=== PATIENT | female | born 1960 | race Caucasian/White ===

== ENCOUNTER 2022-05-23 16:55 | Outpatient (CLI) | payer BC, SELFPAY ==
--- NOTE | ~2022-05-23 | MM_ITS ---
EXAMINATION: MM screening [facility] BI w kamari HISTORY: Screening mammogram TECHNIQUE: Craniocaudal and mediolateral oblique 3-D tomosynthesis images were obtained and synthetic 2-D images were generated. CAD analysis was submitted and interpreted. COMPARISON: 02/09/2021, 02/09/2020, 01/21/2019 BREAST PARENCHYMAL COMPOSITION: The breasts are heterogeneously dense, which may obscure small masses . FINDINGS: There is stable architectural distortion in the upper outer quadrant of the left breast at the site of prior excisional biopsy. No suspicious mass, calcification, or architectural distortion a re identified in either breast to suggest malignancy. There has been no suspicious interval change. IMPRESSION: 1. No mammographic evidence of malignancy. 2. Recommend routine screening mammography in one year. BI-RADS Category 2: Benign finding(s). Reviewed, dictated and finalized at location A.
--- NOTE | ~2022-05-23 | DEXA_ITS ---
Bone Density Report Name: EMILY ABARCA Age: 61 Sex: Female Ethnicity: White Date of : 1960 Indication: postmenopausal; screening for osteoporosis; height loss; Referring Provider: SHIMA MAURO Study: Bone densitometry was performed. Exam Date: May 23, 2022 Accession number: [id number] Bone Density: Region BMD T-score Z-score Classification AP Spine(L1-L4) 0.845 -1.8 -0.3 Osteopenia Femoral Neck (Left) 0.607 -2.2 -0.8 Osteopenia Total Hip (Left) 0.746 -1.6 -0.6 Osteopenia Femoral Neck (Right) 0.641 -1.9 -0.5 Osteopenia Total Hip (Right) 0.775 -1.4 -0.3 Osteopenia Total Hip Mean 0.761 -1.5 -0.5 Osteopenia World Health Organization criteria for BMD impression classify patients as: Normal (T-score at or above -1.0), Osteopenia (T-score between -1.0 and -2.5), or Osteoporosis (T-score at or below -2.5). 10-year Fracture Risk(1): Major Osteoporotic Fracture 9.7% Hip Fracture 1.5% Reported Risk Factors: [place] (), Neck BMD=0.607, BMI=21.5 (1) FRAX(R) Version 3.08. Fracture probability calculated for an untreated patient. Fracture probability may be lower if the patient has received treatment. Clinical Information Provided by Patient: Has used the following medications: Vitamin D, Calcium Patient maximum height was 66 Menopause Age: 51 Drinks caffeinated beverages Onset of menses at age 13 Number of children 1 Impression: The patient has low bone mass, based on the Left Femoral Neck T-score. The patient has an estimated ten-year risk of hip fracture of 1.5% and an estimated ten-year risk of major fracture of 9.7%, based on the WHO FRAX algorithm. Discussion: BONE DENSITY IS LOW AT ONE OR MORE SKELETAL SITES. This patient's lowest T-score is low at one or more skeletal sites. It meets the World Health Organization's (WHO) criteria for ?low bone mass? (T-score between -1.0 and -2.5). The patient's 10-year risk of fracture as calculated by FRAX is less than the threshold where pharmacological therapy is recommended by the National Osteoporosis Foundation (NOF). However, all treatment decisions require clinical judgment and consideration of individual patient factors, including patient preferences, comorbidities, previous drug use, risk factors not captured in the FRAX model (e.g., frailty, falls, vitamin D deficiency, increased bone turnover, interval significant decline in bone density) and possible under or overestimation of fracture risk by FRAX. The patient should follow a healthful lifestyle (good nutrition with adequate calcium and vitamin D, and appropriate weight-bearing exercise). Follow-Up: Consider repeating this study in 2 to 3 years to reassess this patient's status, or sooner if there is some new clinical indication. Reported by: [facility] on
== END 2022-05-23 16:56 | disposition home or self-care (01) ==
PROVIDERS: PCP Family Medicine; Visit Provider Family Medicine
DX: Z12.31 Encounter for screening mammogram for malignant neoplasm of breast (principal); Z78.0 Asymptomatic menopausal state; M85.89 Other specified disorders of bone density and structure, multiple sites
CPT/HCPCS: 77063; 77067; 77080

== ENCOUNTER → 2022-10-04 14:07 | Outpatient (CLI) | payer BC, SELFPAY ==
--- NOTE | ~2022-10-04 | XR_ITS ---
XR shoulder RT min 2V 10/04/2022 14:18 Indication: Right shoulder pain Procedure: 4 views right shoulder Comparison: No prior studies for comparison. Findings: No fracture, subluxation or dislocation. There is anatomic alignment. No significant soft t issue abnormality. No foreign body. Impression: 1: No acute bone or joint abnormality. Reviewed, dictated and finalized at location A. ING TABLE OPERATOR FIRST Impression: 1: No acute bone or joint abnormality.
== END ==
PROVIDERS: PCP Family Medicine; Visit Provider Family Medicine
DX: M25.511 Pain in right shoulder (principal)
CPT/HCPCS: 73030

== ENCOUNTER 2022-12-11 08:28 | Outpatient (CLI) | payer BC, SELFPAY ==
[2022-12-11 18:45] LABS: Alanine Aminotransferase 20 U/L (6-35); Albumin Level 4.3 g/dL (3.5-5.1); Alkaline Phosphatase 70 U/L (38-126); Anion Gap 5 mmol/L (8-16); Aspartate Amino Transferase 71 U/L (14-36); Bilirubin,Total 0.8 mg/dL (0.2-1.3); Blood Urea Nitrogen 21 mg/dL (7-17); Calcium 8.8 mg/dL (8.4-10.2); Carbon Dioxide 31 mmol/L (22-30); Chloride 102 mmol/L (98-107); Cholesterol 187 mg/dL (0-200); Estimated Glomerular Filt Rate > 60; Glucose 74 mg/dL (65-110); HDL Direct 92 mg/dL; Potassium 3.9 mmol/L (3.4-5.0); Sodium 138 mmol/L (137-145); Triglycerides 47 mg/dL (<150)
[2022-12-11 18:56] LABS: LDL Cholesterol Direct 64 mg/dL
[2022-12-11 19:02] LABS: Basophils Absolute Auto 0.1 K/mm3 (0.0-0.1); Eosinophils Absolute Auto 0.1 K/mm3 (0-0.3); Eosinophils Percent Auto 1.9 % (0-4.4); Hematocrit 39.2 % (37.0-47.0); Hemoglobin 12.6 g/dL (12.0-15.0); Immature Granulocyte Absolute 0.01 K/mm3 (0.00-0.031); Immature Granulocyte Percent A 0.2 % (0-0.5); Lymphocytes Absolute Auto 1.41 K/mm3 (0.9-3.2); Mean Corpuscular HGB Conc 32.1 g/dl (32-36); Mean Corpuscular Hemoglobin 31.5 pg (26-34); Mean Platelet Volume 10.5 fl (7.4-10.4); Monocytes Absolute Auto 0.4 K/mm3 (0.1-0.6); Monocytes Percent Auto 7.8 % (2.6-8.5); Neutrophils Absolute Auto 2.9 K/mm3 (1.3-6.7); Neutrophils Percent Auto 60.1 % (45.5-73.1); Platelet Count Result 234 k/mm3 (150-375); Red Cell Distribution Width 13.3 % (11.5-14.5); White Blood Count 4.9 K/mm3 (4.5-10.0)
[2022-12-11 19:08] LABS: Free T4 Free Thyroxine 0.95 ng/mL (0.78-2.19); Vitamin D 25 Hydroxy 84.7 ng/mL
[2022-12-11 19:36] LABS: Hemoglobin A1C 5.2 % (<5.7)
== END 2022-12-11 08:29 | disposition home or self-care (01) ==
LOC: ANHGOSHLAB 08:28
PROVIDERS: PCP Family Medicine; Visit Provider Family Medicine
DX: Z13.220 Encounter for screening for lipoid disorders (principal); R73.9 Hyperglycemia, unspecified; M85.80 Other specified disorders of bone density and structure, unspecified site; R53.83 Other fatigue
CPT/HCPCS: 36415; 80053; 80061; 82306; 83036; 84439; 84443; 85025

== ENCOUNTER 2023-02-23 14:25 | Outpatient (CLI) | payer BC, SELFPAY ==
[2023-02-23 18:43] LABS: Alanine Aminotransferase 18 U/L (6-35); Albumin Level 3.9 g/dL (3.5-5.1); Alkaline Phosphatase 68 U/L (38-126); Anion Gap 2 mmol/L (8-16); Aspartate Amino Transferase 31 U/L (14-36); Bilirubin,Total 0.4 mg/dL (0.2-1.3); Blood Urea Nitrogen 22 mg/dL (7-17); Calcium 9.3 mg/dL (8.4-10.2); Carbon Dioxide 34 mmol/L (22-30); Chloride 102 mmol/L (98-107); Estimated Glomerular Filt Rate > 60; Glucose 91 mg/dL (65-110); Potassium 3.9 mmol/L (3.4-5.0); Sodium 138 mmol/L (137-145)
== END 2023-02-23 14:26 | disposition home or self-care (01) ==
LOC: ANHGOSHLAB 14:26
PROVIDERS: PCP Family Medicine; Visit Provider Family Medicine
DX: R74.8 Abnormal levels of other serum enzymes (principal)
CPT/HCPCS: 36415; 80053

== ENCOUNTER 2023-06-13 15:25 | Outpatient (CLI) | payer BC, SELFPAY ==
--- NOTE | ~2023-06-13 | MM_ITS ---
EXAMINATION: MM screening [facility] BI w kamari HISTORY: Screening mammogram TECHNIQUE: Craniocaudal and mediolateral oblique 3-D tomosynthesis images were obtained and synthetic 2-D images were generated. Bilateral rotated lateral CC views. CAD analysis was submitted and interp reted. COMPARISON: 05/23/2022, 02/09/2021 bilateral screening mammogram examinations BREAST PARENCHYMAL COMPOSITION: The breasts are heterogeneously dense, which may obscure small masses . FINDINGS: Stable postoperative change on the left from reportedly benign prior open biopsy in 2013. T here is no evidence of suspicious mass, calcification, or architectural distortion to suggest maligna ncy in either breast. There has been no suspicious interval change. IMPRESSION: 1. No mammographic evidence of malignancy. 2. Recommend routine screening mammography in one year. BI-RADS Category 2: Benign finding(s). Reviewed, dictated and finalized at location A.
== END 2023-06-13 15:26 | disposition home or self-care (01) ==
LOC: ANHIMG 15:26
PROVIDERS: PCP Family Medicine; Visit Provider Family Medicine
DX: Z12.31 Encounter for screening mammogram for malignant neoplasm of breast (principal)
CPT/HCPCS: 77063; 77067

== ENCOUNTER 2023-12-20 08:24 | Outpatient (CLI) | payer BC, SELFPAY ==
[2023-12-20 19:09] LABS: Basophils Percent Auto 0.9 % (0.2-1.2); Eosinophils Absolute Auto 0.1 K/mm3 (0-0.3); Eosinophils Percent Auto 1.4 % (0-4.4); Hematocrit 40.9 % (37.0-47.0); Hemoglobin 13.4 g/dL (12.0-15.0); Immature Granulocyte Absolute 0.01 K/mm3 (0.00-0.031); Immature Granulocyte Percent A 0.2 % (0-0.5); Lymphocytes Percent Auto 29.5 % (18.3-44.2); Mean Corpuscular HGB Conc 32.8 g/dl (32-36); Mean Corpuscular Hemoglobin 31.8 pg (26-34); Mean Corpuscular Volume 96.9 fl (80-100); Mean Platelet Volume 10.6 fl (7.4-10.4); Monocytes Absolute Auto 0.4 K/mm3 (0.1-0.6); Monocytes Percent Auto 9.1 % (2.6-8.5); Neutrophils Absolute Auto 2.6 K/mm3 (1.3-6.7); Neutrophils Percent Auto 58.9 % (45.5-73.1); Platelet Count Result 251 k/mm3 (150-375); Red Blood Count 4.22 M/mm3 (4.2-5.4); Red Cell Distribution Width 12.2 % (11.5-14.5); White Blood Count 4.4 K/mm3 (4.5-10.0)
[2023-12-20 19:16] LABS: Alanine Aminotransferase 22 U/L (6-35); Albumin Level 4.3 g/dL (3.5-5.1); Alkaline Phosphatase 85 U/L (38-126); Anion Gap 5 mmol/L (4-12); Aspartate Amino Transferase 44 U/L (14-36); Bilirubin,Total 0.7 mg/dL (0.2-1.3); Blood Urea Nitrogen 23 mg/dL (7-17); Calcium 9.2 mg/dL (8.4-10.2); Carbon Dioxide 30 mmol/L (22-30); Chloride 103 mmol/L (98-107); Cholesterol 155 mg/dL (0-200); Estimated Glomerular Filt Rate > 60; Glucose 83 mg/dL (65-110); HDL Direct 80 mg/dL; Potassium 4.2 mmol/L (3.4-5.0); Sodium 138 mmol/L (137-145); Triglycerides 60 mg/dL (<150)
[2023-12-20 19:26] LABS: LDL Cholesterol Direct 70 mg/dL
[2023-12-20 20:17] LABS: Hemoglobin A1C 5.3 % (<5.7)
[2023-12-20 20:30] LABS: Free T4 Free Thyroxine 1.04 ng/mL (0.78-2.19)
[2023-12-20 20:57] LABS: Hepatitis C Virus Antibody Negative (Negative)
== END 2023-12-20 08:25 | disposition home or self-care (01) ==
LOC: ANHGOSHLAB 08:26
PROVIDERS: PCP Internal Medicine; Visit Provider Family Medicine
DX: R73.9 Hyperglycemia, unspecified (principal); R53.83 Other fatigue; M85.80 Other specified disorders of bone density and structure, unspecified site; Z11.59 Encounter for screening for other viral diseases; Z13.220 Encounter for screening for lipoid disorders
CPT/HCPCS: 36415; 80053; 80061; 82306; 83036; 84439; 84443; 85025; 86803

== ENCOUNTER 2024-03-27 01:13 | Day surgery (SDC) | payer BC, SELFPAY ==
[2024-03-07 10:06] VITALS: BMI 20.8
[2024-03-27 07:44] VITALS: BP 110/75; PULSE 86; RESP 16; TEMP 36; O2SAT 100; BMI 20.4
[2024-03-27] MEDS: LACTATED RINGERS 1,000 ML 150 ML IV CONT (07:53)
--- NOTE | 2024-03-27 08:28 | WPDANESEPPF ---
Anes - Initial Pre Proc Eval Procedure: Operation Date: 03/27/24 09:00 Proposed Procedures p Screening Colonoscopy - Mario Merritt MD Date/Time: 03/27/24 08:28 Surgeon: Mario Merritt MD Pre Op Diagnosis: neoplasm screening Patient Data Age: 63 Gender: F Height: 1.65 m Weight: 55.7 kg Last Vital Signs Temp 96.8 F L 03/27/24 07:44 Pulse 86 03/27/24 07:44 Resp 16 03/27/24 07:44 BP 110/75 03/27/24 07:44 Pulse Ox 100 03/27/24 07:44 O2 Del Method Room Air 03/27/24 07:44 Allergies Allergy/AdvReac Type Severity Reaction Status Date / Time No Known Drug Allergies Allergy Unknown Unknown Verified 03/27/24 07:42 Home Medications Medication Instructions Recorded Confirmed Type cholecalciferol (vitamin D3) 25 25 mcg PO DAILY 09/28/21 03/27/24 History mcg (1,000 unit) tablet bbrjqbbracyg-btvfajrk-mscktb tablet 1 tablet PO DAILY 09/28/21 03/27/24 History raloxifene 60 mg tablet 60 mg PO DAILY #90 tabs 09/13/23 03/27/24 Rx calcium citrate 250 mg 2 tablet PO DAILY 03/07/24 03/27/24 History calcium-vitamin D3 5 mcg (200 unit) tablet estradiol 0.01% (0.1 mg/gram) 1 appful vaginal 2XW 03/07/24 03/27/24 History vaginal cream (Estrace) Patient hx anesthesia problems: none Family hx anesthesia problems: none Results Review: All pre-operative results and documents have been reviewed as part of the pre-operative evaluation. [facility] Past Medical History Medical History Flat epithelial atypia (FEA) of breast Osteopenia Surgical History Surgical History History of breast lump/mass excision History of breast surgery (~01/16/14) Excisional Biopsy - Left Family History Family History Mother Depression Hypertension Family history of Alzheimer's disease Osteoporosis Father Hypertension Cerebrovascular accident Other Family history of cardiovascular disease Family history of malignant neoplasm Social History Social History Smoking status: Never smoker Alcohol intake: current Drinks per week: 4 Alcohol use details: GLASSES WINE Substance use: never Substance use type: does not use Do You Feel Safe in your Home?: Yes Lack of Transportation: No Lack of Food: Never True Current Housing: I Have Housing Concerned About Future Housing: No Difficulty Paying Gas/Electric Bills: No Difficulty Paying for Meds: No Currently Unemployed: No Education: Bachelor's Degree Difficulty w/ Childcare or Family Care: No Living arrangements: with family Spiritual care concerns: No Anes - Eval Final PreProcedure Day of Procedure 03/27/24 08:28 Patient weight: normal Heart: regular rate and rhythm Lungs: clear to auscultation Airway: Mallampati scale class II Neurological: alert and oriented Last oral intake: >/= 8 hours ASA classification: II Emergent: no Anesthetic plan: proceed Anesthesia type and monitoring: general GIVS and standard monitoring Results Review: All pre-operative results and documents have been reviewed as part of the pre-operative evaluation. Informed Consent: The patient's anesthetic plan and its attendant risks and benefits were discussed with the patient/family/POA. Questions were solicited and answers provided to the satisfaction of the patient/family/POA.
--- NOTE | 2024-03-27 08:32 | PM.HPGS ---
History of Present Illness History of Present Illness Consent: Risks, benefits, and alternatives have been discussed and questions answered. Patient agrees to proceed with procedure. Chief complaint: neoplasm screening Narrative: Claribel Ortiz is a 63 year old female here for screening colonoscopy, last one 2010 Review of Systems Review of Systems: All systems reviewed & are unremarkable except as noted in HPI and below PMFSH Past Medical History Medical History Flat epithelial atypia (FEA) of breast Osteopenia Surgical History Surgical History History of breast lump/mass excision History of breast surgery (~01/16/14) Excisional Biopsy - Left Family History Family History Mother Depression Hypertension Family history of Alzheimer's disease Osteoporosis Father Hypertension Cerebrovascular accident Other Family history of cardiovascular disease Family history of malignant neoplasm Social History Social History Smoking status: Never smoker Alcohol intake: current Drinks per week: 4 Alcohol use details: GLASSES WINE Substance use: never Substance use type: does not use Do You Feel Safe in your Home?: Yes Lack of Transportation: No Lack of Food: Never True Current Housing: I Have Housing Concerned About Future Housing: No Difficulty Paying Gas/Electric Bills: No Difficulty Paying for Meds: No Currently Unemployed: No Education: Bachelor's Degree Difficulty w/ Childcare or Family Care: No Living arrangements: with family Spiritual care concerns: No Meds Home Medications and Allergies Home Medications Medication Instructions Recorded Confirmed Type cholecalciferol (vitamin D3) 25 25 mcg PO DAILY 09/28/21 03/27/24 History mcg (1,000 unit) tablet fjmzzibsyekj-ymqpuinp-hhtdyr tablet 1 tablet PO DAILY 09/28/21 03/27/24 History raloxifene 60 mg tablet 60 mg PO DAILY #90 tabs 09/13/23 03/27/24 Rx calcium citrate 250 mg 2 tablet PO DAILY 03/07/24 03/27/24 History calcium-vitamin D3 5 mcg (200 unit) tablet estradiol 0.01% (0.1 mg/gram) 1 appful vaginal 2XW 03/07/24 03/27/24 History vaginal cream (Estrace) Allergies Allergy/AdvReac Type Severity Reaction Status Date / Time No Known Drug Allergies Allergy Unknown Unknown Verified 03/27/24 07:42 Vital Signs Vital Signs - 24 hr 03/27/24 07:44 Temperature 96.8 F L Pulse Rate 86 Respiratory Rate 16 Blood Pressure 110/75 Pulse Oximetry 100 Oxygen Delivery Room Air Exam Const: General: comfortable and no acute distress HENMT: Face/Nose/Sinus: Normal nares present Eyes: General: appearance normal, both eyes and all related structures Neck: Neck: no JVD Resp: Auscultation: clear to auscultation bilaterally Cardio: Rate: regular rate Rhythm: regular rhythm GI: Inspection: non-distended GI Palp: Yes Soft to palpation Skin: General skin exam: normal color Neuro: General: gait normal Speech: normal speech Extrem: General: normal to inspection Psych: Mental Status: mental status grossly normal Assessment and Plan Assessment and plan (1) Colon cancer screening: Code(s): Z12.11 - Encounter for screening for malignant neoplasm of colon Status: Acute Assessment and Plan: colonoscopy
[2024-03-27 08:56] VITALS: BP 96/60; PULSE 74; RESP 18; O2SAT 100
[2024-03-27 09:06] VITALS: BP 116/75; PULSE 73; RESP 16; O2SAT 100
[2024-03-27 09:16] VITALS: BP 127/83; PULSE 74; RESP 17; O2SAT 100
== END 2024-03-27 09:20 | disposition home or self-care (01) ==
PROVIDERS: PCP Family Medicine; Visit Provider Internal Medicine Gastroenterology
PROC: 0DJD8ZZ Inspection of Lower Intestinal Tract, Via Natural or Artificial Opening Endoscopic (ICD-10-PCS; CPT 45378; principal; 2024-03-27 09:00)
DX: Z12.11 Encounter for screening for malignant neoplasm of colon (principal); M85.89 Other specified disorders of bone density and structure, multiple sites; Z79.810 Long term (current) use of selective estrogen receptor modulators (SERMs); Z98.890 Other specified postprocedural states; Z80.9 Family history of malignant neoplasm, unspecified; Z82.49 Family history of ischemic heart disease and other diseases of the circulatory system
CPT/HCPCS: 45378; J2704; J7120

== ENCOUNTER 2024-06-26 08:32 | Outpatient (CLI) | payer BC, SELFPAY ==
--- NOTE | ~2024-06-26 | MM_ITS ---
EXAMINATION: MM screening [facility] BI w kamari HISTORY: Screening TECHNIQUE: Craniocaudal and mediolateral oblique 3-D tomosynthesis images were obtained and synthetic 2-D images were generated. CAD analysis was submitted and interpreted. COMPARISON: Comparison to multiple prior studies sequentially, with oldest reviewed study dated 11/2018. BREAST PARENCHYMAL COMPOSITION: Dense: The breasts are extremely dense, which lowers the sensitivity of mammography. FINDINGS: There is no evidence of suspicious mass, calcification, or architectural distortion to sugg est malignancy in either breast. There has been no suspicious interval change. IMPRESSION: 1. No mammographic evidence of malignancy. 2. Recommend routine screening mammography in one year. BI-RADS Category 1: Negative Reviewed, dictated and finalized at location B. MANAGER
== END 2024-06-26 08:33 | disposition home or self-care (01) ==
LOC: ANHIMG 08:36
PROVIDERS: PCP Family Medicine; Visit Provider Family Medicine
DX: Z12.31 Encounter for screening mammogram for malignant neoplasm of breast (principal)
CPT/HCPCS: 77063; 77067

== ENCOUNTER 2024-07-10 15:42 | Outpatient (CLI) | payer BC, SELFPAY ==
--- NOTE | ~2024-07-10 | XR_ITS ---
EXAMINATION: XR hip BI 2V w AP pelvis DATE: 07/10/2024 15:56 INDICATION: Bilateral hip pain. TECHNIQUE: An anteroposterior view of the pelvis and 2 views of each hip were obtained. COMPARISON: Right hip radiographs 09/19/2021 FINDINGS: Alignment is normal. No fracture. There is mild lumbar spondylosis. There is mild right hip osteoarthritis characterized by a tiny osteophyte. Left hip joint space is normal. IMPRESSION: 1. Mild right hip osteoarthritis. Reviewed, dictated and finalized at location A. ORATION SECRETARY
--- NOTE | ~2024-07-10 | XR_ITS ---
EXAMINATION: XR lumbar spine min 4V DATE: 07/10/2024 15:56 INDICATION: Low back pain. Bilateral hip pain. TECHNIQUE: 5 views of lumbar spine were obtained. COMPARISON: None. FINDINGS: There is 10 degrees scoliosis of lumbar spine. S1 is a transitional segment. There is 3 mm anterolisthesis of L4 on L5 and 5 mm anterolisthesis of L5 on S1. Vertebral body heights are normal. There is mildly decreased disc height at L3-L4, L4-L5, and L5-S1. There is multilevel facet joint ost eoarthritis, severe in lower lumbar spine. IMPRESSION: 1. Mild lumbar spondylosis. 2. Lumbar levoscoliosis. Reviewed, dictated and finalized at location A. STACKER
== END 2024-07-10 15:43 | disposition home or self-care (01) ==
LOC: GOSHIMG 15:43
PROVIDERS: PCP Family Medicine; Visit Provider Family Medicine
DX: M16.11 Unilateral primary osteoarthritis, right hip (principal); M43.06 Spondylolysis, lumbar region; M41.86 Other forms of scoliosis, lumbar region
CPT/HCPCS: 72110; 73521

== ENCOUNTER 2024-07-25 12:40 | Outpatient (CLI) | payer BC, SELFPAY ==
--- NOTE | ~2024-07-25 | DEXA_ITS ---
Bone Density Report Name: EMILY ABARCA Age: 64 Sex: Female Ethnicity: White Date of : 1960 Indication: osteopenia; parental hip fracture; Referring Provider: SHIMA MAURO Study: Bone densitometry was performed. Exam Date: July 25, 2024 Accession number: [id number] Bone Density: Region BMD T-score Z-score Classification AP Spine(L1-L4) 0.826 -2.0 -0.3 Osteopenia Femoral Neck (Left) 0.614 -2.1 -0.6 Osteopenia Total Hip (Left) 0.849 -0.8 0.4 Normal Femoral Neck (Right) 0.655 -1.7 -0.3 Osteopenia Total Hip (Right) 0.882 -0.5 0.7 Normal Total Hip Mean 0.865 -0.7 0.6 Normal World Health Organization criteria for BMD impression classify patients as: Normal (T-score at or above -1.0), Osteopenia (T-score between -1.0 and -2.5), or Osteoporosis (T-score at or below -2.5). 10-year Fracture Risk(1): Major Osteoporotic Fracture 18% Hip Fracture 1.6% Reported Risk Factors: [place] (), Neck BMD=0.614, BMI=20.9, parental fracture (1) FRAX(R) Version 3.08. Fracture probability calculated for an untreated patient. Fracture probability may be lower if the patient has received treatment. Previous Exams: Region Exam Age BMD T-score BMD Change BMD Change Date g/cm2 vs Baseline vs Previous AP Spine (L1-L4) 07/25/2024 64 0.826 -2.0 -0.018 (-2.2%) -0.018 (-2.2%) 05/23/2022 61 0.845 -1.8 Total Hip(Left) 07/25/2024 64 0.849 -0.8 0.103 (13.8%)* 0.103 (13.8%)* 05/23/2022 61 0.746 -1.6 Total Hip(Right) 07/25/2024 64 0.882 -0.5 0.107 (13.8%)* 0.107 (13.8%)* 05/23/2022 61 0.775 -1.4 *Denotes significance at 95% confidence level, LSC for AP Spine = 0.022 g/cm2, LSC for Total Hip = 0.027 g/cm2 Clinical Information Provided by Patient: Parent has had a hip fracture Has used the following medications: Vitamin D, Calcium Patient maximum height was 66 Menopause Age: 51 Drinks caffeinated beverages Onset of menses at age 13 Number of children 1 Impression: The patient has low bone mass, based on the Left Femoral Neck T-score. The patient has an estimated ten-year risk of hip fracture of 1.6% and an estimated ten-year risk of major fracture of 18%, based on the WHO FRAX algorithm. The patient has risk factors, including: parental hip fracture. No significant bone loss was observed. Discussion: BONE DENSITY IS LOW AT ONE OR MORE SKELETAL SITES. This patient's lowest T-score is low at one or more skeletal sites. It meets the World Health Organization's (WHO) criteria for ?low bone mass? (T-score between -1.0 and -2.5). The patient's 10-year risk of fracture as calculated by FRAX is less than the threshold where pharmacological therapy is recommended by the National Osteoporosis Foundation (NOF). However, all treatment decisions require clinical judgment and consideration of individual patient factors, including patient preferences, comorbidities, previous drug use, risk factors not captured in the FRAX model (e.g., frailty, falls, vitamin D deficiency, increased bone turnover, interval significant decline in bone density) and possible under or overestimation of fracture risk by FRAX. The patient should follow a healthful lifestyle (good nutrition with adequate calcium and vitamin D, and appropriate weight-bearing exercise). Follow-Up: Consider repeating this study in 2 to 3 years to reassess this patient's status, or sooner if there is some new clinical indication. Reported by: LEO on 07/25/2024 1:22:00 PM. Reviewed, dictated and finalized at location AMaged ASHTON
== END 2024-07-25 12:41 | disposition home or self-care (01) ==
PROVIDERS: PCP Family Medicine; Visit Provider Family Medicine
DX: M85.89 Other specified disorders of bone density and structure, multiple sites (principal)
CPT/HCPCS: 77080

== ENCOUNTER 2024-08-03 10:39 | Emergency (ER) | payer BC, SELFPAY ==
--- NOTE | ~2024-08-03 | XR_ITS ---
AP view of the pelvis and AP and lateral views of the left hip Clinical history: Pain COMPARISON: 07/10/2024 Findings: There is suspected subtle cortical step-off at the subcapital region of the left femoral ne ck, and a nondisplaced fracture is suspected. Proximal right femur intact. Remaining pelvic bones are intact.. Bilateral hip and SI joint spaces are preserved. Soft tissues are unremarkable. Impression: Suspected nondisplaced subcapital fracture of the proximal left femoral neck. Consider CT or MR to co nfirm/further evaluate. Reviewed, dictated and finalized at location . OPERATOR Impression: Suspected nondisplaced subcapital fracture of the proximal left femoral neck. C onsider CT or MR to confirm/further evaluate.
[2024-08-03 10:51] VITALS: BP 119/77; PULSE 89; RESP 16; TEMP 37.4; O2SAT 98
--- NOTE | 2024-08-03 11:15 | ED_ITS ---
HPI - Extremity Injury (Lower) General Chief Complaint: Extremity Injury, Lower Stated Complaint: L HIP INJURY Time Seen by Provider: 08/03/24 10:58 Source: patient, family () and RN notes reviewed Mode of arrival: wheelchair Limitations: no limitations History of Present Illness HPI Narrative: Patient presents today complaining of left lateral hip pain. She tripped on a stick while taking a walk and fell onto her left hip approximately 1 hour prior to arrival. She does report some tingling to the area. She was ambulatory after the fall, but after sitting in her car for the ride here, she was having more pain and needed a wheelchair to ambulate inside the building. Currently rates her pain 5/10. She had taken an Aleve prior to her walk. History of osteopenia Related Data Home Medications ?Medication ?Instructions ?Recorded ?Confirmed ?Last Taken ?Type cholecalciferol (vitamin D3) 25 25 mcg PO DAILY 09/28/21 07/10/24 Unknown History mcg (1,000 unit) tablet bgzcrbxjvgdu-wtdhnvnl-vdgrgj tablet 1 tablet PO DAILY 09/28/21 07/10/24 Unknown History calcium 250 mg (as 2 tablet PO DAILY 03/07/24 07/10/24 Unknown History citrate)-vitamin D3 5 mcg (200 unit) tablet Allergies Allergy/AdvReac Type Severity Reaction Status Date / Time No Known Drug Allergies Allergy Unknown Unknown Verified 08/03/24 10:50 Review of Systems Review of Systems: CONSTITUTIONAL: Denies body aches, fever, chills, or sweats. EYES: Denies visual changes, redness, or discharge. ENT: Denies rhinorrhea, congestion, sore throat, or otalgia. CARDIOVASCULAR: Denies chest pain, palpitations, or edema. RESPIRATORY: Denies cough or dyspnea. GASTROINTESTINAL: Denies abdominal pain, nausea, vomiting, or diarrhea. GENITOURINARY: Denies dysuria or hematuria. SKIN: Denies rash, itching, or wounds. MUSCULOSKELETAL: Denies back pain, or myalgia.+ left hip pain NEUROLOGIC: Denies headache, numbness, tingling, or weakness. PSYCH: Denies depression or anxiety. [facility] Past Medical History Medical History Flat epithelial atypia (FEA) of breast Osteopenia Surgical History Surgical History History of breast lump/mass excision History of breast surgery (~01/16/14) Excisional Biopsy - Left Family History Family History Mother Depression Hypertension Family history of Alzheimer's disease Osteoporosis Father Hypertension Cerebrovascular accident Other Family history of cardiovascular disease Family history of malignant neoplasm Social History Social History Smoking status: Never smoker Alcohol intake: current Drinks per week: 4 Alcohol use details: GLASSES WINE Substance use: never Substance use type: does not use Do You Feel Safe in your Home?: Yes Lack of Transportation: No Lack of Food: Never True Current Housing: I Have Housing Concerned About Future Housing: No Difficulty Paying Gas/Electric Bills: No Difficulty Paying for Meds: No Currently Unemployed: No Education: Bachelor's Degree Difficulty w/ Childcare or Family Care: No Living arrangements: with family Spiritual care concerns: No Comments At time of signature, I have reviewed and agree with nursing past medical, surgical, social and family history unless otherwise noted. Please see nursing chart for further information. There is no relevant family history pertinent to the presenting complaint Exam Narrative: GENERAL: Well-appearing, well-nourished, and in no acute distress. HEAD: Normocephalic, atraumatic. EYES: EOMI. No redness or drainage. Conjunctivae normal. ENT: Mucous membranes pink and moist. NECK: Normal AROM. CHEST: No respiratory distress. EXTREMITIES: Left hip: Mild tenderness about the lateral hip. No tenderness posteriorly or to the low back. No tenderness to the knee. No edema noted. Distal sensation intact. Capillary refill normal. Posterior tibial pulse normal. Pain in the groin area with flexion of the hip. SKIN: Warm, dry, no rash. Capillary refill normal. Normal skin turgor. NEURO: No focal deficits. Alert and oriented x3. PSYCH: Normal affect. No signs of depression or anxiety. Course Course Level of Care: Express Care Visit Vital Signs Vital signs: Vital Signs Temperature 99.3 F 08/03/24 10:51 Pulse Rate 89 08/03/24 10:51 Respiratory Rate 16 08/03/24 10:51 Blood Pressure 119/77 08/03/24 10:51 Pulse Oximetry 98 08/03/24 10:51 Temperature 99.3 F 08/03/24 10:51 Pulse Rate 89 08/03/24 10:51 Respiratory Rate 16 08/03/24 10:51 Blood Pressure 119/77 08/03/24 10:51 Pulse Oximetry 98 08/03/24 10:51 Reviewed MDM - Extremity Injury (Lower) MDM Narrative Medical decision making narrative: Patient's x-ray shows suspected nondisplaced fracture of the femoral neck and recommends additional imaging to evaluate. Patient given option to go to the ER for further evaluation or follow-up outpatient for additional imaging. Patient has declined ER transfer. Will order some crutches for nonweightbearing. She would like to follow-up with her orthopedist for further evaluation. She has seen Dr. Weathers in the past and would like to return to him. Differential Diagnosis Differential diagnosis: Likely fracture of hip and other (Hip contusion) Imaging Data Radiologist's impression: ITS Impressions Hip/Pelvis X-Ray 08/03/24 11:37 Impression: Suspected nondisplaced subcapital fracture of the proximal left femoral neck. Consider CT or MR to confirm/further evaluate. Critical Care Time Critical Care Time Critical Care Time: No Discharge Plan Discharge Clinical Impression: Injury of hip, left Qualifiers: Encounter type: initial encounter Qualified Code(s): S79.912A - Unspecified injury of left hip, initial encounter Patient Disposition: Home, Self-Care Condition: Stable Additional Instructions: Your xray shows a suspected fracture of your hip. You have declined ER transfer today for further evaluation. Please call your PCP or orthopedist tomorrow in hopes of scheduling an outpatient a CT scan. Use the crutches do not put any weight on your leg. Rest. Take pain medication as needed. Patient Language: Paraguayan Prescriptions: New hydrocodone-acetaminophen 5-325 mg tablet 1 tablet PO Q8H PRN (Reason: pain) Qty: 10 0RF No Action jvicbzwpegps-vlgrsqnp-yukftv Tablet 1 tablet PO DAILY cholecalciferol (vitamin D3) 25 mcg (1,000 unit) tablet 25 mcg PO DAILY calcium citrate-vitamin D3 [Citracal plus D] 250 mg-5 mcg (200 unit) Tablet 2 tablet PO DAILY estradiol [Estrace] 0.01 % (0.1 mg/gram) cream 1 appful vaginal 2XW Qty: 42.5 1RF raloxifene 60 mg tablet 60 mg PO DAILY Qty: 90 1RF Follow-up/Referrals: Puja Amaro DO [Primary Care Provider] - Roger Weathers MD [Physician] - Time of Disposition: 11:59
== END 2024-08-03 12:07 | disposition home or self-care (01) ==
PROVIDERS: Emergency Provider Nurse Practitioner; PCP Family Medicine
DX: S79.912A Unspecified injury of left hip, initial encounter (principal); W18.09XA Striking against other object with subsequent fall, initial encounter; M85.80 Other specified disorders of bone density and structure, unspecified site
CPT/HCPCS: 73502; 99213; G0463

== ENCOUNTER 2024-08-04 12:17 | Inpatient (IN) | payer BC, SELFPAY ==
[2024-08-04] VITALS (19 sets, daily range): BP systolic 103–124; BP diastolic 63–80; PULSE 88–105; RESP 16–18; TEMP 36.8–37.5; O2SAT 94–99; BMI 20.8
--- NOTE | ~2024-08-04 | XR_ITS ---
EXAMINATION: XR surgery orthopedic DATE: 08/05/2024 11:06 INDICATION: Right hip pinning TECHNIQUE: 3 fluoroscopic images of the left hip were obtained during procedure performed by Dr. Flaco guzman. Radiologist was not present for the imaging or procedure. The amount of fluoroscopy time used du ring this procedure was 0.7 minutes. COMPARISON: None. FINDINGS: Again seen is a minimally displaced subcapital fracture of the proximal left femur with mild superola teral impaction which is now fixed with a pair of cannulated lag screws. No new fractures identified. Left hip joint space is normal. IMPRESSION: 1. Lag screw fixation of a recently noted subcapital fracture of the proximal left femur which remain s in near-anatomic alignment. Reviewed, dictated and finalized at location A. TH ADMINISTRATION TEACHER IMPRESSION: 1. Lag screw fixation of a recently noted subcapital fracture of the proximal l eft femur which remains in near-anatomic alignment.
--- NOTE | ~2024-08-04 | XR_ITS ---
EXAMINATION: XR chest 1V portable DATE: 08/04/2024 15:02 INDICATION: Preoperative evaluation. Hip fracture. TECHNIQUE: frontal view of the chest was obtained. COMPARISON: None FINDINGS: Biapical pleural-parenchymal scarring. Additional mild streaky atelectasis at the right costophrenic angle. No other airspace opacities, pulmonary edema, pleural effusion or pneumothorax. The cardiomedi astinal silhouette is normal. IMPRESSION: 1. Mild biapical pleural-parenchymal scarring and mild atelectasis at the right costophrenic angle. Reviewed, dictated and finalized at location A. TIME
--- NOTE | ~2024-08-04 | CT_ITS ---
CT pelvis wo con Ordering provider: Papito Wynn APRN History: . pelvic pain . Comparison: August 03, 2024 Technique: CT pelvis without oral and IV contrast. . Automated exposure control and iterative recons truction technique were employed. The dose-length product was 152.76 mGy-cm. Findings: BONES: Undisplaced fracture is seen in the left femoral neck in the subcapital area. No other fractur es seen. Age appropriate degenerative changes of the visualized lower lumbar spine. The hip joint spa jr are well maintained. Cystic area seen in the right acetabulum suggestive of osteoarthritic change s. Mild bilateral sacroiliacs. SUPERFICIAL SOFT TISSUES: Normal. PELVIC ORGANS: The bladder is normal. VISUALIZED BOWEL AND MESENTERY: Normal. No free air or free fluid. No lymphadenopathy. RETROPERITONEUM: Normal. IMPRESSION: Fracture left femoral neck. No other definite significant abnormality seen Reviewed, dictated and finalized at location A. [employer] BANKING MANAGER
--- NOTE | 2024-08-04 13:06 | ED_ITS ---
HPI - Extremity Injury (Lower) General Chief Complaint: Extremity Injury, Lower Stated Complaint: Sent by for hip fracture Time Seen by Provider: 08/04/24 12:34 History of Present Illness HPI Narrative: 64 y/o female presents with left hip pain since yesterday. patient states she was going for a walk and slipped and fell on the trail. patient denies hitting head or LOC. patient went to express care and had an x-ray done. x-ray was concerned for a fracture and patient saw Dr. Escalante today. patient was sent to the ED for CT scan and ortho evaluation. patient denies any other symptoms. Onset (ago): day(s) (1) Injury: Left: hip Type of Injury: blunt Place: street/outdoors Related Data Home Medications ?Medication ?Instructions ?Recorded ?Confirmed ?Last Taken ?Type cholecalciferol (vitamin D3) 25 25 mcg PO DAILY 09/28/21 07/10/24 Unknown History mcg (1,000 unit) tablet gyszfkzbxtcs-nxpuopzq-othxma tablet 1 tablet PO DAILY 09/28/21 07/10/24 Unknown History calcium 250 mg (as 2 tablet PO DAILY 03/07/24 07/10/24 Unknown History citrate)-vitamin D3 5 mcg (200 unit) tablet Allergies Allergy/AdvReac Type Severity Reaction Status Date / Time No Known Drug Allergies Allergy Unknown Unknown Verified 08/04/24 12:18 Review of Systems 2 Review of Systems: All systems reviewed & are unremarkable except as noted in HPI and below Musculoskeletal: Musculoskeletal: Reports abnormal gait and Reports arthralgias (left hip) Integumentary/Breasts: Skin/Breast: Reports system reviewed and no additional complaints, except as docu Neurologic: Reports system reviewed and no additional complaints, except as documented [facility] Past Medical History Medical History Osteopenia Surgical History Surgical History History of benign breast biopsy Family History Family History Mother Depression Hypertension Family history of Alzheimer's disease Osteoporosis Father Hypertension Cerebrovascular accident Other Family history of cardiovascular disease Family history of malignant neoplasm Social History Social History Social History: Surrogate medical decision maker: Hany Ortiz, spouse. Code status: Full code. Smoking status: Never smoker Alcohol intake: current Drinks per week: 4 Alcohol use details: estimated 4 glasses of wine a week Substance use: never Substance use type: does not use Do You Feel Safe in your Home?: Yes Lack of Transportation: No Lack of Food: Never True Current Housing: I Have Housing Concerned About Future Housing: No Difficulty Paying Gas/Electric Bills: No Difficulty Paying for Meds: No Currently Unemployed: No Education: Bachelor's Degree Difficulty w/ Childcare or Family Care: No Additional living arrangements comments: Lives with spouse in [place]. Additional occupation/education comments: Retired. Spiritual care concerns: No Exam 2 Const: General: cooperative HENMT: Head: normal to inspection Eyes: General: appearance normal, both eyes and all related structures Neck: Neck: normal visual inspection Chest: Chest palpation & inspection: normal inspection of the chest Resp: Effort & Inspection: normal respiratory effort GI: GI Palp: No abdominal tenderness Back/Spine/Pelvis: Back: no CVA tenderness Pelvis: Other pelvic findings (tenderness to left lateral pelvic area) Skin: General skin exam: normal color Neuro: General: oriented to person, oriented to place and oriented to time Extrem: Left lower extremity: lower leg (decreased rom to left leg, increased pain with rom) Psych: Appearance: grossly normal Course Course Emergency Course: Spoke with with orthopedics who accepted the patient. patient accepted to the hospitalist by Alexus MCGEE. patient will be admitted to med/surg Consultations Consultation #1: Dr. Mcfarland Date: 08/04/24 Time: 14:13 Vital Signs Vital signs: Vital Signs Temperature 36.8 C 08/04/24 12:25 Pulse Rate 105 H 08/04/24 12:25 Respiratory Rate 16 08/04/24 12:25 Blood Pressure 116/74 08/04/24 12:25 Pulse Oximetry 98 08/04/24 12:25 Oxygen Delivery Room Air 08/04/24 12:25 Temperature 37.5 C 08/04/24 18:05 Pulse Rate 88 08/04/24 18:05 Respiratory Rate 18 08/04/24 18:05 Blood Pressure 109/69 08/04/24 18:05 Pulse Oximetry 97 08/04/24 18:05 Oxygen Delivery Room Air 08/04/24 12:25 MDM - Extremity Injury (Lower) MDM Narrative Medical decision making narrative: patient has femoral neck fracture. will admit the patient to hospital with ortho consult under hospitalist care Lab Data 08/04/24 13:01 08/04/24 13:01 Labs: Lab Results 08/04/24 Range/Units 13:01 WBC 9.3 (4.5-10.0) K/mm3 RBC 4.05 L (4.2-5.4) M/mm3 Hgb 12.3 (12.0-15.0) g/dL Hct 38.2 (37.0-47.0) % MCV 94.3 (80-100) fl MCH 30.4 (26-34) pg MCHC 32.2 (32-36) g/dl RDW 12.7 (11.5-14.5) % Plt Count 253 (150-375) k/mm3 MPV 9.7 (7.4-10.4) fl Immature Gran % (Auto) 0.4 (0-0.5) % Neut % (Auto) 80.0 H (45.5-73.1) % Lymph % (Auto) 11.8 L (18.3-44.2) % Johnston % (Auto) 6.2 (2.6-8.5) % Eos % (Auto) 1.2 (0-4.4) % Baso % (Auto) 0.4 (0.2-1.2) % Lymph # (Auto) 1.10 (0.9-3.2) K/mm3 Johnston # (Auto) 0.6 (0.1-0.6) K/mm3 Eos # (Auto) 0.1 (0-0.3) K/mm3 Baso # (Auto) 0.0 (0.0-0.1) K/mm3 Abs Immat Gran (auto) 0.04 H (0.00-0.031) K/mm3 Absolute Neuts (auto) 7.5 H (1.3-6.7) K/mm3 Absolute Nucleated RBC 0.000 (0.0-0.012) K/mm3 Nucleated RBC % 0.0 (0.0-0.2) % Sodium 137 (137-145) mmol/L Potassium 3.9 (3.4-5.0) mmol/L Chloride 103 (98-107) mmol/L Carbon Dioxide 28 (22-30) mmol/L Anion Gap 6 (4-12) mmol/L BUN 21 H (7-17) mg/dL Creatinine 0.60 L (0.7-1.0) mg/dL Estim Creat Clear Calc 72 ml/min Estimated GFR > 60 (59 - ) Glucose 103 (65-110) mg/dL Calcium 9.6 (8.4-10.2) mg/dL Magnesium 1.9 (1.6-2.3) mg/dL Total Bilirubin 0.7 (0.2-1.3) mg/dL AST 29 (14-36) U/L ALT 20 (6-35) U/L Alkaline Phosphatase 106 (38-126) U/L Total Protein 8.0 (6.3-8.2) g/dL Albumin 4.2 (3.5-5.1) g/dL Discharge Plan Discharge Clinical Impression: Fracture of femoral neck, left, closed, Fall on same level Patient Disposition: Acute Care Hospital Condition: Stable Time of Disposition: 14:14
[2024-08-04 13:11] LABS: Basophils Percent Auto 0.4 % (0.2-1.2); Eosinophils Absolute Auto 0.1 K/mm3 (0-0.3); Eosinophils Percent Auto 1.2 % (0-4.4); Hematocrit 38.2 % (37.0-47.0); Hemoglobin 12.3 g/dL (12.0-15.0); Immature Granulocyte Absolute 0.04 K/mm3 (0.00-0.031); Immature Granulocyte Percent A 0.4 % (0-0.5); Lymphocytes Percent Auto 11.8 % (18.3-44.2); Mean Corpuscular HGB Conc 32.2 g/dl (32-36); Mean Corpuscular Hemoglobin 30.4 pg (26-34); Mean Corpuscular Volume 94.3 fl (80-100); Mean Platelet Volume 9.7 fl (7.4-10.4); Monocytes Absolute Auto 0.6 K/mm3 (0.1-0.6); Monocytes Percent Auto 6.2 % (2.6-8.5); Neutrophils Absolute Auto 7.5 K/mm3 (1.3-6.7); Platelet Count Result 253 k/mm3 (150-375); Red Blood Count 4.05 M/mm3 (4.2-5.4); Red Cell Distribution Width 12.7 % (11.5-14.5); White Blood Count 9.3 K/mm3 (4.5-10.0)
--- NOTE | 2024-08-04 13:11 | PC.NURSE ---
Discussed pain medication with patient, patient requests to not get the medication yet and will let me know if the pain increases and she feels as though she needs pain medication
[2024-08-04 13:24] LABS: Alanine Aminotransferase 20 U/L (6-35); Albumin Level 4.2 g/dL (3.5-5.1); Alkaline Phosphatase 106 U/L (38-126); Anion Gap 6 mmol/L (4-12); Aspartate Amino Transferase 29 U/L (14-36); Bilirubin,Total 0.7 mg/dL (0.2-1.3); Blood Urea Nitrogen 21 mg/dL (7-17); Calcium 9.6 mg/dL (8.4-10.2); Carbon Dioxide 28 mmol/L (22-30); Chloride 103 mmol/L (98-107); Estimated CRCL calculation 72 ml/min; Estimated Glomerular Filt Rate > 60; Glucose 103 mg/dL (65-110); Magnesium 1.9 mg/dL (1.6-2.3); Potassium 3.9 mmol/L (3.4-5.0); Sodium 137 mmol/L (137-145)
--- NOTE | 2024-08-04 14:25 | P.HP_ITS ---
H&P: HPI History of Present Illness Date/Time: 08/04/24 15:00 Chief Complaint: Left hip fracture. Narrative: This is a very pleasant 64-year-old female with osteopenia who presented to the emergency department after she was found to have a left hip fracture. The patient provides the following history. She was seen at urgent care yesterday for evaluation of left hip pain after she accidentally tripped over a stick while going out for a walk. Radiographs at that time showed a suspected left hip fracture and she was referred to the ED today as her preferred orthopedic surgeon could not get her in to manage the fracture. Vital signs were stable on arrival to the emergency department and her lab were pretty unremarkable. Pelvic CT confirmed a subcapital left femoral neck fracture and she is being admitted in this setting for pain control and consultation with Dr. Mcfarland for repair. At the time my evaluation she is resting comfortably and the pain is manageable. She denies syncope, near syncope, exertional chest pain, pleuritic pain, shortness of breath, nausea, vomiting, diarrhea, and dysuria. No history of venous thromboembolism or cardiac disease. Review of Systems Review of Systems: 12 systems were reviewed and are negativ e except for as per HPI. [facility] Past Medical History Medical History (Updated 08/04/24 @ 20:41 by Lo Garcia PA-C) Flat epithelial atypia (FEA) of breast Osteopenia Surgical History Surgical History History of benign breast biopsy Family History Family History Mother Depression Hypertension Family history of Alzheimer's disease Osteoporosis Father Hypertension Cerebrovascular accident Other Family history of cardiovascular disease Family history of malignant neoplasm Social History Social History Social History: Surrogate medical decision maker: Hany Ortiz, spouse. Code status: Full code. Smoking status: Never smoker Alcohol intake: current Drinks per week: 4 Alcohol use details: estimated 4 glasses of wine a week Substance use: never Substance use type: does not use Do You Feel Safe in your Home?: Yes Lack of Transportation: No Lack of Food: Never True Current Housing: I Have Housing Concerned About Future Housing: No Difficulty Paying Gas/Electric Bills: No Difficulty Paying for Meds: No Currently Unemployed: No Education: Bachelor's Degree Difficulty w/ Childcare or Family Care: No Additional living arrangements comments: Lives with spouse in [place]. Additional occupation/education comments: Retired. Spiritual care concerns: No Meds Home Medications and Allergies Home Medications ?Medication ?Instructions ?Recorded ?Confirmed ?Type cholecalciferol (vitamin D3) 25 25 mcg PO DAILY 09/28/21 08/04/24 History mcg (1,000 unit) tablet ixwpghuvanrx-untmnctj-caklnv tablet 1 tablet PO DAILY 09/28/21 08/04/24 History calcium 250 mg (as 2 tablet PO DAILY 03/07/24 08/04/24 History citrate)-vitamin D3 5 mcg (200 unit) tablet estradiol 0.01% (0.1 mg/gram) 1 appful vaginal 2XW #42.5 grams 05/22/24 08/04/24 Rx vaginal cream (Estrace) raloxifene 60 mg tablet 60 mg PO DAILY #90 tabs 06/16/24 08/04/24 Rx hydrocodone 5 mg-acetaminophen 325 1 tablet PO Q8H PRN pain #10 tabs 08/03/24 08/04/24 Rx mg tablet Allergies Allergy/AdvReac Type Severity Reaction Status Date / Time No Known Drug Allergies Allergy Unknown Unknown Verified 08/04/24 12:18 Vital Signs Vital Signs - 24 hr 08/04/24 12:25 08/04/24 13:01 08/04/24 13:02 Temperature 98.2 F Pulse Rate 105 H 99 Respiratory Rate 16 Blood Pressure 116/74 112/80 Pulse Oximetry 98 94 99 Oxygen Delivery Room Air Exam Narrative: General: Well-developed, nontoxic-appearing female sitting up in bed in no acute distress. Weight: 56.8 kg. BMI: 20.8. HEENT: PERRL, EOMI. Sclera anicteric. Oral mucosa moist. Neck: Supple. Respiratory: Lungs are clear to auscultation bilaterally. Cardiovascular: Regular rate and rhythm with S1-S2. Gastrointestinal: Abdomen is soft, nontender, and nondistended with positive bowel sounds. Skin: Warm and dry. No rash or lesions on limited exam. Extremities: No cyanosis, clubbing, or edema. Radial and pedal pulses intact. Musculoskeletal: Left leg is slightly shortened and externally rotated. Mild swelling over the left hip. Neurological: Alert. Cranial nerves 2-12 are grossly intact. No gross focal deficits to casual conversation. Psychiatric: Pleasant and cooperative with normal mood and affect. Judgment and insight intact. H&P: Results Labs Labs: Short CBC 08/04/24 Range/Units 13:01 WBC 9.3 (4.5-10.0) K/mm3 Hgb 12.3 (12.0-15.0) g/dL Hct 38.2 (37.0-47.0) % Plt Count 253 (150-375) k/mm3 BMP 08/04/24 13:01 Sodium 137 Potassium 3.9 Chloride 103 Carbon Dioxide 28 BUN 21 H Creatinine 0.60 L Glucose 103 Calcium 9.6 Liver Function 08/04/24 Range/Units 13:01 Total Bilirubin 0.7 (0.2-1.3) mg/dL AST 29 (14-36) U/L ALT 20 (6-35) U/L Alkaline Phosphatase 106 (38-126) U/L Albumin 4.2 (3.5-5.1) g/dL Imaging Pelvis CT 08/04/24 13:01 IMPRESSION: Fracture left femoral neck. Assessment and Plan Assessment and plan (1) Fracture of neck of left femur: Code(s): S72.002A - Fracture of unspecified part of neck of left femur, initial encounter for closed fracture Status: Acute (2) Osteopenia: Qualifiers: Osteopenia location: multiple sites Qualified Code(s): M85.89 - Other specified disorders of bone density and structure, multiple sites Code(s): M85.80 - Other specified disorders of bone density and structure, unspecified site Status: Acute Plan The patient presented to the emergency department for evaluation after she was found to have evidence of a left hip fracture as detailed in HPI. CT scan shows a nondisplaced left subcapital fracture. Dr. Mcfarland was consulted and the patient will be NPO after midnight for probable surgical repair tomorrow. Analgesics are available as needed. Vital signs were reviewed and they are stable. Preoperative EKG and chest x-ray are pending. Her home medications will be reviewed and resumed as appropriate. Findings and treatment plan were discu ssed with the patient and her . Questions were solicited and answered to satisfaction. The patient's medical management will be taken over by the hospitalist team in a.m. Quality VTE Prophylaxis VTE prophylaxis: mechanical ordered If No VTE Prophylaxis Answer both mechanical and pharmacologic: Reason no pharmacologic proph: medical contraindication (anticipate surgery tomorrow) Hospitalist MIPS Advance Care Plan I have confirmed that the patient's Advanced Care Plan is present, code status is documented, or surrogate decision maker is listed in patient medical record.: Yes Medication Reconciliation I have utilized all available resources to obtain, update and review the patients current medications (includes all prescriptions, OTC, herbals, cannabis, and nutritional supplements).: Yes
--- NOTE | 2024-08-04 14:35 | ECG_ITS ---
Test Date: 2024-08-04 14:59:53 Measurements Intervals Disney Rate: 89 P: 56 UT: 150 QRS: 53 QRSD: 73 T: 49 QT: 330 QTc: 404 Interpretive Statements SINUS RHYTHM POSSIBLE LEFT ATRIAL ENLARGEMENT [-0.1mV P WAVE IN V1/V2] No previous ECG available for comparison Electronically Signed On 08-04-2024 21:21:49 FACILITY WORKER by Lalo Vaughan M.D.
--- NOTE | 2024-08-04 15:24 | P.CONOP_ITS ---
Assessment and Plan Assessment and plan (1) Fracture of neck of left femur: Qualifiers: Encounter type: initial encounter Fracture type: closed Q ualified Code(s): S72.002A - Fracture of unspecified part of neck of left femur, initial encounter for closed fracture <REBEKAH Sosa - Last Filed: 08/04/24 15:57> Code(s): S72.002A - Fracture of unspecified part of neck of left femur, initial encounter for closed fracture <REBEKAH Sosa - Last Filed: 08/04/24 15:57> Status: Acute <REBEKAH Sosa - Last Filed: 08/04/24 15:57> Assessment and Plan: 64 year old female presented to the ED 1 day s/p fall onto the left hip while picking up a stick. She originally presented to the ED and underwent radiographs which revealed a possible left hip fracture. She was instructed to present to the ED but did not do so until today. She endorses having been NWB with a walker since evaluation in urgent care. CT scan today reveals a fracture left femoral neck. The fracture type and injury as well as radiographs discussed with the patient. Operative and nonoperative treatment options reviewed. The patient elects for operative treatment. Risk of nonunion, malunion or late displacement discussed. Stiffness, pain and possible dysfunction of the joint discussed. Fracture precautions and activity restrictions reviewed. Discussed CRPP Left Hip. Risks of surgery including but not limited to neurovascular damage, wound complications, blood clot, pulmonary embolus, stroke, myocardial infarction, anesthetic risks up to and including were reviewed. Continued pain and possible dysfunction were explained. No guarantees were offered. The patient understands and wishes to proceed. Plan: CRPP Left Hip by Dr. Bartolo TESFAYE at midnight. Diet in the interim per medicine. Pain control. Bedrest. SCDs. Incentive spirometry. Ice. <REBEKAH Sosa - Last Filed: 08/04/24 15:57> 64 year old female presented to the ED 1 day s/p fall onto the left hip when stepping on stick. She originally presented to the urgent care and underwent radiographs which revealed a possible left hip fracture. She was instructed to present to the ED but did not do so until today. She endorses having been NWB with a walker since evaluation in urgent care. CT scan today reveals a fracture left femoral neck. The fracture type and injury as well as radiographs discussed with the patient. Operative and nonoperative treatment options reviewed. The patient elects for operative treatment. Risk of nonunion, malunion or late displacement discussed. Stiffness, pain and possible dysfunction of the joint discussed. Fracture precautions and activity restrictions reviewed. Discussed CRPP Left Hip. Risks of surgery including but not limited to neurovascular damage, wound complications, blood clot, pulmonary embolus, stroke, myocardial infarction, anesthetic risks up to and including were reviewed. Continued pain and possible dysfunction were explained. No guarantees were offered. The patient understands and wishes to proceed. Plan: CRPP Left Hip by Dr. Mcfarland NPO at midnight. Diet in the interim per medicine. Pain control. Bedrest. SCDs. Incentive spirometry. Ice. <Johnnie Mcfarland MD - Last Filed: 08/04/24 16:07> (2) Osteopenia: Qualifiers: Osteopenia location: multiple sites Qualified Code(s): M 85.89 - Other specified disorders of bone density and structure, multiple sites <REBEKAH Sosa - Last Filed: 08/04/24 15:57> Code(s): M85.80 - Other specified disorders of bone density and structure, unspecified site <REBEKAH Sosa - Last Filed: 08/04/24 15:57> Status: Acute <REBEKAH Sosa - Last Filed: 08/04/24 15:57> Assessment and Plan: Reviewed history, exam, radiographs and current labs with attending MD and covering surgeon, Dr. Mcfarland, who agrees with current plan as indicated above. No further recommendations from Dr. Mcfarland at this time. <REBEKAH Sosa - Last Filed: 08/04/24 15:57> patient seen and examined in the emergency room. Left hip femoral neck fracture. Operative and non operative treatment options reviewed in detail. Questions answered. Plan to proceed with left hip pinning when operating room time available. Risks, benefits and alternatives of surgery discussed with the patient, questions answered. she would like to proceed. <Johnnie Mcfarland MD - Last Filed: 08/04/24 16:07> History of Present Illness HPI Consult date: 08/04/24 <REBEKAH Sosa - Last Filed: 08/04/24 15:57> 08/04/24 <Johnnie Mcfarland MD - Last Filed: 08/04/24 16:07> Requesting physician: Papito Wynn APRN <Johnnie Mcfarland MD - Last Filed: 08/04/24 16:07> Consult reason: fracture <REBEKAH Sosa - Last Filed: 08/04/24 15:57> Chief complaint: Left Hip Fracture <REBEKAH Sosa - Last Filed: 08/04/24 15:57> Narrative: 64 year old female presents today with complaints of left hip pain s/p fall yesterday morning while hiking. She initially was seen in the urgent care and radiographs at that time revealed a possible hip fracture. She contacted her orthopedist, Dr. Weathers, to be seen. He recommended patient report to the ED for further evaluation. CT scan in the ER reveals fracture left femoral neck. Orthopedic consult requested to Dr. Mcfarland by the ED. <REBEKAH Sosa - Last Filed: 08/04/24 15:57> 64 year old female presents today with complaints of left hip pain s/p fall yesterday morning while hiking. She initially was seen in the urgent care and radiographs at that time revealed a possible hip fracture. She contacted her orthopedist, Dr. Weathers, to be seen. He recommended patient report to the ED for further evaluation. CT scan in the ER reveals fracture left femoral neck. Orthopedic consult requested to Dr. Mcfarland by the ED. Complains of pain in the left groin and left hip. Denies loss of consciousness. Denies numbness or tingling. She did have some hip pain 6 weeks ago which was evaluated by radiographs at that time which showed mild right hip arthritis and lumbar spondylosis. No other prior complaints with the left hip. <Johnnie Mcfarland MD - Last Filed: 08/04/24 16:07> Review of Systems 2 Constitutional: Constitutional: Reports no additional constitutional complaints, Denies chills, Denies fatigue, Denies fever(s), Denies headache(s) and Denies weakness <ISRAEL SosaP - Last Filed: 08/04/24 15:57> Eyes: Eyes: Denies change in vision <ISRAEL SosaP - Last Filed: 08/04/24 15:57> ENT: Reports Normal hearing present and Denies headache(s) <Mary Ann Clay [facility] - Last Filed: 08/04/24 15:57> Cardiovascular: Cardiovascular: Denies chest pain and Denies dyspnea < Mary Ann Clay [facility] - Last Filed: 08/04/24 15:57> Respiratory: Respiratory: Denies cough, Denies dyspnea and Denies wheezing <Mary Ann Clay [facility] - Last Filed: 08/04/24 15:57> Gastrointestinal: Gastrointestinal: Denies constipation, Denies diarrhea, Denies nausea and Denies vomiting <Mary Ann Clay [facility] - Last Filed: 08/04/24 15:57> Genitourinary: Genitourinary: Denies hematuria and Denies dysuria <Mary Ann Clay [facility] - Last Filed: 08/04/24 15:57> Musculoskeletal: Musculoskeletal: Reports as per HPI, Denies numbness and Denies tingling <Mary Ann Clay [facility] - Last Filed: 08/04/24 15:57> Integumentary/Breasts: Skin/Breast: Reports as per HPI <Mary Ann Clay [facility] - Last Filed: 08/04/24 15:57> Neurologic: Reports as per HPI, Reports Normal hearing present, Denies headache(s), Denies numbness, Denies tingling and Denies weakness <Mary Ann Clay [facility] - Last Filed: 08/04/24 15:57> Psychiatric: Psychiatric: Reports no additional psychiatric complaints < Mary Ann Clay [facility] - Last Filed: 08/04/24 15:57> Endocrine: Endocrine: Reports no additional endocrine complaints and Denies fatigue <ISRAEL SosaP - Last Filed: 08/04/24 15:57> Hematologic/Lymphatic: Hematologic/Lymphatic: Reports no additional hematologic/lymphatic complaints <REBEKAH Sosa - Last Filed: 08/04/24 15:57> Allergic/Immunologic: Allergic/Immunologic: Reports no additional allergic/immunologic complaints and Denies wheezing <REBEKAH Sosa - Last Filed: 08/04/24 15:57> [facility] Past Medical History Medical History: Medical History Osteopenia <REBEKAH Sosa - Last Filed: 08/04/24 15:57> Surgical History Surgical History: Surgical History History of benign breast biopsy <REBEKAH Sosa - Last Filed: 08/04/24 15:57> Family History Family History: Family History Mother Depression Hypertension Family history of Alzheimer's disease Osteoporosis Father Hypertension Cerebrovascular accident Other Family history of cardiovascular disease Family history of malignant neoplasm <REBEKAH Sosa - Last Filed: 08/04/24 15:57> Social History Social History: Social History Social History: Surrogate medical decision maker: Hany Ortiz, spouse. Code status: Full code. Smoking status: Never smoker Alcohol intake: current Drinks per week: 4 Alcohol use details: estimated 4 glasses of wine a week Substance use: never Substance use type: does not use Do You Feel Safe in your Home?: Yes Lack of Transportation: No Lack of Food: Never True Current Housing: I Have Housing Concerned About Future Housing: No Difficulty Paying Gas/Electric Bills: No Difficulty Paying for Meds: No Currently Unemployed: No Education: Bachelor's Degree Difficulty w/ Childcare or Family Care: No Additional living arrangements comments: Lives with spouse in [place]. Additional occupation/education comments: Retired. Spiritual care concerns: No <REBEKAH Sosa - Last Filed: 08/04/24 15:57> Meds Home Medications and Allergies Home medications: Home Medications ?Medication ?Instructions ?Recorded ?Confirmed ?Type cholecalciferol (vitamin D3) 25 25 mcg PO DAILY 09/28/21 07/10/24 History mcg (1,000 unit) tablet amusbyjhafgm-xcvgegii-tqfbfm tablet 1 tablet PO DAILY 09/28/21 07/10/24 History calcium 250 mg (as 2 tablet PO DAILY 03/07/24 07/10/24 History citrate)-vitamin D3 5 mcg (200 unit) tablet estradiol 0.01% (0.1 mg/gram) 1 appful vaginal 2XW #42.5 grams 05/22/24 07/10/24 Rx vaginal cream (Estrace) raloxifene 60 mg tablet 60 mg PO DAILY #90 tabs 06/16/24 07/10/24 Rx hydrocodone 5 mg-acetaminophen 325 1 tablet PO Q8H PRN pain #10 tabs 08/03/24 Rx mg tablet <REBEKAH Sosa - Last Filed: 08/04/24 15:57> Allergies/Adverse reactions: Allergies Allergy/AdvReac Type Severity Reaction Status Date / Time No Known Drug Allergies Allergy Unknown Unknown Verified 08/04/24 12:18 <REBEKAH Sosa - Last Filed: 08/04/24 15:57> Vital Signs Vital Signs - 24 hr 08/04/24 12:25 08/04/24 13:01 08/04/24 13:02 Temperature 36.8 C Pulse Rate 105 H 99 Respiratory Rate 16 Blood Pressure 116/74 112/80 Pulse Oximetry 98 94 99 Oxygen Delivery Room Air 08/04/24 13:03 08/04/24 13:15 08/04/24 13:30 Temperature Pulse Rate Respiratory Rate Blood Pressure Pulse Oximetry 97 97 96 Oxygen Delivery 08/04/24 13:52 08/04/24 14:00 08/04/24 14:01 Temperature Pulse Rate Respiratory Rate Blood Pressure 120/64 Pulse Oximetry 98 98 98 Oxygen Delivery 08/04/24 14:15 08/04/24 14:30 08/04/24 14:45 Temperature Pulse Rate Respiratory Rate Blood Pressure Pulse Oximetry 96 98 98 Oxygen Delivery <REBEKAH Sosa - Last Filed: 08/04/24 15:57> Exam 2 Const: General: cooperative, comfortable and average body habitus <REBEKAH Sosa - Last Filed: 08/04/24 15:57> Nutritional Appearance: average body habitus <ISRAEL SosaP - Last Filed: 08/04/24 15:57> Orientation/consciousness: patient oriented x3 <Mary Ann Clay [facility] - Last Filed: 08/04/24 15:57> Limitations: no limitations <Mary Ann Clay [facility] - Last Filed: 08/04/24 15:57> HENMT: Head: normal to inspection and No palpable skull fracture present < Mary Ann Clay [facility] - Last Filed: 08/04/24 15:57> Ears: hearing grossly normal bilaterally and external ears normal <Mary Ann Clay [facility] - Last Filed: 08/04/24 15:57> Face/Nose/Sinus: Normal external nose present, Normal nares present, Normal nasal mucous membranes and turbinates present and normal facial exam <Mary Ann Clay [facility] - Last Filed: 08/04/24 15:57> Face and sinus: normal facial exam <Mary Ann Clay [facility] - Last Filed: 08/04/24 15:57> Mouth: Yes Normal oral and palatal mucosa present <Mary Ann Clay [facility] - Last Filed: 08/04/24 15:57> Teeth and gingiva: dentition normal <Mary Ann Clay [facility] - Last Filed: 08/04/24 15:57> Eyes: General: appearance normal, both eyes and all related structures < Mary Ann Clay [facility] - Last Filed: 08/04/24 15:57> Sclera: sclerae normal <Mary Ann Clay [facility] - Last Filed: 08/04/24 15:57> Pupils: Equal, round and reactive pupils present <Mary Ann Clay [facility] - Last Filed: 08/04/24 15:57> Neck: Neck: normal visual inspection and full ROM <ISRAEL SosaP - Last Filed: 08/04/24 15:57> Resp: Effort & Inspection: normal respiratory effort and able to speak in complete sentences <ISRAEL SosaP - Last Filed: 08/04/24 15:57> Cardio: Jugular venous distension: no JVD <ISRAEL SosaP - Last Filed: 08/04/24 15:57> Rate: regular rate <ISRAEL SosaP - Last Filed: 08/04/24 15:57> Rhythm: regular rhythm <ISRAEL SosaP - Last Filed: 08/04/24 15:57> GI: Inspection: normal to inspection <ISRAEL SosaP - Last Filed: 08/04/24 15:57> GI Palp: No abdominal tenderness <Mary Ann Clay [facility] - Last Filed: 08/04/24 15:57> Urinary Catheter: Urinary Catheter: patent and draining and urine clear < ISRAEL SosaP - Last Filed: 08/04/24 15:57> Back/Spine/Pelvis: Back: no CVA tenderness <ISRAEL SosaP - Last Filed: 08/04/24 15:57> Skin: General skin exam: normal color and no rashes or lesions noted < Mary Ann Clay [facility] - Last Filed: 08/04/24 15:57> Wounds: no wounds <ISRAEL SosaP - Last Filed: 08/04/24 15:57> Neuro: General: patient oriented x3, No gait normal (NWB ), No moves all extremities and Unable to assess gait (bedrest ) <ISRAEL SosaP - Last Filed: 08/04/24 15:57> Cranial nerves: Yes Equal, round and reactive pupils present <ISRAEL SosaP - Last Filed: 08/04/24 15:57> Cognition (Neuro): normal cognition <ISRAEL SosaP - Last Filed: 08/04/24 15:57> Speech: normal speech <ISRAEL SosaP - Last Filed: 08/04/24 15:57> Gait exam (Neuro): Unable to assess gait (bedrest ) <ISRAEL SosaP - Last Filed: 08/04/24 15:57> Sensory Exam: normal sensation <ISRAEL SosaP - Last Filed: 08/04/24 15:57> Extrem: Right upper extremity: normal to inspection, full ROM and normal capillary refill <ISRAEL SosaP - Last Filed: 08/04/24 15:57> Left upper extremity: normal to inspection, full ROM and normal capillary refill <Mary Ann Clay [facility] - Last Filed: 08/04/24 15:57> Right lower extremity: normal to inspection, full ROM, normal capillary refill, hip/thigh Details: normal to inspection and normal ROM; no tenderness and no swelling and knee Details: normal to inspection and normal ROM; no tenderness and no swelling <Mary Ann Clay [facility] - Last Filed: 08/04/24 15:57> Left lower extremity: hip/thigh Details: abnormal to inspection Details: foreshortened and externally rotated, tenderness Location: of the hip Location: laterally, anteromedially and over the great trochanter, swelling Location: of the hip and of the proximal upper leg and abnormal ROM ( Limited due to fracture); ROM abnormal ( Range of motion strength testing deferred due to fracture.), ankle ( positive ankle dorsiflexion /plantar flexion) Details: normal to inspection and no edema; no tenderness and no swelling and foot Details: normal capillary refill, vascular exam Details: dorsalis pedis pulse present and motor-sensory exam light-touch normal <Mary Ann Clay [facility] - Last Filed: 08/04/24 15:57> Results Labs Result Diagrams: 08/04/24 13:01 08/04/24 13:01 <Mary Ann Clay [facility] - Last Filed: 08/04/24 15:57> Labs: Abnormal lab results 08/04/24 Range/Units 13:01 RBC 4.05 L (4.2-5.4) M/mm3 Neut % (Auto) 80.0 H (45.5-73.1) % Lymph % (Auto) 11.8 L (18.3-44.2) % Abs Immat Gran (auto) 0.04 H (0.00-0.031) K/mm3 Absolute Neuts (auto) 7.5 H (1.3-6.7) K/mm3 BUN 21 H (7-17) mg/dL Creatinine 0.60 L (0.7-1.0) mg/dL H & H 08/04/24 Range/Units 13:01 Hgb 12.3 (12.0-15.0) g/dL Hct 38.2 (37.0-47.0) % All other labs normal. <REBEKAH Sosa - Last Filed: 08/04/24 15:57> Diagnostic results Hip x-ray: image reviewed ( Left femoral neck fracture) <Johnnie Mcfarland MD - Last Filed: 08/04/24 16:07> Hip CT: image reviewed ( fracture of the left femoral neck) <Johnnie Mcfarland MD - Last Filed: 08/04/24 16:07>
[2024-08-04] MEDS: HYDROcodone/acetaminophen (*CRX) 5-325 MG TABLET 1 TAB PO (23:35)
[2024-08-05] VITALS (15 sets, daily range): BP systolic 98–133; BP diastolic 65–82; PULSE 74–100; RESP 12–20; TEMP 35.9–37.5; O2SAT 94–100
[2024-08-05 06:02] LABS: Basophils Percent Auto 0.6 % (0.2-1.2); Eosinophils Absolute Auto 0.3 K/mm3 (0-0.3); Eosinophils Percent Auto 4.1 % (0-4.4); Hematocrit 37.1 % (37.0-47.0); Hemoglobin 11.9 g/dL (12.0-15.0); Immature Granulocyte Absolute 0.02 K/mm3 (0.00-0.031); Immature Granulocyte Percent A 0.3 % (0-0.5); Lymphocytes Absolute Auto 1.22 K/mm3 (0.9-3.2); Lymphocytes Percent Auto 18.6 % (18.3-44.2); Mean Corpuscular HGB Conc 32.1 g/dl (32-36); Mean Corpuscular Hemoglobin 30.4 pg (26-34); Mean Corpuscular Volume 94.9 fl (80-100); Mean Platelet Volume 9.7 fl (7.4-10.4); Monocytes Absolute Auto 0.5 K/mm3 (0.1-0.6); Monocytes Percent Auto 8.2 % (2.6-8.5); Neutrophils Absolute Auto 4.5 K/mm3 (1.3-6.7); Neutrophils Percent Auto 68.2 % (45.5-73.1); Platelet Count Result 241 k/mm3 (150-375); Red Blood Count 3.91 M/mm3 (4.2-5.4); Red Cell Distribution Width 13.1 % (11.5-14.5); White Blood Count 6.6 K/mm3 (4.5-10.0)
[2024-08-05 06:21] LABS: Anion Gap 4 mmol/L (4-12); Blood Urea Nitrogen 22 mg/dL (7-17); Calcium 8.9 mg/dL (8.4-10.2); Carbon Dioxide 29 mmol/L (22-30); Chloride 105 mmol/L (98-107); Estimated CRCL calculation 72 ml/min; Estimated Glomerular Filt Rate > 60; Glucose 87 mg/dL (65-110); Magnesium 1.9 mg/dL (1.6-2.3); Sodium 138 mmol/L (137-145)
--- NOTE | 2024-08-05 08:59 | WPDHPUPDATE1 ---
History and Physical Update Update Date/Time: 08/05/24 08:59 History and Physical has been reviewed, including an updated exam of the patient. There are NO changes in the patient's condition. Risks, benefits, and alternatives have been discussed and questions answered. Patient agrees to proceed with procedure.
[2024-08-05] MEDS: LACTATED RINGERS 1,000 ML 30 ML IV CONT ×2 (09:25→11:09)
--- NOTE | 2024-08-05 09:28 | P.PNAN_ITS ---
Anes - Initial Pre Proc Eval Procedure: Operation Date: 08/05/24 10:30 Proposed Procedures p Left Hip Pinning - Johnnie Mcfarland MD Date/Time: 08/05/24 09:28 Surgeon: Moreno Cisneros MD Pre Op Diagnosis: LEFT FEMORAL HIP FRACTURE Patient Data Age: 64 Gender: F Height: 1.65 m Weight: 59.6 kg Last Vital Signs Temp 36.4 C 08/05/24 06:02 Pulse 88 08/05/24 06:02 Resp 18 08/05/24 06:02 BP 116/74 08/05/24 06:02 Pulse Ox 96 08/05/24 08:00 O2 Del Method Room Air 08/05/24 08:00 Allergies Allergy/AdvReac Type Severity Reaction Status Date / Time No Known Drug Allergies Allergy Unknown Unknown Verified 08/04/24 12:18 Home Medications ?Medication ?Instructions ?Recorded ?Confirmed ?Type cholecalciferol (vitamin D3) 25 25 mcg PO DAILY 09/28/21 08/04/24 History mcg (1,000 unit) tablet vvnqhoaycpqh-xlnarmeg-gghraq tablet 1 tablet PO DAILY 09/28/21 08/04/24 History calcium 250 mg (as 2 tablet PO DAILY 03/07/24 08/04/24 History citrate)-vitamin D3 5 mcg (200 unit) tablet estradiol 0.01% (0.1 mg/gram) 1 appful vaginal 2XW #42.5 grams 05/22/24 08/04/24 Rx vaginal cream (Estrace) raloxifene 60 mg tablet 60 mg PO DAILY #90 tabs 06/16/24 08/04/24 Rx hydrocodone 5 mg-acetaminophen 325 1 tablet PO Q8H PRN pain #10 tabs 08/03/24 08/04/24 Rx mg tablet Laboratory Tests 08/04/24 08/05/24 13:01 05:33 WBC 9.3 K/mm3 6.6 K/mm3 (4.5-10.0) (4.5-10.0) RBC 4.05 L M/mm3 3.91 L M/mm3 (4.2-5.4) (4.2-5.4) Hgb 12.3 g/dL 11.9 L g/dL (12.0-15.0) (12.0-15.0) Hct 38.2 % 37.1 % (37.0-47.0) (37.0-47.0) MCV 94.3 fl 94.9 fl (80-100) (80-100) MCH 30.4 pg 30.4 pg (26-34) (26-34) MCHC 32.2 g/dl 32.1 g/dl (32-36) (32-36) RDW 12.7 % 13.1 % (11.5-14.5) (11.5-14.5) Plt Count 253 k/mm3 241 k/mm3 (150-375) (150-375) MPV 9.7 fl 9.7 fl (7.4-10.4) (7.4-10.4) Immature Gran % (Auto) 0.4 % 0.3 % (0-0.5) (0-0.5) Neut % (Auto) 80.0 H % 68.2 % (45.5-73.1) (45.5-73.1) Lymph % (Auto) 11.8 L % 18.6 % (18.3-44.2) (18.3-44.2) Door % (Auto) 6.2 % 8.2 % (2.6-8.5) (2.6-8.5) Eos % (Auto) 1.2 % 4.1 % (0-4.4) (0-4.4) Baso % (Auto) 0.4 % 0.6 % (0.2-1.2) (0.2-1.2) Lymph # (Auto) 1.10 K/mm3 1.22 K/mm3 (0.9-3.2) (0.9-3.2) Door # (Auto) 0.6 K/mm3 0.5 K/mm3 (0.1-0.6) (0.1-0.6) Eos # (Auto) 0.1 K/mm3 0.3 K/mm3 (0-0.3) (0-0.3) Baso # (Auto) 0.0 K/mm3 0.0 K/mm3 (0.0-0.1) (0.0-0.1) Abs Immat Gran (auto) 0.04 H K/mm3 0.02 K/mm3 (0.00-0.031) (0.00-0.031) Absolute Neuts (auto) 7.5 H K/mm3 4.5 K/mm3 (1.3-6.7) (1.3-6.7) Absolute Nucleated RBC 0.000 K/mm3 0.000 K/mm3 (0.0-0.012) (0.0-0.012) Nucleated RBC % 0.0 % 0.0 % (0.0-0.2) (0.0-0.2) Sodium 137 mmol/L 138 mmol/L (137-145) (137-145) Potassium 3.9 mmol/L 4.0 mmol/L (3.4-5.0) (3.4-5.0) Chloride 103 mmol/L 105 mmol/L (98-107) (98-107) Carbon Dioxide 28 mmol/L 29 mmol/L (22-30) (22-30) Anion Gap 6 mmol/L 4 mmol/L (4-12) (4-12) BUN 21 H mg/dL 22 H mg/dL (7-17) (7-17) Creatinine 0.60 L mg/dL 0.60 L mg/dL (0.7-1.0) (0.7-1.0) Estim Creat Clear Calc 72 ml/min 72 ml/min Estimated GFR > 60 > 60 (59 - ) (59 - ) Glucose 103 mg/dL 87 mg/dL (65-110) (65-110) Calcium 9.6 mg/dL 8.9 mg/dL (8.4-10.2) (8.4-10.2) Magnesium 1.9 mg/dL 1.9 mg/dL (1.6-2.3) (1.6-2.3) Total Bilirubin 0.7 mg/dL (0.2-1.3) AST 29 U/L (14-36) ALT 20 U/L (6-35) Alkaline Phosphatase 106 U/L (38-126) Total Protein 8.0 g/dL (6.3-8.2) Albumin 4.2 g/dL (3.5-5.1) Patient hx anesthesia problems: none Family hx anesthesia problems: none Results Review: All pre-operative results and documents have been reviewed as part of the pre- operative evaluation. [facility] Past Medical History Medical History Flat epithelial atypia (FEA) of breast Osteopenia Surgical History Surgical History History of benign breast biopsy Family History Family History Mother Depression Hypertension Family history of Alzheimer's disease Osteoporosis Father Hypertension Cerebrovascular accident Other Family history of cardiovascular disease Family history of malignant neoplasm Social History Social History Social History: Surrogate medical decision maker: Hany Ortiz, spouse. Code status: Full code. Smoking status: Never smoker Alcohol intake: current Drinks per week: 4 Alcohol use details: estimated 4 glasses of wine a week Substance use: never Substance use type: does not use Do You Feel Safe in your Home?: Yes Lack of Transportation: No Lack of Food: Never True Current Housing: I Have Housing Concerned About Future Housing: No Difficulty Paying Gas/Electric Bills: No Difficulty Paying for Meds: No Currently Unemployed: No Education: Bachelor's Degree Difficulty w/ Childcare or Family Care: No Additional living arrangements comments: Lives with spouse in [place]. Additional occupation/education comments: Retired. Spiritual care concerns: No Anes - Eval Final PreProcedure Day of Procedure 08/05/24 09:28 Patient weight: normal Heart: regular rate and rhythm Lungs: clear to auscultation Airway: Mallampati scale class II Neurological: alert and oriented Last oral intake: >/= 8 hours ASA classification: III Emergent: no Anesthetic plan: proceed Anesthesia type and monitoring: general LMA and standard monitoring Results Review: All pre-operative results and documents have been reviewed as part of the pre- operative evaluation. Informed Consent: The patient's anesthetic plan and its attendant risks and benefits were discussed with the patient/family/POA. Questions were solicited and answers provided to the satisfaction of the patient/family/POA.
[2024-08-05] MEDS: ACETAMINOPHEN 500 MG TABLET 1000 MG PO (09:40)
[2024-08-05] MEDS: KETOROLAC 15 MG/ML VIAL (*BKC) IV PUSH (09:41)
[2024-08-05] MEDS: TRANEXAMIC ACID 1,000MG/ISO100 1,000 MG/100 ML BAG 200 MG IVPB (09:54)
[2024-08-05] MEDS: BUPIVACAINE/EPINEPHRINE 0.5% 50 ML VIAL 10 ML INFILTRATE (10:00)
[2024-08-05] MEDS: ceFAZolin 2 GM/D5W 50 ML 2 GM/50 ML BAG IVPB ×2 (10:10→17:00)
--- NOTE | 2024-08-05 11:18 | P.OP_ITS ---
Procedure Note - Detailed Date of Procedure 08/05/24 Pre-op Diagnosis LEFT FEMORAL HIP FRACTURE Post-op Diagnosis Same Procedure Performed Left hip pinning Surgeon Johnnie Mcfarland MD Operational Risk Consultant 1st assisted living assistant Anesthesia General Indications 64-year-old with osteopenia who fell sustained left hip femoral neck fracture. She desires operative treatment. Description of Procedure Informed consent signed. Extremity marked in preoperative holding area. Patient received intravenous antibiotics. Brought to operating room and underwent general anesthetic by the Anesthesia Team. Positioned supine on the fracture table. Left leg placed into longitudinal traction. Right leg extended out of field. Image intensification brought in and confirmed reduction of fracture. Left hip prepped and draped in usual sterile surgical fashion using C hloraPrep skin solution. Image intensification used to guide the starting position and a longitudinal incision made with 10 blade knife over the lateral proximal femur. Blunt dissection carried down to the lateral femur. Bleeding controlled with electrocautery. First guide pin placed in the inferior center position of the femoral neck and head. Confirmed with image intensification. One subsequent pin placed superior and anterior to the 1st pin to spread the fixation. Pins confirmed with image intensification. Length of screw measured, reaming performed. Appropriate size screw placed with good compression and fixation noted for both pins. Guide pins removed. Final image intensification confirmed reduction of fracture and placement of hardware with threads past the fracture line and no protrusion of the hip joint. Wound thoroughly irrigated with saline. Fascia repaired with 2 0 Vicryl interrupted sutures. Subcutaneous tissue repaired with 3 0 Monocryl interrupted suture. Skin approximated with 3 0 Monocryl running suture. Sterile dressing applied. Patient awoken from anesthesia, extubated and returned to recovery room in stable condition. All sponge needle and instrument counts correct at the end of the case. Implants Arthrex 6.7 mm screw x2 Estimated Blood Loss 5 Drains No Packing No Pathology None sent Complications None Condition Stable Disposition PACU [facility] Billing Surgery - Charge Forward: Surgery Billing ([id number])
--- NOTE | 2024-08-05 11:23 | P.PNIM_ITS ---
Progress Note: A&P Assessment and Plan (1) Fracture of neck of left femur: Qualifiers: Encounter type: initial encounter Fracture type: closed Qualified Code(s): S72.002A - Fracture of unspecified part of neck of left femur, initial encounter for closed fracture Code(s): S72.002A - Fracture of unspecified part of neck of left femur, initial encounter for closed fracture Status: Acute Assessment and Plan: * S/P IM nailing today * Continue pain control * Advance diet as tolerated * PT and OT ordered * Ortho following * Plan for discharge tomorrow (2) Osteopenia: Qualifiers: Osteopenia location: multiple sites Qualified Code(s): M85.89 - Other specified disorders of bone density and structure, multiple sites Code(s): M85.80 - Other specified disorders of bone density and structure, unspecified site Status: Acute Assessment and Plan: * continue calcium/vitamin D and ocuvite Time Spent With Patient Time with patient: 25 - 35 minutes Subjective Date/time seen: 08/05/24 11:23 Interval history: Interval history: This is a 64-year-old female with osteopenia who presented to the hospital on 08/04/2024 status post fall for evaluation of left hip pain. She was originally seen in the urgent care who did and x-ray which shown the left hip fracture and she was referred to the ED. Workup in the hospital included a hip and pelvis x- ray showed nondisplaced subcapital fracture of the proximal left femoral neck. Pelvis CT done yesterday showed a fracture of the left femoral neck no other abnormality seen. Chest x-ray showed mild atelectasis versus scarring. Initial labs showed a normal white blood cell count of 9.3, creatinine 0.60. Orthopedic surgery was consulted and took patient today for left hip pinning. Subjective: Patient denies any fever, chills, nausea, vomiting, diarrhea, abdominal pain, chest pain, or shortness of breath. Patient endorses mild hip discomfort after surgery however no other complaints. Labs and imaging reviewed. Review of Systems Review of Systems: All systems reviewed & are unremarkable except as noted in HPI and below Constitutional: Constitutional: Reports as per HPI and Reports no additional constitutional complaints Eyes: Eyes: Reports as per HPI and Reports no additional eye complaints ENT: Reports system reviewed and no additional complaints, except as documented and Reports as per HPI Cardiovascular: Cardiovascular: Reports as per HPI and Reports no additional cardiovascular complaints Respiratory: Respiratory: Reports as per HPI and Reports no additional respiratory complaints Gastrointestinal: Gastrointestinal: Reports as per HPI and Reports no additional gastrointestinal complaints Genitourinary: Genitourinary: Reports no additional female genitourinary complaints and Reports as per HPI Musculoskeletal: Musculoskeletal: Reports no additional musculoskeletal complaints and Reports as per HPI Integumentary/Breasts: Skin/Breast: Reports system reviewed and no additional complaints, except as docu and Reports as per HPI Neurologic: Reports system reviewed and no additional complaints, except as documented and Reports as per HPI Psychiatric: Psychiatric: Reports no additional psychiatric complaints and Reports as per HPI Exam Narrative: General: In no acute distress, well nourished Head: atraumatic, no encephalopathy Eyes: PERRLA, sclera clear ENT: moist mucous membranes, nasal passages clear Neck: supple, no JVD, no adenopathy, trachea midline Cardiac: Normal S1 and S2. RRR, No murmur, gallops or friction rubs, peripheral pulses intact. Respiratory: Lungs clear to auscultation, no adventitious lung sounds, currently on room air Gastrointestinal: soft, non-distended, non-tender, normoactive bowel sounds. : voiding without difficulty. Extremities: moves all extremities well, no edema, good ROM, strength 5/5 Skin: incision to left hip Neuro: Alert and oriented x4, cranial nerves intact, no neuro deficits. Psych: normal mood, normal affect, interactive Objective Data Vital Signs Vital Signs: Vital Signs - 24 hr 08/04/24 12:25 08/04/24 13:01 08/04/24 13:02 Temperature 98.2 F Pulse Rate 105 H 99 Respiratory Rate 16 Blood Pressure 116/74 112/80 Pulse Oximetry 98 94 99 Oxygen Delivery Room Air Oxygen Flow Rate 08/04/24 13:03 08/04/24 13:15 08/04/24 13:30 Temperature Pulse Rate Respiratory Rate Blood Pressure Pulse Oximetry 97 97 96 Oxygen Delivery Oxygen Flow Rate 08/04/24 13:52 08/04/24 14:00 08/04/24 14:01 Temperature Pulse Rate Respiratory Rate Blood Pressure 120/64 Pulse Oximetry 98 98 98 Oxygen Delivery Oxygen Flow Rate 08/04/24 14:15 08/04/24 14:30 08/04/24 14:45 Temperature Pulse Rate Respiratory Rate Blood Pressure Pulse Oximetry 96 98 98 Oxygen Delivery Oxygen Flow Rate 08/04/24 15:02 08/04/24 15:15 08/04/24 15:30 Temperature Pulse Rate Respiratory Rate Blood Pressure 124/71 Pulse Oximetry 97 97 96 Oxygen Delivery Oxygen Flow Rate 08/04/24 15:45 08/04/24 16:06 08/04/24 18:05 Temperature 99.5 F Pulse Rate 88 Respiratory Rate 18 Blood Pressure 107/77 109/69 Pulse Oximetry 94 97 97 Oxygen Delivery Oxygen Flow Rate 08/04/24 19:37 08/04/24 22:02 08/05/24 06:02 Temperature 98.4 F 97.6 F Pulse Rate 94 88 Respiratory Rate 18 18 Blood Pressure 103/63 116/74 Pulse Oximetry 96 96 Oxygen Delivery Room Air Oxygen Flow Rate 08/05/24 08:00 08/05/24 09:25 08/05/24 11:09 Temperature 99.5 F 97.3 F L Pulse Rate 100 89 Respiratory Rate 18 18 Blood Pressure 111/66 116/68 Pulse Oximetry 96 100 100 Oxygen Delivery Room Air Room Air Simple Face Mask Oxygen Flow Rate 8 Intake/Output Intake/Output: Intake & Output 08/02/24 08/03/24 08/04/24 08/05/24 23:59 23:59 23:59 23:59 Intake Total 150 Balance 150 Meds/Results Medications: Active Medications Generic Name Dose Route Start Last Admin Trade Name Freq PRN Reason Stop Dose Admin Acetaminophen 650 mg 08/04/24 14:35 Acetaminophen 325 Mg Tablet PO Q6H PRN Mild Pain (1-3) or Fever Hydrocodone Bitart/Acetaminophen 1 tab 08/04/24 14:35 08/04/24 23:35 Hydrocodone/Acetaminophen (*Crx) 5-325 Mg Tablet PO 1 tab Q6H PRN Administration Pain Rated 4-6 Fentanyl Citrate 25 mcg 08/05/24 09:27 Fentanyl Citrate Inj (*Crx) 100 Mcg/2 Ml Vial IV PUSH Q2M PRN Pain Lactated Ringer's 1,000 mls @ 30 mls/hr 08/05/24 09:30 08/05/24 11:09 Lr - Lactated Ringers Iv IV CONT Infused .Q24H ISMAEL Infusion Lactated Ringer's 1,000 mls @ 30 mls/hr 08/05/24 09:30 Lr - Lactated Ringers Iv IV CONT .Q24H ISMAEL Morphine Sulfate 2 mg 08/04/24 14:08 Morphine Sulfate (*Crx) 2 Mg/Ml Inj IV PUSH Q4H PRN Pain Rated 7-10 Ondansetron HCl 4 mg 08/05/24 09:27 Ondansetron Inj 4 Mg/2 Ml Vial IV PUSH ONCE PRN Nausea Radiology Results: ITS Impressions Pelvis CT 08/04/24 13:01 IMPRESSION: Fracture left femoral neck. No other definite significant abnormality seen Chest X-Ray 08/04/24 15:43 IMPRESSION: 1. Mild biapical pleural-parenchymal scarring and mild atelectasis at the right costophrenic angle. Intraoperative X-Ray 08/05/24 11:16 IMPRESSION: 1. Lag screw fixation of a recently noted subcapital fracture of the proximal left femur which remains in near-anatomic alignment. Labs Labs: Laboratory Results - last 24 hr 08/04/24 08/05/24 13:01 05:33 WBC 9.3 6.6 RBC 4.05 L 3.91 L Hgb 12.3 11.9 L Hct 38.2 37.1 MCV 94.3 94.9 MCH 30.4 30.4 MCHC 32.2 32.1 RDW 12.7 13.1 Plt Count 253 241 MPV 9.7 9.7 Immature Gran % (Auto) 0.4 0.3 Neut % (Auto) 80.0 H 68.2 Lymph % (Auto) 11.8 L 18.6 [place] % (Auto) 6.2 8.2 Eos % (Auto) 1.2 4.1 Baso % (Auto) 0.4 0.6 Lymph # (Auto) 1.10 1.22 [place] # (Auto) 0.6 0.5 Eos # (Auto) 0.1 0.3 Baso # (Auto) 0.0 0.0 Abs Immat Gran (auto) 0.04 H 0.02 Absolute Neuts (auto) 7.5 H 4.5 Absolute Nucleated RBC 0.000 0.000 Nucleated RBC % 0.0 0.0 Sodium 137 138 Potassium 3.9 4.0 Chloride 103 105 Carbon Dioxide 28 29 Anion Gap 6 4 BUN 21 H 22 H Creatinine 0.60 L 0.60 L Estim Creat Clear Calc 72 72 Estimated GFR > 60 > 60 Glucose 103 87 Calcium 9.6 8.9 Magnesium 1.9 1.9 Total Bilirubin 0.7 AST 29 ALT 20 Alkaline Phosphatase 106 Total Protein 8.0 Albumin 4.2
[2024-08-05] MEDS: fentaNYL CITRATE INJ (*CRX) 100 MCG/2 ML VIAL 25 MCG IV PUSH ×3 (11:35→12:30)
[2024-08-05] MEDS: IBUPROFEN IV 800 MG/200 ML 800 MG/200 ML BAG 400 MG IVPB (12:53)
[2024-08-05] MEDS: HYDROcodone/acetaminophen (*CRX) 5-325 MG TABLET 1 TAB PO (20:45)
[2024-08-05] MEDS: SENNA/DOCUSATE SODIUM TABLET 2 TAB PO (20:54)
[2024-08-06] MEDS: ceFAZolin 2 GM/D5W 50 ML 2 GM/50 ML BAG IVPB ×2 (02:05→09:28)
[2024-08-06 06:00] VITALS: BP 109/67; PULSE 84; RESP 20; TEMP 36.2; O2SAT 99
[2024-08-06] MEDS: ACETAMINOPHEN 325 MG TABLET 650 MG PO (06:19)
[2024-08-06 07:06] LABS: Basophils Percent Auto 0.3 % (0.2-1.2); Eosinophils Absolute Auto 0.1 K/mm3 (0-0.3); Eosinophils Percent Auto 1.3 % (0-4.4); Hematocrit 34.8 % (37.0-47.0); Hemoglobin 11.2 g/dL (12.0-15.0); Immature Granulocyte Absolute 0.04 K/mm3 (0.00-0.031); Immature Granulocyte Percent A 0.4 % (0-0.5); Lymphocytes Absolute Auto 1.55 K/mm3 (0.9-3.2); Lymphocytes Percent Auto 15.9 % (18.3-44.2); Mean Corpuscular HGB Conc 32.2 g/dl (32-36); Mean Corpuscular Hemoglobin 30.7 pg (26-34); Mean Corpuscular Volume 95.3 fl (80-100); Mean Platelet Volume 9.8 fl (7.4-10.4); Monocytes Absolute Auto 0.7 K/mm3 (0.1-0.6); Monocytes Percent Auto 6.7 % (2.6-8.5); Neutrophils Absolute Auto 7.4 K/mm3 (1.3-6.7); Neutrophils Percent Auto 75.4 % (45.5-73.1); Platelet Count Result 231 k/mm3 (150-375); Red Blood Count 3.65 M/mm3 (4.2-5.4); Red Cell Distribution Width 12.8 % (11.5-14.5); White Blood Count 9.8 K/mm3 (4.5-10.0)
[2024-08-06 07:14] LABS: Anion Gap 0 mmol/L (4-12); Blood Urea Nitrogen 15 mg/dL (7-17); Calcium 8.6 mg/dL (8.4-10.2); Carbon Dioxide 31 mmol/L (22-30); Chloride 104 mmol/L (98-107); Estimated CRCL calculation 72 ml/min; Estimated Glomerular Filt Rate > 60; Glucose 78 mg/dL (65-110); Potassium 3.5 mmol/L (3.4-5.0); Sodium 135 mmol/L (137-145)
[2024-08-06 08:00] VITALS: O2SAT 99
[2024-08-06] MEDS: CHOLECALCIFEROL 1,000 UNITS TABLET 1000 UNITS PO (08:39)
[2024-08-06] MEDS: CALCIUM/VITAMIN D 250 MG/3.125 MCG (125 I.U.) TABLET 2 TABLET PO (08:39)
[2024-08-06] MEDS: RALOXIFENE HCL (*CHEMO) 60 MG TABLET PO (08:39)
[2024-08-06] MEDS: OPTI-GEN TAB 1 TABLET PO (08:39)
[2024-08-06] MEDS: CELECOXIB 200 MG CAPSULE PO (08:39)
[2024-08-06] MEDS: SENNA/DOCUSATE SODIUM TABLET 2 TAB PO (08:40)
[2024-08-06] MEDS: FONDAPARINUX SODIUM 2.5 MG/0.5 ML SYRINGE SUB-Q (08:41)
[2024-08-06] MEDS: polyethylene glycoL 3350 17 GM POWD.PACK PO (08:41)
--- NOTE | 2024-08-06 09:14 | P.PNOP_ITS ---
Progress Note: A&P Assessment and Plan (1) Fracture of neck of left femur: Qualifiers: Encounter type: subsequent encounter Fracture type: closed Fracture healing: with routine healing Qualified Code(s): S72.002D - Fracture of unspecified part of neck of left femur, subsequent encounter for closed fracture with routine healing Code(s): S72.002A - Fracture of unspecified part of neck of left femur, initial encounter for closed fracture Status: Acute Assessment and Plan: Postop day 1 left hip pinning. Operative treatment reviewed with the patient. She has started PT and OT. Pain is controlled. Reviewed activity with weight-bearing as tolerated with assistive device with walker. Reviewed activity limitations and fracture precautions. Therapy today. If she is cleared by therapy and pain controlled plan for discharge home today with home health. Follow up in orthopedic office in 3-4 weeks. Arixtra for DVT prophylaxis Times 14 days. Subjective Subjective Date/Time Seen: 08/06/24 09:14 Post Op day: 1 Principal diagnosis: left hip fracture Interval history: patient awake, up in chair. Complains of some pain left hip. Denies numbness or tingling. Exam Const: General: healthy appearing; No in distress or confusion Orientation/consciousness: patient oriented x3 and No confusion HENMT: Head: normal to inspection, normocephalic and atraumatic Eyes: Conjunctivae: conjunctivae normal Sclera: sclerae normal Resp: Effort & Inspection: normal respiratory effort and no audible wheezes Neuro: General: patient oriented x3 and No confusion Extrem: Right upper extremity: normal to inspection Left upper extremity: normal to inspection Right lower extremity: normal to inspection Left lower extremity: normal capillary refill, hip/thigh Details: tenderness Location: of the hip Location: laterally, swelling Location: of the hip and other ( left hip incision clean dry and intact.) and foot Details: vascular exam Details: dorsalis pedis pulse present, posterior tibial pulse present and normal capillary refill, tendon exam active flexion normal and active extension normal and motor-sensory exam light-touch normal in all toes Psych: Affect: normal affect Objective Data Vital Signs Vital Signs: Vital Signs - 24 hr 08/05/24 09:25 08/05/24 11:09 08/05/24 11:25 Temperature 99.5 F 97.3 F L Pulse Rate 100 89 87 Respiratory Rate 18 18 14 Blood Pressure 111/66 116/68 113/69 Pulse Oximetry 100 100 100 Oxygen Delivery Room Air Simple Face Mask Simple Face Mask Oxygen Flow Rate 8 8 08/05/24 11:40 08/05/24 11:55 08/05/24 12:10 Temperature Pulse Rate 85 85 84 Respiratory Rate 14 12 12 Blood Pressure 108/74 104/70 110/72 Pulse Oximetry 95 98 94 Oxygen Delivery Room Air Room Air Room Air Oxygen Flow Rate 08/05/24 12:25 08/05/24 12:36 08/05/24 12:51 Temperature 96.6 F L 97.4 F L Pulse Rate 83 90 84 Respiratory Rate 15 20 20 Blood Pressure 100/65 103/68 101/73 Pulse Oximetry 94 99 95 Oxygen Delivery Room Air Oxygen Flow Rate 08/05/24 13:21 08/05/24 14:21 08/05/24 15:23 Temperature 97.5 F L 98.3 F Pulse Rate 90 100 Respiratory Rate 20 20 Blood Pressure 133/82 125/79 Pulse Oximetry 97 97 Oxygen Delivery Room Air Oxygen Flow Rate 08/05/24 18:21 08/05/24 22:19 08/06/24 06:00 Temperature 97.9 F 97.0 F L 97.2 F L Pulse Rate 84 74 84 Respiratory Rate 20 20 20 Blood Pressure 122/68 98/65 L 109/67 Pulse Oximetry 96 98 99 Oxygen Delivery Oxygen Flow Rate 08/06/24 08:00 Temperature Pulse Rate Respiratory Rate Blood Pressure Pulse Oximetry 99 Oxygen Delivery Room Air Oxygen Flow Rate Intake/Output Intake/Output: Intake & Output 08/03/24 08/04/24 08/05/24 08/06/24 23:59 23:59 23:59 23:59 Intake Total 2080 500 Balance 2080 500 Meds/Results Medications: Active Medications Generic Name Dose Route Start Last Admin Trade Name Freq PRN Reason Stop Dose Admin Acetaminophen 650 mg 08/04/24 14:35 08/06/24 06:19 Acetaminophen 325 Mg Tablet PO 650 mg Q6H PRN Administration Mild Pain (1-3) or Fever Hydrocodone Bitart/Acetaminophen 1 tab 08/04/24 14:35 08/05/24 20:45 Hydrocodone/Acetaminophen (*Crx) 5-325 Mg Tablet PO 1 tab Q6H PRN Administration Pain Rated 4-6 Calcium Carbonate 2 tablet 08/06/24 09:00 08/06/24 08:39 Calcium/Vitamin D 250 Mg/3.125 Mcg (125 I.U.) Tablet PO 2 tablet QAM ISMAEL Administration Celecoxib 200 mg 08/06/24 08:00 08/06/24 08:39 Celecoxib 200 Mg Capsule PO 200 mg DAILY@0800 ISMAEL Administration Estradiol applic 08/05/24 12:36 Estradiol Vaginal Cream 42.5 Gm VAGINAL 2XW ISMAEL Fondaparinux 2.5 mg 08/06/24 09:00 08/06/24 08:41 Fondaparinux Sodium 2.5 Mg/0.5 Ml Syringe SUB-Q 2.5 mg DAILY ISMAEL Administration Cefazolin Sodium 2 gm in 50 mls @ 100 mls/hr 08/05/24 18:00 08/06/24 02:05 Ancef 2 Gm/D5w 50 Ml IVPB 08/06/24 10:29 100 mls/hr Q8H ISMAEL Administration Ibuprofen 800 mg in 200 mls @ 400 mls/hr 08/05/24 12:36 08/05/24 12:53 Caldolor 800 Mg/200 Ml IVPB 400 mls/hr Q6H PRN Administration Breakthrough Pain Rated 1-3 or NPO Miscellaneous Information 0 each 08/05/24 00:01 Which 2 Days Of The Week Is Estradiol Cream Used XX 09/04/24 00:00 CLARIFY ISMAEL Morphine Sulfate 2 mg 08/04/24 14:08 Morphine Sulfate (*Crx) 2 Mg/Ml Inj IV PUSH Q4H PRN Pain Rated 7-10 Multivitamins/Minerals 1 tablet 08/06/24 09:00 08/06/24 08:39 Opti-Gen Tab PO 1 tablet DAILY ISMAEL Administration Naloxone HCl 0.1 mg 08/05/24 12:36 Naloxone Hcl 0.4 Mg/Ml Vial IV PUSH Q2M PRN Opiate Reversal Polyethylene Glycol 17 gm 08/06/24 09:00 08/06/24 08:41 Polyethylene Glycol 3350 17 Gm Powd.Pack PO 17 gm QAM ISMAEL Administration Raloxifene HCl 60 mg 08/06/24 09:00 08/06/24 08:39 Raloxifene Hcl (*Chemo) 60 Mg Tablet PO 60 mg DAILY ISMAEL Administration Senna/Docusate Sodium 2 tab 08/05/24 17:00 08/06/24 08:40 Senna/Docusate Sodium Tablet PO 2 tab BID ISMAEL Administration Vitamin D 1,000 units 08/06/24 09:00 08/06/24 08:39 Cholecalciferol 1,000 Units Tablet PO 1,000 units DAILY ISMAEL Administration Radiology Results: ITS Impressions Pelvis CT 08/04/24 13:01 IMPRESSION: Fracture left femoral neck. No other definite significant abnormality seen Chest X-Ray 08/04/24 15:43 IMPRESSION: 1. Mild biapical pleural-parenchymal scarring and mild atelectasis at the right costophrenic angle. Intraoperative X-Ray 08/05/24 11:16 IMPRESSION: 1. Lag screw fixation of a recently noted subcapital fracture of the proximal left femur which remains in near-anatomic alignment. Labs Labs: Laboratory Results - last 24 hr 08/06/24 05:57 WBC 9.8 RBC 3.65 L Hgb 11.2 L Hct 34.8 L MCV 95.3 MCH 30.7 MCHC 32.2 RDW 12.8 Plt Count 231 MPV 9.8 Immature Gran % (Auto) 0.4 Neut % (Auto) 75.4 H Lymph % (Auto) 15.9 L [place]eller % (Auto) 6.7 Eos % (Auto) 1.3 Baso % (Auto) 0.3 Lymph # (Auto) 1.55 Teller # (Auto) 0.7 H Eos # (Auto) 0.1 Baso # (Auto) 0.0 Abs Immat Gran (auto) 0.04 H Absolute Neuts (auto) 7.4 H Absolute Nucleated RBC 0.000 Nucleated RBC % 0.0 Sodium 135 L Potassium 3.5 Chloride 104 Carbon Dioxide 31 H Anion Gap 0 L BUN 15 D Creatinine 0.60 L Estim Creat Clear Calc 72 Estimated GFR > 60 Glucose 78 Calcium 8.6
--- NOTE | 2024-08-06 12:59 | P.DS_ITS ---
DS: Admitting Diagnosis Discharge Date 08/06/24 Admitting Diagnosis Fracture of neck of left femur Osteopenia DS: Discharge Diagnosis Discharge Diagnosis (1) Fracture of neck of left femur: Qualifiers: Encounter type: subsequent encounter Fracture healing: with routine healing Fracture type: closed Qualified Code(s): S72.002D - Fracture of unspecified part of neck of left femur, subsequent encounter for closed fracture with routine healing Code(s): S72.002A - Fracture of unspecified part of neck of left femur, initial encounter for closed fracture Status: Acute (2) Osteopenia: Qualifiers: Osteopenia location: multiple sites Qualified Code(s): M85.89 - Other specified disorders of bone density and structure, multiple sites Code(s): M85.80 - Other specified disorders of bone density and structure, unspecified s ite Status: Acute DS: Summary Hospital Course Reason for hospitalization: Fracture of neck of left femur Osteopenia Hospital Course: This is a 64-year-old female with osteopenia who presented to the hospital on 08/04/2024 status post fall for evaluation of left hip pain. She was originally seen in the urgent care who did and x-ray which shown the left hip fracture and she was referred to the ED. Workup in the hospital included a hip and pelvis x- ray showed nondisplaced subcapital fracture of the proximal left femoral neck. Pelvis CT done yesterday showed a fracture of the left femoral neck no other abnormality seen. Chest x-ray showed mild atelectasis versus scarring. Initial labs showed a normal white blood cell count of 9.3, creatinine 0.60. Orthopedic surgery was consulted and took patient today for left hip pinning. Patient states that her pain is well controlled today. Her vital signs are stable, she is afebrile, she is currently on room air. She has worked with therapy and has been released. Ortho seen her and agrees to discharge today. She will need to follow up with Ortho in 3-4 weeks. She will be given outpatient occupational therapy and physical therapy requisite this. Final diagnosis: Fracture of neck of left femur s/p IM nailing, Osteopenia Status at Discharge Cognitive/behavioral status at discharge: Alert and oriented x3 Functional status at discharge: independent ambulation Overall status at discharge: patient is progressing back to baseline Time Spent with Patient Time attestation: Total time spent providing and/or coordinating discharge services: Time spent: Greater than 30 minutes Exam Narrative: General: In no acute distress, well nourished Cardiac: Normal S1 and S2. RRR, No murmur, gallops or friction rubs, peripheral pulses intact. Respiratory: Lungs clear to auscultation, no adventitious lung sounds, currently on room air Gastrointestinal: soft, non-distended, non-tender, normoactive bowel sounds. : voiding without difficulty. Extremities: moves all extremities well, no edema Skin: incision to left hip Neuro: Alert and oriented x4 DS: Data Data Completed and Pending Completed studies during hospitalization: Hip and pelvis x-ray Pelvis CT Chest X-ray Intraoperative x-ray Pending studies at discharge: None Labs on day of discharge: Labs from last 24 hours 08/06/24 05:57 WBC 9.8 RBC 3.65 L Hgb 11.2 L Hct 34.8 L MCV 95.3 MCH 30.7 MCHC 32.2 RDW 12.8 Plt Count 231 MPV 9.8 Immature Gran % (Auto) 0.4 Neut % (Auto) 75.4 H Lymph % (Auto) 15.9 L Mcmullen % (Auto) 6.7 Eos % (Auto) 1.3 Baso % (Auto) 0.3 Lymph # (Auto) 1.55 Mcmullen # (Auto) 0.7 H Eos # (Auto) 0.1 Baso # (Auto) 0.0 Abs Immat Gran (auto) 0.04 H Absolute Neuts (auto) 7.4 H Absolute Nucleated RBC 0.000 Nucleated RBC % 0.0 Sodium 135 L Potassium 3.5 Chloride 104 Carbon Dioxide 31 H Anion Gap 0 L BUN 15 D Creatinine 0.60 L Estim Creat Clear Calc 72 Estimated GFR > 60 Glucose 78 Calcium 8.6 Procedures/Treatments: None Discharge Plan Discharge Attending physician on discharge: Del Sutton Consulting providers: Johnnie Mcfarland Discharging Clinician: Susie Gomez Anticipated Discharge Date/Time: 08/06/24 14:00 Patient Disposition: Home, Self-Care Activity: may shower, as tolerated, follow weight bearing status and other - see discharge instructions Diet: as tolerated Wound Care Instructions: follow printed instructions, remove dressing to shower and incision open to air Discharge Instructions: * weight bearing as tolerated * Follow up with Dr. Mcfarland in 3-4 weeks Patient Instructions: Antibiotic Form, Pain Management (GEN) Patient Language: Danish Stand Alone Forms: General Discharge Information Follow-up/Referrals: Johnnie Mcfarland MD [Physician] - (3-4weeks) Discharge Medications: New aspirin,buffd-calcium carb-mag 325 mg tablet 1 tablet PO DAILY Qty: 30 0RF celecoxib [Celebrex] 200 mg Capsule 200 mg PO DAILY@0800 Qty: 30 0RF sennosides-docusate sodium [Senokot-S] 8.6-50 mg Tablet 2 tab PO BID Qty: 30 0RF cholecalciferol (vitamin D3) [Vitamin D3] 25 mcg (1,000 unit) Tablet 1,000 unit PO DAILY Qty: 30 0RF Continued hydrocodone-acetaminophen 5-325 mg tablet 1 tablet PO Q8H PRN (Reason: pain) Qty: 10 0RF aiyoofhhkqsh-htpsrzkl-lbnbsz Tablet 1 tablet PO DAILY calcium citrate-vitamin D3 250 mg-5 mcg (200 unit) Tablet 2 tablet PO DAILY estradiol [Estrace] 0.01 % (0.1 mg/gram) cream 1 appful vaginal 2XW Qty: 42.5 1RF raloxifene 60 mg tablet 60 mg PO DAILY Qty: 90 1RF Discontinued cholecalciferol (vitamin D3) 25 mcg (1,000 unit) tablet 25 mcg PO DAILY aspirin,buffd-calcium carb-mag 325 mg tablet 1 tablet PO DAILY Qty: 30 0RF Other Ambulatory Orders: OT Outpatient Eval and Treat (ONCE) Timeframe: 20240813 Location: Determined by Patient Ordered By: Johnnie Mcfarland PT Outpatient Eval and Treat (ONCE) Timeframe: 20240813 Location: Determined by Patient Ordered By: Johnnie Mcfarland Date of admission: 08/04/24 14:08 Primary Care Provider: Puja Amaro Admitting Provider: Moreno Cisneros Attending physician on admission: Susie Gomez Condition: Improved Quality VTE Prophylaxis VTE prophylaxis: mechanical ordered
--- OUTSIDE RECORDS SUMMARY | 2024-08-12 21:39 | XMS_ITS | Clinical Summary ---
Author Organization [facility] triptap Address [address] [place] [address] Care Team Providers Care Cardiology Consultants Name Role Phone Unavailable Primary Care Provider Unavailabl e Source Comments [facility],non-owned Affiliates and Associated Physician Practices is amultiple site organization consisting of ambulatory clinics and hospital sitesin [place], [place], [place] and [place]. This disclosure is being madepursuant to the Care Everywhere program and may not contain all information available regarding this patient. Last updated 18.[facility] [employer] Social History Tobacco Use Types Packs/Day Years Used Date Smoking Tobacco: Never Assessed Sex and Gender Information Value Date Recorded Sex Assigned at Not on file Gender Identity Not on file Sexual Orientation Not on file Plan of Treatment Upcoming Encounters Date Type Department Care Team (Late st Contact Info) Description 12/29/2024 9:00 AM CDT Office Visit [facility] - Rheumatology [address] [place] [id number] Ayanna Laboy MD [address] [place] [address] Health Maintenance Due Date Last Done Comments COLOGUARD (AGES 45-75) - COL ON CA SCREENING 1960 COLON MONITORING 1960 COLONOSCOPY - COLON CA SCREENING 1960 CT COLONOGRAPHY - COLON CA SCREENING 1960 Colorectal Cancer Screening 1960 FIT - COLON CA SCREENING 1960 FLEX SIG - COLON CA SCREENING 1960 LIPID TESTING 1960 MAMMOGRAM 1960 PAP SMEAR 1960 HIV SCREENING 1975 HEPATITIS C SCREENING 06/03/1978 DTAP/TDAP/TD VACCINES (1 - Tdap) 1979 ZOSTER VACCINE (1 of 2) 2010 DEPRESSION SCREENING 08/20/2023 COVID-19 VACCINE (1 - 2023-2 5 season) 2024 INFLUENZA VACCINE (#1) 2024 Respiratory Syncytial Virus (RSV) Vaccine Pt: or over 60 yrs (1 - 1-dose 75+ series) 2035 HEPATITIS B VACCINE Aged Out No longe r eligible based on patient's age to complete this topic HIB VACCINE Aged Out No longer eligi ble based on patient's age to complete this topic HPV VACCINE Aged Out No longer eligi ble based on patient's age to complete this topic MENINGOCOCCAL VACCINE Aged Out No amarilys asim eligible based on patient's age to complete this topic PNEUMOCOCCAL VACCINE Aged Out No long er eligible based on patient's age to complete this topic Claribel Ortiz Personal/Family Self 1960
--- OUTSIDE RECORDS SUMMARY | 2024-08-12 21:39 | XMS_ITS | Referral Summary ---
Author Organization [facility] Address [address] [place] [address] Care Team Providers Care Cupola Operator Name Role Phone Unavailable Primary Care Provider Unavailabl e Source Comments [facility],non-owned Affiliates and Associated Physician Practices is amultiple site organization consisting of ambulatory clinics and hospital sitesin [place], [place], [place] and [place]. This disclosure is being madepursuant to the Care Everywhere program and may not contain all information available regarding this patient. Last updated 18.[facility] [employer] Social History Tobacco Use Types Packs/Day Years [...] Physician Group - Rheumatology [address] [place] [id number] Ayanna Laboy MD [address] [place] [address] Claribel Ortiz Personal/Family Self 1960
--- OUTSIDE RECORDS SUMMARY | 2024-08-12 21:39 | XMS_ITS | Patient Health Summary ---
Author Organization [facility] Address [address] [place] [address] Care Team Providers Care Wood Tank Builder Name Role Phone Unavailable Primary Care Provider Unavailabl e Note from [facility],non-owned Affiliates and Associated Physician Practices is amultiple site organization consisting of ambulatory clinics and hospital sitesin [place], [place], [place] and [place]. This disclosure is being madepursuant to the Care Everywhere program and may not contain all information available regarding this patient. Last updated 18.[facility] Social History Tobacco Use Types Packs/Day Years Used Date Smoking Tobacco: Never Assessed Sex and Gender Information Value Date Recorded Sex Assigned at Not on file Gender Identity Not on file Sexual Orientation Not on file
--- OUTSIDE RECORDS SUMMARY | 2024-08-12 21:39 | XMS_ITS | Encounter Summary ---
Author Organization [facility] Address [address] [place] [address]. [place], [place] [id number] [place] [address] Care Team Providers Care News Wire Photo Operator Name Role Phone Puja Amaro DO Primary Care Provider [phone]- [phone] Reason for Visit * Imaging (Routine) - Closed Specialty Diagnoses / Procedures Referred By Contac t Referred To Contact RADIOLOGY Diagnoses Screening for ischemic heart disease Procedures CT HEART DIAG CALCIUM SCORE CT HEART DIAG CALCIUM SCORE Colton Zelaya MD [address] [place] [address] Phone: tel: fax: Referral ID Status Reason Start Date Expiration Date Visits Re quested Visits Authorized [id number] Closed 01/04/2024 01/04/2025 1 1 Encounter Details Date Type Department Care Team (Late st Contact Info) Description 03/03/2024 10:18 AM CDT - 03/03/2024 11:59 PM CDT Hospital Encounter [place] [facility] [place] [address] Colton Zelaya MD [address] [place], [place] [id number] Discharge Disposition: Home or Self Care (Routine Discharge) Social History Tobacco Use Types Packs/Day Years Used Date Smoking Tobacco: Never Assessed Comments Unknown Sex and Gender Information Value Date Recorded Sex Assigned at Not on file Legal Sex Female 10:51 AM CDT Gender Identity Not on file Sexual Orientation Not on file documented as of this encounter Plan of Treatment Not on file documented as of this encounter Procedures Procedure Name Priority Date/Time Associated Diagnosis Comments CT HEART DIAG CALCIUM SCORE Routine 03/03/2024 10:36 AM CDT Screening for ischemic heart disease documented in this encounter Results * CT HEART DIAG CALCIUM SCORE (03/03/2024 10:36 AM CDT) Anatomical Region Laterality Modality Computed Tomogra phy Impressions 03/03/2024 10:55 AM CDT =====IMPRESSION:===== Total Score: 0 No plaque, very low risk, very unlikely for probability of significant CAD Ordered By: COLTON ZELAYA Interpreted By: Dimitris Salazar MD, 03/03/2024 10:55 AM Narrative 03/03/2024 10:55 AM CDT EXAMINATION: Multislice Helical CT Coronary Calcium Scoring REASON FOR EXAM: Screening for heart disease COMPARISON: None TECHNIQUE: ??Multislice helical CT images of the proximal coronary arteries with a computer generated calcification score. A dose lowering technique was used for this procedure, which may include, but is not limited to, dose reduction technique, automated exposure control, iterative reconstruction, ALARA (As Low As Reasonably Achievable), or Image Gently techniques. Results: Left main: 0 ?LAD: 0 Circumflex: 0 ? Right coronary: 0 ?? Total Score: 0 ? Comments: There is no mediastinal adenopathy, and there are no pulmonary nodules in the visualized portions of the chest. Calcium score guidelines: Total Score* Calcium Plaque Leighton ??*Risk ?*Probability of significant CAD 0 ?No Plaque ?Very Low ? Very unlikely 1-10 ?Minimal Plaque ? Low ?Unlikely 11-100 ?Mild Plaque ?Moderate ? Low likelihood of significant ? stenosis <50% ? 101-400 ? Moderate Plaque ?Moderately High ?Moderate likelihood of ? significant stenosis (>50%) Over 400 ?Extensive Plaque ? High ?High likelihood of ?significant stenosis (>50%) The amount of coronary artery calcification correlates with the severity of coronary atherosclerosis and the probability of future significant event. Calcification is not site specific for stenosis and does not identify non-calcified atherosclerotic plaque, but rather indicates the extent of atherosclerosis in the coronary arteries overall. The score may be used as an indicator for risk factor modification or additional cardiac testing. Significant change in calcium score over time may be indicative of subsequent disease development or useful as a benchmark to assess preventative programs. us Colton Zelaya MD CT Edited Re sult - Final documented in this encounter Visit Diagnoses Diagnosis Screening for ischemic heart disease documented in this encounter Care Teams News Wire Photo Operator Relationship Specialty Start Date End Date Puja Amaro DO [address] [place] [address] PCP - General FAMILY PRACTICE 01/04/24 documented as of this encounter
--- OUTSIDE RECORDS SUMMARY | 2024-08-12 21:39 | XMS_ITS | Clinical Summary ---
Author Organization [facility] Address [address] [place] [address]. [place], [place] [address] [place] [address] Care Team Providers Care Coin Machine Collector Name Role Phone Puja Amaro DO Primary Care Provider [phone]- [phone] Social History Tobacco Use Types Packs/Day Years Used Date Smoking Tobacco: Never Assessed Comments Unknown Sex and Gender Information Value Date Recorded Sex Assigned at Not on file Legal Sex Female 10:51 AM CDT Gender Identity Not on file Sexual Orientation Not on file Plan of Treatment Health Maintenance Due Date Last Done Comments Cervical Cancer Screening Pap Smear (Age 30 to 64) Every 3 Years 1960 Colorectal Cancer Screening Colonoscopy (10 Years) 1960 Annual Physical 1963 Hepatitis C 1978 Cervical Cancer Screening Pap with HPV Testing (Age 30 to 64) Every 5 Years 1990 Cervical Cancer Screening with HPV 1990 RSV Immunization or 60+ Years (1 - 1-dose 60+ series) 2020 Mammogram Screening 02/09/2023 02/09/2021, 02/09/2020, 01/21/2019, Additional history exists COVID-19 Vaccine ( season) 2024 06/13/2022, 06/21/2021, 10/25/2020 Influenza Adult (#1) 2024 06/11/2023, 05/24/2022, 04/27/2020, Additional history exists DTaP, Tdap and Td Vaccines (2 - Td or Tdap) 12/19/2032 12/19/2022 Zoster Vaccines Completed 09/12/2022, 07/03/2022 Meningococcal Vaccine Aged Out No amarilys asim eligible based on patient's age to complete this topic Pneumococcal Vaccine: Pediatrics (0 to 5 Years) and At-Risk Patients (6 to 64 Years) Aged Out No longer eligible based on patient's age to complete this topic RSV Immunizations Under 20 Months Aged Out No longer eligible based on patient's age to complete this topic Insurance [employer] Care Teams Coin Machine Collector Relationship Specialty Start Date End Date Puja Amaro DO [address] [place], [place] [id number] PCP - General FAMILY PRACTICE 01/04/24
--- OUTSIDE RECORDS SUMMARY | 2024-08-12 21:39 | XMS_ITS | Encounter Summary ---
Author Organization [facility] Address [address] [place] [address]. [place], [place] [address] [place] [address] Care Team Providers Care Lot Technician Name Role Phone Puja Amaro DO Primary Care Provider +1- [phone] Encounter Details Date Type Department Care Team (Latest Contact Info) Description 03/03/2024 Travel Social History Tobacco Use Types Packs/Day Years Used Date Smoking Tobacco: Never Assessed Comments Unknown Sex and Gender Information Value Date Recorded Sex Assigned at Not on file Legal Sex Female 10:51 AM CDT Gender Identity Not on file Sexual Orientation Not on file documented as of this encounter Plan of Treatment Not on file documented as of this encounter Visit Diagnoses Not on filedocumented in this encounter Care Teams Lot Technician Relationship Specialty Start Date End Date Puja Amaro DO [address] [place] [address] PCP - General FAMILY PRACTICE 01/04/24 documented as of this encounter
--- OUTSIDE RECORDS SUMMARY | 2024-08-12 21:40 | XMS_ITS | Encounter Summary ---
Author Organization [facility] Address [address] [place] [address] Care Team Providers Care Nodulizer Name Role Phone Diana Braun MD Primary Care Provider [phone] Reason for Visit * Reason Comments High Risk new patient consult for Atypia Encounter Details Date Type Department Care Team (Late st Contact Info) Description 01/28/2014 1:00 PM CDT Office Visit [facility] Cancer and Breast Med Onc [place] [address] [place] [id number] Baldev Castillo MD [address] [place] [address] Flat epithelial atypia of breast, unspecified laterality (Primary Dx) Social History Tobacco Use Types Packs/Day Years Used Date Smoking Tobacco: Never Smokeless Tobacco: Never Alcohol Use Standard Drinks/Week Comments Yes 0 (1 standard drink = 0.6 oz pur e alcohol) moderate Sex and Gender Information Value Date Recorded Sex Assigned at Not on file Gender Identity Not on file Sexual Orientation Not on file documented as of this encounter Last Filed Vital Signs Vital Sign Reading Time Taken Comments Blood Pressure 101/57 01/28/2014 12:49 PM CDT Pulse 75 01/28/2014 12:49 PM CDT Temperature 36.7 ??C (98.1 ??F) 01/28/2014 12:49 PM C DT Respiratory Rate 16 01/28/2014 12:49 PM CDT Oxygen Saturation - - Inhaled Oxygen Concentration - - Weight 55.3 kg (122 lb) 01/28/2014 12:49 PM CDT Height 165.1 cm (5' 5 ) 01/28/2014 12:49 PM CDT Body Mass Index 20.3 01/28/2014 12:49 PM CDT documented in this encounter Progress Notes * Baldev Castillo MD - 01/28/2014 1:29 PM CDT DIAGNOSIS ICD-9-CM ICD-10-CM 1. Flat epithelial atypia of breast, unspecified laterality 610.8 N60.89 CURRENT THERAPY S/p excisional biopsy HISTORY OF PRESENT ILLNESS Claribel Ortiz is a 53 y.o. female is seen in the medical oncology clinic for recently diagnosed flat epithelial atypia to discuss chemo-prophylaxis. She was referred from Dr. Cohen 's office. Her oncologic history is detailed below 12/07/13 Mammogram revealed cluster of microcalcifications in left outer breast. 12/22/13 A percutaneous needle biopsy was performed under stereotactic guidance which showed focal FLAT EPITHELIAL ATYPIA, and fibrocystic changes and microcalcifications. 01/16/14 She underwent a LEFT, NEEDLE LOCALIZED EXCISION that showed fcc and post-biopsy changes. Noresidual atypia was reported. She has no family history of breast cancer and She has had no previous breast biopsies. MENSTRUAL HISTORY Menarche at 13 First live at 16 Menopause at 51 She has had no prior uterine problems and has not undergone a hysterectomy. She has been using vaginal estrogen with oral progestin for vaginal dryness over the last 2 years. She has since stopped using them Past Medical History Diagnosis Date ??? Fibrocystic disease of breast Past Surgical History Procedure Laterality Date ??? Hx wisdom teeth extraction ??? Pr excise breast cyst 01/16/2014 BREAST BIOPSY performed by Marina Cohen MD at [facility] OR Current outpatient prescriptions:dxwgkbgynchqz-buvamdgc-wohosd (CENTRUM SILVER) Tablet, Take 1 Tab by mouth daily., Disp: , Rfl: ; Tretinoin (ATRALIN) 0.05 % Gel, Apply to affected area., Disp: , Rfl: ; CALCIUM PHOSPHATE TRIB/VIT D3 (CITRACAL + D ORAL), Take by mouth., Disp: , Rfl: ; OMEGA-3 FATTY ACIDS/FISH OIL (OMEGA 3 FISH OIL ORAL), Take by mouth., Disp: , Rfl: No Known Allergies No family history on file. History Social History ??? Marital Status: Spouse Name: N/A Number of Children: 1 ??? Years of Education: N/A Occupational History ??? [employer] Social History Main Topics ??? Smoking status: Never Smoker ??? Smokeless tobacco: Never Used ??? Alcohol Use: Yes Comment: moderate ??? Drug Use: No ??? Sexually Active: Not on file Other Topics Concern ??? Not on file Social History Narrative ??? No narrative on file Review of Systems:?? During the review of systems, the following significant history is obtained from the patient: Constitutional: Denies any fatigue, uinntentional weight loss, or anorexia Eye: denies visual disturbance, discharge, pain Ear, Nose, Mouth, Throat:?? denies hearing loss, ear issues, nasal congestion, neck mass Respiratory:?? Denies any cough, hemoptysis, or shortness of breath. Cardiovascular:?Denies any chest pain, palpitations, irregular heart beat Gastrointestinal:?? denies abdominal pain, change in bowel habits, constipation, diarrhea or dysphagia Integementary, Breast: s/p recent left breast biopsy, no other problems Hematologic, Oncologic, Lymphatic: Denies any palpable lumps or any easy bruising Musculoskeletal: Denies any joint pains or muscle pains. PHYSICAL EXAMINATION Blood pressure 101/57, pulse 75, temperature 98.1 ??F (36.7 ??C), resp. rate 16, height 5' 5 (1.651 m), weight 122 lb (55.339 kg), not currently . General appearance: healthy appearing, active, alert, cooperative, no distress Head: Normocephalic, without obvious abnormality, atraumatic Eyes: conjunctivae/corneas clear. EOM's intact. Lids appear normal. Limited exam since this was primarily a counseling visit LABS ASSESSMENT I have discussed with the patient at length about pathophysiology, natural history, prognosis and various treatment options for her atypia. I've explained to her that flat epithelial atypia is not cancer but represents a marker of higher risk of development of both ipsilateral and contralateral invasive breast cancer, however the risk is not as high as with atypical hyperplasia, hence there is noclear role for chemo-prophylaxis Based on the NCI BCRAT (utilizing the Keena model) her 5 yr risk of developing breast cancer is 0.9 %, while her lifetime risk (upto age 90) is 7.3 %. I've explained to her that strategies for risk reduction include endocrine therapy, which in clinical studies has been utilized in patients with 5 yrrisk exceeding 1.6%, with expected risk reduction of around 50% PLAN 1. Since her risk of recurrence is <1.6%, she'd not be considered high-risk, hence chemo-prophylaxis not routinely recommended 2. Recommended age-appropriate screening, including yearly mammogram and continue breast surgery follow-up 3. Recommended she avoid HRT, can use vaginal lubricants as needed No further medical oncology follow-up indicated. A total of 30minutes was spent on this consult, and greater than 70% the time was spent addressing the treatment plan, anticipated side effects, and future options. documented in this encounter Plan of Treatment Not on file documented as of this encounter Visit Diagnoses Diagnosis Flat epithelial atypia of breast, unspecified laterality- Primary documented in this encounter Care Teams Nodulizer Relationship Specialty Start Date End Date Diana Braun MD PCP - General Family Practice 12/22/13 documented as of this encounter
--- OUTSIDE RECORDS SUMMARY | 2024-08-12 21:40 | XMS_ITS | Encounter Summary ---
Author Organization [facility] Address [address] [place] [address] Care Team Providers Care Drug Safety Scientist Name Role Phone Diana Braun MD Primary Care Provider [phone] Reason for Visit * Reason Comments Follow Up 6 months with mammo Encounter Details Date Type Department Care Team (Late st Contact Info) Description 02/09/2021 11:15 AM CDT Office Visit 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 No / Unsure 02/09/2021 8:56 AM CDT documented as of this encounter Last Filed Vital Signs Vital Sign Reading Time Taken Comments Blood Pressure 115/69 02/09/2021 11:15 AM CDT Pulse 68 02/09/2021 11:15 AM CDT Temperature 36.5 ??C (97.7 ??F) 02/09/2021 11:15 AM C DT Respiratory Rate - - Oxygen Saturation 98% 02/09/2021 11:15 AM CDT Inhaled Oxygen Concentration - - Weight 59 kg (130 lb) 02/09/2021 11:15 AM CDT Height 165.1 cm (5' 5 ) 02/09/2021 11:15 AM CDT Body Mass Index 21.63 02/09/2021 11:15 AM CDT documented in this encounter Progress Notes * Vilma Jim, POST ACUTE CARE NURSE - 02/09/2021 11:21 AM CDT DIAGNOSIS ICD-10-CM ICD-9-CM 1. 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 Diffuse cystic mastopathy, unspecified laterality N60.19 610.1 3. Screening for osteoporosis Z13.820 V82.81 Claribel Ortiz 1960 CURRENT THERAPY Evista- started December 2015 HISTORY OF PRESENT ILLNESS Claribel comes in today for annual followup with annual mammogram. To review, and 2013 she underwent a wide excisional left breast biopsy which revealed flat epithelial hyperplasia. She continues with surveillance through mammography and clinical breast exams every 6 months. She does not have a family history of breast or ovarian cancer. She started on Evista as medical risk reduction in December 2015. She denies any hot flashes, night sweats, mood changes, but does report vaginal dryness. She is using Replens and has noted improvement insymptoms. She denies SOB or leg pain or cramps. Bone density done fall 2017- stable osteopenia- improvement in L spine and stable in Left and right hips. Had repeat today and here to discuss those results as well. Today on exam she denies any breast related complaints or concerns. Dry skin to chestwall resolved. She is postmenopausal, has not had a period in over 8 years. She continues to see a tank farm operator on an annual basis. Switching insurance next year and can only see an [place] provider Past Medical History: Diagnosis Date ??? Fibrocystic disease of breast Past Surgical History: Procedure Laterality Date ??? HX EXCISIONAL BIOPSY Left 01/16/2014 flat epithelial atypia ??? HX WISDOM TEETH EXTRACTION ??? AR EXCISE BREAST CYST 01/16/2014 BREAST BIOPSY performed by Marina Cohen MD at [facility] OR Current Outpatient Medications: ??? raloxifene (EVISTA) 60 mg tablet, TAKE 1 TABLET DAILY, Disp: 90 Tablet, Rfl: 3 ??? MULTIVITAMIN ORAL, Take by mouth., Disp: , Rfl: ??? cholecalciferol, Vitamin D3, (VITAMIN D3) 1,000 unit Capsule, Take by mouth daily., Disp: , Rfl: No Known Allergies Family History Problem Relation Name Age of Onset ??? Hypertension Father ??? Stroke Father ??? Osteoporosis Mother ??? Alzheimer's Disease Mother ??? Lung Cancer Maternal Aunt ??? Breast Cancer Neg Hx ??? Ovarian Cancer Neg Hx ??? Uterine Cancer Neg Hx ??? Cancer Neg Hx Social History Socioeconomic History ??? Marital status: Spouse name: Not on file ??? Number of children: 1 ??? Years of education: Not on file ??? Highest education level: Not on file Occupational History Employer: [employer] Tobacco Use ??? Smoking status: Never Smoker ??? Smokeless tobacco: Never Used Vaping Use ??? Vaping Use: Never used Substance and Sexual Activity ??? Alcohol use: Yes Comment: moderate ??? Drug use: No ??? Sexual activity: Yes Partners: Male control/protection: None Other Topics Concern ??? Service Not Asked ??? Blood Transfusions Not Asked ??? Caffeine Concern Not Asked ??? Occupational Exposure Not Asked ??? Hobby Hazards Not Asked ??? Sleep Concern Not Asked ??? Stress Concern Not Asked ??? Weight Concern Not Asked ??? Special Diet Not Asked ??? Back Care Not Asked ??? Exercise Yes ??? Bike Helmet Not Asked ??? Seat Belt Yes ??? Self-Exams No Social History Narrative ??? Not on file Social Determinants of Health Financial Resource Strain: ??? Difficulty of Paying Living Expenses: Food Insecurity: ??? Worried About Running Out of Food in the Last Year: ??? Ran Out of Food in the Last Year: Transportation Needs: ??? Lack of Transportation (Medical): ??? Lack of Transportation (Non-Medical): Physical Activity: ??? Days of Exercise per Week: ??? Minutes of Exercise per Session: Stress: ??? Feeling of Stress : Social Connections: ??? Frequency of Communication with Friends and Family: ??? Frequency of Social Gatherings with Friends and Family: ??? Attends Congregational Services: ??? Active Member of Clubs or Organizations: ??? Attends Club or Organization Meetings: ??? Marital Status: Intimate Partner Violence: ??? Fear of Current or Ex-Partner: ??? Emotionally Abused: ??? Physically Abused: ??? Sexually Abused: REVIEW OF SYSTEMS Constitutional: denies fever, chills, fatigue, or weakness. Continues Evista, tolerating well, no hot flashes/night sweats. + vaginal dryness but better with Replens Cardiovascular: denies chest pain or pressure, FERREIRA, palpitations, or edema. Pulmonary: denies SOB, cough, or wheezing. GI/Abdomen: denies nausea, vomiting, abdominal pain, constipation, diarrhea. : denies dysuria, frequency, urgency, or hematuria. JIG FITTER: denies any abnormal vaginal bleeding or unusual spotting, No pelvic pain. Postmenopausal. Musculoskeletal: denies joint pain or stiffness, gait disturbances, or weakness. Breast/Axilla/Chest: denies nipple changes, skin changes, or any other breast changes, denies palpable masses or abnormalities. Lymph: Denies any palpable abnormalities to LN. Skin: no rashes, new skin lesions/eruptions, no bruising. Dry/itchy skin lesion resolved Psych: no changes in mood, depression, or anxiety. PHYSICAL EXAM Constitutional: well-developed, well- nourished female in no acute distress Cardiovascular: RRR, no edema Pulmonary: normal respiratory effort, no cough Musculoskeletal: no focal joint pain or stiffness, ROM normal limits, gait steady. Breast/Axilla/Chest: left breast- scar tissue noted upper outer aspect left breast from prior biopsy, stable, no changes, incision healed, no palpable masses or areas of concern, nipple everted, no discharge, no skin changes; right breast- there is a ridge of normal bresat tissue at 4:00 right breast less prominent on exam, no dominant masses, no skin changes, nipples everted, no discharge, no dimpling Lymph: no palpable lymphadenopathy in the cervical, axillary, supraclavicular or infraclavicular areas Skin: no rashes, skin eruptions, lesions, or bruising. Psych: mood and affect appropriate. Laboratory Findings No results found for: WBC, MANUALWBC, HGB, HGBPOC, HCT, HCTPOC, PLT, MCV Lab Results Component Value Date/Time SODIUM 141 07/18/2016 10:47 AM POTASSIUM 4.1 07/18/2016 10:47 AM CHLORIDE 101 07/18/2016 10:47 AM CO2 27 07/18/2016 10:47 AM CALCIUM 9.3 07/18/2016 10:47 AM BUN 18 07/18/2016 10:47 AM CREATININE 0.59 07/18/2016 10:47 AM GLUCOSE 85 07/18/2016 10:47 AM TOTAL PROTEIN 7.2 07/18/2016 10:47 AM ALBUMIN 4.5 07/18/2016 10:47 AM BILIRUBIN TOTAL 0.4 07/18/2016 10:47 AM ALKALINE PHOSPHATASE 74 07/18/2016 10:47 AM AST 21 07/18/2016 10:47 AM ALT 10 07/18/2016 10:47 AM ANION GAP 13 07/18/2016 10:47 AM RADIOLOGY 02/09/2021: MAMMOGRAM at [facility] 08/03/2020: BILATERAL BREAST ULTRASOUND at [facility] 02/09/2020: MAMMOGRAM at [facility] 08/15/2019: BILATERAL BREAST ULTRASOUND at [facility] 01/21/2019: MAMMOGRAM at [facility] 07/18/2018: 3D AUTOMATED ULTRASOUND at [facility] 01/15/2018: MAMMOGRAM at [facility] 07/31/2017: 3D AUTOMATED ULTRASOUND at [facility] 01/16/2017: MAMMOGRAM at [facility] Assessment/Plan #1 Bilateral 3D mammogram- NEM #2 Tolerating Evista well. No hot flashes, leg cramps, or mood changes. Continue on therapy. Does report some vaginal dryness- carbide powder processor managing. Replens helpful. Call if this becomes worse - DEXA shows improvement in hip but worsening L-spine - discussed pros and cons of continuing Evista. She is tolerating well. She is aware that it can potentially help her bone health, but unclear the benefit she would derive from a breast cancer risk reduction standpoint - she is having to switch to [place] provider due to insurance so she will speak with her PCP about continuing #3 Clinical breast exam demonstrates benign findings. No new skin lesions #4 I further explained that lifestyle modifications could have a significant impact on risk as well. We discussed in detail healthy diet including low fat, high fiber foods, low sodium and low cholesterol foods. We also discussed the importance of an exercise regimen of approximately 5-6 days a week and maintaining healthy weight. We spent time discussing that those changes could result in weightloss which is preventive. #4 We then discussed surveillance strategies. I have recalculated both her five- year risk and lifetime risk of developing breast cancer per Keena model. Her 5 year risk is approximately 2% , while herlifetime risk is approximately 13.2%. Per TC her lifetime risk is about 12%. Therefore her risk does not warrant MRI screening. #5 She wishes to continue 3D US and stagger with MMG every 6 months but will f/u with PCP back home. I can see her as needed #6 Bone health- Vitamin D 1000 units a day, calcium rich diet (milk, cheese, yogurt, leafy greens),if lactose intolerant, recommend Calcium 600mg daily, weight bearing exercises such as walking or aerobics encouraged. Bone density exams every two years. #7 Due for well woman exam with carbide powder processor #8 TOBACCO COUNSELING She is not a tobacco user. All questions encouraged and answered Thank you for the opportunity to participate in the care of this patient. Please let me know if I may be of any further assistance. 15 minutes were spent face-face with patient and over 50% of time was spent in counseling/discussing patient's issues, chief complaints, diet, symptom management, and in the coordination of care. Vilma Jim, MSN, AGNP-C, AOCNP [facility] Breast Surgery Independently examined patient. Dr. 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
--- OUTSIDE RECORDS SUMMARY | 2024-08-12 21:40 | XMS_ITS | Encounter Summary ---
Author Organization [facility] Address [address] [place] [address] Care Team Providers Care Certified Master Safecracker Name Role Phone Daina Braun MD Primary Care Provider [phone] Encounter Details Date Type Department Care Team (Late st Contact Info) Description 12/26/2013 Orders Only [facility] [address] [address] [place] [address] Marina Cohen MD NO ADDRESS ON FILE Abnormal mammogram (Primary Dx) Social History Tobacco Use Types [...] Procedure Name Priority Date/Time Associated Diagnosis Comments EKG 12-LEAD Routine 01/09/2014 Abnormal mammogram documented in this encounter Results * EKG 12-LEAD (01/09/2014) Marina Cohen MD ECG [facility] documented in this encounter Visit Diagnoses Diagnosis Abnormal mammogram- Primary Abnormal mammogram, unspecified documented in this encounter Care Teams Certified Master Safecracker Relationship Specialty Start Date End Date Diana Braun MD PCP - General Family Practice 12/22/13 documented as of this encounter
--- OUTSIDE RECORDS SUMMARY | 2024-08-12 21:40 | XMS_ITS | Encounter Summary ---
Author Organization [facility] Address [address] [place] [address] Care Team Providers Care Cardiology Fellow Name Role Phone Diana Braun MD Primary Care Provider [phone] Reason for Referral * Eval and Treat (Routine) - Closed Specialty Diagnoses / Procedures Referred By Paige avalos Referred To Contact Perioperative Diagnoses Screening for colon cancer Procedures COLON Annemarie Meza MD [address] [place] [address] [facility] [address] [place] [address] Referral ID Status Reason Start Date Expiration Date Visits Requested Visits Authorized [id number] Closed Performing Department to Schedule 02/08/2021 02/08/2022 1 1 Reason for Visit * Reason Comments Well Woman Exam Encounter Details Date Type Department Care Team (Late st Contact Info) Description 02/08/2021 2:00 PM CDT Office Visit [facility] - [place] [phone] [address] Annemarie Meza MD [address] [place] [address] Encounter for gynecological examination without abnormal finding (Primary Dx); Screening for cervical cancer; Breast cancer screening by mammogram; Screening for colon cancer Social History Tobacco Use Types Packs/Day Years [...] have Coronavirus / COVID-19? No / Unsure 02/08/2021 1:51 PM CDT documented as of this encounter Last Filed Vital Signs Vital Sign Reading Time Taken Comments Blood Pressure 110/68 02/08/2021 1:58 PM CDT Pulse 87 02/08/2021 1:58 PM CDT Temperature 37.3 ??C (99.2 ??F) 02/08/2021 1:58 PM CD T Respiratory Rate 18 02/08/2021 1:58 PM CDT Oxygen Saturation 97% 02/08/2021 1:58 PM CDT Inhaled Oxygen Concentration - - Weight 59 kg (130 lb) 02/08/2021 1:58 PM CDT Height 165.1 cm (5' 5 ) 02/08/2021 1:58 PM CDT Body Mass Index 21.63 02/08/2021 1:58 PM CDT documented in this encounter Progress Notes * Annemarie Meza MD - 02/08/2021 2:34 PM CDT CC: Well-Woman Exam HPI: Claribel Ortiz is a 60 y.o. female who presents today for her annual well- woman exam. She denies new back maker related issues today. denies abnormal vaginal discharge. She is not currently sexually active and denies dyspareunia. She does perform monthly self breast exams and has not noticed any changesor masses. Denies postmenopausal bleeding. Review of Systems Constitutional: Negative for chills, fever, malaise/fatigue and weight loss. Cardiovascular: Negative for chest pain and palpitations. Gastrointestinal: Negative for abdominal pain, blood in stool, constipation, diarrhea, nausea and vomiting. Genitourinary: Negative for dysuria, flank pain, frequency, hematuria and urgency. Skin: Negative for rash. Neurological: Negative for seizures and headaches. Psychiatric/Behavioral: Negative for depression. All other systems reviewed and are negative. OB History Para Term AB Living 1 1 SAB TAB Ectopic Multiple Live Births # Outcome Date GA Lbr Miko/2nd Weight Sex Delivery Anes PTL Lv 1 Para Obstetric Comments Age @ onset of menses: unsure Age @ first live : 16 Menopause: 51 Past Medical History: Diagnosis Date ??? Fibrocystic disease of breast Past Surgical History: Procedure Laterality Date ??? HX EXCISIONAL BIOPSY Left 01/16/2014 flat epithelial atypia ??? HX WISDOM TEETH EXTRACTION ??? DC EXCISE BREAST CYST 01/16/2014 BREAST BIOPSY performed by Marina Cohen MD at [facility] CC OR Family History Problem Relation Name Age of [...] level: Not on file Occupational History Employer: [employer] Tobacco Use ??? Smoking status: Never Smoker [...] Gatherings with Friends and Family: ??? Attends [employer] Services: ??? Active Member of Clubs or Organizations: ??? Attends Club or Organization Meetings: ??? Marital Status: Intimate Partner Violence: ??? Fear of Current or Ex-Partner: ??? Emotionally Abused: ??? Physically Abused: ??? Sexually Abused: Current Outpatient Medications Medication Sig Dispense Refill ??? raloxifene (EVISTA) 60 mg tablet TAKE 1 TABLET DAILY 90 Tablet 3 ??? MULTIVITAMIN ORAL Take by mouth. ??? cholecalciferol, Vitamin D3, (VITAMIN D3) 1,000 unit Capsule Take by mouth daily. No current facility-administered medications for this visit. No Known Allergies Screening: Results for orders placed or performed during the hospital encounter of 02/09/20 MAMMO DIAG BILAT 3D LUIS W OR WO CAD Narrative EXAM: BILATERAL DIAGNOSTIC FULL-FIELD DIGITAL MAMMOGRAPHY WITH CAD WITH 3D TOMOSYNTHESIS DATE: 02/09/2020 9:50 AM HISTORY: Benign left breast excisional biopsy. DICTATION LOCATION: [facility] COMPARISON: 01/21/2019 and older. TECHNIQUE: Diagnostic views of both breasts were performed using full field digital mammography. Low-dose digital breast tomosynthesis examination was performed with 2D and 3D acquisitions. Examination is read in conjunction with computer aided detection. BREAST COMPOSITION: Heterogeneously dense, which limits the sensitivity of mammography. FINDINGS: Postsurgical changes are redemonstrated in the posterior upper left breast. There is no concerning mass, suspicious calcifications or concerning areas of architectural distortion identified in either breast. Since the prior mammograms, there has been no significant interval change. Impression IMPRESSION: There are no suspicious findings to suggest malignancy in either breast. Annual mammography is recommended. OVERALL FINAL ASSESSMENT: BI-RADS CATEGORY 2: Benign findings Results for orders placed or performed during the hospital encounter of 12/17/14 MAMMO DIGITAL DIAG BILAT Narrative BILATERAL DIAGNOSTIC MAMMOGRAM WITH CAD. Dec 17, 2014 09:28:06 AM INDICATION: Atypia, yearly exam TECHNIQUE: Diagnostic mammograms of both breasts were performed on a digital system. CAD was utilized. COMPARISON: Comparison made to multiple prior studies dating back to 10/06/2008 BREAST COMPOSITION: Heterogeneously dense, which lowers the sensitivity of mammography. FINDINGS: No concerning dominant masses or microcalcifications identified in either breast. Postoperative changes of an excisional biopsy within the left breast. OVERALL ASSESSMENT: BI-RADS category 2 - Benign findings RECOMMENDATION: Recommend continued annual mammography Dictated from [facility] Results for orders placed or performed during the hospital encounter of 01/16/14 MAMMO DIGITAL DIAG UNI LEFT Narrative LEFT BREAST WIRE LOCALIZATION USING DIGITAL MAMMOGRAPHIC GUIDANCE AND SURGICAL SPECIMEN RADIOGRAPH DATE: 01/16/14 HISTORY: Flat epithelial atypia identified on a recent biopsy PROCEDURE AND FINDINGS: The procedure was discussed with the patient. Written consent was obtained. After sterile preparation of the skin, the breast was placed in a compression grid, and 1% lidocaine was utilized for local anesthesia. A hook-wire system was advanced to the area of interest in the breast from a lateral medial approach utilizing digital mammographic guidance. Orthogonal views were obtained to confirm appropriate needle/wire position. 0.2 cc of methylene blue dye was injected into the needle hub prior to the insertion of the wire. The patient tolerated the procedure well and there was no evidence of immediate complication. Images were marked for the surgeon, and the patient was transferred to the operating suite for surgical excision. The surgical specimen was subsequently received from the operating room and digital radiography was performed. Specimen radiograph demonstrates calcifications, the hookwire system and the tissue marker clip. The findings are communicated to the surgeon. Impression IMPRESSION: Technically successful needle localization. Dictated from [facility] Physical Exam: Vitals: 02/08/21 1358 BP: 110/68 Pulse: 87 Resp: 18 Temp: 99.2 ??F (37.3 ??C) SpO2: 97% Weight: 59 kg (130 lb) Height: 5' 5 (1.651 m) General: Well-developed, well-nourished female in NAD Neuro/Psych: Normal mood and affect HEENT: Normocephalic, atraumatic; oral mucosa moist without lesions Neck: supple, no lymphadenopathy, no thyromegaly Heart: RRR, no murmurs/rubs/gallops Lungs: CTAB Breast: No erythema, lesions, palpable masses, or abnormal discharge. No dimpling or retractions noted. Abdomen: Soft, nontender, nondistended, no masses or hepatosplenomegaly appreciated, no hernia appreciated Extremities: No clubbing, cyanosis, or edema. No calf tenderness. Skin: Warm and dry without rash or lesions Pelvic: deferred Assessment/Plan: 60 y.o. female here today for a well-woman exam Claribel was seen today for well woman exam. Diagnoses and all orders for this visit: Encounter for gynecological examination without abnormal finding Screening for cervical cancer Comments: Due 2022 Breast cancer screening by mammogram Comments: scheduled for tomorrow Screening for colon cancer - AMB REFERRAL TO GASTROENTEROLOGY Annemarie Meza MD documented in this encounter Plan of Treatment Scheduled Referrals Name Type Priority Associated Diagnoses Order Schedule AMB REFERRAL TO GASTROENTEROLOGY Outpatient Referral Routine Screening for colon cancer Ordered: 02/08/2021 documented as of this encounter Visit Diagnoses Diagnosis Encounter for gynecological examination without abnormal finding- Primary Routine gynecological examination Screening for cervical cancer Screening for malignant neoplasm of the cervix Breast cancer screening by mammogram Screening for colon cancer Special screening for malignant neoplasms, colon documented in this encounter Care Teams Cardiology Fellow Relationship Specialty Start Date End Date Diana Braun MD PCP - General Family Practice 12/22/13 documented as of this encounter
--- OUTSIDE RECORDS SUMMARY | 2024-08-12 21:40 | XMS_ITS | Encounter Summary ---
Author Organization [facility] Address [address] [place] [address] Care Team Providers Care City Carrier Name Role Phone Diana Braun MD Primary Care Provider [phone] Reason for Visit * Reason Comments Follow Up Flat epithelial atyp ia of breast, left - 4 mo f/u * Auth/Cert Specialty Diagnoses / Procedures [facility] To Contact Surgical On[facility] [address] [place] [address] Referral ID Status Reason Start Date Expiration Date Visits Re quested Visits Authorized [id number] 1 1 Encounter Details Date Type Department Care Team (Late st Contact Info) Description 12/17/2014 10:15 AM CDT Office Visit [facility] BRE[facility] [place] [address] [place] [address] Marina Cohen MD NO ADDRESS ON FILE Flat epithelial atypia of breast, left (Primary Dx); Diffuse cystic mastopathy, unspecified laterality Social History Tobacco Use Types Packs/Day Years Used Date Smoking Tobacco: Never Smokeless Tobacco: Never Tobacco Cessation:Counseling Given: No Alcohol Use Standard Drinks/Week Comments Yes 0 (1 standard drink = 0.6 oz pur e alcohol) moderate Sex and Gender Information Value Date Recorded Sex Assigned at Not on file Gender Identity Not on file Sexual Orientation Not on file documented as of this encounter Last Filed Vital Signs Vital Sign Reading Time Taken Comments Blood Pressure 95/62 12/17/2014 9:53 AM CDT Pulse 74 12/17/2014 9:53 AM CDT Temperature - - Respiratory Rate - - Oxygen Saturation - - Inhaled Oxygen Concentration - - Weight 58.1 kg (128 lb) 12/17/2014 9:53 AM CDT Height 165.1 cm (5' 5 ) 12/17/2014 9:53 AM CDT Body Mass Index 21.3 12/17/2014 9:53 AM CDT documented in this encounter Progress Notes * aMrina Cohen MD - 12/17/2014 10:11 AM CDT Subjective: Claribel Ortiz is a 54 y.o. female who presents today for regular scheduled checkup. She has no new problems to report. ROS: Blood pressure 95/62, pulse 74, height 5' 5 (1.651 m), weight 128 lb (58.06 kg), not currently . Patient Active Problem List Diagnosis Code ??? Flat epithelial atypia of breast 610.8 ??? Diffuse cystic mastopathy 610.1 No Known Allergies Current Outpatient Prescriptions Medication Sig Dispense Refill ??? bhfnpogvypnje-nupooctj-suyudf (CENTRUM SILVER) Tablet Take 1 Tab by mouth daily. ??? Tretinoin (ATRALIN) 0.05 % Gel Apply to affected area. ??? CALCIUM PHOSPHATE TRIB/VIT D3 (CITRACAL + D ORAL) Take by mouth. ??? OMEGA-3 FATTY ACIDS/FISH OIL (OMEGA 3 FISH OIL ORAL) Take by mouth. No current facility-administered medications for this visit. Current medications being taking for problem(s) listed above 10 systems reviewed and negative Objective: Well-developed, well-nourished, pleasant woman. Neck - no thyromegaly no cervical adenopathy SCF- no adenopathy Axilla -no adenopathy Breasts - normal in appearance, no masses, skin changes or nipple discharge; well healed incision upper outer left breast Abdomen - liver and spleen not palpably enlarged Extremities - Good range of motion of shoulders, no lymphedema present Review of bilateral mammogram from today is benign. We discussed followup. She is wondering if she needs to be seen here. As we left it we plan to see her back yearly with her mammogram and follow with her other physicians in the interim. documented in this encounter Plan of Treatment Not on file documented as of this encounter Visit Diagnoses Diagnosis Flat epithelial atypia of breast, left- Primary Diffuse cystic mastopathy, unspecified laterality documented in this encounter Care Teams City Carrier Relationship Specialty Start Date End Date Diana Braun MD PCP - General Family Practice 12/22/13 documented as of this encounter
--- OUTSIDE RECORDS SUMMARY | 2024-08-12 21:40 | XMS_ITS | Encounter Summary ---
Author Organization [facility] Address [address] [place]: Epic Prelude ADT [place] [address] Care Team Providers Care Damper Worker Name Role Phone Diana Braun MD Primary Care Provider [phone] Encounter Details Date Type Department Care Team (Latest Contact Info) Description 08/03/2020 Travel Social History Tobacco Use Types Packs/Day [...] have Coronavirus / COVID-19? No / Unsure 08/03/2020 8:51 AM ENGINE INSPECTOR documented as of this encounter Plan of Treatment Not on file documented as of this encounter Visit Diagnoses Not on filedocumented in this encounter Care Teams Damper Worker Relationship Specialty Start Date End Date Diana Braun MD PCP - General Family Practice 12/22/13 documented as of this encounter
--- OUTSIDE RECORDS SUMMARY | 2024-08-12 21:40 | XMS_ITS | Encounter Summary ---
Author Organization [facility] Address [address] [place] [address] Care Team Providers Care Technical Support Agent Name Role Phone Diana Braun MD Primary Care Provider [phone] Reason for Referral * Radiology Services (Routine) - Closed Specialty Diagnoses / Procedures Referred By Paige avalos Referred To Contact Diagnoses 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 Dense breast Diffuse cystic mastopathy, unspecified laterality Procedures MAMMO BREAST US BILAT COMPLETE Vilma Jim NP NO ADDRESS ON FILE Referral ID Status Reason Start Date Expiration Date Visits Re quested Visits Authorized [id number] Closed 02/09/2020 03/11/2021 1 1 Reason for Visit * Reason Comments Follow Up 6 months w/mmg prior Encounter Details Date Type Department Care Team (Late st Contact Info) Description 02/09/2020 10:30 AM CDT Office Visit [facility] BREAST SURGERY - [place] [facility] [address] [facility] [address] [place] [id number] Vilma Jim NP NO ADDRESS ON FILE Diffuse cystic mastopathy, unspecified laterality (Primary Dx); 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 No / Unsure 02/09/2020 9:26 AM CDT documented as of this encounter Last Filed Vital Signs Vital Sign Reading Time Taken Comments Blood Pressure 100/80 02/09/2020 9:59 AM CDT Pulse 61 02/09/2020 9:59 AM CDT Temperature 36.6 ??C (97.9 ??F) 02/09/2020 9:59 AM CD T Respiratory Rate - - Oxygen Saturation 99% 02/09/2020 9:59 AM CDT Inhaled Oxygen Concentration - - Weight 59.4 kg (131 lb) 02/09/2020 9:59 AM CDT Height 165.1 cm (5' 5 ) 02/09/2020 9:59 AM CDT Body Mass Index 21.8 02/09/2020 9:59 AM CDT documented in this encounter Progress Notes * Vilma Jim, IRRIGATION FOREMAN - 02/09/2020 10:22 AM CDT DIAGNOSIS ICD-10-CM ICD-9-CM 1. Diffuse cystic mastopathy, unspecified laterality N60.19 610.1 2. 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 Dense breast R92.2 793.82 Claribel Ortiz 1960 HISTORY OF PRESENT ILLNESS Claribel comes in today for annual followup with mammogram. To review, and 2013 she underwent a wide excisional left breast biopsy which revealed flat epithelial hyperplasia. She continues with surveillance through mammography and clinical breast exams every 6 months. She does not have a family historyof breast or ovarian cancer. She started on Evista as medical risk reduction in December 2015. She denies any hot flashes, night sweats, mood changes, but does report vaginal dryness. She was prescribed vaginal suppository by her gyncontaining Vit E and Vit A- no hormones. This was not helpful so now she is using Replens and has noted improvement in symptoms. She denies SOB or leg pain or cramps. No calf swelling or signs of VTE. Bone density done fall 2017- stable osteopenia- improvement in L spine and stable in Left and right hips. Wants to wait till fall 2020 to repeat due to insurance. Today on exam she denies any breastrelated complaints or concerns. Does report some dry skin to lateral aspect left breast with itching for past month. Applying hydrocortisone with relief. She is postmenopausal, has not had a period in over 8 years. She continues to see a supervisor keymodule assembly on an annual basis Past Medical History: Diagnosis Date ??? Fibrocystic disease of breast Past Surgical History: Procedure Laterality Date ??? HX EXCISIONAL BIOPSY Left 01/16/2014 flat epithelial atypia ??? HX WISDOM TEETH EXTRACTION ??? MA EXCISE BREAST CYST 01/16/2014 BREAST BIOPSY performed by Marina Cohen MD at [facility] Current Outpatient Medications: ??? raloxifene (EVISTA) [...] Not on file Occupational History Employer: [employer] Social Needs ??? Financial resource strain: Not on file ??? Food insecurity Worry: Not on file Inability: Not on file ??? Transportation needs Medical: Not on file Non-medical: Not on file Tobacco Use ??? Smoking status: Never Smoker ??? Smokeless tobacco: Never Used Substance and Sexual Activity ??? Alcohol use: Yes Comment: moderate ??? Drug use: No ??? Sexual activity: Yes Partners: Male control/protection: None Lifestyle ??? Physical activity Days per week: Not on file Minutes per session: Not on file ??? Stress: Not on file Relationships ??? Social connections Talks on phone: Not on file Gets together: Not on file Attends church service: Not on file Active member of club or organization: Not on file Attends meetings of clubs or organizations: Not on file Relationship status: Not on file ??? Intimate partner violence Fear of current or ex partner: Not on file Emotionally abused: Not on file Physically abused: Not on file Forced sexual activity: Not on file Other Topics Concern ??? Service Not Asked [...] Social History Narrative ??? Not on file REVIEW OF SYSTEMS Constitutional: denies fever, chills, fatigue, or weakness. Started Evista, tolerating well, no hotflashes/night sweats. + vaginal dryness but better with Replens Cardiovascular: denies chest pain or pressure, FERREIRA, palpitations, or edema. Pulmonary: denies SOB, cough, or wheezing. GI/Abdomen: denies nausea, vomiting, abdominal pain, constipation, diarrhea. : denies dysuria, frequency, urgency, or hematuria. PERSONNEL PSYCHOLOGIST: denies any abnormal vaginal bleeding or unusual spotting, No pelvic pain. Postmenopausal. Musculoskeletal: denies joint pain or stiffness, gait disturbances, or weakness. Breast/Axilla/Chest: denies nipple changes, skin changes, or any other breast changes, denies palpable masses or abnormalities. Lymph: Denies any palpable abnormalities to LN. Skin: no rashes, new skin lesions/eruptions, no bruising. + itching- see HPI Psych: no changes in mood, depression, or anxiety. PHYSICAL EXAM Constitutional: well-developed, well- nourished female in no acute distress Cardiovascular: RRR, no abnormality heard S1 and S2, no murmur, no gallops or rubs Pulmonary: LCTA, no wheezing, no rhonchi, no cough on exam GI: BS present X4, no abd tenderness or distention, no hepatomegaly, no splenomegaly Musculoskeletal: no focal joint pain or stiffness, ROM normal limits, gait steady. Breast/Axilla/Chest: left breast- scar tissue noted upper outer aspect left breast from prior biopsy, stable, no changes, incision healed, no palpable masses or areas of concern, nipple everted, no discharge, no skin changes except for dry patch of skin far left anterior chest wall, not involving breast; right breast- there is a ridge of normal bresat tissue at 4:00 right breast unchanged, no dominant masses, no skin changes, nipples [...] ANION GAP 13 07/18/2016 10:47 AM RADIOLOGY 02/09/2020: MAMMOGRAM at [facility] 08/15/2019: BILATERAL BREAST ULTRASOUND at [facility] 01/21/2019: MAMMOGRAM at [facility] 07/18/2018: 3D AUTOMATED ULTRASOUND at [facility] 01/15/2018: MAMMOGRAM at [facility] 07/31/2017: 3D AUTOMATED ULTRASOUND at [facility] 01/16/2017: MAMMOGRAM at [facility] Assessment/Plan #1 mammogram today- negative #2 Tolerating Evista well. No hot flashes, leg cramps, or mood changes. Continue on therapy. Does report some vaginal dryness- drophammer operator managing. Replens helpful. Call if this becomes worse #3 Clinical breast exam demonstrates benign findings. Dry skin far lateral aspect left chest wall, not involving breast. Recommend apply topical hydrocortisone and Aquaphor and see a visual c developer. She agrees with this plan #4 I further explained that lifestyle modifications [...] and stagger with MMG every 6 months #6 I also explained that having biannual breast exam by a healthcare professional is warranted as well as annual mammography. Vigilant surveillence was also underscored. #5 DEXA done June 2018- mild osteopenia but improvement in L spine. Continue Evista and VitaminD supplements. Encouraged weight bearing exercise as well. Repeat DEXA in the fall of 2020. Pt wants to wait 3 years due to insurance #6 Follow up in 6 months at time of whole breast US. Encouraged to call office for any breast changes or areas of concern #7 Due for well woman exam with drophammer operator #8 TOBACCO COUNSELING She is not a [...] of care. Vilma Jim, MSN, AGNP-C, AOCNP [facility] Breast Surgery In collaboration with: Dr. Prescott documented in this encounter Plan of Treatment Not on file documented as of this encounter Results * MAMMO BREAST US BILAT COMPLETE (08/03/2020 9:32 AM BENCH LOOM WEAVER) Anatomical Region Laterality Modality Breast Bilateral Ultrasound 08/03/2020 9:32 AM BENCH LOOM WEAVER Impressions 08/03/2020 10:45 AM BENCH LOOM WEAVER IMPRESSION: 1. No concerning abnormalities in either breast. OVERALL FINAL ASSESSMENT: ??BI-RADS CATEGORY 1 : Negative RECOMMENDATIONS: 1. Recommend annual mammography with tomosynthesis and screening breast ultrasound. Narrative 08/03/2020 10:45 AM BENCH LOOM WEAVER COMPLETE ULTRASOUND OF BILATERAL BREASTS ?? DATE: 08/03/2020 9:32 AM DICTATION LOCATION: [facility] INDICATION: Screening study. TECHNIQUE: Complete real-time beavers-scale ultrasound imaging of both the right and left breasts was performed and supplemented with color Doppler imaging as needed. Ultrasound imaging was performed of all 4 quadrants and retroareolar regions of both breasts. Axillary ultrasound was also performed. COMPARISON: July 2019 and June 2018. FINDINGS: Complete bilateral breast ultrasound was performed including all four quadrants and the retroareolar regions. Axillary ultrasound was also performed. No concerning sonographic abnormalities are identified in either breast. No pathologically enlarged lymph nodes identified. Procedure Note Mane Watson MD - 08/03/2020 COMPLETE ULTRASOUND OF BILATERAL BREASTS DATE: 08/03/2020 9:32 AM [facility] INDICATION: Screening study. TECHNIQUE: Complete real-time beavers-scale ultrasound imaging of both the right and left breasts was performed and supplemented with color Doppler imaging as needed. Ultrasound imaging was performed of all 4 quadrants and retroareolar regions of both breasts. Axillary ultrasound was also performed. COMPARISON: July 2019 and June 2018. FINDINGS: Complete bilateral breast ultrasound was performed including all four quadrants and the retroareolar regions. Axillary ultrasound was also performed. No concerning sonographic abnormalities are identified in either breast. No pathologically enlarged lymph nodes identified. IMPRESSION: 1. No concerning abnormalities in either breast. OVERALL FINAL ASSESSMENT: BI-RADS CATEGORY 1 : Negative RECOMMENDATIONS: 1. Recommend annual mammography with tomosynthesis and screening breast ultrasound. Vilma Jim NP MAMMO ORDERABLES documented in this encounter Visit Diagnoses Diagnosis Diffuse cystic mastopathy, unspecified laterality- Primary 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 Dense breast Inconclusive mammogram 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 Dense breast Inconclusive mammogram Diffuse cystic mastopathy, unspecified laterality documented in this encounter Care Teams Technical Support Agent Relationship Specialty Start Date End Date Diana Branu MD PCP - General Family Practice 12/22/13 documented as of this encounter
--- OUTSIDE RECORDS SUMMARY | 2024-08-12 21:40 | XMS_ITS | Encounter Summary ---
Author Organization [facility] Address [address] [place] [address] Care Team Providers Care Aircraft Structural Repairer Name Role Phone Diana Braun MD Primary Care Provider [phone] Reason for Visit * Reason Comments Medication Refill Encounter Details Date Type Department Care Team (Late st Contact Info) Description 08/07/2018 Refill [facility] [address] [facility] [address] [place] [id number] Vilma Jim, SULFURIC ACID PLANT OPERATOR NO ADDRESS ON FILE Social History Tobacco Use Types Packs/Day Years [...] on filedocumented in this encounter Care Teams Aircraft Structural Repairer Relationship Specialty Start Date End Date Diana Braun MD PCP - General Family Practice 12/22/13 documented as of this encounter
--- OUTSIDE RECORDS SUMMARY | 2024-08-12 21:40 | XMS_ITS | Encounter Summary ---
Author Organization [facility] Address [address] [place] [address] Care Team Providers Care Manual Writer Name Role Phone Diana Braun MD Primary Care Provider Reason for Referral * Outpatient Services (Routine) - Closed Specialty Diagnoses / Procedures Referred By Paige avalos Referred To Contact Diagnoses Abnormal mammogram Procedures MAMMO DIGITAL DIAG UNI LEFT Marina An MD NO ADDRESS ON FILE Referral ID Status Reason Start Date Expiration Date Visits Re quested Visits Authorized [id number] Closed 01/09/2014 02/09/2015 1 1 * Outpatient Services (Routine) - Closed Specialty Diagnoses / Procedures Referred By Paige avalos Referred To Contact Diagnoses Abnormal mammogram Procedures MAMMO NEEDLE LOC EA LESION LT Marina An MD NO ADDRESS ON FILE Referral ID Status Reason Start Date Expiration Date Visits Re quested Visits Authorized [id number] Closed 01/09/2014 02/09/2015 1 1 Reason for Visit * Auth/Cert - Closed Specialty Diagnoses / Procedures Referred By Paige avalos Referred To Contact General Surgery Diagnoses ABNORMAL MAMMOGRAM Procedures BREAST BIOPSY [facility] [address] [facility] [address] [place] [address] Referral ID Status Reason Start Date Expiration Date Visits Re quested Visits Authorized [id number] Closed 1 1 Encounter Details Date Type Department Care Team (Latest Contact Info) Description 01/16/2014 6:36 AM CDT - 01/16/2014 10:32 AM CDT Hospital Encounter [facility] [place] [address] [place] [address] Marina An MD NO ADDRESS ON FILE Discharge Disposition: Home or Self Care Social History Tobacco Use Types Packs/Day Years [...] Sign Reading Time Taken Comments Blood Pressure 106/66 01/16/2014 10:07 AM CDT Pulse 79 01/16/2014 7:06 AM CDT Temperature 37 ??C (98.6 ??F) 01/16/2014 9:32 AM CDT Respiratory Rate 16 01/16/2014 10:07 AM CDT Oxygen Saturation 99% 01/16/2014 10:07 AM CDT Inhaled Oxygen Concentration - - Weight 54.9 kg (121 lb) 01/16/2014 7:06 AM CDT Height 167.6 cm (5' 6 ) 01/16/2014 7:06 AM CDT Body Mass Index 19.53 01/16/2014 7:06 AM CDT documented in this encounter Discharge Instructions * Discharge Instructions* Marina An MD - 01/16/2014 9:28 AM CDT POSTOPERATIVE INSTRUCTIONS AFTER BREAST BIOPSY 1. It is helpful to use an ice bag intermittently on the area of the biopsy on the day of the surgery. 2. You may be more comfortable wearing a bra. 3. No strenuous activity for 4-5 days. 4. You may remove the dressing after 24 hours. . 5. You may shower after 24 hours. 6. It takes 3-5 days to get the pathology report. We will call you with the result and schedule a follow-up appointment. 7. If you have any questions or problems call the office at [phone] documented in this encounter Medications at Time of Discharge Medication Sig Dispensed Refills Start Date End Date HYDROcodone-acetaminophen (NORCO) 5-325 mg tablet Take 1 Tab by mouth every 4 hours as needed for Pain, Moderate. 20 Tab 0 01/16/2014 01/28/2014 documented as of this encounter H&P Notes * Marina An MD - 01/16/2014 8:49 AM CDT I have reviewed the last H&P and examined the patient today and there are no changes. documented in this encounter OR Notes * Anesthesia Handoff - Eva Chambers CRNA - 01/16/2014 9:36 AM CDT Post-Anesthetic transfer of care report elements to appropriate post-anesthesia recovery environment completed in accordance with procedure. Vital Signs: BP: 86/46 mmHg (01/16/2014 9:32 AM) Pulse: 79 (01/16/2014 7:06 AM) Heart Rate (Monitored): 78 bpm (01/16/2014 9:32 AM) Temp: 37 ??C (01/16/2014 9:32 AM) Resp: 14 (01/16/2014 9:32 AM) SpO2: 98 % (01/16/2014 9:32 AM) 9:38 AM Eva Chambers CRNA * Operative Report - Marina An MD - 01/16/2014 9:27 AM CDT Patient: Claribel Abarca / 53 y.o. / female : 1960 PREOPERATIVE DIAGNOSIS: Atypia left breast POSTOPERATIVE DIAGNOSIS: Same PROCEDURE: 1.Left needle localized breast biopsy SURGEON: Surgeon(s) and Role: * Marina An MD - Primary ANESTHESIA: MAC ESTIMATED BLOOD LOSS: Minimal SPECIMEN: Left breast tissue DESCRIPTION OF PROCEDURE: The patient was brought to the operating room and placed in supine position on the operating room table. The left breast was prepped and draped into the operative field. A template was drawn over the area denoted by the hook wire. After adequate intravenous sedation the surgery site was anesthetized with 0.5% Marcaine with epinephrine. An approximate 3 cm incision was made. Using electrocautery the area defined by the hook wire was excised. All specimen was oriented with sutures. It was sent to imaging to confirm that the abnormality was within the specimen. Further inspection and palpation revealed no other abnormalities. Hemostasis was checked again. The area wasirrigated with saline solution. The subcutaneous tissue was closed with interrupted sutures of 4-0 Vicryl. The skin was closed with a running subcuticular suture of 4-0 Biasyn. Dermabond and sterile dressings were applied. She was returned to the recovery room having tolerated the procedure well. All sponge, instrument and needle counts reported as correct. Signed: Marina An MD 01/16/2014, 9:27 AM documented in this encounter Plan of Treatment Not on file documented as of this encounter Procedures Procedure Name Priority Date/Time Associated Diagnosis Comments MAMMO DIAGNOSTIC UNI LEFT W OR WO CAD Routine 01/16/2014 1:39 PM CDT Abnormal mammogram PATHOLOGY Routine 01/16/2014 9:36 AM CDT MAMMO NEEDLE LOC EA LESION LT Routine 01/16/2014 8:54 AM CDT Abnormal mammogram BREAST BIOPSY 01/16/2014 8:50 AM CDT ABNORMAL MAMMOGRAM documented in this encounter Results * MAMMO DIGITAL DIAG UNI LEFT (01/16/2014 1:39 PM CDT) Anatomical Region Laterality Modality Breast Left Mammography 01/16/2014 1:39 PM CDT Impressions 01/16/2014 4:08 PM CDT IMPRESSION: Technically successful needle localization. Dictated from [facility] Narrative 01/16/2014 4:08 PM CDT LEFT BREAST WIRE LOCALIZATION USING DIGITAL MAMMOGRAPHIC GUIDANCE AND SURGICAL SPECIMEN RADIOGRAPH DATE: 01/16/14 HISTORY: ??Flat epithelial atypia identified on a recent biopsy PROCEDURE AND FINDINGS: The procedure was discussed with the patient. ??Written consent was obtained. After sterile preparation of [...] prior to the insertion of the wire. ??The patient tolerated the procedure well and there [...] The findings are communicated to the surgeon. Procedure Note Lois Blackwell MD - 01/16/2014 LEFT BREAST WIRE LOCALIZATION USING DIGITAL MAMMOGRAPHIC [...] The findings are communicated to the surgeon. IMPRESSION IMPRESSION: Technically successful needle localization. Dictated from [facility] Marina An MD MAMMO ORDERABLES * PATHOLOGY (01/16/2014 9:36 AM CDT) SURGICAL PATHOLOGY ?[facility] ?[address] ? [place], [place] ??[address] ? Patient: ??CLARIBEL ABARCA ? : ??1960 ? Procedure Date: ??01/16/2014 ? Accession Date: ??01/16/2014 ? Case No: ??[id number] ? Ordering Dr: ??MARINA AN ? Case type SW is performed by [facility], [address] [place] [address], ? [place], [place] ??[address]; all other case types are performed by [facility] [place] ? [facility], [address] [place], [place] ??[address] ?SURGICAL PATHOLOGY & NON-GYNECOLOGIC CYTOPATHOLOGY REPORT ? DIAGNOSIS ? BREAST, LEFT, NEEDLE LOCALIZED EXCISION: ? - FIBROCYSTIC CHANGES (SEE MICROSCOPIC). ? - POST-BIOPSY REACTIVE CHANGES ([id number]). ? Specimen Description: ? Left breast atypia, short stitch superior, long stitch lateral, removed at ? 9:18 and in formalin at 9:30. ? Operative Procedure: ? Needle localization ??biopsy. ? Patient Information/Histo ry/Diagnosis: ? Abnormal. ? Gross: ? The specimen is received in a single container labeled marilee Mercado ? breast atypia and consists of a single piece of yellow-vickers, lobulated ? adipose tissue that has a short suture at the superior margin and a long ? suture at the lateral margin. The tissue is 3.4 cm from medial to lateral, ? 3.2 cm from superior to inferior, and 1.4 cm from anterior to posterior. ? There is a beavers metal localization wire inserted through the tissue at the ? anterior lateral aspect. The tissue is received with a paper grid that has ? from the grid in transport and no radiograph is received. The ? anterior surface is inked yellow, the posterior black, the superior blue, ? and the inferior green. The tissue is serially sectioned from medial to ? lateral into nine levels to reveal a scant amount of yellow-vickers adipose ? tissue and a large amount of dense white fibrous tissue. No discrete ? lesions are identified within the tissue. The entire specimen is submitted ? sequentially from medial to lateral as follows: A1-perpendicular sections ? through level 1; A2-level 2; A3-level 3; A4-level 4; A5-level 5; A6-level ? 6; A7-level 7; A8-level 8; A9-perpendicular sections through lateral ? resection margin or level 9. ? LLH/TMZ 01.16.2014 05:36 pm ? Microscopic: ? The slides are labeled [id number], Claribel Abarca. ? The excision encompasses the prior biopsy site ([id number]). A variety of ? fibrocystic changes are present including stromal fibrosis, cyst formation ? and columnar cell change without atypia. No residual atypia is identified. ? HANNA/NORRIS 01.19.2014 12:20 pm ? Staging Form: ? No. ? ELECTRONIC SIGNATURE FOR AISLINN FERNANDO M.D.- 01/19/14 04:19 pm [facility] Tissue specimen (specimen) 01/16/2014 9:36 AM CDT Marina An MD PATHOLOGY/CYTOLOGY O RDERABLES [facility] CLIA# [id number] [address] [place] [address] * MAMMO NEEDLE LOC EA LESION LT (01/16/2014 8:54 AM CDT) Anatomical Region Laterality Modality Breast Left Ultrasound 01/16/2014 8:53 AM CDT Addenda Addendum by Lois Blackwell MD on 01/20/2014 2:05 PM CDT ADDENDUM: The pathology from the patient's recent left breast needle localization reveals: Fibrocystic changes. Post biopsy reactive changes. These findings are benign and concordant. The patient will be informed of the above findings by the office of Dr. An. Dictated from [facility] Impressions 01/16/2014 4:08 PM CDT IMPRESSION: Technically successful needle localization. Dictated from [facility] Narrative 01/16/2014 4:08 PM CDT LEFT BREAST WIRE LOCALIZATION USING DIGITAL MAMMOGRAPHIC GUIDANCE AND SURGICAL SPECIMEN RADIOGRAPH DATE: 01/16/14 HISTORY: ??Flat epithelial atypia identified on a recent biopsy PROCEDURE AND FINDINGS: The procedure was discussed with the patient. ??Written consent was obtained. After sterile preparation of [...] prior to the insertion of the wire. ??The patient tolerated the procedure well and there [...] The findings are communicated to the surgeon. Procedure Note Lois Blackwell MD - 01/16/2014 LEFT BREAST WIRE LOCALIZATION USING DIGITAL MAMMOGRAPHIC [...] The findings are communicated to the surgeon. IMPRESSION IMPRESSION: Technically successful needle localization. Dictated from [facility] Marina Norman Noel MD MAMMO ORDERABLES documented in this encounter Visit Diagnoses Diagnosis Abnormal mammogram Abnormal mammogram, unspecified documented in this encounter Administered Medications Inactive Administered Medications - up to 3 most recent administrations Medication Order MAR Action Action Date Dose Rate Site lactated ringers solution IV, at 150 mL/hr, PRE-PROCEDURE CONTINUOUS, Starting on Sun01/16/14 at 0715, Until Sun01/16/14 at 1232, Routine, Pre-op New Bag 01/16/2014 8:19 AM CDT 150 mL/hr lactated ringers solution IV, at 75 mL/hr, POST-PROCEDURE CONTINUOUS, Starting on Sun01/16/14 at 0915, Until Sun01/16/14 at 1232, Routine, PACU Rate Verify 01/16/2014 9:37 AM CDT 75 mL/hr lidocaine 1 % (XYLOCAINE) injection 30 mL 30 mL, See Admin Instructions, ONE TIME ONLY, 1 dose, On Sun01/16/14 at 0800, Routine Given 01/16/2014 8:00 AM CDT 4.5 mL Operative Site methylene blue (UROLENE BLUE) 1 % (10 mg/mL) injection 10 mg 10 mg (1 mL), See Admin Instructions, ONE TIME ONLY, 1 dose, On Sun01/16/14 at 0800, Routine Given 01/16/2014 8:00 AM CDT 3 mg Operative Site sodium bicarbonate 4.2 % injection 5 mEq 5 mEq, See Admin Instructions, ONE TIME ONLY, 1 dose, On Sun01/16/14 at 0800, Routine Given 01/16/2014 8:00 AM CDT 0.5 mEq Operative Site documented in this encounter Active and Recently Administered Medications Times are shown in CDT. Scheduled Medication Order 01/14/2014 01/15/2014 01/16/2014 ceFAZolin (ANCEF) IVPB 1,000 mg (COMPLETED) 1,000 mg, IV, PRE-PROCEDURE ONCE, 1 dose, Starting on Sun01/16/14 at 0705, Until Sun01/16/14 at 0859, Pre-Operative, Pre-op 0859 (Given - Provid er: Eva Chambers CRNA) lidocaine 1 % (XYLOCAINE) injection 30 mL (COMPLETED) 30 mL, See Admin Instructions, ONE TIME ONLY, 1 dose, On Sun01/16/14 at 0800, Routine 0800 (Given - Provid er: Brandy Elizondo, RT) methylene blue (UROLENE BLUE) 1 % (10 mg/mL) injection 10 mg (COMPLETED) 10 mg (1 mL), See Admin Instructions, ONE TIME ONLY, 1 dose, On Sun01/16/14 at 0800, Routine 0800 (Given - Provid er: Brandy Elizondo, RT) sodium bicarbonate 4.2 % injection 5 mEq (COMPLETED) 5 mEq, See Admin Instructions, ONE TIME ONLY, 1 dose, On Sun01/16/14 at 0800, Routine 0800 (Given - Provid er: Brandy Elizondo, RT) Continuous Medication Order 01/14/2014 01/15/2014 01/16/2014 lactated ringers solution (CANCELED) IV, at 150 mL/hr, PRE-PROCEDURE CONTINUOUS, Starting on Sun01/16/14 at 0715, Until Sun01/16/14 at 1232, Routine, Pre-op 0715 (Due)0819 (New Bag - Provider: Silavna Matt RN)0924 (Fluid Volume - Provider: Eva Chambers CRNA) lactated ringers solution (CANCELED) IV, at 75 mL/hr, POST-PROCEDURE CONTINUOUS, Starting on Sun01/16/14 at 0915, Until Sun01/16/14 at 1232, Routine, PACU 0937 (Rate Verify - Provider: Chio Chavez RN) PRN Medication Order 01/14/2014 01/15/2014 01/16/2014 bupivacaine-EPINEPHrine (SENSORCAINE-EPINEPHRINE) 0.5 %-1:200,000 injection (CANCELED) INTRA-PROCEDURE PRN, Starting on Sun01/16/14 at 0913, Until Sun01/16/14 at 0928, Routine, Anesthesia Intra-op 0913 (Given - Provid er: Marina An MD - Comment: Intradermal) documented in this encounter Care Teams Manual Writer Relationship Specialty Start Date End Date Diana Braun MD PCP - General Family Practice 12/22/13 documented as of this encounter
--- OUTSIDE RECORDS SUMMARY | 2024-08-12 21:40 | XMS_ITS | Encounter Summary ---
Author Organization [facility] Address [address] [place] [address] Care Team Providers Care Program Scheduler Name Role Phone Unavailable Primary Care Provider Unavailabl e Reason for Referral * Outpatient Services (Routine) - Closed Specialty Diagnoses / Procedures Referred By Paige avalos Referred To Contact Diagnoses Abnormal mammogram Procedures MAMMO STEREOTACTIC BREAST BX LT Marina Cohen MD NO ADDRESS ON FILE Referral ID Status Reason Start Date Expiration Date Visits Re quested Visits Authorized [id number] Closed 12/16/2013 01/16/2015 1 1 Encounter Details Date Type Department Care Team (Late st Contact Info) Description 12/16/2013 Orders Only [facility] BREAST SURGERY - [facility] [address] [address] [place] [address] Christin Gill RN Abnormal mammogram (Primary Dx) Social History Tobacco Use Types Packs/Day Years Used Date Smoking Tobacco: Never Assessed Sex and Gender Information Value Date Recorded Sex Assigned at Not on file Gender Identity Not on file Sexual Orientation Not on file documented as of this encounter Plan of Treatment Not on file documented as of this encounter Results * MAMMO STEREOTACTIC BREAST BX LT (12/22/2013 1:11 PM CDT) Anatomical Region Laterality Modality Breast Left Ultrasound 12/22/2013 1:11 PM CDT Addenda Addendum by Lois Blackwell MD on 12/26/2013 12:14 PM CDT ADDENDUM: The pathology from the patient's recent left breast stereotactic core biopsy reveals: Flat epithelial atypia, focal. Fibrocystic changes. Microcalcifications. These findings are benign but high risk. The patient will need to have a needle localization and excision. Dictated from [facility] Impressions 12/23/2013 1:07 PM CDT IMPRESSION: Technically successful stereotactic core biopsy with tissue marker placement. Dictated from [facility] Narrative 12/23/2013 1:07 PM CDT VACUUM-ASSISTED CORE BIOPSY OF THE LEFT BREAST UTILIZING STEREOTACTIC GUIDANCE AND SPECIMEN RADIOGRAPH. DATE: 12/22/13 HISTORY: ??Left breast calcifications PROCEDURE AND FINDINGS: The risks and potential benefits of the procedure were discussed with the patient and written informed consent was obtained. The patient was placed in the prone position on the stereotactic table with the breast in lateral medial compression and the area of interest was localized and targeted utilizing digital imaging with stereotaxis. After sterile preparation of the skin, 1% lidocaine was utilized for local anesthesia at the skin puncture site and 2% lidocaine with epinephrine was utilized for deeper local anesthesia/hemostasis about the biopsy site. The vacuum assisted biopsy needle was advanced to the level of the calcifications of interest from a arm through the hold lateral medial approach utilizing stereotactic guidance and a total of 6 tissue cores were obtained. The specimen radiograph demonstrated that the calcifications of interest are included in the tissue cores. The needle was removed and hemostasis was achieved. A metallic clip was deployed into the biopsy cavity. ??Dermabond and steristrips were applied to the area for closure. ??An ice pack was applied to the site. A two-view confirmatory full field digital mammogram was obtained after the procedure and demonstrated adequate placement of the clip. The patient tolerated the procedure well and there is no evidence of significant immediate complication. The patient was given verbal as well as written postprocedure instructions prior to release from the department. The tissue cores were submitted to surgical pathology in formalin for histological analysis. Procedure Note Lois Blackwell MD - 12/23/2013 VACUUM-ASSISTED CORE BIOPSY OF THE LEFT BREAST UTILIZING STEREOTACTIC GUIDANCE AND SPECIMEN RADIOGRAPH. DATE: 12/22/13 HISTORY: Left breast calcifications PROCEDURE AND FINDINGS: The risks and potential benefits of the procedure were discussed with the patient and written informed consent was obtained. The patient was placed in the prone position on the stereotactic table with the breast in lateral medial compression and the area of interest was localized and targeted utilizing digital imaging with stereotaxis. After sterile preparation of the skin, 1% lidocaine was utilized for local anesthesia at the skin puncture site and 2% lidocaine with epinephrine was utilized for deeper local anesthesia/hemostasis about the biopsy site. The vacuum assisted biopsy needle was advanced to the level of the calcifications of interest from a arm through the hold lateral medial approach utilizing stereotactic guidance and a total of 6 tissue cores were obtained. The specimen radiograph demonstrated that the calcifications of interest are included in the tissue cores. The needle was removed and hemostasis was achieved. A metallic clip was deployed into the biopsy cavity. Dermabond and steristrips were applied to the area for closure. An ice pack was applied to the site. A two-view confirmatory full field digital mammogram was obtained after the procedure and demonstrated adequate placement of the clip. The patient tolerated the procedure well and there is no evidence of significant immediate complication. The patient was given verbal as well as written postprocedure instructions prior to release from the department. The tissue cores were submitted to surgical pathology in formalin for histological analysis. IMPRESSION IMPRESSION: Technically successful stereotactic core biopsy with tissue marker placement. Dictated from [facility] Marina Cohen MD MAMMO ORDERABLES documented in this encounter Visit Diagnoses Diagnosis Abnormal mammogram- Primary Abnormal mammogram, unspecified Abnormal mammogram Abnormal mammogram, unspecified documented in this encounter
--- OUTSIDE RECORDS SUMMARY | 2024-08-12 21:40 | XMS_ITS | Encounter Summary ---
Author Organization [facility] Address [address] [place] [address] Care Team Providers Care Teletype Adjuster Name Role Phone Diana Braun MD Primary Care Provider [phone] Reason for Referral * Outpatient Services (Routine) - Closed Specialty Diagnoses / Procedures Referred By Paige avalos Referred To Contact Diagnoses Flat epithelial atypia of breast, left Diffuse cystic mastopathy, unspecified laterality Procedures MAMMO DIGITAL DIAG BILAT Marina Cohen MD NO ADDRESS ON FILE Referral ID Status Reason Start Date Expiration Date V isits Requested Visits Authorized [id number] Closed Other 09/16/2014 10/17/2015 1 1 USER EXPERIENCE STRATEGIST Reason for Visit * Reason Comments Follow Up Mammographic microca lcification - 6 mo f/u Encounter Details Date Type Department Care Team (Late st Contact Info) Description 09/16/2014 3:45 PM WEB USER EXPERIENCE STRATEGIST Office Visit [facility] [address] [place] [id number] Marina Cohen MD NO ADDRESS ON FILE [...] Sign Reading Time Taken Comments Blood Pressure 107/57 09/16/2014 3:37 PM WEB USER EXPERIENCE STRATEGIST Pulse 80 09/16/2014 3:37 PM WEB USER EXPERIENCE STRATEGIST Temperature - - Respiratory Rate - - Oxygen Saturation - - Inhaled Oxygen Concentration - - Weight 56.7 kg (125 lb) 09/16/2014 3:37 PM WEB USER EXPERIENCE STRATEGIST Height 165.1 cm (5' 5 ) 09/16/2014 3:37 PM WEB USER EXPERIENCE STRATEGIST Body Mass Index 20.8 09/16/2014 3:37 PM WEB USER EXPERIENCE STRATEGIST documented in this encounter Progress Notes * Marina Cohen MD - 09/16/2014 4:03 PM CST Subjective: Claribel Ortiz is a 54 y.o. female who presents today for regular scheduled checkup. She has no new problems to report. ROS: Blood pressure 107/57, pulse 80, height 5' 5 (1.651 m), weight 125 lb (56.7 kg), not currently . Patient Active Problem List Diagnosis Code ??? Flat epithelial atypia of breast 610.8 ??? Diffuse cystic mastopathy 610.1 No Known Allergies Current Outpatient Prescriptions Medication Sig Dispense Refill ??? gcbwttliyrehx-xywoueby-kypwfq (CENTRUM SILVER) Tablet Take 1 Tab by [...] no masses, skin changes or nipple discharge; healed incision left breast. Abdomen - liver and spleen not palpably enlarged Extremities - Good range of motion of shoulders, no lymphedema present Discussing followup with her her last bilateral mammogram was 11/11/13. We plan to see her back at that time with her mammogram. USER EXPERIENCE STRATEGIST documented in this encounter Plan of Treatment Not on file documented as of this encounter Results * MAMMO DIGITAL DIAG BILAT (12/17/2014 9:35 AM CDT) Anatomical Region Laterality Modality Breast Bilateral Mammography 12/17/2014 9:28 AM CDT Narrative 12/23/2014 4:05 PM CDT BILATERAL DIAGNOSTIC MAMMOGRAM WITH CAD. ??Dec 17, 2014 09:28:06 AM INDICATION: Atypia, yearly exam TECHNIQUE: Diagnostic mammograms of both breasts were performed on a digital system. ??CAD was utilized. ?? COMPARISON: Comparison made to multiple prior studies dating back to 10/06/2008 BREAST COMPOSITION: Heterogeneously dense, which lowers the sensitivity of mammography. FINDINGS: No concerning dominant masses or microcalcifications identified in either breast. Postoperative changes of an excisional biopsy within the left breast. OVERALL ASSESSMENT: ??BI-RADS category 2 - Benign findings RECOMMENDATION: Recommend continued annual mammography Dictated from [facility] Procedure Note Mane Watson MD - 12/23/2014 BILATERAL DIAGNOSTIC MAMMOGRAM WITH CAD. Dec 17, [...] RECOMMENDATION: Recommend continued annual mammography Dictated from [email or web address] Marina Cohen MD MAMMO ORDERABLES documented in this encounter Visit Diagnoses Diagnosis Flat epithelial atypia of breast, left- Primary Diffuse cystic mastopathy, unspecified laterality Flat epithelial atypia of breast, left Diffuse cystic mastopathy, unspecified laterality documented in this encounter Care Teams Teletype Adjuster Relationship Specialty Start Date End Date Diana Braun MD PCP - General Family Practice 12/22/13 documented as of this encounter
--- OUTSIDE RECORDS SUMMARY | 2024-08-12 21:40 | XMS_ITS | Encounter Summary ---
Author Organization [facility] Address [address] [place] [address] Care Team Providers Care Vapor Coater Name Role Phone Diana Braun MD Primary Care Provider [phone] Reason for Referral * Outpatient Services (Routine) - Closed Specialty Diagnoses / Procedures Referred By Paige avalos Referred To Contact Diagnoses Flat epithelial atypia of breast, left Diffuse cystic mastopathy, unspecified laterality Procedures MAMMO [place] [address] [address] [place] [address] Referral ID Status Reason Start Date Expiration Date Visits Re quested Visits Authorized [id number] Closed 11/19/2015 12/19/2016 1 1 Reason for Visit * Outpatient Services (Routine) - Closed Specialty Diagnoses / Procedures Referred By Paige avalos Referred To Contact Diagnoses Flat epithelial atypia of breast, left Diffuse cystic mastopathy, unspecified laterality Procedures MAMMO [place]IG [place] [address] [place] [address] Referral ID Status Reason Start Date Expiration Date Visits Re quested Visits Authorized [id number] Closed 11/19/2015 12/19/2016 1 1 Encounter Details Date Type Department Care Team (Latest Contact Info) Description 01/11/2016 9:40 AM CDT - 01/11/2016 11:59 PM CDT Hospital Encounter [facility] [address] [place] [address] [place] [address] [place] [id number] Discharge Disposition: Home or Self Care Social [...] on file documented as of this encounter Medications at Time of Discharge Medication Sig Dispensed Refills Start Date End Date raloxifene (EVISTA) 60 mg tablet Take 1 Tablet (60 mg) by mouth daily. 30 Tablet 3 01/11/2016 05/15/2017 documented as of this encounter Plan of Treatment Not on file documented as of this encounter Procedures Procedure Name Priority Date/Time Associated Diagnosis Comments MAMMO DIAG BILAT 3D LUIS W OR WO CAD Routine 01/11/2016 10:11 AM CDT Flat epithelial atypia of breast, left Diffuse cystic mastopathy, unspecified laterality documented in this encounter Results * MAMMO DIG DIAG BILAT W 3D LUIS (01/11/2016 10:11 AM CDT) Anatomical Region Laterality Modality Breast Bilateral Mammography 01/11/2016 10:1 1 AM CDT Narrative 01/12/2016 10:00 AM CDT EXAM: BILATERAL DIAGNOSTIC FULL FIELD DIGITAL MAMMOGRAPHY WITH CAD WITH 3D TOMOSYNTHESIS DATE: 01/11/2016 10:11 AM HISTORY: Flat epithelial atypia of left breast. ??Diffuse cystic mastopathy unspecified laterality. COMPARISON: 12/17/2014 and older TECHNIQUE: Diagnostic views of both breasts were performed using full field digital mammography. Low Dose full field Digital Breast tomosynthesis examination was performed with 2D and 3D acquisitions. Examination is read in conjunction with computer aided detection. BREAST COMPOSITION: Heterogeneously dense, which lowers the sensitivity of mammography. FINDINGS: ??Postsurgical changes in the upper outer left breast are redemonstrated related to prior benign excisional biopsy. No new dominant mass, concerning microcalcifications or concerning areas of architectural distortion are identified in either breast. Since the prior mammograms, there has been no significant interval change. CAD was utilized. Overall assessment: BI-RADS category 2. Benign findings. Annual mammography is recommended. Procedure Note Keke An MD - 01/12/2016 EXAM: BILATERAL DIAGNOSTIC FULL FIELD DIGITAL MAMMOGRAPHY WITH CAD WITH 3D TOMOSYNTHESIS DATE: 01/11/2016 10:11 AM HISTORY: Flat epithelial atypia of left breast. Diffuse cystic mastopathy unspecified laterality. COMPARISON: 12/17/2014 and older TECHNIQUE: Diagnostic views of both breasts were performed using full field digital mammography. Low Dose full field Digital Breast tomosynthesis examination was performed with 2D and 3D acquisitions. Examination is read in conjunction with computer aided detection. BREAST COMPOSITION: Heterogeneously dense, which lowers the sensitivity of mammography. FINDINGS: Postsurgical changes in the upper outer left breast are redemonstrated related to prior benign excisional biopsy. No new dominant mass, concerning microcalcifications or concerning areas of architectural distortion are identified in either breast. Since the prior mammograms, there has been no significant interval change. CAD was utilized. Overall assessment: BI-RADS category 2. Benign findings. Annual mammography is recommended. Sylvia Corcoran MD MAMMO ORDERABLES documented in this encounter Visit Diagnoses Diagnosis Flat epithelial atypia of breast, left Diffuse cystic mastopathy, unspecified laterality documented in this encounter Care Teams Vapor Coater Relationship Specialty Start Date End Date Diana Braun MD PCP - General Family Practice 12/22/13 documented as of this encounter
--- OUTSIDE RECORDS SUMMARY | 2024-08-12 21:40 | XMS_ITS | Encounter Summary ---
Author Organization [facility] Address [address] [place] [address] Care Team Providers Care Automation Qtp Tester Name Role Phone Diana Braun MD Primary Care Provider [phone] Reason for Visit * Auth/Cert - Closed Specialty Diagnoses / Procedures Referred By Contjovany t Referred To Contact General Surgery Diagnoses ABNORMAL MAMMOGRAM Procedures BREAST BIOPSY [facility] [address] [place] [address] Referral ID Status Reason Start Date Expiration Date Visits Re quested Visits Authorized [id number] Closed 1 1 Encounter Details Date Type Department Care Team (Late st Contact Info) Description 01/16/2014 8:59 AM CDT Anesthesia Event [facility] [place] [address] [place] [address] Star Ashley MD [address] [place] [address] Eva Chambers CRNA [address] [place] [address] Anesthesia Record Procedure Summary Procedure Name Responsible Anesthesiologist Anesthesia Start Time Anesthesia Stop Time BREAST BIOPSY (Left: Breast) Star Ashley MD 01/16/14 0859 01/16/14 0936 Events Date Time Event Comment 01/16/2014 0859 AN Equip Check Anesthesia eq uipment and materials checked in accordance with local policy. 0859 An Start 0859 Quick Note Patient identif ied, EPIC chart, anesthesia plan, and consent reviewed and discussed with patient. Questions elicited and answered. Patient/family verbalizes understanding of anesthesia plan and wishes to proceed, Preop medicine given as documented. 0901 An Start Data 0903 0904 Pre-Induction Immediate pre- induction anesthetic assessment performed. Vital signs as noted on graphic. 0905 An Induction 0905 Anesthesia Ready 09 Quick Note MAC anesthesia with Propofol titrated to effect for adequate depth of sedation for procedure. Total dose administered and charted at procedure end. 09 Quick Note Patient stable. Data Collection ends from intraop monitors. Patient moved self to bed/stretcher. Taken to PACU. 09 an stop data 0932 an meche now Arrive in pacu 0936 An Stop Meds Name Total ceFAZolin (ANCEF) IVPB 1,000 mg 1,000 mg propofol (DIPRIVAN) 10??mg/mL injection 180 mg lidocaine (XYLOCAINE) 2% injection 60 mg midazolam (VERSED) 1??mg/mL injection 2 mg fentaNYL (SUBLIMAZE) PF 50??mcg/mL injec tion 75 mcg lactated ringers solution 450 mL * Agents Name Sevoflurane % Sevoflurane O2 Inspired O2 N2O Inspired N2O O2 * Blood No blood administrations on file. Lines, Drains, and Airways Type Details Placement Removal Supraglottic Airway Type: nasal cannula; Confirmation: satisfactory chest rise, SAO2, end tidal CO2 01/16/14 0719 by Eva Chambers CRNA Wound 01/16/14; 0917; No; 1; Left:; breast; surgical 01/16/14 0917 by Aimee Armstrong, NEPTALI Peripheral IV Pre-Hospital Start: No; Orientation: Right; Location: Hand; Device: Angiocath; Gauge: 20 gauge; Needle Length: 1.25 in length; Insertion Attempts: 2; Patient Tolerance: tolerated well 01/16/14 0713 by Rosalinda Mclain RN 01/16/14 1032 by Berna Sanchez RN documented in this encounter Social History Tobacco Use Types Packs/Day Years Used Date Smoking Tobacco: Never Smokeless Tobacco: Never Alcohol Use Standard Drinks/Week Comments Yes 0 (1 standard drink = 0.6 oz pur e alcohol) moderate Sex and Gender Information Value Date Recorded Sex Assigned at Not on file Gender Identity Not on file Sexual Orientation Not on file documented as of this encounter OR Notes * Anesthesia Postprocedure Evaluation - Star Ashley MD - 01/16/2014 10:08 AM CDT Post Anesthesia Evaluation Vitals: BP 106/66 Pulse 79 Temp(Src) 37 ??C (Temporal) Resp 16 Ht 5' 6 (1.676 m) Wt 121 lb (54.885 kg) BMI 19.54 kg/m2 SpO2 99% Pain Rating: Nausea/Vomiting: no nausea and no vomiting Post-Op hydration: well hydrated Respiratory function: no respiratory symptoms Airway patency: normal Cardiovascular function: Normal - Regular rate and rhythm Mental status, LOC: 0=alert; keenly responsive Patient participated in evaluation: yes Anesthetic complications: no Star Ashley MD * Anesthesia Preprocedure Evaluation - Star Ashley MD - 01/16/2014 8:49 AM CDT Anesthesia Evaluation Airway Mallampati: II TM distance: >3 FB Neck ROM: full Dental - normal exam Pulmonary breath sounds clear to auscultation (-) recent URI Cardiovascular Exercise tolerance: good (-) angina, murmur Rhythm: regular Rate: normal Neuro/Psych GI/Hepatic/Renal (-) GERD Comments: NPO > 8 hours Endo/Other Comments: Abnormal left mammogram Abdominal Anesthesia History No history of anesthetic complications. Anesthesia Plan ASA 1 MAC NPO status > 8 hours Anesthetic plan and risks discussed with Patient. Plan discussed with Nurse Move Coordinator. Post-op Pain Control Plan to use IV or IM medication and Per surgeon for post-op pain control. documented in this encounter Plan of Treatment Not on file documented as of this encounter Visit Diagnoses Not on filedocumented in this encounter Administered Medications Inactive Administered Medications - up to 3 most recent administrations Medication Order MAR Action Action Date Dose Rate Site ceFAZolin (ANCEF) IVPB 1,000 mg 1,000 mg, IV, PRE-PROCEDURE ONCE, 1 dose, Starting on Sun01/16/14 at 0705, Until Sun01/16/14 at 0859, Pre-Operative, Pre-op Given 01/16/2014 8:59 AM CDT 1,000 mg fentaNYL PF (SUBLIMAZE) 50 mcg/mL injection INTRA-PROCEDURE PRN, Starting on Sun01/16/14 at 0905, Until Sun01/16/14 at 0938, Routine, Anesthesia Intra-op Given 01/16/2014 9:15 AM CDT 25 mcg Given 01/16/2014 9:08 AM CDT 25 mcg Given 01/16/2014 9:05 AM CDT 25 mcg lidocaine 2 % (XYLOCAINE) injection INTRA-PROCEDURE PRN, Starting on Sun01/16/14 at 0905, Until Sun01/16/14 at 0938, Other (See Comment), Routine, Anesthesia Intra-op Given 01/16/2014 9:05 AM CDT 60 mg midazolam (VERSED) injection INTRA-PROCEDURE PRN, Starting on Sun01/16/14 at 0859, Until Sun01/16/14 at 0938, Routine, Anesthesia Intra-op Given 01/16/2014 8:59 AM CDT 2 mg propofol (DIPRIVAN) injection INTRA-PROCEDURE PRN, Starting on Sun01/16/14 at 0905, Until Sun01/16/14 at 0938, Anesthesia Intra-op Given 01/16/2014 9:22 AM CDT 130 mg Given 01/16/2014 9:05 AM CDT 50 mg documented in this encounter Care Teams Automation Qtp Tester Relationship Specialty Start Date End Date Diana Braun MD PCP - General Family Practice 12/22/13 documented as of this encounter
--- OUTSIDE RECORDS SUMMARY | 2024-08-12 21:40 | XMS_ITS | Encounter Summary ---
Author Organization [facility] Address [address] [place]: Epic Prelude ADT [place] [address] Care Team Providers Care Drawing Checker Name Role Phone Diana Braun MD Primary Care Provider [phone] Encounter Details Date Type Department Care Team (Latest Contact Info) Description 08/01/2020 Travel Social History Tobacco Use Types Packs/Day [...] have Coronavirus / COVID-19? 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
--- OUTSIDE RECORDS SUMMARY | 2024-08-12 21:40 | XMS_ITS | Encounter Summary ---
Author Organization [facility] Address [address] [place]: Epic Prelude ADT [place] [address] Care Team Providers Care Certified Marine Mechanic Name Role Phone Diana Braun MD Primary Care Provider [phone] Encounter Details Date Type Department Care Team (Latest Contact Info) Description 02/09/2021 Travel Social History Tobacco Use Types Packs/Day [...] AM CDT documented as of this encounter Plan of Treatment Not on file documented as of this encounter Visit Diagnoses Not on filedocumented in this encounter Care Teams Certified Marine Mechanic Relationship Specialty Start Date End Date Diana Braun MD PCP - General Family Practice 12/22/13 documented as of this encounter
--- OUTSIDE RECORDS SUMMARY | 2024-08-12 21:40 | XMS_ITS | Encounter Summary ---
Author Organization [facility] Address [address] [place] [address] Care Team Providers Care Gear Changer Name Role Phone Diana Braun MD Primary Care Provider [phone] Reason for Referral * Outpatient Services (Routine) - Closed Specialty Diagnoses / Procedures Referred By Contjovany t Referred To Contact Diagnoses Flat epithelial atypia of breast, left Diffuse cystic mastopathy, unspecified laterality Procedures MAMMO DIG DIAG BILAT W 3D LUIS Vilma Jim NP NO ADDRESS ON FILE Referral ID Status Reason Start Date Expiration Date Visits Re quested Visits Authorized [id number] Closed 01/11/2016 02/10/2017 1 1 * Outpatient Services (Routine) - Closed Specialty Diagnoses / Procedures Referred By Contac t Referred To Contact Diagnoses Screening for osteoporosis Procedures XR DEXA BONE DENSITY AXIAL 1 OR MORE SITES Vilma Jim NP NO ADDRESS ON FILE Referral ID Status Reason Start Date Expiration Date Visits Re quested Visits Authorized [id number] Closed 01/11/2016 02/10/2017 1 1 Reason for Visit * Reason Comments Breast Exam, Routine, No Symptoms Flat e pithelial atypia of breast, left - annual ck Encounter Details Date Type Department Care Team (Late st Contact Info) Description 01/11/2016 10:45 AM CDT Office Visit [facility] BREAST [facility]GERY - [facility] [address] [place] [address] Vilma Jim NP NO ADDRESS ON FILE Flat epithelial atypia of breast, left (Primary Dx); Diffuse cystic mastopathy, unspecified laterality; [...] Sign Reading Time Taken Comments Blood Pressure 103/59 01/11/2016 9:58 AM CDT Pulse 64 01/11/2016 9:58 AM CDT Temperature - - Respiratory Rate - - Oxygen Saturation - - Inhaled Oxygen Concentration - - Weight 56.7 kg (125 lb) 01/11/2016 9:58 AM CDT Height 165.1 cm (5' 5 ) 01/11/2016 9:58 AM CDT Body Mass Index 20.8 01/11/2016 9:58 AM CDT documented in this encounter Progress Notes * Vilma Jim NP - 01/11/2016 10:57 AM CDT DIAGNOSIS ICD-9-CM ICD-10-CM 1. Flat epithelial atypia of breast, left 610.8 N60.82 2. Diffuse cystic mastopathy, unspecified laterality 610.1 N60.19 Claribel Ortiz: 1960 HISTORY OF PRESENT ILLNESS Claribel comes in today for annual followup with diagnostic mammogram. To review, and 2013 she underwent a wide excisional left breast biopsy which revealed flat epithelial hyperplasia. Her five-year risk of developing breast cancer that time was only 1.6% and did not warrant medical intervention with tamoxifen. She continues with surveillance through mammography and clinical breast exams every 6 months. She does not have a family history of breast or ovarian cancer. She was previously on Estring and topical vaginal progesterone creams for dryness. She discontinued use after diagnosed with atypiaand is not on any HRT. Today on exam she denies any breast related complaints or concerns. She doeswish to rediscuss role of medical risk reduction therapy. She is postmenopausal, has not had a period in over 4 years. She continues to see a laboratory apparatus glass blower on an annual basis. She is past due for her bone mineral density screening. Past Medical History Diagnosis Date ??? Fibrocystic disease of breast Past Surgical History Procedure Laterality Date ??? Hx wisdom teeth extraction ??? Pr excise breast cyst 01/16/2014 BREAST BIOPSY performed by Marina Cohen MD at [facility] OR ??? Hx excisional biopsy Left 01/16/2014 flat epithelial atypia Current outpatient prescriptions: ??? OMEGA-3 FATTY ACIDS/FISH OIL (OMEGA 3 FISH OIL ORAL), Take by mouth., Disp: , Rfl: No Known Allergies Family History Problem Relation Age of Onset ??? Breast Cancer Neg Hx ??? Ovarian Cancer Neg Hx ??? Uterine Cancer Neg Hx History Social History ??? Marital Status: Spouse Name: N/A ??? Number of Children: 1 ??? Years of Education: N/A Occupational History ??? [employer] Social History Main Topics ??? Smoking status: Never Smoker ??? Smokeless tobacco: Never Used ??? Alcohol Use: Yes Comment: moderate ??? Drug Use: No ??? Sexual Activity: Not on file Other Topics Concern ??? None Social History Narrative REVIEW OF SYSTEMS Constitutional: denies fever, chills, fatigue, or weakness. Cardiovascular: denies chest pain or pressure, FERREIRA, palpitations, or edema. Pulmonary: denies SOB, cough, or wheezing. GI/Abdomen: denies nausea, vomiting, abdominal pain, constipation, diarrhea. : denies dysuria, frequency, urgency, or hematuria. OUTDOOR ILLUMINATING ENGINEER: denies any abnormal vaginal bleeding or unusual spotting, No pelvic pain. Postmenopausal. Musculoskeletal: denies joint pain or stiffness, gait disturbances, or weakness. Breast/Axilla/Chest: denies nipple changes, skin changes, or any other breast changes, denies palpable masses or abnormalities. Lymph: Denies any palpable abnormalities to LN. Skin: no rashes, new skin lesions/eruptions, no bruising. Psych: no changes in mood, depression, or [...] stiffness, ROM normal limits, gait steady. Breast/Axilla/Chest: no palpable masses or areas of concern, no skin changes, nipples everted, no discharge, no dimpling Lymph: no palpable lymphadenopathy in the cervical, axillary, supraclavicular or infraclavicular areas Skin: no rashes, skin eruptions, lesions, or bruising. Psych: mood and affect appropriate. Laboratory Findings No results found for: WBC, MANUALWBC, HGB, HGBPOC, HCT, HCTPOC, PLT, MCV No results found for: NA, K, CL, CO2, CA, BUN, CREAT, GLUCOSE, TOTALPROTEIN, ALBUMIN, BILITOTAL, ALKPHOS, AST, ALT, ANIONGAP, BCRATIO Assessment/Plan #1 Imaging was obtained today with bilateral diagnostic mammogram using 3-D tomosynthesis. There were no dominant masses seen or changes when compared to previous films. BIRADS category 2. #2 Clinical breast exam demonstrates benign findings. #3 I further explained that lifestyle modifications could [...] , while herlifetime risk is approximately 13.2%. Therefore her risk does not warrant MRI screening. I also explained that having biannual breast exam by a healthcare professional is warranted as well as annual mammography. Vigilant surveillence was also underscored. #5 her five-year risk is approximately 2%. I've explained to her that strategies for risk reductioninclude endocrine therapy, which in clinical studies has been utilized in patients with 5 yr risk exceeding 1.6%, with expected risk reduction of around 50%. Options include tamoxifen,raloxifene, andAIs including exemestane and anastrazole. Since she is postmenopausal I suggested Evista. We did review the side effects including hot flashes, mood changes, vaginal dryness, and the slightly elevated risk of a blood clot or stroke. She does not have a personal history of clotting disorder or strokes. She is a nonsmoker. I explained to her that I feel the benefits outweigh any risks. She agrees. I also explained to her the positive impact Evista can have on bone health. She is no longer on any h ormone replacement therapy. She wishes to try and I told her that if side effects are not manageable than she can discontinue. I would like to see her back in 6 months to see how she is tolerating. Silvia also ordered a bone mineral density screening on her. #6 Follow up in 6 months. Encouraged to call office for any breast changes or areas of concern. All questions encouraged and answered Thank you for the opportunity to participate in the care of this patient. Please let me know if I may be of any further assistance. 20 minutes were spent face-face with patient and over 50% of time was spent in counseling/discussing patient's issues, chief complaints, diet, symptom management, and in the coordination of care. KEESHA Silverio, MSN [facility] Oncology & Hematology Breast Surgery documented in this encounter Plan of Treatment Not on file documented as of this encounter Results * MAMMO DIG DIAG BILAT W 3D LUIS (01/16/2017 9:44 AM CDT) Anatomical Region Laterality Modality Breast Bilateral Mammography 01/16/2017 9:44 AM CDT Narrative 01/16/2017 3:57 PM CDT EXAM: BILATERAL DIAGNOSTIC FULL-FIELD DIGITAL MAMMOGRAPHY WITH CAD WITH 3D TOMOSYNTHESIS DATE: 01/16/2017 9:44 AM HISTORY: Left breast atypia. COMPARISON: 01/11/2016 and older. TECHNIQUE: Diagnostic views of both breasts were performed using full field digital mammography. Low-dose full-field digital breast tomosynthesis examination was performed with 2D and 3D acquisitions. Examination is read in conjunction with computer aided detection. BREAST COMPOSITION: Heterogeneously dense, which limits the sensitivity of mammography. FINDINGS: Postsurgical changes in the upper outer left breast are redemonstrated. No new dominant mass, concerning microcalcifications or concerning areas of architectural distortion are identified in either breast. Since the prior mammograms, there has been no significant interval change. CAD is utilized. OVERALL ASSESSMENT: BI-RADS Category 2 - Benign findings. DICTATED LOCATION: [facility] Procedure Note Keke An MD - 01/16/2017 EXAM: BILATERAL DIAGNOSTIC FULL-FIELD DIGITAL MAMMOGRAPHY WITH CAD WITH 3D TOMOSYNTHESIS DATE: 01/16/2017 9:44 AM HISTORY: Left breast atypia. COMPARISON: 01/11/2016 and older. TECHNIQUE: Diagnostic views of both breasts were performed using full field digital mammography. Low-dose full-field digital breast tomosynthesis examination was performed with 2D and 3D acquisitions. Examination is read in conjunction with computer aided detection. BREAST COMPOSITION: Heterogeneously dense, which limits the sensitivity of mammography. FINDINGS: Postsurgical changes in the upper outer left breast are redemonstrated. No new dominant mass, concerning microcalcifications or concerning areas of architectural distortion are identified in either breast. Since the prior mammograms, there has been no significant interval change. CAD is utilized. OVERALL ASSESSMENT: BI-RADS Category 2 - Benign findings. DICTATED LOCATION: [facility] Vilma Jim NP MAMMO ORDERABLES * XR DEXA BONE DENSITY AXIAL 1 OR MORE SITES (07/18/2016 9:11 AM SKEIN MERCERIZING MACHINE OPERATOR) Anatomical Region Laterality Modality Computed Radiogr aphy 07/18/2016 9:11 AM SKEIN MERCERIZING MACHINE OPERATOR Impressions 07/18/2016 9:25 AM SKEIN MERCERIZING MACHINE OPERATOR IMPRESSION: Osteopenic femur neck BMD. Lumbar Spine T-score -1.0 Left femoral neck ?T-score -1.6 Right femoral neck ??T-score -1.5 Comments: None. Statistical change: No prior exam is available. Definitions: Normal: T-score above -1.0 Osteopenia T-score less than -1.0 and above -2.5 Osteoporosis: T-score <= -2.5 Follow-up Recommendations: ?? Patients without high risk factors for osteoporosis ? T-score -1.0 to -1.5 - Consider repeat BMD in 5-10 years ? T-score -1.5 to - 2.0 - Consider repeat BMD in 3-5 years ? T-score -2.0 to - 2.5 - Consider repeat BMD every 2 years ?? Patients on treatment for osteoporosis ? 1-2 years after initiation of treatment and every 2 years [address] Amee Mc MD DICTATION LOCATION: Location 1 - [facility] Narrative 07/18/2016 9:25 AM SKEIN MERCERIZING MACHINE OPERATOR EXAMINATION: ??BONE DENSITY STUDY (DXA) DATE: 07/18/2016 9:11 AM CLINICAL HISTORY: 56 years postmenopausal female. PROCEDURE: Planar images of the lumbar spine and hip(s) using a Tabber DEXA scanner for bone mineral density determination (BMD). ?? FINDINGS: ? Lumbar Spine (L1-L4) T-score -1.0 ?? 1.06 g/sq cm Left femoral neck ?T-score -1.6 ?? 0.811 g/sq cm Right femoral neck ??T-score -1.5 ?? 0.831 g/sq cm Detailed report placed in Imaging Section of [employer] EMR. Procedure Note Amee Mc MD - 07/18/2016 EXAMINATION: BONE DENSITY STUDY (DXA) DATE: 07/18/2016 9:11 AM CLINICAL HISTORY: 56 years postmenopausal female. PROCEDURE: Planar images of the lumbar spine and hip(s) using a GravityAR DEXA scanner for bone mineral density determination (BMD). FINDINGS: Lumbar Spine (L1-L4) T-score -1.0 1.06 g/sq cm Left femoral neck T-score -1.6 0.811 g/sq cm Right femoral neck T-score -1.5 0.831 g/sq cm Detailed report placed in Imaging Section of [employer] EMR. IMPRESSION IMPRESSION: Osteopenic femur neck BMD. Lumbar Spine T-score -1.0 Left femoral neck T-score -1.6 Right femoral neck T-score -1.5 Comments: None. Statistical change: No prior exam is available. Definitions: Normal: T-score above -1.0 Osteopenia T-score less than -1.0 and above -2.5 Osteoporosis: T-score <= -2.5 Follow-up Recommendations: Patients without high risk factors for osteoporosis T-score -1.0 to -1.5 - Consider repeat BMD in 5-10 years T-score -1.5 to - 2.0 - Consider repeat BMD in 3-5 years T-score -2.0 to - 2.5 - Consider repeat BMD every 2 years Patients on treatment for osteoporosis 1-2 years after initiation of treatment and every 2 years thereafter [address] Amee Mc MD DICTATION LOCATION: Location 1 - [facility] Vilma Jim NP DIAGNOSTIC IMAGING O RDERABLES documented in this encounter Visit Diagnoses Diagnosis Flat epithelial atypia of breast, left- Primary Diffuse cystic mastopathy, unspecified laterality Screening for osteoporosis Special screening for osteoporosis Screening for osteoporosis Special screening for osteoporosis Flat epithelial atypia of breast, left Diffuse cystic mastopathy, unspecified laterality documented in this encounter Care Teams Gear Changer Relationship Specialty Start Date End Date Diana Braun MD PCP - General Family Practice 12/22/13 documented as of this encounter
--- OUTSIDE RECORDS SUMMARY | 2024-08-12 21:40 | XMS_ITS | Encounter Summary ---
Author Organization [facility] Address [address] [place] [address] Care Team Providers Care Bottom Liquor Attendant Name Role Phone Diana Braun MD Primary Care Provider [phone] Reason for Visit * Reason Onset Date Comments Breast Problem 12/15/2014 DIAGNOSTIC MAMM (DCM) Encounter Details Date Type Department Care Team (Late st Contact Info) Description 12/15/2014 Patient Outreach [facility] [address] [address] [place] [address] Marina Cohen MD NO ADDRESS ON FILE Breast Problem (DIAGNOSTIC MAMM (DCM)) Social History Tobacco Use Types Packs/Day Years Used Date Smoking Tobacco: Never Smokeless Tobacco: Never Alcohol Use Standard Drinks/Week Comments Yes 0 (1 standard drink = 0.6 oz pur e alcohol) moderate Sex and Gender Information Value Date Recorded Sex Assigned at Not on file Gender Identity Not on file Sexual Orientation Not on file documented as of this encounter Miscellaneous Notes * Telephone Encounter - Do Clark - 12/15/2014 4:34 PM CDT PT REMINDED OF DIAGNOSTIC MAMM PRIOR TO DR PERSON documented in this encounter Plan of Treatment Not on file documented as of this encounter Visit Diagnoses Not on filedocumented in this encounter Care Teams Bottom Liquor Attendant Relationship Specialty Start Date End Date Diana Braun MD PCP - General Family Practice 12/22/13 documented as of this encounter
--- OUTSIDE RECORDS SUMMARY | 2024-08-12 21:40 | XMS_ITS | Encounter Summary ---
Author Organization [facility] Address [address] [place] [address] Care Team Providers Care Correctional Therapy Director Name Role Phone Diana Braun MD Primary Care Provider [phone] Reason for Visit * Reason Comments Well Woman Exam Encounter Details Date Type Department Care Team (Late st Contact Info) Description 11/20/2017 4:00 PM CDT Office Visit [facility] BLACKTOP PAVER OPERATOR - [address] [address] Annemarie Meza MD [address] [address] Well woman exam with routine gynecological exam (Primary Dx); 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; Vaginal atrophy Social History Tobacco Use Types Packs/Day Years [...] Sign Reading Time Taken Comments Blood Pressure 100/56 11/20/2017 4:12 PM CDT Pulse 88 11/20/2017 4:12 PM CDT Temperature 37.3 ??C (99.2 ??F) 11/20/2017 4:12 PM CD T Respiratory Rate 18 11/20/2017 4:12 PM CDT Oxygen Saturation 98% 11/20/2017 4:12 PM CDT Inhaled Oxygen Concentration - - Weight 57.1 kg (125 lb 12.8 oz) 11/20/2017 4:12 PM CDT Height 165.1 cm (5' 5 ) 11/20/2017 4:12 PM CDT Body Mass Index 20.93 11/20/2017 4:12 PM CDT documented in this encounter Progress Notes * Annemarie Meza MD - 11/20/2017 5:05 PM CDT CC: Well-Woman Exam HPI: Claribel Ortiz is a 57 y.o. female who presents today for her annual well- woman exam. She complains of vaginal dryness today. On Raloxifene for atypical breast bx. denies abnormal vaginal discharge. She is sexually active and denies dyspareunia. She does perform monthly self breast exams and has not noticed any changes or masses. Denies postmenopausal bleeding. Review of Systems: Positive responses in bold Constitutional: Denies significant weight changes, fever, chills, fatigue Psych: Denies feeling depressed, crying spells, anxiety, sleep disturbances HEENT: Denies visual changes, headaches, seizures, sinus problems, sore throat, dental problems Respiratory: Denies shortness of breath, cough, hemoptysis, wheezing Cardiovascular: Denies chest pain, palpitations, swelling of legs Gastrointestinal: Denies fecal incontinence, incontinence of flatus, diarrhea, nausea/vomiting, constipation, bloody stools Genitourinary: Denies urinary incontinence, urinary urgency, dysuria, dyspareunia, vaginal dryness Breast: Denies breast masses, mastalgia, galactorrhea Endocrine: Denies dry skin, hair loss/growth, abnormal thirst, hot flushes OB History Para Term AB Living 1 [...] atypia ??? HX WISDOM TEETH EXTRACTION ??? ID EXCISE BREAST CYST 01/16/2014 BREAST BIOPSY performed by Marina Cohen MD at [facility] CC OR Family History Problem Relation Age of Onset ??? Hypertension Father ??? Stroke Father ??? Osteoporosis Mother ??? Alzheimer's Disease Mother ??? Lung Cancer Maternal Aunt ??? Breast Cancer Neg Hx ??? Ovarian Cancer Neg Hx ??? Uterine Cancer Neg Hx Social History Social History ??? Marital status: Spouse name: N/A ??? Number of children: 1 ??? Years of education: N/A Occupational History ??? [employer] Social History Main Topics ??? Smoking status: Never Smoker ??? Smokeless tobacco: Never Used ??? Alcohol use Yes Comment: moderate ??? Drug use: No ??? Sexual activity: Yes Partners: Male control/ protection: None Other Topics Concern ??? Exercise Yes ??? Seat Belt Yes ??? Self-Exams No Social History Narrative ??? No narrative on file Current Outpatient Prescriptions Medication Sig Dispense Refill ??? raloxifene (EVISTA) 60 mg tablet TAKE 1 TABLET DAILY 90 Tablet 4 ??? cholecalciferol, Vitamin D3, (VITAMIN D3) 1,000 [...] RECOMMENDATION: Recommend continued annual [facility] Results for orders placed or performed during [...] successful needle localization. Dictated from [facility] Last colonoscopy: 2010 Seatbelt use: yes Domestic violence: denies Physical Exam: Vitals: 11/20/17 1612 BP: 100/56 Pulse: 88 Resp: 18 Temp: 99.2 ??F (37.3 ??C) TempSrc: Temporal SpO2: 98% Weight: 57.1 kg (125 lb 12.8 oz) Height: 5' 5 (1.651 m) General: Well-developed, [...] and dry without rash or lesions Pelvic: Normal female external genitalia. Normal skene's glands. Normal urethral meatus. No palpable bartholin's glands. Perineum intact and without lesions. Vaginal mucosa atrophic without lesions. Physiologic vaginal discharge. Cervix grossly normal, no lesions, stenotic. Pap smear obtained. Assessment/Plan: 57 y.o. female here today for a well-woman exam Claribel was seen today for well woman exam. Diagnoses and all orders for this visit: Well woman exam with routine gynecological exam Comments: cervical stenosis. repeat pap if insufficient in one year after atrophy tx. 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 will start with suppositories and she will call if interested in referral for laser Orders: - CERV/VAG CYTOPATH, THIN PREP AND HPV W/RFLX GENOTYPES 16, 18/45 (CP) Annemarie Meza MD documented in this encounter Plan of Treatment Not on file documented as of this encounter Procedures Procedure Name Priority Date/Time Associated Diagnosis Comments CERV/VAG CYTOPATH, THIN PREP AND HPV W/RFLX GENOTYPES 16, 18/45 Routine 11/20/2017 5:35 PM CDT Vaginal atrophy documented in this encounter Results * CERV/VAG CYTOPATH, THIN PREP AND HPV W/RFLX GENOTYPES 16, 18/45 (CP) (11/20/2017 5:35 PM CDT) CLINICAL INFORMATION SEE COMMENT 11/22/2017 4:36 PM CDT [facility] Comment:Information not prov ided LAST MENSTRUAL PERIOD SEE COMMENT 11/22/2017 4:36 PM CDT [facility] Comment:INFORMATION NOT PROV IDED PREV PAP: SEE COMMENT 11/22/2017 4:36 PM CDT [facility] Comment:INFORMATION NOT PROV IDED PREV BX: SEE COMMENT 11/22/2017 4:36 PM CDT [facility] Comment:INFORMATION NOT PROV IDED SOURCE Endocervix 11/22/2017 4:36 PM CDT [facility] ADEQUACY: SEE COMMENT 11/22/2017 4:36 PM CDT [facility] Comment:SATISFACTORY FOR BETINA LUATION PAP INTERP SEE COMMENT 11/22/2017 4:36 PM CDT [facility] Comment: Negative for intraepithelial lesion or malignancy. Atrophic pattern; predominantly parabasal cells COMMENT SEE COMMENT 11/22/2017 4:36 PM CDT [facility] Comment: This Pap test has been evaluated with computer assisted technology. NURSING CONSULTANT: SEE COMMENT 2017 4:36 PM CDT [facility] Comment: BLG, CT(ASCP) CT screening location: [place] [address] [address] [place] [id number] EXPLANATORY NOTE SEE COMMENT 018 4:36 PM CDT [facility] Comment: EXPLANATORY NOTE: The Pap is a screening test for cervical cancer. It is not a diagnostic test and is subject to false negative and false positive results. It is most reliable when a satisfactory sample, regularly obtained, is submitted with relevant clinical findings and history, and when the Pap result is evaluated along with historic and current clinical information. HPV E6/E7 Not Detected Not Detected 11/22/2017 4:36 PM CDT [facility] Comment: This test was performed using the APTIMA HPV Assay ([employer] ? This assay detects E6/E7 viral messenger RNA (mRNA) from 14 high-risk HPV types (16,18,31,33,35,39,45,51,52,56,58,59,66,68). 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
--- OUTSIDE RECORDS SUMMARY | 2024-08-12 21:40 | XMS_ITS | Encounter Summary ---
Author Organization [facility] Address 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 Diffuse cystic mastopathy, unspecified laterality Dense breast Procedures MAMMO BREAST US BILAT COMPLETE Vilma Jim NP NO ADDRESS ON FILE Referral ID Status Reason Start Date Expiration Date Visits Re quested Visits Authorized [id number] Closed 08/15/2019 09/14/2020 1 1 SAPPER Reason for Visit * Radiology Services (Routine) - Closed Specialty Diagnoses / Procedures Referred By Contac t Referred To Contact Diagnoses 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 [address] [place] [id number] Vilma Jim NP NO ADDRESS ON FILE Discharge Disposition: Home [...] AM CDT documented as of this encounter Medications at Time of Discharge Medication Sig Dispensed Refills Start Date End Date MULTIVITAMIN ORAL Take by mouth. cholecalciferol, Vitamin D3, (VITAMIN D3) 1,000 unit Capsule Take by mouth daily. 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 OVERALL FINAL ASSESSMENT: BI-RADS CATEGORY 1: Negative DICTATION LOCATION: [facility] Narrative 08/15/2019 11:08 AM TREE SAPPER COMPLETE BILATERAL BREAST ULTRASOUND, 08/15/2019 CLINICAL HISTORY: Screening in a patient with dense breasts. COMPARISON: Comparison is made to prior mammograms and ultrasounds dating back to 2017. FINDINGS: Survey ultrasound of both breasts was performed. There is normal fibroglandular parenchyma. No cystic or solid mass or distortion is seen. There is no axillary lymphadenopathy. Procedure Note Fidelina Rosas MD - 08/15/2019 COMPLETE BILATERAL BREAST ULTRASOUND, 08/15/2019 CLINICAL HISTORY: Screening in a patient with dense breasts. COMPARISON: Comparison is made to prior mammograms and ultrasounds dating back to 2017. FINDINGS: Survey ultrasound of both breasts was performed. There is normal fibroglandular parenchyma. No cystic or solid mass or distortion is seen. There is no axillary lymphadenopathy. IMPRESSION: Normal bilateral breast ultrasound. 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
--- OUTSIDE RECORDS SUMMARY | 2024-08-12 21:40 | XMS_ITS | Encounter Summary ---
Author Organization [facility] Address 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 Diffuse cystic mastopathy, unspecified laterality Dense breast Procedures MAMMO DIAG BILAT 3D LUIS W OR WO CAD CHG DIAGNOSTIC MAMMOGRAPHY COMPUTER-AIDED DETCJ BI CHG DIGITAL BREAST TOMOSYNTHESIS BILATERAL Vilma Jim NP NO ADDRESS ON FILE Referral ID Status Reason Start Date Expiration Date Visits Re quested Visits Authorized [id number] Closed 07/18/2018 08/18/2019 1 1 Reason for Visit * Radiology Services (Routine) - Closed Specialty Diagnoses / Procedures Referred By Contjovnay avalos Referred To Contact Diagnoses 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 Diffuse cystic mastopathy, unspecified laterality Dense breast Procedures MAMMO DIAG BILAT 3D LUIS W OR WO CAD CHG DIAGNOSTIC MAMMOGRAPHY COMPUTER-AIDED DETCJ BI CHG DIGITAL BREAST TOMOSYNTHESIS BILATERAL Vilma Jim NP NO ADDRESS ON FILE Referral ID Status Reason Start Date Expiration Date Visits Re quested Visits Authorized [id number] Closed 07/18/2018 08/18/2019 1 1 Encounter Details Date Type Department Care Team (Latest Contact Info) Description 01/21/2019 9:00 AM CDT - 01/21/2019 11:59 PM CDT Hospital Encounter [facility] [address] [place] [address] Vilma Jim, ASSISTANT CHIEF NURSING OFFICER NO ADDRESS ON FILE Discharge Disposition: Home [...] 3D LUIS W OR WO CAD Routine 01/21/2019 9:25 AM CDT 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 No concerning developing abnormality identified. OVERALL FINAL ASSESSMENT: ??BI-RADS CATEGORY 2 - Benign findings. RECOMMENDATION: 1. Recommend annual mammography. 2. The patient would also benefit from continued annual screening breast ultrasound. Narrative 01/21/2019 1:23 PM CDT BILATERAL DIAGNOSTIC DIGITAL MAMMOGRAM WITH CAD AND 3D TOMOSYNTHESIS DATE: 01/21/2019 9:25 AM DICTATION LOCATION: [facility] HISTORY: History of left-sided atypia, yearly exam. TECHNIQUE: Full-field digital diagnostic mammograms of both breasts were obtained with 2-D and 3-D acquisitions. CAD was utilized. COMPARISON: Comparison made to studies dating back to 09/02/2012. BREAST COMPOSITION: Heterogeneously dense, which limits the sensitivity of mammography. FINDINGS: There are postoperative changes within the superior left breast consistent with a previous excisional biopsy. No concerning developing dominant masses, microcalcifications or focal areas of architectural distortion are identified in either breast. Procedure Note Mane Watson MD - 01/21/2019 BILATERAL DIAGNOSTIC DIGITAL MAMMOGRAM WITH CAD AND 3D TOMOSYNTHESIS DATE: 01/21/2019 9:25 AM DICTATION LOCATION: [facility] HISTORY: History of left-sided atypia, yearly exam. TECHNIQUE: Full-field digital diagnostic mammograms of both breasts were obtained with 2-D and 3-D acquisitions. CAD was utilized. COMPARISON: Comparison made to studies dating back to 09/02/2012. BREAST COMPOSITION: Heterogeneously dense, which limits the sensitivity of mammography. FINDINGS: There are postoperative changes within the superior left breast consistent with a previous excisional biopsy. No concerning developing dominant masses, microcalcifications or focal areas of architectural distortion are identified in either breast. IMPRESSION: 1. No concerning developing abnormality identified. OVERALL FINAL ASSESSMENT: BI-RADS CATEGORY 2 - Benign findings. RECOMMENDATION: 1. Recommend annual mammography. 2. The patient would also benefit from continued annual screening breast ultrasound. 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
--- OUTSIDE RECORDS SUMMARY | 2024-08-12 21:40 | XMS_ITS | Encounter Summary ---
Author Organization [facility] Address [address] Parran: Epic Prelude ADT [place] [address] Care Team Providers Care Industrial Registered Nurse Name Role Phone Diana Braun MD Primary Care Provider [phone] Encounter Details Date Type Department Care Team (Latest Contact Info) Description 02/09/2020 Travel Social History Tobacco Use Types Packs/Day [...] on filedocumented in this encounter Care Teams Industrial Registered Nurse Relationship Specialty Start Date End Date Diana Braun MD PCP - General Family Practice 12/22/13 documented as of this encounter
--- OUTSIDE RECORDS SUMMARY | 2024-08-12 21:40 | XMS_ITS | Encounter Summary ---
Author Organization [facility] Address [address] [place] [address] Care Team Providers Care Top Tile Decorator Name Role Phone Diana Braun MD Primary Care Provider [phone] Reason for Referral * Radiology Services (Routine) - Closed Specialty Diagnoses / Procedures Referred By Contac t Referred To Contact Diagnoses Diffuse cystic mastopathy, unspecified laterality Procedures MAMMO DIAG BILAT 3D LUIS W OR WO CAD CHG DIAGNOSTIC MAMMOGRAPHY COMPUTER-AIDED DETCJ BI CHG DIGITAL BREAST TOMOSYNTHESIS BILATERAL Vilma Jim NP NO ADDRESS ON FILE Referral ID Status Reason Start Date Expiration Date Visits Re quested Visits Authorized [id number] Closed 08/15/2019 09/14/2020 1 1 Reason for Visit * Radiology Services (Routine) - Closed Specialty Diagnoses / Procedures Referred By Contac t Referred To Contact Diagnoses Diffuse cystic mastopathy, unspecified laterality Procedures MAMMO DIAG BILAT 3D LUIS W OR WO CAD CHG DIAGNOSTIC MAMMOGRAPHY COMPUTER-AIDED DETCJ BI CHG DIGITAL BREAST TOMOSYNTHESIS BILATERAL Vilma Jim NP NO ADDRESS ON FILE Referral ID Status Reason Start Date Expiration Date Visits Re quested Visits Authorized [id number] Closed 08/15/2019 09/14/2020 1 1 Encounter Details Date Type Department Care Team (Latest Contact Info) Description 02/09/2020 9:30 AM CDT - 02/09/2020 11:59 PM CDT Hospital Encounter [facility] [address] [place] [address] Vilma Jim NP NO ADDRESS ON FILE [...] TAKE 1 TABLET DAILY 90 Tablet 3 11/03/2019 10/26/2020 documented as of this encounter Plan of Treatment Not on file documented as of this encounter Procedures Procedure Name Priority Date/Time Associated Diagnosis Comments MAMMO DIAG BILAT 3D LUIS W OR WO CAD Routine 02/09/2020 9:50 AM CDT Diffuse cystic mastopathy, unspecified laterality documented in this encounter Results * MAMMO DIAG BILAT 3D LUIS W OR WO CAD (02/09/2020 9:50 AM CDT) Anatomical Region Laterality Modality Breast Bilateral Mammography 02/09/2020 9:50 AM CDT Impressions 02/09/2020 10:00 AM CDT IMPRESSION: There are no suspicious findings to suggest malignancy in either breast. Annual mammography is recommended. OVERALL FINAL ASSESSMENT: ??BI-RADS CATEGORY 2: Benign findings Narrative 02/09/2020 10:00 AM CDT EXAM: BILATERAL DIAGNOSTIC FULL-FIELD DIGITAL MAMMOGRAPHY WITH CAD WITH 3D TOMOSYNTHESIS DATE: 02/09/2020 9:50 AM HISTORY: Benign left breast excisional biopsy. DICTATION LOCATION: [facility] COMPARISON: 01/21/2019 and older. TECHNIQUE: Diagnostic views of both breasts were performed using full field digital mammography. Low-dose digital breast tomosynthesis examination was performed with 2D and 3D acquisitions. Examination is read in conjunction with computer aided detection. BREAST COMPOSITION: Heterogeneously dense, which limits the sensitivity of mammography. FINDINGS: ??Postsurgical changes are redemonstrated in the posterior upper left breast. There is no concerning mass, suspicious calcifications or concerning areas of architectural distortion identified in either breast. Since the prior mammograms, there has been no significant interval change. Procedure Note Keke An MD - 02/09/2020 EXAM: BILATERAL DIAGNOSTIC FULL-FIELD DIGITAL MAMMOGRAPHY WITH CAD WITH 3D TOMOSYNTHESIS DATE: 02/09/2020 9:50 AM HISTORY: Benign left breast excisional biopsy. DICTATION LOCATION: [facility] COMPARISON: 01/21/2019 and older. TECHNIQUE: Diagnostic views [...] there has been no significant interval change. IMPRESSION: There are no suspicious findings to suggest malignancy in either breast. Annual mammography is recommended. OVERALL FINAL ASSESSMENT: BI-RADS CATEGORY 2: Benign findings Vilma Jim NP MAMMO ORDERABLES documented in this encounter Visit Diagnoses Diagnosis Diffuse cystic mastopathy, unspecified laterality documented in this encounter Care Teams Top Tile Decorator Relationship Specialty Start Date End Date Diana Braun MD PCP - General Family Practice 12/22/13 documented as of this encounter
--- OUTSIDE RECORDS SUMMARY | 2024-08-12 21:40 | XMS_ITS | Encounter Summary ---
Author Organization [facility] Address 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 Diffuse cystic mastopathy, unspecified laterality Procedures MAMMO DIAG BILAT 3D LUIS W OR WO CAD Vilma Jim NP NO ADDRESS ON FILE Referral ID Status Reason Start Date Expiration Date Visits Re quested Visits Authorized [id number] Closed 07/19/2017 08/19/2018 1 1 JUMPING INSTRUCTOR * Outpatient Services (Routine) - Closed Specialty Diagnoses / Procedures Referred By Contjovany t Referred To Contact Diagnoses 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 Diffuse cystic mastopathy, unspecified laterality Procedures MAMMO 3D AUTOMATED BREAST US BILAT Vilma Jim NP NO ADDRESS ON FILE Referral ID Status Reason Start Date Expiration Date V isits Requested Visits Authorized [id number] Closed [facility] CTS 07/19/2017 08/19/2018 1 1 JUMPING INSTRUCTOR Reason for Visit * Reason Comments Follow Up 6 month Encounter Details Date Type Department Care Team (Late st Contact Info) Description 07/19/2017 9:15 AM SHOW JUMPING INSTRUCTOR Office Visit [facility] [place] [facility] [address] [address] [place] [address] Vilma Jim NP NO ADDRESS ON FILE 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 Diffuse cystic mastopathy, unspecified laterality N60.19 610.1 Claribel Ortiz 1960 HISTORY OF PRESENT ILLNESS [...] with atypiaand is not on any HRT. She started on Evista as medical risk reduction in December 2015. She denies any hot flashes, night sweats, mood changes, or vaginal dryness. No SOB or leg pain or cramps. No calf swelling or signs of VTE. Bone density done fall 2015 and showed mild osteopenia, T score -1.6. Today on exam she denies anybreast related complaints or concerns. She is postmenopausal, has not had a period in over 5 years.She continues to see a world renowned chef and restaurant owner on an annual basis. Past Medical History: Diagnosis Date ??? Fibrocystic disease of breast Past Surgical History: Procedure Laterality Date ??? HX EXCISIONAL BIOPSY Left 01/16/2014 flat epithelial atypia ??? HX WISDOM TEETH EXTRACTION ??? UT EXCISE BREAST CYST 01/16/2014 BREAST BIOPSY performed by Marina Cohen MD at [facility] OR Current Outpatient Prescriptions: ??? raloxifene (EVISTA) 60 mg tablet, TAKE 1 TABLET DAILY, Disp: 90 Tablet, Rfl: 4 ??? cholecalciferol, Vitamin D3, (VITAMIN D3) [...] of education: N/A Occupational History ??? [employer] Social History Main Topics ??? Smoking status: Never Smoker ??? Smokeless tobacco: Never Used ??? Alcohol use Yes Comment: moderate ??? Drug use: No ??? Sexual activity: Not on file Other Topics Concern ??? Not on file Social History Narrative ??? No narrative on file REVIEW OF SYSTEMS Constitutional: denies fever, chills, fatigue, or weakness. Started Evista, tolerating well, no hotflashes/night sweats. Cardiovascular: denies chest pain or pressure, FERREIRA, palpitations, or edema. Pulmonary: denies SOB, cough, or wheezing. GI/Abdomen: denies nausea, vomiting, abdominal pain, constipation, diarrhea. : denies dysuria, frequency, urgency, or hematuria. MENTALLY IMPAIRED TEACHER: denies any abnormal vaginal bleeding or unusual [...] AM ANION GAP 13 07/18/2016 10:47 AM Assessment/Plan #1 MMG in December stable. Clinical breast exam today shows benign findings #2 Tolerating Evista well. No hot flashes, leg cramps, or mood changes. Continue on therapy #3 Clinical breast exam demonstrates benign findings. #4 I further explained that lifestyle modifications [...] risk does not warrant MRI screening. #5 We did discuss role of 3D US. She is interested. Stagger six months with mammograms. Due end of this year. Will schedule. Order placed #6 I also explained that having biannual breast exam by a healthcare professional is warranted as well as annual mammography. Vigilant surveillence was also underscored. #5 DEXA today- mild osteopenia. Continue Evista and Vitamin D supplements. Encouraged weight bearing exercise as well. Repeat DEXA in the fall of 2017. #6 Follow up in 6 months. Encouraged to call office for any breast changes or areas of concern #7 Due for well woman exam with peer support specialist All questions encouraged and answered Thank you [...] of care. Vilma Jim, MSN, AGNP-C, AOCNP [facility] Breast Surgery Dr. Corcoran was supervising physician in office today JUMPING INSTRUCTOR documented in this encounter Plan of Treatment Not on file documented as of this encounter Results * MAMMO DIAG BILAT 3D LUIS W OR WO CAD (01/15/2018 9:16 AM CDT) Anatomical Region Laterality Modality Breast Bilateral Mammography 01/15/2018 9:16 AM CDT Impressions 01/16/2018 10:40 AM CDT IMPRESSION: No mammographic evidence of malignancy. RECOMMENDATIONS: Routine mammogram in one year. DICTATION LOCATION: [facility] Narrative 01/16/2018 10:40 AM CDT EXAM: BILATERAL DIAGNOSTIC FULL-FIELD DIGITAL MAMMOGRAPHY WITH CAD WITH 3D TOMOSYNTHESIS DATE: 01/15/2018 9:16 AM HISTORY: Previous benign biopsy on the left demonstrating atypia in 2013. Diffuse cystic mastopathy. Annual follow-up. TECHNIQUE: Mediolateral oblique and craniocaudal views of both breasts were performed using full field digital mammography. Low-dose full-field digital breast tomosynthesis examination was performed with 2D and 3D acquisitions. ??Examination is read in conjunction with computer aided detection. COMPARISON: August 2011 through December 2016. BREAST COMPOSITION: Heterogeneously dense, which limits the sensitivity of mammography. FINDINGS: No suspicious findings are seen on the current mammogram. Since the prior study, there has been no significant change. CAD detected no significant abnormality. OVERALL ASSESSMENT: BI-RADS Category 1 - Negative. Procedure Note ChambersDaniel MD - 01/16/2018 EXAM: BILATERAL DIAGNOSTIC FULL-FIELD DIGITAL MAMMOGRAPHY WITH CAD WITH 3D TOMOSYNTHESIS DATE: 01/15/2018 9:16 AM HISTORY: Previous benign biopsy on the left demonstrating atypia in 2013. Diffuse cystic mastopathy. Annual follow-up. TECHNIQUE: Mediolateral oblique and craniocaudal views of both breasts were performed using full field digital mammography. Low-dose full-field digital breast tomosynthesis examination was performed with 2D and 3D acquisitions. Examination is read in conjunction with computer aided detection. COMPARISON: August 2011 through December 2016. BREAST COMPOSITION: Heterogeneously dense, which limits the sensitivity of mammography. FINDINGS: No suspicious findings are seen on the current mammogram. Since the prior study, there has been no significant change. CAD detected no significant abnormality. OVERALL ASSESSMENT: BI-RADS Category 1 - Negative. IMPRESSION: No mammographic evidence of malignancy. RECOMMENDATIONS: Routine mammogram in one year. DICTATION LOCATION: [facility] Vilma Jim NP MAMMO ORDERABLES * MAMMO 3D AUTOMATED BREAST US BILAT (07/31/2017 9:11 AM SHOW JUMPING INSTRUCTOR) Anatomical Region Laterality Modality Breast Bilateral Ultrasound 07/31/2017 9:11 AM SHOW JUMPING INSTRUCTOR Impressions 07/31/2017 4:52 PM SHOW JUMPING INSTRUCTOR IMPRESSION: Negative bilateral automated breast sonogram. Recommend annual mammographic follow-up. OVERALL ASSESSMENT: ??BI-RADS category 1 - Negative Dictated from: [facility] Narrative 07/31/2017 4:52 PM SHOW JUMPING INSTRUCTOR 3-D SONOGRAM AUTOMATED BILATERAL BREASTS 07/31/2017 HISTORY: ?? Diffuse cystic mastopathy. Flat epithelial atypia left breast. A bilateral 3-D automated breast sonogram was performed. Images are reviewed on a dedicated workstation. Comparison is made with her most recent mammogram dated 01/16/2017. The breast parenchyma is heterogeneously dense. No dominant masses or areas of shadowing or distortion are identified in either breast. Procedure Note Sharonda Starr MD - 07/31/2017 3-D SONOGRAM AUTOMATED BILATERAL BREASTS 07/31/2017 HISTORY: Diffuse cystic mastopathy. Flat epithelial atypia left breast. A bilateral 3-D automated breast sonogram was performed. Images are reviewed on a dedicated workstation. Comparison is made with her most recent mammogram dated 01/16/2017. The breast parenchyma is heterogeneously dense. No dominant masses or areas of shadowing or distortion are identified in either breast. IMPRESSION: Negative bilateral automated breast sonogram. Recommend annual mammographic follow-up. OVERALL ASSESSMENT: BI-RADS category 1 - Negative Dictated from: 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
--- OUTSIDE RECORDS SUMMARY | 2024-08-12 21:40 | XMS_ITS | Encounter Summary ---
Author Organization [employer] [facility] Address 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 Diffuse cystic mastopathy, unspecified laterality Procedures MAMMO DIAG BILAT 3D LUIS W OR WO CAD CHG DIAGNOSTIC MAMMOGRAPHY COMPUTER-AIDED DETCJ BI CHG DIGITAL BREAST TOMOSYNTHESIS BILATERAL Vilma Jim NP NO ADDRESS ON FILE [facility] [address] [place] [address] Referral ID Status Reason Start Date Expiration Date V isits Requested Visits Authorized [id number] Closed [facility] CTS 08/03/2020 09/03/2021 1 1 Reason for Visit * Radiology Services (Routine) - Closed Specialty Diagnoses / Procedures Referred By Contac t Referred To Contact Radiology Diagnoses 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 Diffuse cystic mastopathy, unspecified laterality Procedures MAMMO DIAG BILAT 3D LUIS W OR WO CAD CHG DIAGNOSTIC MAMMOGRAPHY COMPUTER-AIDED DETCJ BI CHG DIGITAL BREAST TOMOSYNTHESIS BILATERAL Vilma Jim NP NO ADDRESS ON FILE [facility] [address] [place] [address] Referral ID Status Reason Start Date Expiration Date V isits Requested Visits Authorized [id number] Closed [facility] CTS 08/03/2020 09/03/2021 1 1 Encounter Details Date Type Department Care Team (Latest Contact Info) Description 02/09/2021 10:15 AM CDT - 02/09/2021 11:59 PM CDT Hospital Encounter [facility] [address] [place] [id number] Vilma Jim NP NO ADDRESS ON FILE [...] TAKE 1 TABLET DAILY 90 Tablet 3 10/26/2020 05/09/2021 documented as of this encounter Plan of Treatment Not on file documented as of this encounter Procedures Procedure Name Priority Date/Time Associated Diagnosis Comments MAMMO DIAG BILAT 3D LUIS W OR WO CAD Routine 02/09/2021 10:43 AM CDT 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 OVERALL FINAL ASSESSMENT: BI-RADS Category 2: Benign finding(s). RECOMMENDATION: Continue annual screening mammogram with staggered bilateral whole breast ultrasound. Findings discussed with the patient. DICTATION LOCATION: ??[facility] [place] [facility] 02/09/2021 12:23 PM CDT BILATERAL DIGITAL DIAGNOSTIC MAMMOGRAM WITH TOMOSYNTHESIS AND CAD TECHNIQUE: Images were performed using 2D full field digital mammography with 3D tomosynthesis images. CAD analysis was performed. DATE: 02/09/2021 10:43 AM. HISTORY: History of left breast excisional biopsy for flat epithelial atypia in 2013. COMPARISON: Multiple prior mammograms, dating back to 12/17/2014 and most recently 02/09/2020. BREAST COMPOSITION: The breasts are heterogeneously dense, which may obscure small masses. FINDINGS: Postoperative appearance of left breast excisional biopsy. There is no suspicious mass, clustered microcalcification, or architectural distortion in either breast. There has been no change in the mammographic appearance compared with the prior study. Procedure Note Hema Gamez MD - 02/09/2021 BILATERAL DIGITAL DIAGNOSTIC MAMMOGRAM WITH TOMOSYNTHESIS AND CAD TECHNIQUE: Images were performed using 2D full field digital mammography with 3D tomosynthesis images. CAD analysis was performed. DATE: 02/09/2021 10:43 AM. HISTORY: History of left breast excisional biopsy for flat epithelial atypia in 2013. COMPARISON: Multiple prior mammograms, dating back to 12/17/2014 and most recently 02/09/2020. BREAST COMPOSITION: The breasts are heterogeneously dense, which may obscure small masses. FINDINGS: Postoperative appearance of left breast excisional biopsy. There is no suspicious mass, clustered microcalcification, or architectural distortion in either breast. There has been no change in the mammographic appearance compared with the prior study. IMPRESSION: No mammographic evidence of malignancy. OVERALL FINAL ASSESSMENT: BI-RADS Category 2: Benign finding(s). RECOMMENDATION: Continue annual screening mammogram with staggered bilateral whole breast ultrasound. Findings discussed with the patient. 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
--- OUTSIDE RECORDS SUMMARY | 2024-08-12 21:40 | XMS_ITS | Encounter Summary ---
Author Organization [facility] Address [address] [place]ran: Epic Prelude ADT [place] [address] Care Team Providers Care Consulting Technical Director Name Role Phone Diana Braun MD Primary Care Provider [phone] Encounter Details Date Type Department Care Team (Latest Contact Info) Description 08/04/2020 Travel Social History Tobacco Use Types Packs/Day [...] or suspected to have Coronavirus / COVID-19? Unable to assess 08/04/2020 9:07 AM CLEANER WALL documented as of this encounter Plan of Treatment Not on file documented as of this encounter Visit Diagnoses Not on filedocumented in this encounter Care Teams Consulting Technical Director Relationship Specialty Start Date End Date Diana Braun MD PCP - General Family Practice 12/22/13 documented as of this encounter
--- OUTSIDE RECORDS SUMMARY | 2024-08-12 21:40 | XMS_ITS | Encounter Summary ---
Author Organization [facility] Address [address] Parran: Epic Prelude [place]T [place] [address] Care Team Providers Care Automatic Mounter Name Role Phone Diana Braun MD Primary Care Provider [phone] Encounter Details Date Type Department Care Team (Latest Contact Info) Description 02/08/2021 Travel Social History Tobacco Use Types Packs/Day [...] PM CDT documented as of this encounter Plan of Treatment Not on file documented as of this encounter Visit Diagnoses Not on filedocumented in this encounter Care Teams Automatic Mounter Relationship Specialty Start Date End Date Diana Braun MD PCP - General Family Practice 12/22/13 documented as of this encounter
--- OUTSIDE RECORDS SUMMARY | 2024-08-12 21:40 | XMS_ITS | Encounter Summary ---
[facility] Organization [facility] Address [address] [place] [address] Care Team Providers Care Cylinder Sander Operator Name Role Phone Diana Braun MD Primary Care Provider Reason for Referral * Outpatient Services (Routine) - Closed Specialty Diagnoses / Procedures Referred By Contac t Referred To Contact Diagnoses Osteopenia of multiple sites Procedures XR DEXA BONE DENSITY AXIAL 1 OR MORE SITES Vilma Jim NP NO ADDRESS ON FILE Referral ID Status Reason Start Date Expiration Date Visits Re quested Visits Authorized [id number] Closed 01/15/2018 02/15/2019 1 1 MATIC DIE CUTTING MACHINE OPERATOR Reason for Visit * Outpatient Services (Routine) - Closed Specialty Diagnoses / Procedures Referred By Contac t Referred To Contact Diagnoses Osteopenia of multiple sites Procedures XR DEXA BONE DENSITY AXIAL 1 OR MORE SITES Vilma Jim NP NO ADDRESS ON FILE Referral ID Status Reason Start Date Expiration Date Visits Re quested Visits Authorized [id number] Closed 01/15/2018 02/15/2019 1 1 Encounter Details Date Type Department Care Team (Latest Contact Info) Description 07/18/2018 9:00 AM AUTOMATIC DIE CUTTING MACHINE OPERATOR - 07/18/2018 11:59 PM AUTOMATIC DIE CUTTING MACHINE OPERATOR Hospital Encounter [facility] [address] [place] [address] Vilma Jim NP NO ADDRESS [...] Sig Dispensed Refills Start Date End Date cholecalciferol, Vitamin D3, (VITAMIN D3) 1,000 unit Capsule Take by mouth daily. raloxifene (EVISTA) 60 mg tablet TAKE 1 TABLET DAILY 90 Tablet 4 05/15/2017 08/07/2018 documented as of this encounter Plan of Treatment Not on file documented as of this encounter Procedures Procedure Name Priority Date/Time Associated Diagnosis Comments XR DEXA BONE DENSITY AXIAL 1 OR MORE SITES Routine 07/18/2018 9:25 AM AUTOMATIC DIE CUTTING MACHINE OPERATOR Osteopenia of multiple sites documented in this encounter Results * XR DEXA BONE DENSITY AXIAL 1 OR MORE SITES (07/18/2018 9:25 AM AUTOMATIC DIE CUTTING MACHINE OPERATOR) Anatomical Region Laterality Modality Computed Radiogr aphy 07/18/2018 9:25 AM AUTOMATIC DIE CUTTING MACHINE OPERATOR Narrative 07/18/2018 10:41 AM AUTOMATIC DIE CUTTING MACHINE OPERATOR XR DEXA BONE DENSITY AXIAL 1 OR MORE SITES DATE: 07/18/2018 9:25 AM HISTORY: 58 years old Female with post menopausal symptoms. PROCEDURE: Planar images of the lumbar spine and hip(s) using a [employer] DEXA scanner for bone mineral density determination (BMD). ?? Comparison is made with the prior bone density performed 07/18/2016 FINDINGS: Lumbar Spine (L1-L4) 1.141 gm/cm2, T-score: -0.3 ?? Prior: 1.061 gm/cm2, +7.5% change Left femoral neck 0.804 gm/cm2, T-score: -1.7 ?? Prior: 0.811 gm/cm2, -0.9% change Right femoral neck 0.818 gm/cm2, T-score: -1.6 ?Prior: 0.831 gm/cm2, -1.6% change ?? Comments: None IMPRESSION Osteopenic bone mineral density. STATISTICAL CHANGE: Significant increase in bone mineral density of the lumbar spine since the prior study. A statistically significant change is defined as a change of greater than 2.5 standard deviations in the least significant difference from the prior study. Least significant differences are defined as follows: Lumbar spine: +/- 0.010 g/cm2 Femoral neck: +/- 0.014 g/cm2 Forearm radius 33%: +/- 0.020 g/cm2 DEFINITIONS: Normal: T-score above -1.0 Osteopenia T-score less than -1.0 and above -2.5 Osteoporosis: T-score < -2.5 FRAX FRACTURE RISK ASSESSMENT: Risk factors: Family history 10 Year Probability Of Fracture -Major Osteoporotic: 14.3% -Hip: 0.7% -Comparison population: [place], A major osteoporotic fracture is defined as a fracture of the spine, forearm, hip or shoulder. FOLLOW-UP RECOMMENDATIONS: Patients without high risk factors for osteoporosis: T-score -1.0 to -1.5 - Consider repeat BMD in 5-10 years T-score -1.5 to -2.0 - Consider repeat BMD in 3-5 years T-score -2.0 to - 2.5 - Consider repeat BMD every 2 years Patients on treatment for osteoporosis: 1-2 years after initiation of treatment and every 2 years [address] Steve Jeter DO DICTATION LOCATION: Location 1 - [facility] Procedure Note Steve Jeter DO - 07/18/2018 XR DEXA BONE DENSITY AXIAL 1 OR MORE SITES DATE: 07/18/2018 9:25 AM HISTORY: 58 years old Female with post menopausal symptoms. PROCEDURE: Planar images of the lumbar spine and hip(s) using a [employer] DEXA scanner for bone mineral density determination (BMD). Comparison is made with the prior bone density performed 07/18/2016 FINDINGS: Lumbar Spine (L1-L4) 1.141 gm/cm2, T-score: -0.3 Prior: 1.061 gm/cm2, +7.5% change Left femoral neck 0.804 gm/cm2, T-score: -1.7 Prior: 0.811 gm/cm2, -0.9% change Right femoral neck 0.818 gm/cm2, T-score: -1.6 Prior: 0.831 gm/cm2, -1.6% change Comments: None IMPRESSION Osteopenic bone mineral density. STATISTICAL CHANGE: Significant increase in bone mineral density of the lumbar spine since the prior study. A statistically significant change is defined as a change of greater than 2.5 standard deviations in the least significant difference from the prior study. Least significant differences are defined as follows: Lumbar spine: +/- 0.010 g/cm2 Femoral neck: +/- 0.014 g/cm2 Forearm radius 33%: +/- 0.020 g/cm2 DEFINITIONS: Normal: T-score above -1.0 Osteopenia T-score less than -1.0 and above -2.5 Osteoporosis: T-score < -2.5 FRAX FRACTURE RISK ASSESSMENT: Risk factors: Family history 10 Year Probability Of Fracture -Major Osteoporotic: 14.3% -Hip: 0.7% -Comparison population: [place], A major osteoporotic fracture is defined as a fracture of the spine, forearm, hip or shoulder. FOLLOW-UP RECOMMENDATIONS: Patients without high risk factors for osteoporosis: T-score -1.0 to -1.5 - Consider repeat BMD in 5-10 years T-score -1.5 to -2.0 - Consider repeat BMD in 3-5 years T-score -2.0 to - 2.5 - Consider repeat BMD every 2 years Patients on treatment for osteoporosis: 1-2 years after initiation of treatment and every 2 [address] Steve Jeter, DICTATION LOCATION: Location 1 - [facility] Vilma Jim NP DIAGNOSTIC IMAGING O RDERABLES documented in this encounter Visit Diagnoses Diagnosis Osteopenia of multiple sites documented in this encounter Care Teams Cylinder Sander Operator Relationship Specialty Start Date End Date Diana Braun MD PCP - General Family Practice 12/22/13 documented as of this encounter
--- OUTSIDE RECORDS SUMMARY | 2024-08-12 21:40 | XMS_ITS | Encounter Summary ---
Author Organization [facility] Address [address] [place] [address] Care Team Providers Care Curtain Roller Assembler Name Role Phone Diana Braun MD Primary Care Provider [phone] Reason for Visit * Reason Comments Breast Exam, Routine, No Symptoms Encounter Details Date Type Department Care Team (Late st Contact Info) Description 01/16/2017 10:15 AM CDT Office Visit [facility] [address] [place] [address] Vilma Jim, AALIYAH NO ADDRESS ON FILE Diffuse cystic mastopathy, unspecified laterality (Primary Dx); Flat epithelial atypia of breast, left Social History Tobacco Use Types Packs/Day Years [...] Sign Reading Time Taken Comments Blood Pressure 103/64 01/16/2017 9:58 AM CDT Pulse 64 01/16/2017 9:58 AM CDT Temperature 36.6 ??C (97.8 ??F) 01/16/2017 9:58 AM CD T Respiratory Rate - - Oxygen Saturation - - Inhaled Oxygen Concentration - - Weight 57.6 kg (127 lb) 01/16/2017 9:58 AM CDT Height 165.1 cm (5' 5 ) 01/16/2017 9:58 AM CDT Body Mass Index 21.13 01/16/2017 9:58 AM CDT documented in this encounter Progress Notes * Vilma Jim NP - 01/16/2017 10:00 AM CDT DIAGNOSIS ICD-10-CM ICD-9-CM 1. Diffuse cystic mastopathy, unspecified laterality N60.19 610.1 2. Flat epithelial atypia of breast, left N60.82 610.8 Claribel Ortiz 1960 HISTORY OF PRESENT ILLNESS [...] with atypiaand is not on any HRT. Recall last year, started on Evista as medical risk reduction. She denies any hot flashes, night sweats, mood changes, or vaginal dryness. No SOB or leg pain or cramps. No calfswelling or signs of VTE. Bone density done fall 2015 and showed mild osteopenia, T score -1.6. Today on exam she denies any breast related complaints or concerns. She is postmenopausal, has not had a period in over 4 years. She continues to see a geropsychologist on an annual basis. Past Medical History: Diagnosis Date ??? Fibrocystic disease of breast Past Surgical History: Procedure Laterality Date ??? HX EXCISIONAL BIOPSY Left 01/16/2014 flat epithelial atypia ??? HX WISDOM TEETH EXTRACTION ??? SD EXCISE BREAST CYST 01/16/2014 BREAST BIOPSY performed by NoelMarina cortez MD at [facility] OR Current Outpatient Prescriptions: ??? cholecalciferol, Vitamin D3, (VITAMIN D3) 1,000 unit Capsule, Take by mouth daily., Disp: , Rfl: ??? raloxifene (EVISTA) 60 mg tablet, Take 1 Tablet (60 mg) by mouth daily., Disp: 30 Tablet, Rfl: 3 No Known Allergies Family History Problem Relation Age of Onset ??? Breast Cancer Neg Hx ??? Ovarian Cancer Neg Hx ??? Uterine Cancer Neg Hx Social History Social History ??? Marital status: Spouse name: N/A ??? Number of children: 1 ??? Years of education: N/A Occupational History ??? [employer] Social History Main Topics ??? Smoking status: Never Smoker ??? Smokeless tobacco: Never Used ??? Alcohol use Yes Comment: moderate ??? Drug use: No ??? Sexual activity: Not Asked Other Topics Concern ??? None Social History Narrative REVIEW OF SYSTEMS Constitutional: denies fever, chills, fatigue, or weakness. Started Evista, tolerating well, no hotflashes/night sweats. Cardiovascular: denies chest pain or pressure, FERREIRA, palpitations, or edema. Pulmonary: denies SOB, cough, or wheezing. GI/Abdomen: denies nausea, vomiting, abdominal pain, constipation, diarrhea. : denies dysuria, frequency, urgency, or hematuria. ELECTROMAGNET CRANE OPERATOR: denies any abnormal vaginal bleeding or unusual [...] GAP 13 07/18/2016 10:47 AM Assessment/Plan #1 Breast imaging performed today with bilateral 3-D diagnostic mammograms. No dominant masses or areas of concerns identified. BI-RADS Category 2. #2 Tolerating Evista well. No hot flashes, leg cramps, or mood changes. Continue on therapy. ObtainCMP to eval LFT. #3 Clinical breast exam demonstrates benign findings. [...] the coordination of care. KEESHA Silverio, MSN [facility] Oncology & Hematology Breast Surgery documented in this encounter Plan of Treatment Not on file documented as of this encounter Visit Diagnoses Diagnosis Diffuse cystic mastopathy, unspecified laterality- Primary Flat epithelial atypia of breast, left documented in this encounter Care Teams Curtain Roller Assembler Relationship Specialty Start Date End Date Diana Braun MD PCP - General Family Practice 12/22/13 documented as of this encounter
--- OUTSIDE RECORDS SUMMARY | 2024-08-12 21:40 | XMS_ITS | Encounter Summary ---
Author Organization [facility] Address [address] [place] [address] Care Team Providers Care Journeyman Apprentice Electricians Name Role Phone Diana Braun MD Primary Care Provider [phone] Reason for Referral * Outpatient Services (Routine) - Closed Specialty Diagnoses / Procedures Referred By Paige avalos Referred To Contact Diagnoses Abnormal mammogram Procedures MAMMO DIGITAL DIAG UNI LEFT Marina Cohen MD NO ADDRESS ON FILE Referral ID Status Reason Start Date Expiration Date Visits Re quested Visits Authorized [id number] Closed 12/22/2013 01/22/2015 1 1 Reason for Visit * Outpatient Services (Routine) - Closed Specialty Diagnoses / Procedures Referred By Paige avalos Referred To Contact Diagnoses Abnormal mammogram Procedures MAMMO DIGITAL DIAG UNI LEFT Marina Cohen MD NO ADDRESS ON FILE Referral ID Status Reason Start Date Expiration Date Visits Re quested Visits Authorized [id number] Closed 12/22/2013 01/22/2015 1 1 Encounter Details Date Type Department Care Team (Latest Contact Info) Description 12/22/2013 11:22 AM CDT - 12/22/2013 11:59 PM CDT Hospital Encounter [facility] [address] [place] [address] Marina Cohen MD NO ADDRESS ON FILE Discharge Disposition: [...] UNI LEFT W OR WO CAD Routine 12/22/2013 1:09 PM CDT Abnormal mammogram documented in this encounter Results * MAMMO DIGITAL DIAG UNI LEFT (12/22/2013 1:09 PM CDT) Anatomical Region Laterality Modality Breast Left Mammography 12/22/2013 1:06 PM CDT Impressions 12/23/2013 1:07 PM CDT IMPRESSION: Technically successful stereotactic core biopsy with tissue marker placement. Dictated from [facility] 12/23/2013 1:07 PM CDT VACUUM-ASSISTED CORE BIOPSY [...] biopsy with tissue marker placement. [facility] Marina Cohen MD MAMMO ORDERABLES documented in this encounter Visit Diagnoses Diagnosis Abnormal mammogram Abnormal mammogram, unspecified documented in this encounter Care Teams Journeyman Apprentice Electricians Relationship Specialty Start Date End Date Dinaa Braun MD PCP - General Family Practice 12/22/13 documented as of this encounter
--- OUTSIDE RECORDS SUMMARY | 2024-08-12 21:40 | XMS_ITS | Encounter Summary ---
Author Organization [facility] Address [address] [place] [address] Care Team Providers Care Medical And Scientific Illustrator Name Role Phone Diana Braun MD Primary Care Provider [phone] Reason for Visit * Reason Onset Date Comments mamm 01/21/2019 Encounter Details Date Type Department Care Team (Late st Contact Info) Description 01/21/2019 Telephone [facility] ONCOLOGY AND HEMATOLOGY-[facility] [address] [place] [address] Vilma Jim NP NO ADDRESS ON FILE mamm Social History Tobacco Use Types Packs/Day Years [...] encounter Miscellaneous Notes * Telephone Encounter - Valeria Lozano RN - 01/21/2019 4:11 PM CDT ----- Message from Vilma Jim NP sent at 01/21/2019 3:20 PM CDT ----- 01/21/19---Please let her know that MMG fine. RTC in Jul for OV and breast ultrsaounds. (07-24-19) Verbalized understanding documented in this encounter Plan of Treatment Not on file documented as of this encounter Visit Diagnoses Not on filedocumented in this encounter Care Teams Medical And Scientific Illustrator Relationship Specialty Start Date End Date Diana Braun MD PCP - General Family Practice 12/22/13 documented as of this encounter
--- OUTSIDE RECORDS SUMMARY | 2024-08-12 21:40 | XMS_ITS | Encounter Summary ---
Author Organization [facility] Address [address] [place] [address] Care Team Providers Care Exam Proctor Name Role Phone Diana Braun MD Primary Care Provider Reason for Referral * Outpatient Services (Routine) - Closed Specialty Diagnoses / Procedures Referred By Contac t Referred To Contact Diagnoses Screening for osteoporosis Procedures XR DEXA BONE DENSITY AXIAL 1 OR MORE SITES Vilma Jim NP NO ADDRESS ON FILE Referral ID Status Reason Start Date Expiration Date Visits Re quested Visits Authorized [id number] Closed 01/11/2016 02/10/2017 1 1 PLATE PLYWOOD PRESS OPERATOR Reason for Visit * Outpatient Services (Routine) - Closed Specialty Diagnoses / Procedures Referred By Contac t Referred To Contact Diagnoses Screening for osteoporosis Procedures XR DEXA BONE DENSITY AXIAL 1 OR MORE SITES Vilma Jim NP NO ADDRESS ON FILE Referral ID Status Reason Start Date Expiration Date Visits Re quested Visits Authorized [id number] Closed 01/11/2016 02/10/2017 1 1 Encounter Details Date Type Department Care Team (Latest Contact Info) Description 07/18/2016 8:57 AM HOT PLATE PLYWOOD PRESS OPERATOR - 07/18/2016 11:59 PM HOT PLATE PLYWOOD PRESS OPERATOR Hospital Encounter [facility] [address] [place] [address] Vilma Jim NP NO ADDRESS [...] DENSITY AXIAL 1 OR MORE SITES Routine 07/18/2016 9:11 AM HOT PLATE PLYWOOD PRESS OPERATOR Screening for osteoporosis documented in this encounter Results * XR DEXA BONE DENSITY AXIAL 1 OR MORE SITES (07/18/2016 9:11 AM HOT PLATE PLYWOOD PRESS OPERATOR) Anatomical Region Laterality Modality Computed Radiogr aphy 07/18/2016 9:11 AM HOT PLATE PLYWOOD PRESS OPERATOR Impressions 07/18/2016 9:25 AM HOT PLATE PLYWOOD PRESS OPERATOR IMPRESSION: Osteopenic femur neck BMD. Lumbar [...] Mc MD DICTATION LOCATION: Location 1 - [facility] 07/18/2016 9:25 AM HOT PLATE PLYWOOD PRESS OPERATOR EXAMINATION: ??BONE DENSITY STUDY (DXA) DATE: 07/18/2016 9:11 AM CLINICAL HISTORY: 56 years postmenopausal female. PROCEDURE: Planar images of the lumbar spine and hip(s) using a LUNAR DEXA scanner for bone mineral density determination (BMD). ?? FINDINGS: ? Lumbar Spine (L1-L4) T-score -1.0 ?? 1.06 g/sq cm Left femoral neck ?T-score -1.6 ?? 0.811 g/sq cm Right femoral neck ??T-score -1.5 ?? 0.831 g/sq cm Detailed report placed in Imaging Section of [employer] EMR. Procedure Note Amee Mc MD - 07/18/2016 EXAMINATION: BONE DENSITY STUDY (DXA) DATE: 07/18/2016 9:11 AM CLINICAL HISTORY: 56 years postmenopausal female. PROCEDURE: Planar images of the lumbar spine and hip(s) using a LUNAR DEXA scanner for bone mineral density determination (BMD). FINDINGS: Lumbar Spine (L1-L4) T-score -1.0 1.06 g/sq cm Left femoral neck T-score -1.6 0.811 g/sq cm Right femoral neck T-score -1.5 0.831 g/sq cm Detailed report placed in Imaging Section of [employer] EMR. IMPRESSION IMPRESSION: Osteopenic femur neck BMD. [...] Mc MD DICTATION LOCATION: Location 1 - [facility] Vilma Jim TODDLER LEAD TEACHER DIAGNOSTIC IMAGING O RDERABLES documented in this encounter Visit Diagnoses Diagnosis Screening for osteoporosis Special screening for osteoporosis documented in this encounter Care Teams Exam Proctor Relationship Specialty Start Date End Date Diana Braun MD PCP - General Family Practice 12/22/13 documented as of this encounter
--- OUTSIDE RECORDS SUMMARY | 2024-08-12 21:40 | XMS_ITS | Clinical Summary ---
[facility] [place] Address [address] [place] [address] Phone Care Team Providers Care Orbitread Operator Name Role Phone Diana Braun MD Primary Care Provider Allergies No known active allergies Medications Medication Sig Dispensed Refills Start Date End Date Status cholecalciferol, Vitamin D3, (VITAMIN D3) 1,000 unit Capsule Take by mouth daily. Active MULTIVITAMIN ORAL Take by mouth. Act clif raloxifene (EVISTA) 60 mg tablet Take 1 Tablet (60 mg) by mouth daily. 90 Tablet 3 05/09/2021 Active Active Problems Patient Care Coordination No te Formatting of this note migh t be different from the original. 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 cystic mastopathy 01/28/2014 Resolved Problems Problem Noted Date Diagnosed Date Resolved Date Abnormal mammogram 12/12/2013 5 Immunizations Name Administration Dates Next Due (PATTIE) COVID-19 VACCINE - EMERGENCY USE AUTHORIZATION, AD26,COV2S(PF) 0.5 ML IM SUSP 10/25/2020 INFLUENZA VACCINE QUADRIVALE NT 6 MOS UP CELL DERIVED PF IM 05/24/2019 INFLUENZA VACCINE QUADRIVALENT 6 MOS UP PF IM Family History Medical History Relation Name Comments Hypertension Father Stroke Father Lung Cancer Maternal Aunt Alzheimer's Disease Mother Osteoporosis Mother Breast Cancer Neg Hx Cancer Neg Hx Ovarian Cancer Neg Hx Uterine Cancer Neg Hx Relation Name Status Comments Father Maternal Aunt Mother Social History Tobacco Use Types Packs/Day Years Used Date Smoking Tobacco: Never Smokeless Tobacco: Never Tobacco Cessation:Counseling Given: No Alcohol Use Standard Drinks/Week Comments Yes 0 (1 standard drink = 0.6 oz pur e alcohol) moderate Sex and Gender Information Value Date Recorded Sex Assigned at Not on file Gender Identity Not on file Sexual Orientation Not on file Last Filed Vital Signs Vital Sign Reading Time Taken Comments Blood Pressure 115/69 02/09/2021 11:15 AM CDT Pulse 68 02/09/2021 11:15 AM CDT Temperature 36.5 ??C (97.7 ??F) 02/09/2021 11:15 AM C DT Respiratory Rate 18 02/08/2021 1:58 PM CDT Oxygen Saturation 98% 02/09/2021 11:15 AM CDT Inhaled Oxygen Concentration - - Weight 59 kg (130 lb) 02/09/2021 11:15 AM CDT Height 165.1 cm (5' 5 ) 02/09/2021 11:15 AM CDT Body Mass Index 21.63 02/09/2021 11:15 AM CDT Plan of Treatment Health Maintenance Due Date Last Done Comments DTAP/TDAP/TD VACCINES (1 - Tdap) 1979 COLORECTAL SCREENING 2005 Colorectal Cancer Screening 2005 FIT-DNA Q 3 years 2005 FIT/FOBT Q 1 year 2005 Flex Sig/CT Colonography Q 5 years 2005 ZOSTER VACCINE (1 of 2) 2010 CERVICAL CANCER SCREENING 11/20/2020 11/20/2017 BREAST CANCER SCREENING 02/09/2022 02/10/20 21, 02/09/2020, 01/21/2019, Additional history exists INFLUENZA VACCINE (#1) 2024 04/27/2020, 2018 COVID-19 Vaccine (2 - season) 2024 10/25/2020 RSV VACCINE (60+ or ) (1 - 1-dose 75+ series) 2035 PNEUMOCOCCAL VACCINE 0-64 YEARS Aged Out No longer eligible based on patient's age to complete this topic Procedures Procedure Name Priority Date/Time Associated Diagnosis Comments MAMMO DIAG BILAT 3D LUIS W OR WO CAD Routine 02/09/2021 10:43 AM CDT 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 DICTATION LOCATION: [facility] Vilma Jim FOSTER CARE THERAPIST MAMMO ORDERABLES * CERV/VAG CYTOPATH, THIN PREP AND HPV [...] has been evaluated with computer assisted technology. TOUR SALES REPRESENTATIVE: SEE COMMENT 2017 4:36 PM CDT [facility] Comment: BLG, CT(ASCP) CT screening location: [place] [address] [place], [place] [address] EXPLANATORY NOTE SEE COMMENT 018 4:36 PM [...] was performed using the APTIMA HPV Assay ([employer] ? This assay detects E6/E7 viral messenger RNA (mRNA) from 14 high-risk HPV types (16,18,31,33,35,39,45,51,52,56,58,59,66,68). Genital SWAB OF ENDOCERVIX / Unknown Collection / Unknown 11/20/2017 5:35 PM CDT 11/20/2017 8:48 PM CDT Narrative [facility] - 11/22/2017 4:36 PM CDT Performing Organization Information: ?Site ID: SL ?Name: [facility] ?Address: [facility] [address] [place] [address] ?Director: Roni Pritchett MD Annemarie Meza MD PATHOLOGY/CYTO LOGY ORDERABLES [facility] from Last 3 Months or Most Recently Relevant to Health Maintenance Advance Directives For more information, please contact: [phone] * Full Code (Latest Code Status on File) Date Activated Date Inactivated Comments 01/16/2014 9:03 AM 01/16/2014 12:32 PM * Full Code Date Activated Date Inactivated Comments 01/16/2014 7:05 AM 01/16/2014 9:03 AM Care Teams Orbitread Operator Relationship Specialty Start Date End Date Diana Braun MD PCP - General Family Practice 12/22/13
--- OUTSIDE RECORDS SUMMARY | 2024-08-12 21:40 | XMS_ITS | Encounter Summary ---
Author Organization [facility] Address [address] [place] [address] Care Team Providers Care Insurance Advisor Name Role Phone Diana Braun MD Primary Care Provider [phone] Reason for Visit * Reason Onset Date Comments Medication Refill 05/09/2021 Encounter Details Date Type Department Care Team (Late st Contact Info) Description 05/09/2021 [facility]ill [facility] [address] [address] [place] [id number] Vilma Jim, SANITATION LABORER NO ADDRESS ON FILE Social History Tobacco [...] on filedocumented in this encounter Care Teams Insurance Advisor Relationship Specialty Start Date End Date Diana Braun MD PCP - General Family Practice 12/22/13 documented as of this encounter
--- OUTSIDE RECORDS SUMMARY | 2024-08-12 21:40 | XMS_ITS | Encounter Summary ---
Author Organization [facility] Address [address] [place] [address] Care Team Providers Care Radiology Practitioner Assistant Name Role Phone Diana Braun MD Primary Care Provider [phone] Reason for Referral * Outpatient Services (Routine) - Closed Specialty Diagnoses / Procedures Referred By Paige avalos Referred To Contact Diagnoses Osteopenia of multiple sites Procedures XR DEXA BONE DENSITY AXIAL 1 OR MORE SITES Vilma Jim NP NO ADDRESS ON FILE Referral ID Status Reason Start Date Expiration Date Visits Re quested Visits Authorized [id number] Closed 01/15/2018 02/15/2019 1 1 * Outpatient Services (Routine) - Closed Specialty Diagnoses / Procedures Referred By Paige avalos Referred To Contact Diagnoses 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 Procedures MAMMO 3D AUTOMATED BREAST US BILAT Vilma Jim NP NO ADDRESS ON FILE Referral ID Status Reason Start Date Expiration Date Visits Re quested Visits Authorized [id number] Closed 01/15/2018 02/15/2019 1 1 Reason for Visit * Reason Comments Follow Up 1 year loni before Encounter Details Date Type Department Care Team (Late st Contact Info) Description 01/15/2018 9:30 AM CDT Office Visit [facility] BREAST SURGERY - [facility] [address] [facility] [address] [place] [address] Vilma Jim NP NO ADDRESS ON FILE 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 Osteopenia of multiple sites M85.89 733.90 Claribel Ortiz 1960 HISTORY OF PRESENT ILLNESS [...] E and Vit A- no hormones. This is helping. She denies SOB or leg pain or cramps. No calf swelling or signs of VTE. Bone density done fall 2015 and showed mild osteopenia, T score -1.6.Today on exam she denies any breast related complaints or concerns. She is postmenopausal, has not had a period in over 6 years. She continues to see a laundry technician on an annual basis. Past Medical History: Diagnosis Date ??? Fibrocystic disease of breast Past Surgical History: Procedure Laterality Date ??? HX EXCISIONAL BIOPSY Left 01/16/2014 flat epithelial atypia ??? HX WISDOM TEETH EXTRACTION ??? HI EXCISE BREAST CYST 01/16/2014 BREAST BIOPSY performed by Marina Cohen MD at [facility] OR Current Outpatient Prescriptions: ??? HYALURONIC 5MG/VIT E 1MG/VIT A 1MG SUPP, INSERT 1 SUPPOSITORY VAGINALLY EVERY NIGHT AT BEDTIME FOR 2 WEEKS, THEN TWICE WEEKLY DIRECTED, Disp: 20 Each, Rfl: 0 ??? raloxifene (EVISTA) 60 mg tablet, TAKE [...] of education: N/A Occupational History ??? [employer] Social History Main Topics ??? Smoking status: [...] well, no hotflashes/night sweats. + vaginal dryness Cardiovascular: denies chest pain or pressure, FERREIRA, palpitations, or edema. Pulmonary: denies SOB, cough, or wheezing. GI/Abdomen: denies nausea, vomiting, abdominal pain, constipation, diarrhea. : denies dysuria, frequency, urgency, or hematuria. ICT SALES ASSISTANT: denies any abnormal vaginal bleeding or unusual [...] 13 07/18/2016 10:47 AM Assessment/Plan #1 MMG done today- stable, benign findings #2 Tolerating Evista well. No hot flashes, leg cramps, or mood changes. Continue on therapy. Does report some vaginal dryness- security ambassador managing. Can try Replens. Call if this becomes worse #3 Clinical [...] #7 Due for well woman exam with security ambassador All questions encouraged and answered Thank you [...] of care. Vilma Jim, MSN, AGNP-C, AOCNP [facility] Breast Surgery Dr. Corcoran was supervising physician in office today documented in this encounter Plan of Treatment Not on file documented as of this encounter Results * MAMMO 3D AUTOMATED BREAST US BILAT (07/18/2018 10:21 AM BUSINESS SERVICES SPECIALIST SALES) Anatomical Region Laterality Modality Breast Bilateral Ultrasound 07/18/2018 10:2 1 AM BUSINESS SERVICES SPECIALIST SALES Impressions 07/18/2018 12:07 PM BUSINESS SERVICES SPECIALIST SALES IMPRESSION: No suspicious findings to suggest malignancy in either breast. Tiny bilateral breast cysts noted. Annual mammography is recommended, due in December 2018. OVERALL ASSESSMENT: ??BI-RADS Category 2 - Benign findings Dictated from: [facility] Narrative 07/18/2018 12:07 PM BUSINESS SERVICES SPECIALIST SALES AUTOMATED WHOLE BREAST BILATERAL ULTRASOUND DATE: 07/18/2018 10:21 AM HISTORY: Left breast atypia. COMPARISON: Mammograms 01/15/2018, ultrasound 07/31/2017. BREAST TISSUE COMPOSITION: Heterogeneous background echotexture. TECHNIQUE: An automated breast ultrasound (ABUS) device was used to perform bilateral whole breast ultrasound with beavers scale imaging. These images and multiplanar reformatted images were reviewed on a dedicated workstation FINDINGS: Scattered tiny cysts are seen at 9:00 and 12:00 in the right breast. A cyst at 9:00 in the right breast, 3.6 cm from the nipple, measures up to 4 mm. No solid mass is identified. A tiny 4 mm cyst is seen at 11:30 in the left breast, 3.2 cm from the nipple. No other solid or cystic masses are identified in the left breast. No concerning areas of architectural distortion or posterior acoustic shadowing are noted in either breast. Procedure Note Keke An MD - 07/18/2018 AUTOMATED WHOLE BREAST BILATERAL ULTRASOUND DATE: 07/18/2018 10:21 AM HISTORY: Left breast atypia. COMPARISON: Mammograms 01/15/2018, ultrasound 07/31/2017. BREAST TISSUE COMPOSITION: Heterogeneous background echotexture. TECHNIQUE: An automated breast ultrasound (ABUS) device was used to perform bilateral whole breast ultrasound with beavers scale imaging. These images and multiplanar reformatted images were reviewed on a dedicated workstation FINDINGS: Scattered tiny cysts are seen at 9:00 and 12:00 in the right breast. A cyst at 9:00 in the right breast, 3.6 cm from the nipple, measures up to 4 mm. No solid mass is identified. A tiny 4 mm cyst is seen at 11:30 in the left breast, 3.2 cm from the nipple. No other solid or cystic masses are identified in the left breast. No concerning areas of architectural distortion or posterior acoustic shadowing are noted in either breast. IMPRESSION: No suspicious findings to suggest malignancy in either breast. Tiny bilateral breast cysts noted. Annual mammography is recommended, due in December 2018. OVERALL ASSESSMENT: BI-RADS Category 2 - Benign findings Dictated from: [facility] Vilma Jim NP MAMMO ORDERABLES * XR DEXA BONE DENSITY AXIAL 1 OR MORE SITES (07/18/2018 9:25 AM BUSINESS SERVICES SPECIALIST SALES) Anatomical Region Laterality Modality Computed Radiogr aphy 07/18/2018 9:25 AM BUSINESS SERVICES SPECIALIST SALES Narrative 07/18/2018 10:41 AM BUSINESS SERVICES SPECIALIST SALES XR DEXA BONE DENSITY AXIAL 1 OR MORE SITES DATE: 07/18/2018 9:25 AM HISTORY: 58 years old Female with post menopausal symptoms. PROCEDURE: Planar images of the lumbar spine and hip(s) using a Mendix DEXA scanner for bone mineral density determination [...] Jeter DO DICTATION LOCATION: Location 1 - [facility] Procedure Note Steve Jeter DO - 07/18/2018 XR DEXA BONE DENSITY AXIAL 1 OR MORE SITES DATE: 07/18/2018 9:25 AM HISTORY: 58 years old Female with post menopausal symptoms. 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
--- OUTSIDE RECORDS SUMMARY | 2024-08-12 21:40 | XMS_ITS | Encounter Summary ---
Author Organization [facility] Address 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 Diffuse cystic mastopathy, unspecified laterality Procedures MAMMO 3D AUTOMATED BREAST US Vilma Mchugh NP NO ADDRESS ON FILE Referral ID Status Reason Start Date Expiration Date V isits Requested Visits Authorized [id number] Closed ST [facility] 07/19/2017 08/19/2018 1 1 IMEN PROCESSOR Reason for Visit * Outpatient Services (Routine) - Closed Specialty Diagnoses / Procedures Referred By Contjovany t Referred To Contact Diagnoses 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 Diffuse cystic mastopathy, unspecified laterality Procedures MAMMO 3D AUTOMATED BREAST US Vilma Mchugh NP NO ADDRESS ON FILE Referral ID Status Reason Start Date Expiration Date V isits Requested Visits Authorized [id number] Closed [facility] CTS 07/19/2017 08/19/2018 1 1 Encounter Details Date Type Department Care Team (Latest Contact Info) Description 07/31/2017 9:00 AM SPECIMEN PROCESSOR - 07/31/2017 11:59 PM SPECIMEN PROCESSOR Hospital Encounter [facility] [place] [address] [place] [id number] Vilma Jim NP NO ADDRESS ON FILE [...] Name Priority Date/Time Associated Diagnosis Comments MAMMO 3D AUTOMATED BREAST US BILAT Routine 07/31/2017 9:11 AM SPECIMEN PROCESSOR 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 Recommend annual mammographic follow-up. OVERALL ASSESSMENT: ??BI-RADS category 1 - Negative Dictated from: [facility] Narrative 07/31/2017 4:52 PM SPECIMEN PROCESSOR 3-D SONOGRAM AUTOMATED BILATERAL BREASTS 07/31/2017 HISTORY: [...] Dictated from: 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
--- OUTSIDE RECORDS SUMMARY | 2024-08-12 21:40 | XMS_ITS | Encounter Summary ---
Author Organization [facility] Address [address] [place] [address] Care Team Providers Care Inside Trucker Name Role Phone Diana Braun MD Primary Care Provider Reason for Referral * Radiology Services (Routine) - Closed Specialty Diagnoses / Procedures Referred By Contac t Referred To Contact Radiology Diagnoses Screening for osteoporosis Procedures XR DEXA BONE DENSITY AXIAL 1 OR MORE SITES Vilma Jim NP NO ADDRESS ON FILE Stlo Bone Density [facility] [address] [place] [address] Referral ID Status Reason Start Date Expiration Date V isits Requested Visits Authorized [id number] Closed [facility] CTS 08/03/2020 09/03/2021 1 1 Reason for Visit * Radiology Services (Routine) - Closed Specialty Diagnoses / Procedures Referred By Contac t Referred To Contact Radiology Diagnoses Screening for osteoporosis Procedures XR DEXA BONE DENSITY AXIAL 1 OR MORE SITES Vilma Jim NP NO ADDRESS ON FILE Stlo Bone Density [facility] [facility] [address] [place] [address] Referral ID Status Reason Start Date Expiration Date V isits Requested Visits Authorized [id number] Closed STL CTS 08/03/2020 09/03/2021 1 1 Encounter Details Date Type Department Care Team (Latest Contact Info) Description 02/09/2021 9:00 AM CDT - 02/09/2021 11:59 PM CDT Hospital Encounter [facility] [address] [place] [address] [place] [address] Vilma Jim, AALIYAH NO ADDRESS ON FILE Discharge Disposition: Home [...] DENSITY AXIAL 1 OR MORE SITES Routine 02/09/2021 9:22 AM CDT Screening for osteoporosis documented in this encounter Results * XR DEXA BONE DENSITY AXIAL 1 OR MORE SITES (02/09/2021 9:22 AM CDT) Anatomical Region Laterality Modality Computed Radiogr aphy 02/09/2021 9:26 AM CDT Narrative 02/09/2021 9:30 AM CDT XR DEXA BONE DENSITY AXIAL 1 OR MORE SITES DATE: 02/09/2021 9:22 AM HISTORY: 60 years old Female with post menopausal symptoms. PROCEDURE: Planar images of the lumbar spine and hip(s) using a MVERSE DEXA scanner for bone mineral density determination (BMD). ??Absolute bone mineral density measurements (in gm/cm^2) are available on the original PACS report. Comparison is made with the prior bone density performed 07/18/2018 FINDINGS: Lumbar Spine (L1-L4) T-score: -1.2 : ??-9.2% change Left femoral neck T-score: -1.9 : ??-3.7% change Right femoral neck T-score: -1.5 : ??+1.8% change Comments: None IMPRESSION Osteopenic bone mineral density. STATISTICAL CHANGE: Significant decrease in bone mineral density of the lumbar [...] 10 Year Probability Of Fracture -Major Osteoporotic: 15.8% -Hip: 0.9% -Comparison population: [place], A major osteoporotic fracture [...] Jeter DO DICTATION LOCATION: Location 1 - [facility] Procedure Note Steve Jeter DO - 02/09/2021 XR DEXA BONE DENSITY AXIAL 1 OR MORE SITES DATE: 02/09/2021 9:22 AM HISTORY: 60 years old Female with post menopausal symptoms. PROCEDURE: Planar images of the lumbar spine and hip(s) using a MVERSE DEXA scanner for bone mineral density determination (BMD). Absolute bone mineral density measurements (in gm/cm^2) are available on the original PACS report. Comparison is made with the prior bone density performed 07/18/2018 FINDINGS: Lumbar Spine (L1-L4) T-score: -1.2 : -9.2% change Left femoral neck T-score: -1.9 : -3.7% change Right femoral neck T-score: -1.5 : +1.8% change Comments: None IMPRESSION Osteopenic bone mineral density. STATISTICAL CHANGE: Significant decrease in bone mineral density of the lumbar [...] 10 Year Probability Of Fracture -Major Osteoporotic: 15.8% -Hip: 0.9% -Comparison population: [place], A major osteoporotic fracture [...] Steve Jeter, DICTATION LOCATION: Location 1 - [facility] Vilma Jim NP DIAGNOSTIC IMAGING O RDERABLES documented in this encounter Visit Diagnoses Diagnosis Screening for osteoporosis Special screening for osteoporosis documented in this encounter Care Teams Inside Trucker Relationship Specialty Start Date End Date Diana Braun MD PCP - General Family Practice 12/22/13 documented as of this encounter
--- OUTSIDE RECORDS SUMMARY | 2024-08-12 21:40 | XMS_ITS | Encounter Summary ---
Author Organization [facility] Address [address] [place] [address] Care Team Providers Care Edge Runner Name Role Phone Diana Braun MD Primary Care Provider [phone] Reason for Visit * Reason Comments Medication Refill Encounter Details Date Type Department Care Team (Late st Contact Info) Description 10/25/2020 Refill [facility] [address] [place] [phone] Vilma Jim, THREAT MONITORING ANALYST NO ADDRESS ON FILE Social History Tobacco [...] on filedocumented in this encounter Care Teams Edge Runner Relationship Specialty Start Date End Date Diana Braun MD PCP - General Family Practice 12/22/13 documented as of this encounter
--- OUTSIDE RECORDS SUMMARY | 2024-08-12 21:40 | XMS_ITS | Encounter Summary ---
Author Organization [facility] Address 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 Dense breast Diffuse cystic mastopathy, unspecified laterality Procedures MAMMO BREAST US BILAT COMPLETE Vilma Jim NP NO ADDRESS ON FILE Referral ID Status Reason Start Date Expiration Date Visits Re quested Visits Authorized [id number] Closed 02/09/2020 03/11/2021 1 1 FINISHING SUPERVISOR Reason for Visit * Radiology Services (Routine) - Closed Specialty Diagnoses / Procedures Referred By Contac t Referred To Contact Diagnoses 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 No concerning abnormalities in either breast. OVERALL FINAL ASSESSMENT: ??BI-RADS CATEGORY 1 : Negative RECOMMENDATIONS: 1. Recommend annual mammography with tomosynthesis and screening breast ultrasound. Narrative 08/03/2020 10:45 AM PIPE FINISHING SUPERVISOR COMPLETE ULTRASOUND OF BILATERAL BREASTS ?? DATE: [...] BREASTS DATE: 08/03/2020 9:32 AM DICTATION LOCATION: [facility] INDICATION: Screening study. TECHNIQUE: Complete real-time [...] tomosynthesis and screening breast ultrasound. 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
--- OUTSIDE RECORDS SUMMARY | 2024-08-12 21:40 | XMS_ITS | Encounter Summary ---
Author Organization [facility] Address [address] [place] [address] Care Team Providers Care Automat Car Attendant Name Role Phone Diana Braun MD Primary Care Provider [phone] Reason for Visit * Reason Comments Results pathology Encounter Details Date Type Department Care Team (Late st Contact Info) Description 01/20/2014 Chart Note [facility] BREAST SURGERY - [place] [facility] [address] [place] [address] Marina Cohen MD NO ADDRESS ON FILE Results (pathology) Social History Tobacco Use Types Packs/Day Years Used Date Smoking Tobacco: Never Smokeless Tobacco: Never Alcohol Use Standard Drinks/Week Comments Yes 0 (1 standard drink = 0.6 oz pur e alcohol) moderate Sex and Gender Information Value Date Recorded Sex Assigned at Not on file Gender Identity Not on file Sexual Orientation Not on file documented as of this encounter Progress Notes * Maddy Thompson - 01/20/2014 4:30 PM CDT Spoke with pt. Ret my call. Notified of pathology results for left needle LOC excision done at [facility] on 01/16/2014. Path reveals fibrocystic changes. Pt. doing well w/o c/o. Sutures/ Steri Strips remain intact. Will schedule follow up appt and med onc appt. Will contact pt once appts are scheduled. Pt. voices understanding /-2 Follow up appt with Dr. Cohen scheduled 01/28@2:30pm. Med Onc appt scheduled with Dr. Castillo 01/28@1pm. sm documented in this encounter Plan of Treatment Not on file documented as of this encounter Visit Diagnoses Not on filedocumented in this encounter Care Teams Automat Car Attendant Relationship Specialty Start Date End Date Diana Braun MD PCP - General Family Practice 12/22/13 documented as of this encounter
--- OUTSIDE RECORDS SUMMARY | 2024-08-12 21:40 | XMS_ITS | Encounter Summary ---
Author Organization [facility] Address [address] [place] [address] Care Team Providers Care Radiology Supervisor Name Role Phone Diana Braun MD Primary Care Provider [phone] Reason for Visit * Reason Comments Medication Refill Encounter Details Date Type Department Care Team (Late st Contact Info) Description 10/31/2019 Refill [facility] [address] [place] [phone] Vilma Jim, ETHICS MANAGER NO ADDRESS ON FILE Social History Tobacco [...] on filedocumented in this encounter Care Teams Radiology Supervisor Relationship Specialty Start Date End Date Diana Braun MD PCP - General Family Practice 12/22/13 documented as of this encounter
--- OUTSIDE RECORDS SUMMARY | 2024-08-12 21:40 | XMS_ITS | Encounter Summary ---
Author Organization [facility] Address [address] [place] [address] Care Team Providers Care Spear Fisher Name Role Phone Diana Braun MD Primary Care Provider Reason for Referral * Radiology Services (Routine) - Closed Specialty Diagnoses / Procedures Referred By Contac t Referred To Contact Radiology Diagnoses Screening for osteoporosis Procedures XR DEXA BONE DENSITY AXIAL 1 OR MORE SITES Vilma Jim NP NO ADDRESS ON FILE [facility] [address] [place] [address] Referral ID Status Reason Start Date Expiration Date V isits Requested Visits Authorized [id number] Closed STL CTS 08/03/2020 09/03/2021 1 1 ING PROPERTY MANAGER * Radiology Services (Routine) - Closed Specialty Diagnoses / Procedures Referred By Contac t Referred To Contact Radiology Diagnoses 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 Diffuse cystic mastopathy, unspecified laterality Procedures MAMMO DIAG BILAT 3D LUIS W OR WO CAD CHG DIAGNOSTIC MAMMOGRAPHY COMPUTER-AIDED DETCJ BI CHG DIGITAL BREAST TOMOSYNTHESIS BILATERAL Vilma Jim NP NO ADDRESS ON FILE [facility] D[facility] [address] [place] [address] Referral ID Status Reason Start Date Expiration Date V isits Requested Visits Authorized [id number] Closed STL CTS 08/03/2020 09/03/2021 1 1 ING PROPERTY MANAGER Reason for Visit * Reason Comments Follow Up 6 months US Encounter Details Date Type Department Care Team (Late st Contact Info) Description 08/03/2020 9:45 AM HOUSING PROPERTY MANAGER Office Visit [facility] BREAST SURGERY - [place] [facility] [address] [place] [address] Vilma Jim NP NO ADDRESS ON FILE [...] COVID-19? No / Unsure 08/03/2020 8:51 AM HOUSING PROPERTY MANAGER documented as of this encounter Last Filed Vital Signs Vital Sign Reading Time Taken Comments Blood Pressure 108/72 08/03/2020 9:38 AM HOUSING PROPERTY MANAGER Pulse 71 08/03/2020 9:38 AM HOUSING PROPERTY MANAGER Temperature - - Respiratory Rate - - Oxygen Saturation 99% 08/03/2020 9:38 AM HOUSING PROPERTY MANAGER Inhaled Oxygen Concentration - - Weight 60.8 kg (134 lb) 08/03/2020 9:38 AM HOUSING PROPERTY MANAGER Height 165.1 cm (5' 5 ) 08/03/2020 9:38 AM HOUSING PROPERTY MANAGER Body Mass Index 22.3 08/03/2020 9:38 AM HOUSING PROPERTY MANAGER documented in this encounter Progress Notes * Vilma Jim NP - 08/03/2020 9:48 AM CST DIAGNOSIS ICD-10-CM ICD-9-CM 1. 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 To review, and 2013 she underwent a [...] and stable in Left and right hips. Due next summer for repeat. Today on exam shedenies any breast related complaints or concerns. Dry skin to chest wall resolved. She is postmenopausal, has not had a period in over 8 years. She continues to see a hand stamper on an annual basis Past Medical History: Diagnosis Date ??? Fibrocystic disease of breast Past Surgical History: Procedure Laterality Date ??? HX EXCISIONAL BIOPSY Left 01/16/2014 flat epithelial atypia ??? HX WISDOM TEETH EXTRACTION ??? MI EXCISE BREAST CYST 01/16/2014 BREAST BIOPSY performed by Marina Cohen MD at [facility] OR Current Outpatient Medications: ??? raloxifene [...] Not on file Occupational History Employer: [employer] Social Needs ??? Financial resource strain: [...] file Gets together: Not on file Attends buddhism service: Not on file Active member of [...] : denies dysuria, frequency, urgency, or hematuria. ASIAN STUDIES PROFESSOR: denies any abnormal vaginal bleeding or unusual [...] ANION GAP 13 07/18/2016 10:47 AM RADIOLOGY 08/03/2020: BILATERAL BREAST ULTRASOUND at [facility]- NEM 02/09/2020: MAMMOGRAM at [facility] NEM 08/15/2019: BILATERAL BREAST ULTRASOUND at [facility] NEM 01/21/2019: MAMMOGRAM at [facility] NEM 07/18/2018: 3D AUTOMATED ULTRASOUND at [facility] NEM 01/15/2018: MAMMOGRAM at [facility] NEM 07/31/2017: 3D AUTOMATED ULTRASOUND at [facility] 01/16/2017: MAMMOGRAM at [facility], - NEM Assessment/Plan #1 Bilateral whole breast US today- NEM #2 Tolerating Evista well. No hot flashes, leg cramps, or mood changes. Continue on therapy. Does report some vaginal dryness- hogshead stripper managing. Replens helpful. Call if this becomes [...] bearing exercise as well. Repeat DEXA in January. If worsening osteopenia- can consider extending Evista beyond 5 years #6 Follow up in 6 months at time of annual mammogram. Encouraged to call office for any breast changes or areas of concern #7 Due for well woman exam with hogshead stripper #8 TOBACCO COUNSELING She is not a [...] of care. Vilma Jim, MSN, AGNP-C, AOCNP [facility] Oncology & Hematology Breast Surgery In collaboration with: Dr. Corcoran ING PROPERTY MANAGER documented in this encounter Plan of Treatment [...] discussed with the patient. DICTATION LOCATION: ??[facility] 02/09/2021 12:23 PM CDT BILATERAL DIGITAL DIAGNOSTIC [...] patient. DICTATION LOCATION: [facility] Vilma Jim PRESIDENT AND CHIEF EXECUTIVE OFFICER MAMMO ORDERABLES * XR DEXA BONE DENSITY [...] the lumbar spine and hip(s) using a WeStudy.In DEXA scanner for bone mineral density determination [...] Jeter DO DICTATION LOCATION: Location 1 - [facility] Procedure Note Steve Jeter DO - 02/09/2021 XR DEXA BONE DENSITY AXIAL 1 OR MORE SITES DATE: 02/09/2021 9:22 AM HISTORY: 60 years old Female with post menopausal symptoms. 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
--- OUTSIDE RECORDS SUMMARY | 2024-08-12 21:40 | XMS_ITS | Encounter Summary ---
Author Organization [facility] Address [address] [place] [address] Care Team Providers Care Hydraulic Design Engineer Name Role Phone Diana Braun MD Primary Care Provider [phone] Encounter Details Date Type Department Care Team (Late st Contact Info) Description 12/24/2013 Orders Only [facility] [address] [address] [place] [phone] Diana Braun MD [address] [place] [address] Social History Tobacco Use Types Packs/Day Years [...] Priority Date/Time Associated Diagnosis Comments MAMMO DIAGNOSTIC BILATERAL W OR WO CAD Routine 12/10/2013 MAMMO SCREEN BILAT W OR WO CAD Routine 11/11/2013 MAMMO SCREEN BILAT W OR WO CAD Routine 09/02/2012 MAMMO SCREEN BILAT W OR WO CAD Routine 08/22/2011 MAMMO SCREEN BILAT W OR WO CAD Routine 08/16/2010 MAMMO SCREEN BILAT W OR WO CAD Routine 10/06/2008 documented in this encounter Results * MAMMO DIGITAL DIAG BILAT (12/10/2013) Anatomical Region Laterality Modality Breast Bilateral Other Diana Braun MD MAMMO ORDERABLES * MAMMO DIGITAL SCREEN BILAT (11/11/2013) Anatomical Region Laterality Modality Breast Bilateral Other Diana Braun MD MAMMO ORDERABLES * MAMMO DIGITAL SCREEN BILAT (09/02/2012) Anatomical Region Laterality Modality Breast Bilateral Other Diana Braun MD MAMMO ORDERABLES * MAMMO DIGITAL SCREEN BILAT (08/22/2011) Anatomical Region Laterality Modality Breast Bilateral Other Diana Braun MD MAMMO ORDERABLES * MAMMO DIGITAL SCREEN BILAT (08/16/2010) Anatomical Region Laterality Modality Breast Bilateral Other Diana Braun MD MAMMO ORDERABLES * MAMMO DIGITAL SCREEN BILAT (10/06/2008) Anatomical Region Laterality Modality Breast Bilateral Other Diana Braun MD MAMMO ORDERABLES documented in this encounter Visit Diagnoses Not on filedocumented in this encounter Care Teams Hydraulic Design Engineer Relationship Specialty Start Date End Date Diana Braun MD PCP - General Family Practice 12/22/13 documented as of this encounter
--- OUTSIDE RECORDS SUMMARY | 2024-08-12 21:40 | XMS_ITS | Encounter Summary ---
Author Organization [facility] Address [address] [place] [address] Care Team Providers Care Tone Regulator Name Role Phone Diana Braun MD Primary Care Provider [phone] Reason for Visit * Reason Comments Abnormal Mammogram Left breast calcs Encounter Details Date Type Department Care Team (Latest Contact Info) Description 12/22/2013 10:45 AM CDT Office Visit [facility] [address] [place] [address] Marina Cohen MD NO ADDRESS ON FILE Mammographic microcalcification (Primary Dx); Diffuse cystic mastopathy, unspecified laterality [...] Sign Reading Time Taken Comments Blood Pressure 104/66 12/22/2013 10:43 AM CDT Pulse 64 12/22/2013 10:43 AM CDT Temperature - - Respiratory Rate - - Oxygen Saturation - - Inhaled Oxygen Concentration - - Weight 56.2 kg (124 lb) 12/22/2013 10:43 AM CDT Height 165.1 cm (5' 5 ) 12/22/2013 10:43 AM CDT Body Mass Index 20.63 12/22/2013 10:43 AM CDT documented in this encounter Progress Notes * Marina Cohen MD - 12/22/2013 11:15 AM CDT Claribel Ortiz is a 53 y.o. female referred by Diana Braun MD is an abnormal mammogram. She was told that microcalcifications and needed the left breast biopsy. She's had no prior significant breast problems other than being told that she's fibrocystic in the past. There is no family history of breast cancer. She uses Estring plus progesterone. She has no breast signs or symptoms to report at this time. BP 104/66 Pulse 64 Ht 5' 5 (1.651 m) Wt 124 lb (56.246 kg) BMI 20.63 kg/m2 ? No No Known Allergies OB History Grav Para Term Abortions TAB SAB Ect Mult Living 1 1 Obstetric Comments Age @ onset of menses: unsure Age @ first live : 16 Menopause: 51 Patient Active Problem List Diagnosis Code ??? Abnormal mammogram 793.80 Current Outpatient Prescriptions Medication Sig Dispense Refill ??? debsyhasnbpvg-ncxqtnwi-udegqb (CENTRUM SILVER) Tablet Take 1 Tab by mouth daily. ??? Tretinoin (ATRALIN) 0.05 % Gel Apply to affected area. ??? CALCIUM PHOSPHATE TRIB/VIT D3 (CITRACAL + D ORAL) Take by mouth. ??? ESTRADIOL (ESTRING VAGINAL) Insert vaginally. ??? OMEGA-3 FATTY ACIDS/FISH OIL (OMEGA 3 FISH OIL ORAL) Take by mouth. ??? PROGESTERONE MICRONIZED ORAL Take 200 mg by mouth. No current facility-administered medications for this visit. Past Medical History Diagnosis Date ??? Fibrocystic disease of breast No past surgical history on file. History Social History ??? Marital Status: Spouse Name: N/A Number of Children: 1 ??? Years of Education: N/A Occupational History ??? [employer] Social History Main Topics ??? Smoking status: Never Smoker ??? Smokeless tobacco: Never Used ??? Alcohol Use: Yes Comment: moderate ??? Drug Use: No ??? Sexually Active: Not on file Other Topics Concern ??? Not on file Social History Narrative ??? No narrative on file No family history on file. ROS- Current medications being taking for problem(s) listed above 10 systems reviewed and negative. PE- Well-developed, well-nourished, pleasant woman. Neck - no thyromegaly no cervical adenopathy SCF- no adenopathy Chest - clear to auscultation Cardiovascular - regular rate and rhythm Axilla -no adenopathy Breasts - normal in appearance, no masses, skin changes or nipple discharge Abdomen - liver and spleen not palpably enlarged Extremities - Good range of motion of shoulders, no lymphedema present With radiology we reviewed her bilateral mammogram from 11/11/13 is compared to prior. She has densebreast tissue. There were few microcalcifications in the upper outer aspect of the right breast which were felt to be benign. There is a group of indeterminate microcalcifications in the upper outer aspect of the left breast occupying an area approximately 1.5 x 5 mm in size. They agree with the recommendation for biopsy. In discussing this with her we talked about stereotactic biopsy the left breast versus open surgical biopsy. We plan to proceed with stereotactic biopsy. She realizes additional procedures may be recommended when pathology is available. documented in this encounter Plan of Treatment Not on file documented as of this encounter Visit Diagnoses Diagnosis Mammographic microcalcification- Primary Diffuse cystic mastopathy, unspecified laterality documented in this encounter Care Teams Tone Regulator Relationship Specialty Start Date End Date Diana Braun MD PCP - General Family Practice 12/22/13 documented as of this encounter
--- OUTSIDE RECORDS SUMMARY | 2024-08-12 21:40 | XMS_ITS | Encounter Summary ---
Author Organization [facility] Address [address] [place] [address] Care Team Providers Care Property Management Supervisor Name Role Phone Diana Braun MD Primary Care Provider [phone]- [phone] Reason for Visit * Reason Comments Results Encounter Details Date Type Department Care Team (Late st Contact Info) Description 01/20/2014 Chart Note [facility] BREAST SURGERY - [facility] [address] [place] [address] Marina Cohen MD NO ADDRESS ON FILE Results Social History Tobacco Use Types Packs/Day Years [...] Progress Notes * Maddy Thompson - 01/20/2014 3:51 PM CDT Attempted to reach pt to report pathology. Left vm to return call. sm documented in this encounter Plan of Treatment Not on file documented as of this encounter Visit Diagnoses Not on filedocumented in this encounter Care Teams Property Management Supervisor Relationship Specialty Start Date End Date Diana Braun MD PCP - General Family Practice 12/22/13 documented as of this encounter
--- OUTSIDE RECORDS SUMMARY | 2024-08-12 21:40 | XMS_ITS | Encounter Summary ---
Author Organization [facility] Address [address] [place] [address] Care Team Providers Care Principal Clerk Typist Name Role Phone Diana Braun MD Primary Care Provider [phone]- [phone] Reason for Visit * Reason Onset Date Comments Medication Refill 05/16/2021 Encounter Details Date Type Department Care Team (Late st Contact Info) Description 05/16/2021 Telephone [facility] ON[facility]ATOLOG[facility] [id number] [place] [address] [address] [place] [address] Vilma Jim NP NO ADDRESS ON FILE Medication Refill Social History Tobacco Use Types Packs/Day Years [...] Telephone Encounter - Valeria Lozano RN - 05/16/2021 1:26 PM CDT evista script refilled @ [facility] documented in this encounter Plan of Treatment Not on file documented as of this encounter Visit Diagnoses Not on filedocumented in this encounter Care Teams Principal Clerk Typist Relationship Specialty Start Date End Date Diana Braun MD PCP - General Family Practice 12/22/13 documented as of this encounter
--- OUTSIDE RECORDS SUMMARY | 2024-08-12 21:40 | XMS_ITS | Encounter Summary ---
Author Organization [facility] Address [address] [place] [address] Care Team Providers Care Art History Professor Name Role Phone Diana Braun MD Primary Care Provider [phone]- [phone] Reason for Visit * Reason Onset Date Comments Results 08/01/2017 Encounter Details Date Type Department Care Team (Late st Contact Info) Description 08/01/2017 Telephone [facility] ONCOLOGY AND HEMATOLOGY[facility] [address] [place] [address] Vilma Jim NP NO ADDRESS ON FILE Results Social History [...] encounter Miscellaneous Notes * Telephone Encounter - Vilma Jim NP - 08/01/2017 8:22 AM CST Pt is aware of 3D US findings- negative. RTC in December for OV and MMG. Call for any breast concerns 3-D SONOGRAM AUTOMATED BILATERAL BREASTS 07/31/2017 ?? HISTORY: Diffuse cystic mastopathy. Flat epithelial atypia left breast. ?? A bilateral 3-D automated breast sonogram was performed. Images are reviewed on a dedicated workstation. Comparison is made with her most recent mammogram dated 01/16/2017. ?? The breast parenchyma is heterogeneously dense. No dominant masses or areas of shadowing or distortion are identified in either breast. ? IMPRESSION: Negative bilateral automated breast sonogram. Recommend annual mammographic follow-up. ?? OVERALL ASSESSMENT: BI-RADS category 1 - Negative ?? Dictated from: [facility] TOUGHENING OPERATOR documented in this encounter Plan of Treatment Not on file documented as of this encounter Visit Diagnoses Not on filedocumented in this encounter Care Teams Art History Professor Relationship Specialty Start Date End Date Diana Braun MD PCP - General Family Practice 12/22/13 documented as of this encounter
--- OUTSIDE RECORDS SUMMARY | 2024-08-12 21:40 | XMS_ITS | Encounter Summary ---
Author Organization [facility] Address [address] [place] [address] Care Team Providers Care Animal Rehabilitator Name Role Phone Diana Braun MD Primary Care Provider [phone] Reason for Visit * Auth/Cert Specialty Diagnoses / Procedures Referred By Paige t Referred To Contact Laboratory [facility] Outpatient Laboratory [facility] [address] [place] [address] Referral ID Status Reason Start Date Expiration Date Visits Re quested Visits Authorized [id number] 1 1 Encounter Details Date Type Department Care Team (Latest Contact Info) Description 07/18/2016 10:39 AM TYPE COPYIST - 07/18/2016 11:59 PM TYPE COPYIST Hospital Encounter [facility] Outpatient Laboratory Services [address] [place] [address] Vilma Jim, APPLIED PSYCHOLOGY CHAIR NO ADDRESS ON FILE Discharge Disposition: Home [...] Procedure Name Priority Date/Time Associated Diagnosis Comments COMPREHENSIVE METABOLIC PANEL Routine 07/18/2016 10:47 AM TYPE COPYIST Diffuse cystic mastopathy, unspecified laterality documented in this encounter Results * COMPREHENSIVE METABOLIC PANEL (07/18/2016 10:47 AM TYPE COPYIST) SODIUM 141 136 - 145 mmol/L 07/18/2016 2:26 PM TYPE COPYIST [facility] POTASSIUM 4.1 3.5 - 5.0 mmol/L 07/18/2016 2:26 PM TYPE COPYIST [facility] CHLORIDE 101 98 - 107 mmol/L 07/18/2016 2:26 PM TYPE COPYIST [facility] CO2 27 22 - 29 mmol/L 07/18/2016 2:26 PM TYPE COPYIST [facility] CALCIUM 9.3 8.6 - 10.2 mg/dL 07/18/2016 2:26 PM TYPE COPYIST [facility] BUN 18 6 - 20 mg/dL 07/18/2016 2:26 PM [facility] CREATININE 0.59 0.51 - 0.95 mg/dL 07/18/2016 2:26 PM [facility] GLUCOSE 85 74 - 99 mg/dL 07/18/2016 2:26 PM [facility] TOTAL PROTEIN 7.2 6.7 - 8.6 g/dL 07/18/2016 2:26 PM [facility] ALBUMIN 4.5 3.5 - 5.2 g/dL 07/18/2016 2:26 PM [facility] BILIRUBIN TOTAL 0.4 0.3 - 1.2 mg/dL 07/18/2016 2:26 PM [facility] ALKALINE PHOSPHATASE 74 35 - 104 U/L 07/18/2016 2:26 PM [facility] AST 21 <33 U/L 07/18/2016 2:26 PM [facility] ALT 10 <34 U/L 07/18/2016 2:26 PM [facility] GFR >60 >=60 mL/min/1.7 3 sq meter 07/18/2016 2:26 PM [facility] Comment: eGFR has not been validated for use in the elderly (> 70 years of age), women, patients with serious co-morbid conditions, or persons with extremes of body size or muscle mass and should also be interpreted with caution in patients with acute kidney failure, dialysis dependent patients, patients reporting exceptional dietary intake (e.g. vegetarian diet, high protein diets, creatine supplementation), and patients with severe liver disease. Based on National Kidney Disease Education Program If patient is , please refer to the GFR result. GFR, >60 >=60 mL/min/1.7 3 sq meter 07/18/2016 2:26 PM TYPE COPYIST [facility] ANION GAP 13 8 - 16 mmol/L 07/18/2016 2:26 PM TYPE COPYIST [facility] LABORATORY SERVICES [facility] Blood Venipuncture / Unknown 07/18/2016 10:47 AM TYPE COPYIST 07/18/2016 10:47 AM TYPE COPYIST Vilma Jim APPLIED PSYCHOLOGY CHAIR CHEMISTRY ORDERABLES [facility] LABORATORY SERVICES [facility]# [id number] SM[address] [place] [address] documented in this encounter Visit Diagnoses Diagnosis Diffuse cystic mastopathy, unspecified laterality documented in this encounter Care Teams Animal Rehabilitator Relationship Specialty Start Date End Date Diana Braun MD PCP - General Family Practice 12/22/13 documented as of this encounter
--- OUTSIDE RECORDS SUMMARY | 2024-08-12 21:40 | XMS_ITS | Encounter Summary ---
Author Organization [facility] Address [address] [place] [address] Care Team Providers Care Tube Puller Name Role Phone Diana Braun MD Primary Care Provider [phone] Reason for Visit * Reason Comments Medication Refill Encounter Details Date Type Department Care Team (Late st Contact Info) Description 05/15/2017 Refill [facility] [address] [facility] [address] [facility] [address] [place] [address] Vilma iJm, PASSENGER SCREENER NO ADDRESS ON FILE Social History Tobacco [...] on filedocumented in this encounter Care Teams Tube Puller Relationship Specialty Start Date End Date Diana Braun MD PCP - General Family Practice 12/22/13 documented as of this encounter
--- OUTSIDE RECORDS SUMMARY | 2024-08-12 21:40 | XMS_ITS | Encounter Summary ---
Author Organization [facility] Address [address] [place] [address] Care Team Providers Care Electrical Helper Name Role Phone Diana Braun MD Primary Care Provider [phone] Encounter Details Date Type Department Care Team (Late st Contact Info) Description 07/22/2018 Orders Only [facility] BREAST SURGERY - [facility] [address] [place] [address] Vilma Jim, MEDICAL RECORDS CLERK NO ADDRESS ON FILE Social History Tobacco [...] on filedocumented in this encounter Care Teams Electrical Helper Relationship Specialty Start Date End Date Diana Braun MD PCP - General Family Practice 12/22/13 documented as of this encounter
--- OUTSIDE RECORDS SUMMARY | 2024-08-12 21:40 | XMS_ITS | Encounter Summary ---
Author Organization [facility] Address [address] [place] [address] Care Team Providers Care Engine Room Helper Name Role Phone Diana Braun MD Primary Care Provider [phone] Reason for Visit * Auth/Cert - Closed Specialty Diagnoses / Procedures Referred By Paige t Referred To Contact General Surgery Diagnoses ABNORMAL MAMMOGRAM Procedures BREAST BIOPSY [facility] [address] [place] [address] Referral ID Status Reason Start Date Expiration Date Visits Re quested Visits Authorized [id number] Closed 1 1 Encounter Details Date Type Department Care Team (Late st Contact Info) Description 01/16/2014 9:00 AM CDT - 01/16/2014 10:00 AM CDT Surgery [facility] [address] [place] [address] Marina An MD NO ADDRESS ON FILE BREAST BIOPSY Surgery Details Date/Time Status Location OR Service Patient Class Case Class Case Type Trauma Case? 01/16/2014 9:00 AM Posted [facility] CC OR CC OR 01 General Surgery Surgical OP/Extended Care Elective No Panel 1 Procedure LRB Anes Op Region Wound Class Comments BREAST BIOPSY Left Monitored Anesth etic Care Breast Clean-I LEFT BREAST NEEDLE LOC BIOPSY*NEEDLE LOC@7:30 Surgeon Surgeon Role Service Panel Marina An MD Primary General Surgery 1 documented in this encounter Social History Tobacco [...] Sign Reading Time Taken Comments Blood Pressure 86/46 01/16/2014 9:32 AM CDT Pulse 79 01/16/2014 7:06 AM CDT Temperature 37 ??C (98.6 ??F) 01/16/2014 9:32 AM CDT Respiratory Rate 14 01/16/2014 9:32 AM CDT Oxygen Saturation 98% 01/16/2014 9:32 AM CDT Inhaled Oxygen Concentration - - [...] questions or problems call the office at [phone] documented in this encounter Medications at Time [...] IMPRESSION: Technically successful needle [facility]. [facility] [place] N[facility] 01/16/2014 4:08 PM CDT LEFT BREAST [...] needle localization. Dictated from [facility] Marina An MD MAMMO ORDERABLES * PATHOLOGY (01/16/2014 9:36 AM CDT) SURGICAL PATHOLOGY ?[facility] ?[address] ? [place], [place] ??[address] ? Patient: ??CLARIBEL ABARCA ? : ??1960 ? Procedure Date: ??01/16/2014 ? Accession Date: ??01/16/2014 ? Case No: ??[id number] ? Ordering Dr: ??MARINA AN ? Case type SW is performed by [facility], [address] [facility] [facility], ? [place], [place] ??[address]; all other case types are performed by [facility] ? [facility], [address], [place] ??[address] ?SURGICAL PATHOLOGY & NON-GYNECOLOGIC CYTOPATHOLOGY REPORT ? DIAGNOSIS ? BREAST, LEFT, NEEDLE LOCALIZED EXCISION: ? - FIBROCYSTIC CHANGES (SEE MICROSCOPIC). ? - POST-BIOPSY REACTIVE CHANGES ([id number]). ? Specimen Description: ? Left breast atypia, short stitch superior, long stitch lateral, removed at ? 9:18 and in formalin at 9:30. ? Operative Procedure: ? Needle localization ??biopsy. ? Patient Information/Histo ry/Diagnosis: ? Abnormal. ? Gross: ? The specimen is received in a single container labeled Claribel Abarca, left ? breast atypia and consists of a [...] ? Microscopic: ? The slides are labeled [id number], Claribel Abarca. ? The excision encompasses the prior biopsy site ([id number]). A variety of ? fibrocystic changes are present including stromal fibrosis, cyst formation ? and columnar cell change without atypia. No residual atypia is identified. ? [facility] 01.19.2014 12:20 pm ? Staging Form: ? No. ? ELECTRONIC SIGNATURE FOR AISLINN FERNANDO M.D.- 01/19/14 04:19 pm [facility] Tissue specimen (specimen) 01/16/2014 9:36 AM CDT Marina An MD PATHOLOGY/CYTOLOGY O RDERABLES [facility] [id number] [address] * MAMMO NEEDLE LOC EA LESION LT [...] needle localization. Dictated from [facility] Marina An MD MAMMO ORDERABLES documented in this encounter Visit Diagnoses Not on filedocumented in this encounter Administered Medications Inactive Administered Medications - up to 3 most recent administrations Medication Order MAR Action Action Date Dose Rate Site bupivacaine-EPINEPHrine (SENSORCAINE-EPINEPHRIN E) 0.5 %-1:200,000 injection INTRA-PROCEDURE PRN, Starting on Sun01/16/14 at 0913, Until Sun01/16/14 at 0928, Routine, Anesthesia Intra-op Given 01/16/2014 9:13 AM CDT 25 mL Operative Site lactated ringers solution IV, at 150 [...] Pre-op 0715 (Due)0819 (New Bag - Provider: Silvana Matt RN)0924 (Fluid Volume - Provider: Eva [...] Intradermal) documented in this encounter Care Teams Engine Room Helper Relationship Specialty Start Date End Date Diana Braun MD PCP - General Family Practice 12/22/13 documented as of this encounter
--- OUTSIDE RECORDS SUMMARY | 2024-08-12 21:40 | XMS_ITS | Encounter Summary ---
Author Organization [facility] Address [address] [place] [address] Care Team Providers Care Solar Systems Designer Name Role Phone Diana Braun MD Primary Care Provider [phone] Reason for Visit * Reason Comments Post-op Visit Encounter Details Date Type Department Care Team (Latest Contact Info) Description 01/28/2014 2:30 PM CDT Clinical Support [facility] [address] [place] [address] Diffuse cystic mastopathy, left (Primary Dx) Social History Tobacco Use Types [...] as of this encounter Progress Notes * Kasia Hill RN - 01/28/2014 2:32 PM CDT Patient come sin today for f/u on left breast excision done on 01/16/14. Incision healing well. NO erythema. Dr Cohen saw patient and discussed pathology documented in this encounter Plan of Treatment Not on file documented as of this encounter Visit Diagnoses Diagnosis Diffuse cystic mastopathy, left- Primary documented in this encounter Care Teams Solar Systems Designer Relationship Specialty Start Date End Date Diana Braun MD PCP - General Family Practice 12/22/13 documented as of this encounter
--- OUTSIDE RECORDS SUMMARY | 2024-08-12 21:40 | XMS_ITS | Encounter Summary ---
Author Organization [facility] Address 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 Procedures MAMMO 3D AUTOMATED BREAST US Vilma Mchugh NP NO ADDRESS ON FILE Referral ID Status Reason Start Date Expiration Date Visits Re quested Visits Authorized [id number] Closed 01/15/2018 02/15/2019 1 1 GER FRONT Reason for Visit * Outpatient Services (Routine) - Closed Specialty Diagnoses / Procedures Referred By Paige avalos Referred To Contact Diagnoses 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 Procedures MAMMO 3D AUTOMATED BREAST US Vilma Mchugh NP NO ADDRESS ON FILE Referral ID Status Reason Start Date Expiration Date Visits Re quested Visits Authorized [id number] Closed 01/15/2018 02/15/2019 1 1 Encounter Details Date Type Department Care Team (Latest Contact Info) Description 07/18/2018 9:43 AM MANAGER FRONT - 07/18/2018 11:59 PM MANAGER FRONT Hospital Encounter [facility] [address] [place] [address] Vilma Jim NP NO ADDRESS ON FILE [...] MAMMO 3D AUTOMATED BREAST US BILAT Routine 07/18/2018 10:21 AM MANAGER FRONT 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 Tiny bilateral breast cysts noted. Annual mammography is recommended, due in December 2018. 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
--- OUTSIDE RECORDS SUMMARY | 2024-08-12 21:40 | XMS_ITS | Encounter Summary ---
Author Organization [facility] Address 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 Diffuse cystic mastopathy, unspecified laterality Dense breast Procedures MAMMO 3D AUTOMATED BREAST US BILAT Vilma Jim NP NO ADDRESS ON FILE Referral ID Status Reason Start Date Expiration Date Visits Re quested Visits Authorized [id number] Closed 07/18/2018 08/18/2019 1 1 INSTALLER TECH Reason for Visit * Reason Comments Follow Up 6 months, bone densi ty, breast us before Encounter Details Date Type Department Care Team (Late st Contact Info) Description 07/18/2018 11:00 AM PV INSTALLER TECH Office Visit [facility] BREAST SURGERY - [place] [address] [place] [address] Vilma Jim NP NO ADDRESS ON FILE 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 (Primary Dx); Diffuse cystic mastopathy, unspecified laterality; Dense breast Social History Tobacco Use Types [...] Sign Reading Time Taken Comments Blood Pressure 122/68 07/18/2018 10:57 AM PV INSTALLER TECH Pulse 65 07/18/2018 10:57 AM PV INSTALLER TECH Temperature 36.9 ??C (98.5 ??F) 07/18/2018 10:[address] Respiratory Rate - - Oxygen Saturation 98% 07/18/2018 10:57 AM PV INSTALLER TECH Inhaled Oxygen Concentration - - Weight 59.1 kg (130 lb 4 oz) 07/18/2018 10:57 AM PV INSTALLER TECH Height 165.1 cm (5' 5 ) 07/18/2018 10:57 AM PV INSTALLER TECH Body Mass Index 21.67 07/18/2018 10:57 AM PV INSTALLER TECH documented in this encounter Progress Notes * Vilma Jim NP - 07/18/2018 11:10 AM CST DIAGNOSIS ICD-10-CM ICD-9-CM 1. 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 Diffuse cystic mastopathy, unspecified laterality N60.19 610.1 3. Dense breast R92.2 793.82 Claribel Ortiz 1960 HISTORY OF PRESENT ILLNESS Claribel comes in today for annual followup with 3D Automated breast ultrasound. To review, and 2013 she underwent a [...] and showed mild osteopenia, T score -1.6. DEXA scan today shows improvement in L spine and stable in Left and right hips. Today on exam she denies any breast related complaints or concerns. She is postmenopausal, has not had a period in over 6 years. She continues to see a high school band teacher on an annual basis. Past Medical History: Diagnosis Date ??? Fibrocystic disease of breast Past Surgical History: Procedure Laterality Date ??? HX EXCISIONAL BIOPSY Left 01/16/2014 flat epithelial atypia ??? HX WISDOM TEETH EXTRACTION ??? FL EXCISE BREAST CYST 01/16/2014 BREAST BIOPSY performed by Marina Cohen MD at [facility] OR Current Outpatient Prescriptions: ??? HYALURONIC 5MG/VIT [...] of education: N/A Occupational History ??? [employer] Social History Main Topics ??? [...] : denies dysuria, frequency, urgency, or hematuria. ROTARY OPERATOR: denies any abnormal vaginal bleeding or [...] ANION GAP 13 07/18/2016 10:47 AM RADIOLOGY 07/18/2018: 3D AUTOMATED ULTRASOUND at [facility]- pending 01/15/2018: MAMMOGRAM at [facility] 07/31/2017: 3D AUTOMATED ULTRASOUND at [facility] 01/16/2017: MAMMOGRAM at [facility] Assessment/Plan #1 3D bilateral automated breast ultrasound- pending. I will call her once results are available. #2 Tolerating Evista well. No hot flashes, leg cramps, or mood changes. Continue on therapy. Does report some vaginal dryness- physician gynecologist managing. Replens helpful. Call if this becomes [...] was also underscored. #5 DEXA today- mild osteopenia but improvement in L spine. Continue Evista and Vitamin D supplements. Encouraged weight bearing exercise as well. Repeat DEXA in the fall of 2019 #6 Follow up in 6 months at time of MMG. Encouraged to call office for any breast changes or areas of concern #7 Due for well woman exam with physician gynecologist #8 TOBACCO COUNSELING She is not a [...] of care. Vilma Jim, MSN, AGNP-C, AOCNP [facility] Oncology & Hematology Breast Surgery Dr. Corcoran was supervising physician in office today INSTALLER TECH documented in this encounter Plan of Treatment Scheduled Orders Name Type Priority Associated Diagnoses Orde r Schedule MAMMO 3D AUTOMATED BREAST US BILAT Imaging Routine Flat Epithelial Atypia (Fea) Of Left Breast Diffuse cystic mastopathy, unspecified laterality Dense breast 1 Occurrences starting 07/18/2018 until 08/19/2020 documented as of this encounter Results * [...] DATE: 01/21/2019 9:25 AM DICTATION LOCATION: ??[facility] [place] HISTORY: History of left-sided atypia, yearly [...] continued annual screening breast ultrasound. 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
--- OUTSIDE RECORDS SUMMARY | 2024-08-12 21:40 | XMS_ITS | Encounter Summary ---
Author Organization [facility] Address [address] [place] [address] Care Team Providers Care Divorce Mediator Name Role Phone Diana Braun MD Primary Care Provider [phone] Reason for Referral * Outpatient Services (Routine) - Closed Specialty Diagnoses / Procedures Referred By Paige avalos Referred To Contact Diagnoses Abnormal mammogram Procedures MAMMO STEREOTACTIC BREAST BX LT Marina Cohen MD NO ADDRESS ON FILE Referral ID Status Reason Start Date Expiration Date Visits Re quested Visits Authorized [id number] Closed 12/16/2013 01/16/2015 1 1 Reason for Visit * Outpatient Services (Routine) - Closed Specialty Diagnoses / Procedures Referred By Paige avalos Referred To Contact Diagnoses Abnormal mammogram Procedures MAMMO STEREOTACTIC BREAST BX LT Marina Cohen MD NO ADDRESS ON FILE Referral ID Status Reason Start Date Expiration Date Visits Re quested Visits Authorized [id number] Closed 12/16/2013 01/16/2015 1 1 Encounter Details Date Type Department Care Team (Latest Contact Info) Description 12/22/2013 11:21 AM CDT - 12/22/2013 11:59 PM CDT Hospital Encounter [facility] [address] [place] [address] Marina Cohen MD NO ADDRESS [...] on file documented as of this encounter H&P Notes * Scanning, Angel - 01/01/2014 12:11 PM CDT documented in this encounter Plan of Treatment Not on file documented as of this encounter Procedures Procedure Name Priority Date/Time Associated Diagnosis Comments PATHOLOGY Routine 12/22/2013 1:47 PM CDT MAMMO STEREOTACTIC BREAST BX LT Routine 12/22/2013 1:11 PM CDT Abnormal mammogram documented in this encounter Results * PATHOLOGY (12/22/2013 1:47 PM CDT) SURGICAL PATHOLOGY ?[facility] ?[address] ? [place], [place] ??[address] ? Patient: ??CLARIBEL ABARCA ? : ??1960 ? Procedure Date: ??12/22/2013 ? Accession Date: ??12/22/2013 ? Case No: ??[id number] ? Ordering Dr: ??LOIS BLACKWELL ? Case type SW is performed by [facility], [address] [place] [address], ? [place] ??[address]; all other case types are performed by [facility] ? [facility], [address], [place], [place] ??[address] ?SURGICAL PATHOLOGY & NON-GYNECOLOGIC CYTOPATHOLOGY REPORT ? DIAGNOSIS ? BREAST, LEFT, CORE BIOPSIES: ? - FLAT EPITHELIAL ATYPIA, FOCAL. ? - FIBROCYSTIC CHANGES. ? - MICROCALCIFICATIONS. ? Specimen Description: ? Breast, left. ? Operative Procedure: ? Left breast stereotactic core biopsy. ? Patient Information/History/Di agnosis: ? Left breast calcification; FCC versus DCIS; 6 to 9-gauge cores; tissue ? obtained at 12:35, in formalin at 12:45. ? Gross: ? Received in a container labeled Claribel Abarca, left breast ? calcification are seven cores of yellow and vickers fibrofatty tissue measuring ? 0.5, 1.3, 1.3, 1.5, 1.6, 2.2, and 1.9 cm in length x 0.4 cm in average core ? diameter. All are submitted in cassettes A1 and A2. ? [facility] 12.23.2013 09:26 am ? Microscopic: ? The slides are labeled Claribel Abarca and [id number]. ? The core biopsies from the left breast show areas of dense fibrosis. There ? are scattered foci of blunt duct adenosis. There is focal flat epithelial ? atypia, but there is no significant architectural atypia. There are ? scattered clusters of punctate to coarse intraluminal microcalcifications ? including several associated with the focal flat epithelial atypia. ? This case has been reviewed at the pathology intradepartmental review ? conference. ? COMMENT: Columnar cell lesions of the breast may be broadly categorized as ? (1) columnar cell change, with or without atypia, and (2) columnar cell ? hyperplasia, with or without atypia. Columnar cell lesions without atypia ? require no further treatment. The limited available clinical data suggest ? that columnar cell lesions with atypia, also designated as flat epithelial ? atypia, but without complex architectural patterns, may be associated with ? a very low risk of progression to invasive carcinoma, the magnitude of ? which has not been established. When columnar cell lesions with atypia ? (flat epithelial atypia) are encountered in needle core biopsies or in ? limited en bloc biopsies, subsequent excision of the lesion is recommended. ? Based upon current understanding, the presence of columnar cell lesions ? with atypia (flat epithelial atypia) alone in larger, excisional specimens ? requires no additional surgical management. ? Reference: Adv Ashley Pathol 2003;10:113-124. ? Special stain and/or immunohistochemical results are interpreted with ? controls that demonstrate appropriate staining reactions. Note on use of ? immunocytochemistry reagents: This test was developed and its performance ? characteristic determined by [facility], Department of ? Laboratory Medicine. ??It has not been cleared or approved by the U.S. Food ? and Drug Administration. The FDA has determined that such clearance or ? approval is not necessary. The test is used for clinical purpose. It should ? not be regarded as investigational or for research. ??This laboratory is ? certified to perform high complexity testing. ? JCL/SKW 12.24.2013 02:44 pm ? Staging Form: ? No ? ELECTRONIC SIGNATURE FOR FELIPE DICKINSON M.D.- 12/25/13 01:35 pm [facility] Tissue specimen (specimen) 12/22/2013 1:47 PM CDT Lois Blackwell MD PATHOLOGY/CYTOLOGY ORDERABLES [facility] CLIA# [id number] [address] [facility] [address] [place] [address] * MAMMO STEREOTACTIC BREAST BX LT (12/22/2013 [...] tissue marker placement. Dictated from [facility] Marina Cohen MD MAMMO ORDERABLES documented in this encounter Visit Diagnoses Diagnosis Abnormal mammogram Abnormal mammogram, unspecified documented in this encounter Administered Medications Inactive Administered Medications - up to 3 most recent administrations Medication Order MAR Action Action Date Dose Rate Site lidocaine 1 % (XYLOCAINE) injection 30 mL 30 mL, See Admin Instructions, ONE TIME ONLY, 1 dose, On Sun12/22/13 at 1245, Routine Given 12/22/2013 12:35 PM CDT 10 mL Operative Site lidocaine-EPINEPHrine (XYLOCAINE-EPI) 2 %-1:100,000 injection 20 mL 20 mL, See Admin Instructions, ONE TIME ONLY, 1 dose, On Sun12/22/13 at 1245, Routine Given 12/22/2013 12:35 PM CDT 10 mL Operative Site sodium bicarbonate 4.2 % injection 5 mEq 5 mEq, See Admin Instructions, ONE TIME ONLY, 1 dose, On Sun12/22/13 at 1245, Routine Given 12/22/2013 12:35 PM CDT 2 mEq Operative Site documented in this encounter Care Teams Divorce Mediator Relationship Specialty Start Date End Date Diana Braun MD PCP - General Family Practice 12/22/13 documented as of this encounter
--- OUTSIDE RECORDS SUMMARY | 2024-08-12 21:40 | XMS_ITS | Encounter Summary ---
Author Organization [facility] Address [address] [place] [address] Care Team Providers Care Debt Collector Name Role Phone Diana Braun MD Primary Care Provider [phone] Reason for Visit * Reason Onset Date Comments Results 07/19/2018 Encounter Details Date Type Department Care Team (Late st Contact Info) Description 07/19/2018 Telephone [facility] [address] [address] [place] [address] Vilma Jim NP NO ADDRESS [...] Telephone Encounter - Vilma Jim NP - 07/19/2018 8:46 AM CST LM (pt identified self and gave permission) that 3D automated breast US showed stable, benign appearing cysts, no abnormalities. Due for MMG and OV in December AUTOMATED WHOLE BREAST BILATERAL ULTRASOUND ?? DATE: 07/18/2018 10:21 AM ?? HISTORY: Left breast atypia. ?? COMPARISON: Mammograms 01/15/2018, ultrasound 07/31/2017. ?? BREAST TISSUE COMPOSITION: Heterogeneous background echotexture. ?? TECHNIQUE: An automated breast ultrasound (ABUS) device was used to perform bilateral whole breast ultrasound with beavers scale imaging. These images and multiplanar reformatted images were reviewed on a dedicated workstation ?? FINDINGS: Scattered tiny cysts are seen at 9:00 and 12:00 in the right breast. A cyst at 9:00 in the right breast, 3.6 cm from the nipple, measures up to 4 mm. No solid mass is identified. ?? A tiny 4 mm cyst is seen at 11:30 in the left breast, 3.2 cm from the nipple. No other solid or cystic masses are identified in the left breast. ?? No concerning areas of architectural distortion or posterior acoustic shadowing are noted in either breast. ? IMPRESSION: No suspicious findings to suggest malignancy in either breast. Tiny bilateral breast cysts noted. Annual mammography is recommended, due in December 2018. ?? OVERALL ASSESSMENT: BI-RADS Category 2 - Benign findings ?? Dictated from: [facility] documented in this encounter Plan of Treatment Not on file documented as of this encounter Visit Diagnoses Not on filedocumented in this encounter Care Teams Debt Collector Relationship Specialty Start Date End Date Diana Braun MD PCP - General Family Practice 12/22/13 documented as of this encounter
--- OUTSIDE RECORDS SUMMARY | 2024-08-12 21:40 | XMS_ITS | Encounter Summary ---
Author Organization [facility] Address [address] [place] [address] Care Team Providers Care Maintenance Apprentice Name Role Phone Diana Braun MD Primary Care Provider [phone] Reason for Referral * Outpatient Services (Routine) - Closed Specialty Diagnoses / Procedures Referred By Paige avalos Referred To Contact Diagnoses Flat epithelial atypia of breast, left Diffuse cystic mastopathy, unspecified laterality Procedures MAMMO DIG DIAG BILAT W 3D Vilma Weller NP NO ADDRESS ON FILE Referral ID Status Reason Start Date Expiration Date Visits Re quested Visits Authorized [id number] Closed 01/11/2016 02/10/2017 1 1 Reason for Visit * Outpatient Services (Routine) - Closed Specialty Diagnoses / Procedures Referred By Paige avalos Referred To Contact Diagnoses Flat epithelial atypia of breast, left Diffuse cystic mastopathy, unspecified laterality Procedures MAMMO DIG DIAG BILAT W 3D Vilma Weller NP NO ADDRESS ON FILE Referral ID Status Reason Start Date Expiration Date Visits Re quested Visits Authorized [id number] Closed 01/11/2016 02/10/2017 1 1 Encounter Details Date Type Department Care Team (Latest Contact Info) Description 01/16/2017 9:15 AM CDT - 01/16/2017 11:59 PM CDT Hospital Encounter [facility] [address] [place] [address] Vilma Jim NP NO ADDRESS ON FILE [...] mouth daily. raloxifene (EVISTA) 60 mg tablet Take 1 Tablet (60 mg) by mouth daily. 30 Tablet 3 01/11/2016 05/15/2017 documented as of this encounter Plan of Treatment Not on file documented as of this encounter Procedures Procedure Name Priority Date/Time Associated Diagnosis Comments MAMMO DIAG BILAT 3D LUIS W OR WO CAD Routine 01/16/2017 9:44 AM CDT Flat epithelial atypia of breast, [...] Category 2 - Benign findings. DICTATED LOCATION: [facility] Procedure Note Keke An MD - [...] Category 2 - Benign findings. DICTATED LOCATION: [facility] Vilma Jim NP MAMMO ORDERABLES documented in this encounter Visit Diagnoses Diagnosis Flat epithelial atypia of breast, left Diffuse cystic mastopathy, unspecified laterality documented in this encounter Care Teams Maintenance Apprentice Relationship Specialty Start Date End Date Diana Braun MD PCP - General Family Practice 12/22/13 documented as of this encounter
--- OUTSIDE RECORDS SUMMARY | 2024-08-12 21:40 | XMS_ITS | Encounter Summary ---
Author Organization [facility] Address [address] [place] [address] Care Team Providers Care Forest Ranger Name Role Phone Diana Braun MD Primary Care Provider [phone] Reason for Referral * Outpatient Services (Routine) - Closed Specialty Diagnoses / Procedures Referred By Contac t Referred To Contact Diagnoses Flat epithelial atypia of breast, left Diffuse cystic mastopathy, unspecified laterality Procedures MAMMO DIGITAL DIAG Marina Kruger MD NO ADDRESS ON FILE Referral ID Status Reason Start Date Expiration Date V isits Requested Visits Authorized [id number] Closed Other 09/16/2014 10/17/2015 1 1 Reason for Visit * Outpatient Services (Routine) - Closed Specialty Diagnoses / Procedures Referred By Contac t Referred To Contact Diagnoses Flat epithelial atypia of breast, left Diffuse cystic mastopathy, unspecified laterality Procedures MAMMO DIGITAL DIAG Marina Kruger MD NO ADDRESS ON FILE Referral ID Status Reason Start Date Expiration Date V isits Requested Visits Authorized [id number] Closed Other 09/16/2014 10/17/2015 1 1 Encounter Details Date Type Department Care Team (Latest Contact Info) Description 12/17/2014 9:07 AM CDT - 12/17/2014 11:59 PM CDT Hospital Encounter [facility] [address] [place] [id number] Marina Cohen MD NO ADDRESS ON FILE [...] DIAGNOSTIC BILATERAL W OR WO CAD Routine 12/17/2014 9:35 AM CDT Flat epithelial atypia of breast, [...] RECOMMENDATION: Recommend continued annual mammography Dictated from [facility] Procedure Note Mane Watson MD - 12/23/2014 [...] RECOMMENDATION: Recommend continued annual mammography Dictated from [facility] Marina Cohen MD MAMMO ORDERABLES documented in this encounter Visit Diagnoses Diagnosis Flat epithelial atypia of breast, left Diffuse cystic mastopathy, unspecified laterality documented in this encounter Care Teams Forest Ranger Relationship Specialty Start Date End Date Diana Braun MD PCP - General Family Practice 12/22/13 documented as of this encounter
--- OUTSIDE RECORDS SUMMARY | 2024-08-12 21:40 | XMS_ITS | Encounter Summary ---
Author Organization [facility] Address [address] [place] [address] Care Team Providers Care Vice President Medical Affairs Name Role Phone Diana Braun MD Primary Care Provider [phone] Reason for Referral * Outpatient Services (Routine) - Closed Specialty Diagnoses / Procedures Referred By Paige avalos Referred To Contact Diagnoses Abnormal mammogram Procedures MAMMO NEEDLE LOC EA LESION LT Marina Cohen MD NO ADDRESS ON FILE Referral ID Status Reason Start Date Expiration Date Visits Re quested Visits Authorized [id number] Closed 01/09/2014 02/09/2015 1 1 Encounter Details Date Type Department Care Team (Late st Contact Info) Description 01/09/2014 Orders Only [facility] BREAST SURGERY - [place] [facility] [address] [place] [address] Marina Cohen MD NO ADDRESS ON FILE [...] as of this encounter Results * MAMMO NEEDLE LOC EA LESION LT [...] above findings by the office of Dr. Cohen. Dictated from [facility] 01/16/2014 4:08 [...] IMPRESSION: Technically successful needle localization. [facility] Cohen MD MAMMO ORDERABLES documented in this encounter Visit Diagnoses Diagnosis Abnormal mammogram- Primary Abnormal mammogram, unspecified documented in this encounter Care Teams Vice President Medical Affairs Relationship Specialty Start Date End Date Diana Braun MD PCP - General Family Practice 12/22/13 documented as of this encounter
--- OUTSIDE RECORDS SUMMARY | 2024-08-12 21:40 | XMS_ITS | Encounter Summary ---
Author Organization [facility] Address [address] [place] [address] Care Team Providers Care Wedding Coordinator Name Role Phone Diana Braun MD Primary Care Provider [phone] Encounter Details Date Type Department Care Team (Late st Contact Info) Description 07/18/2016 Orders Only [facility] Admitting [address] [place] [address] Vilma Jim, MANAGER INVESTIGATIONS NO ADDRESS ON FILE Social History Tobacco [...] on filedocumented in this encounter Care Teams Wedding Coordinator Relationship Specialty Start Date End Date Diana Braun MD PCP - General Family Practice 12/22/13 documented as of this encounter
--- OUTSIDE RECORDS SUMMARY | 2024-08-12 21:40 | XMS_ITS | Encounter Summary ---
Author Organization [facility] Address [address] [place] [address] Care Team Providers Care U.S. Revenue Officer Name Role Phone Diana Braun MD Primary Care Provider [phone] Reason for Referral * Radiology Services (Routine) - Closed Specialty Diagnoses / Procedures Referred By Paige t Referred To Contact Diagnoses Diffuse cystic mastopathy, unspecified laterality Procedures MAMMO DIAG BILAT 3D LUIS W OR WO CAD CHG DIAGNOSTIC MAMMOGRAPHY COMPUTER-AIDED DETCJ BI CHG DIGITAL BREAST TOMOSYNTHESIS BILATERAL Vilma Jim NP NO ADDRESS ON FILE Referral ID Status Reason Start Date Expiration Date Visits Re quested Visits Authorized [id number] Closed 08/15/2019 09/14/2020 1 1 ION CAPTAIN Reason for Visit * Reason Comments Follow Up 1 year 3d US prior Encounter Details Date Type Department Care Team (Late st Contact Info) Description 08/15/2019 11:00 AM STATION CAPTAIN Office Visit [facility] BREAST SURGERY - [facility] [address] [facility] [address] [place] [phone] Vilma Jim NP NO ADDRESS ON FILE Diffuse cystic mastopathy, unspecified laterality (Primary Dx); 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 Social History Tobacco Use Types Packs/Day [...] Sign Reading Time Taken Comments Blood Pressure 116/64 08/15/2019 10:08 AM STATION CAPTAIN Pulse 64 08/15/2019 10:08 AM STATION CAPTAIN Temperature 36.7 ??C (98.1 ??F) 08/15/2019 10:[address] Respiratory Rate - - Oxygen Saturation 98% 08/15/2019 10:08 AM STATION CAPTAIN Inhaled Oxygen Concentration - - Weight 59 kg (130 lb) 08/15/2019 10:08 AM STATION CAPTAIN Height 165.1 cm (5' 5 ) 08/15/2019 10:08 AM STATION CAPTAIN Body Mass Index 21.63 08/15/2019 10:08 AM STATION CAPTAIN documented in this encounter Progress Notes * Vilma Jim, BRAID MAKER - 08/15/2019 10:23 AM CST DIAGNOSIS ICD-10-CM ICD-9-CM 1. Diffuse cystic mastopathy, unspecified laterality N60.19 610.1 2. 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 To review, and 2013 she [...] has not had a period in over 7 years. She continues to see a labor relations director on an annual basis Past Medical History: Diagnosis Date ??? Fibrocystic disease of breast Past Surgical History: Procedure Laterality Date ??? HX EXCISIONAL BIOPSY Left 01/16/2014 flat epithelial atypia ??? HX WISDOM TEETH EXTRACTION ??? [place] EXCISE BREAST CYST 01/16/2014 BREAST BIOPSY performed by Marina Cohen MD at [facility] OR Current Outpatient Medications: ??? MULTIVITAMIN ORAL, Take by mouth., Disp: , Rfl: ??? raloxifene (EVISTA) 60 mg tablet, TAKE [...] Not on file Occupational History Employer: [employer] Social Needs ??? Financial resource strain: Not on file ??? Food insecurity: Worry: Not on file Inability: Not on file ??? Transportation needs: Medical: Not on file Non-medical: Not on file Tobacco Use ??? Smoking status: Never Smoker ??? Smokeless tobacco: Never Used Substance and Sexual Activity ??? Alcohol use: Yes Comment: moderate ??? Drug use: No ??? Sexual activity: Yes Partners: Male control/protection: None Lifestyle ??? Physical activity: Days per week: Not on file Minutes per session: Not on file ??? Stress: Not on file Relationships ??? Social connections: Talks on phone: Not on file Gets together: Not on file Attends yarsanism service: Not on file Active member of club or organization: Not on file Attends meetings of clubs or organizations: Not on file Relationship status: Not on file ??? Intimate partner violence: Fear of current or ex partner: Not [...] : denies dysuria, frequency, urgency, or hematuria. ICE GUARD TESTER: denies any abnormal vaginal bleeding or unusual [...] ANION GAP 13 07/18/2016 10:47 AM RADIOLOGY 08/15/2019: BILATERAL BREAST ULTRASOUND at [facility] 01/21/2019: MAMMOGRAM at [facility] 07/18/2018: 3D AUTOMATED ULTRASOUND at [facility] 01/15/2018: MAMMOGRAM at [facility] 07/31/2017: 3D AUTOMATED ULTRASOUND at [facility] 01/16/2017: MAMMOGRAM at [facility] Assessment/Plan #1 3D bilateral breast ultrasound- normal #2 Tolerating Evista well. No hot flashes, leg cramps, or mood changes. Continue on therapy. Does report some vaginal dryness- locate technician managing. Replens helpful. Call if this becomes [...] #7 Due for well woman exam with locate technician #8 TOBACCO COUNSELING She is not a [...] of care. Vilma Jim, MSN, AGNP-C, AOCNP [facility] Oncology & Hematology Breast Surgery Dr. Corcoran was supervising physician in office today ION CAPTAIN documented in this encounter Plan of Treatment [...] Benign left breast excisional biopsy. DICTATION LOCATION: ??[facility] COMPARISON: 01/21/2019 and older. TECHNIQUE: [...] Benign left breast excisional biopsy. DICTATION LOCATION: [facility] COMPARISON: 01/21/2019 and older. TECHNIQUE: Diagnostic views [...] laterality documented in this encounter Care Teams U.S. Revenue Officer Relationship Specialty Start Date End Date Diana Braun MD PCP - General Family Practice 12/22/13 documented as of this encounter
--- OUTSIDE RECORDS SUMMARY | 2024-08-12 21:40 | XMS_ITS | Encounter Summary ---
Author Organization [facility] Address [address] [place] [address] Care Team Providers Care Offal Worker Name Role Phone Diana Braun MD Primary Care Provider [phone] Reason for Visit * Reason Comments Results pathology Encounter Details Date Type Department Care Team (Late st Contact Info) Description 12/26/2013 Chart Note [facility] BREAST SURGERY - [facility] [facility] [address] [facility] [address] [place] [address] Marina Cohen MD NO ADDRESS [...] encounter Progress Notes * Maddy Thompson - 12/26/2013 9:45 AM CDT Spoke with pt. Notified of pathology results for left core biopsy done at [facility] on12/22/2013. Path results reveal flat epithelial atypia, focal, fibrocystic changes, microcalcifications. Pathology is high risk and needle LOC recommended per Dr. Blackwell. Discussed removal and pt in agreement. Transferred to [facility] to schedule surgery. Pt. voices understanding documented in this encounter Plan of Treatment Not on file documented as of this encounter Visit Diagnoses Not on filedocumented in this encounter Care Teams Offal Worker Relationship Specialty Start Date End Date Diana Braun MD PCP - General Family Practice 12/22/13 documented as of this encounter
--- OUTSIDE RECORDS SUMMARY | 2024-08-12 21:40 | XMS_ITS | Encounter Summary ---
Author Organization [facility] Address 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 Diffuse cystic mastopathy, unspecified laterality Procedures MAMMO DIAG BILAT 3D LUIS W OR WO Vilma Pillai NP NO ADDRESS ON FILE Referral ID Status Reason Start Date Expiration Date Visits Re quested Visits Authorized [id number] Closed 07/19/2017 08/19/2018 1 1 Reason for Visit * Outpatient Services (Routine) - Closed Specialty Diagnoses / Procedures Referred By Paige avalos Referred To Contact Diagnoses 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 Diffuse cystic mastopathy, unspecified laterality Procedures MAMMO DIAG BILAT 3D LUIS W OR WO Vilma Pillai NP NO ADDRESS ON FILE Referral ID Status Reason Start Date Expiration Date Visits Re quested Visits Authorized [id number] Closed 07/19/2017 08/19/2018 1 1 Encounter Details Date Type Department Care Team (Latest Contact Info) Description 01/15/2018 8:38 AM CDT - 01/15/2018 11:59 PM CDT Hospital Encounter [facility] [address] [place] [phone] Vilma Jim NP NO ADDRESS ON FILE [...] 3D LUIS W OR WO CAD Routine 01/15/2018 9:16 AM CDT 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 RECOMMENDATIONS: Routine mammogram in one year. DICTATION LOCATION: [facility] 01/16/2018 10:40 AM CDT EXAM: BILATERAL DIAGNOSTIC [...] BI-RADS Category 1 - Negative. Procedure Note Daniel Gotti MD - 01/16/2018 EXAM: BILATERAL DIAGNOSTIC FULL-FIELD [...] Routine mammogram in one year. 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
--- OUTSIDE RECORDS SUMMARY | 2024-08-12 21:40 | XMS_ITS | Encounter Summary ---
Author Organization [facility] Address [address] [place] [address] Care Team Providers Care Seed Collector Name Role Phone Diana Braun MD Primary Care Provider [phone] Reason for Visit * Reason Comments Breast Exam, Routine, No Symptoms yearly ov Encounter Details Date Type Department Care Team (Late st Contact Info) Description 07/18/2016 10:00 AM PHOTOSTAT OPERATOR Office Visit [facility] [address] [facility] [address] [place] [phone] Vilma Jim, CUSTOMS INVESTIGATOR NO ADDRESS ON FILE Diffuse cystic mastopathy, unspecified laterality (Primary Dx) Social History Tobacco [...] Sign Reading Time Taken Comments Blood Pressure 110/71 07/18/2016 9:42 AM PHOTOSTAT OPERATOR Pulse 71 07/18/2016 9:42 AM PHOTOSTAT OPERATOR Temperature 36.6 ??C (97.8 ??F) 07/18/2016 9:42 AM CS T Respiratory Rate - - Oxygen Saturation - - Inhaled Oxygen Concentration - - Weight 56.7 kg (125 lb) 07/18/2016 9:42 AM PHOTOSTAT OPERATOR Height 165.1 cm (5' 5 ) 07/18/2016 9:42 AM PHOTOSTAT OPERATOR Body Mass Index 20.8 07/18/2016 9:42 AM PHOTOSTAT OPERATOR documented in this encounter Progress Notes * Vilma Jim NP - 07/18/2016 10:00 AM CST DIAGNOSIS ICD-10-CM ICD-9-CM 1. Diffuse [...] atypiaand is not on any HRT. Recall at her visit in December we discussed medical risk reduction with Evista. She was interested and was given a prescription. She has been taking for past six months with no problems. She denies any hot flashes, night sweats, mood changes, or vaginal dryness. No SOB or leg pain or cramps. No calf swelling or signs of VTE. Bone density done today and reveals mild osteopenia, T score -1.6. Today on exam she denies any breast related complaints or concerns. She is postmenopausal, has not had a period in over 4 years. She continues to see a change agent on an annual basis. Past Medical History Diagnosis Date ??? Fibrocystic disease of breast Past Surgical History Procedure Laterality Date ??? Hx wisdom teeth extraction ??? Pr excise breast cyst 01/16/2014 BREAST BIOPSY performed by Marina Cohen MD at [facility] OR ??? Hx excisional biopsy Left 01/16/2014 flat epithelial atypia Current Outpatient Prescriptions: ??? raloxifene (EVISTA) 60 mg tablet, Take [...] of education: N/A Occupational History ??? [employer] Social History Main Topics ??? Smoking status: [...] : denies dysuria, frequency, urgency, or hematuria. COLLEGE OR UNIVERSITY REGISTRAR: denies any abnormal vaginal bleeding or unusual [...] ALKPHOS, AST, ALT, ANIONGAP, BCRATIO Assessment/Plan #1 Tolerating Evista well. No hot flashes, leg cramps, or mood changes. Continue on therapy. ObtainCMP to eval LFT. #2 Clinical breast exam demonstrates benign findings. [...] bearing exercise as well. Repeat DEXA in two years. #6 Follow up in 6 months at time of mammogram. Encouraged to call office for any [...] the coordination of care. KEESHA Silverio, MSN [facility] Oncology & Hematology Breast Surgery OSTAT OPERATOR documented in this encounter Plan of Treatment Not on file documented as of this encounter Results * COMPREHENSIVE METABOLIC PANEL (07/18/2016 10:47 AM PHOTOSTAT OPERATOR) SODIUM 141 136 - 145 mmol/L 07/18/2016 2:26 PM PHOTOSTAT OPERATOR [facility] - [facility] POTASSIUM 4.1 3.5 - 5.0 mmol/L 07/18/2016 2:26 PM PHOTOSTAT OPERATOR [facility] - . [facility] CHLORIDE 101 98 - 107 mmol/L 07/18/2016 2:26 PM [employer] [facility] CO2 27 22 - 29 mmol/L 07/18/2016 2:26 PM [employer] [facility] CALCIUM 9.3 8.6 - 10.2 mg/dL 07/18/2016 2:26 PM [employer] [facility] BUN 18 6 - 20 mg/dL 07/18/2016 2:26 PM [employer] [facility] CREATININE 0.59 0.51 - 0.95 mg/dL 07/18/2016 2:26 PM [employer] [facility] GLUCOSE 85 74 - 99 mg/dL 07/18/2016 2:26 PM [employer] [facility] TOTAL PROTEIN 7.2 6.7 - 8.6 g/dL 07/18/2016 2:26 PM [employer] [facility] ALBUMIN 4.5 3.5 - 5.2 g/dL 07/18/2016 2:26 PM [employer] [facility] BILIRUBIN TOTAL 0.4 0.3 - 1.2 mg/dL 07/18/2016 2:26 PM [employer] [facility] ALKALINE PHOSPHATASE 74 35 - 104 U/L 07/18/2016 2:26 PM [employer] [facility] AST 21 <33 U/L 07/18/2016 2:26 PM [employer] [facility] ALT 10 <34 U/L 07/18/2016 2:26 PM [employer] [facility] GFR >60 >=60 mL/min/1.7 3 sq meter 07/18/2016 2:26 PM [employer] [facility] Comment: eGFR [...] mL/min/1.7 3 sq meter 07/18/2016 2:26 PM PHOTOSTAT OPERATOR [facility] ANION GAP 13 8 - 16 mmol/L 07/18/2016 2:26 PM PHOTOSTAT OPERATOR [facility] Blood Venipuncture / Unknown 07/18/2016 10:47 AM PHOTOSTAT OPERATOR 07/18/2016 10:47 AM PHOTOSTAT OPERATOR Vilma Jim CUSTOMS INVESTIGATOR CHEMISTRY ORDERABLES [facility]# [id number] [address] documented in this encounter Visit Diagnoses Diagnosis Diffuse cystic mastopathy, unspecified laterality- Primary documented in this encounter Care Teams Seed Collector Relationship Specialty Start Date End Date Diana Braun MD PCP - General Family Practice 12/22/13 documented as of this encounter
--- OUTSIDE RECORDS SUMMARY | 2024-08-12 21:40 | XMS_ITS | Encounter Summary ---
Author Organization [facility] Address [address] [place] [address] Care Team Providers Care Quality Control Coordinator Name Role Phone Diana Braun MD Primary Care Provider [phone] Reason for Referral * Outpatient Services (Routine) - Closed Specialty Diagnoses / Procedures Referred By Paige avalos Referred To Contact Diagnoses Flat epithelial atypia of breast, left Diffuse cystic mastopathy, unspecified laterality Procedures MAMMO DIG DIAG [place] [address] [place] [address] Referral ID Status Reason Start Date Expiration Date Visits Re quested Visits Authorized [id number] Closed 11/19/2015 12/19/2016 1 1 Encounter Details Date Type Department Care Team (Late st Contact Info) Description 11/19/2015 Orders Only [facility] BREAST SURGERY - [place] [facility] [address] [place] [address] [place] [address] [place] [address] Flat epithelial atypia of breast, left (Primary [...] cystic mastopathy unspecified laterality. COMPARISON: 12/17/2014 and TECHNIQUE: Diagnostic views of both breasts were [...] cystic mastopathy unspecified laterality. COMPARISON: 12/17/2014 and TECHNIQUE: Diagnostic views of both breasts were [...] laterality documented in this encounter Care Teams Quality Control Coordinator Relationship Specialty Start Date End Date Diana Braun MD PCP - General Family Practice 12/22/13 documented as of this encounter
--- OUTSIDE RECORDS SUMMARY | 2024-08-12 21:40 | XMS_ITS | Encounter Summary ---
Author Organization [facility] Address [address] [place] [address] Care Team Providers Care Clinical Laboratory Aide Name Role Phone Diana Braun MD Primary Care Provider [phone] Encounter Details Date Type Department Care Team (Late st Contact Info) Description 01/29/2014 Orders Only [facility] BREAST SURGERY - [place] [facility] [address] [facility] [address] [place] [address] Provider, Abstract NO ADDRESS ON FILE Social History Tobacco [...] Procedure Name Priority Date/Time Associated Diagnosis Comments MISCELLANEOUS LAB TEST Routine 12/10/2013 documented in this encounter Results * MISCELLANEOUS LAB TEST (12/10/2013) Specimen of unknown material (specimen) Abstract Provider CHEMISTRY ORDERABLES [facility]# [id number] [address] [place] [address] documented in this encounter Visit Diagnoses Not on filedocumented in this encounter Care Teams Clinical Laboratory Aide Relationship Specialty Start Date End Date Diana Braun MD PCP - General Family Practice 12/22/13 documented as of this encounter
--- OUTSIDE RECORDS SUMMARY | 2024-08-12 21:40 | XMS_ITS | Encounter Summary ---
Author Organization [facility] Address [address] [place] [address] Care Team Providers Care Barge Hand Name Role Phone Diana Braun MD Primary Care Provider [phone] Reason for Visit * Reason Comments Well Woman Exam Encounter Details Date Type Department Care Team (Late st Contact Info) Description 01/21/2019 10:45 AM CDT Office Visit [facility] SUGAR HOUSE SUPERVISOR - [address] [address] Annemarie Meza MD [address] [facility] [address] [place] [address] Encounter for gynecological examination without abnormal finding (Primary Dx) Social History Tobacco Use Types [...] Sign Reading Time Taken Comments Blood Pressure 120/72 01/21/2019 10:04 AM CDT Pulse 71 01/21/2019 10:04 AM CDT Temperature 36.9 ??C (98.4 ??F) 01/21/2019 10:04 AM C DT Respiratory Rate 18 01/21/2019 10:04 AM CDT Oxygen Saturation 96% 01/21/2019 10:04 AM CDT Inhaled Oxygen Concentration - - Weight 58 kg (127 lb 12.8 oz) 01/21/2019 10:04 A M CDT Height 165.1 cm (5' 5 ) 01/21/2019 10:04 AM CDT Body Mass Index 21.27 01/21/2019 10:04 AM CDT documented in this encounter Progress Notes * Annemarie Meza MD - 01/21/2019 10:40 AM CDT CC: Well-Woman Exam HPI: Claribel Ortiz is a 58 y.o. female who presents today for her annual well- woman exam. She denies supervisor costuming related problems today. denies abnormal vaginal discharge. She is sexually active and denies dyspareunia. She does perform monthly self breast exams and has not noticed any changes or masses. Using replense for vaginal dryness. Denies postmenopausal bleeding. Review of Systems Constitutional: [...] atypia ??? HX WISDOM TEETH EXTRACTION ??? [place] EXCISE BREAST CYST 01/16/2014 BREAST BIOPSY performed by Marina Cohen MD at [facility] OR Family History Problem Relation Name Age of Onset ??? Hypertension Father ??? Stroke Father ??? Osteoporosis Mother ??? Alzheimer's Disease Mother ??? Lung Cancer Maternal Aunt ??? Breast Cancer Neg Hx ??? Ovarian Cancer Neg Hx ??? Uterine Cancer Neg Hx Social History Socioeconomic History ??? Marital status: Spouse name: Not on file ??? Number of children: 1 ??? Years of education: Not on file ??? Highest education level: Not on file Occupational History Employer: [employer] Social Needs ??? [...] file Gets together: Not on file Attends denominational service: Not on file Active member of [...] Social History Narrative ??? Not on file Current Outpatient Medications Medication Sig Dispense Refill ??? MULTIVITAMIN ORAL Take by mouth. ??? raloxifene (EVISTA) 60 mg tablet TAKE 1 TABLET DAILY 90 Tablet 4 ??? cholecalciferol, Vitamin D3, (VITAMIN D3) 1,000 unit Capsule Take by mouth daily. No current facility-administered medications for this visit. No Known Allergies Screening: Results for orders placed or performed during the hospital encounter of 01/15/18 MAMMO DIAG BILAT 3D LUIS W OR [...] OVERALL ASSESSMENT: BI-RADS Category 1 - Negative. Impression IMPRESSION: No mammographic evidence of malignancy. RECOMMENDATIONS: Routine mammogram in one year. DICTATION LOCATION: [facility] Results for orders placed or performed during [...] RECOMMENDATION: Recommend continued annual mammography Dictated from [facility] Results for orders placed or performed during [...] localization. Dictated from [facility] Last colonoscopy: 11/2010 Seatbelt use: yes Domestic violence: denies Physical Exam: Vitals: 01/21/19 1004 BP: 120/72 Pulse: 71 Resp: 18 Temp: 98.4 ??F (36.9 ??C) TempSrc: Temporal SpO2: 96% Weight: 58 kg (127 lb 12.8 oz) Height: 5' 5 (1.651 [...] without rash or lesions Pelvic: deferred Assessment/Plan: 58 y.o. female here today for a well-woman exam Claribel was seen today for well woman exam. Diagnoses and all orders for this visit: Encounter for gynecological examination without abnormal finding Comments: pap up to date, mammo just completed. colonoscopy 2020. on evista for breast ca, no need for Dexa Annemarie Meza MD documented in this encounter Plan of Treatment Not on file documented as of this encounter Visit Diagnoses Diagnosis Encounter for gynecological examination without abnormal finding- Primary Routine gynecological examination documented in this encounter Care Teams Barge Hand Relationship Specialty Start Date End Date Diana Braun MD PCP - General Family Practice 12/22/13 documented as of this encounter
--- OUTSIDE RECORDS SUMMARY | 2024-08-12 21:41 | XMS_ITS | Encounter Summary ---
Author Organization [facility] Address [address] [place] [address] Care Team Providers Care Architecture Intern Name Role Phone Unavailable Primary Care Provider Unavailabl e Encounter Details Date Type Department Care Team (Late st Contact Info) Description 12/12/2013 Orders Only [facility] BREAST SURGERY - [place] [facility] [address] [place] [address] Christin Gill RN Abnormal mammogram (Primary Dx) Social History Tobacco Use Types Packs/Day Years Used Date Smoking Tobacco: Never Assessed Sex and Gender Information Value Date Recorded Sex Assigned at Not on file Gender Identity Not on file Sexual Orientation Not on file documented as of this encounter Plan of Treatment Not on file documented as of this encounter Visit Diagnoses Diagnosis Abnormal mammogram- Primary Abnormal mammogram, unspecified documented in this encounter
--- OUTSIDE RECORDS SUMMARY | 2024-08-13 01:11 | XMS_ITS | Encounter Summary ---
Author Organization [facility] Address [address] [place] [address] Care Team Providers Care Nursing Informatics Specialist Name Role Phone Diana Braun MD Primary Care Provider Reason for Referral * Radiology Services (Routine) - Closed Specialty Diagnoses / Procedures Referred By Contac t Referred To Contact Radiology Diagnoses Screening for osteoporosis Procedures XR DEXA BONE DENSITY AXIAL 1 OR MORE SITES Vilma Jim NP NO ADDRESS ON FILE [facility] [address] [place] [address] Referral ID Status Reason Start Date Expiration Date V isits Requested Visits Authorized [id number] Closed STL CTS 08/03/2020 09/03/2021 1 1 Reason for Visit * Radiology Services (Routine) - Closed Specialty Diagnoses / Procedures Referred By Contac t Referred To Contact Radiology Diagnoses Screening for osteoporosis Procedures XR DEXA BONE DENSITY AXIAL 1 OR MORE SITES Vilma Jim NP NO ADDRESS ON FILE Stlo Bone Density [facility] [facility] [address] [place] [address] Referral ID Status Reason Start Date Expiration Date V isits Requested Visits Authorized [id number] Closed STL CTS 08/03/2020 09/03/2021 1 1 Encounter Details Date Type Department Care Team (Latest Contact Info) Description 02/09/2021 9:00 AM CDT - 02/09/2021 11:59 PM CDT Hospital Encounter [facility] [address] [place] [address] [place] [address] Vilma Jim, AALIYAH NO ADDRESS ON FILE [...] the lumbar spine and hip(s) using a [employer] DEXA scanner for bone mineral density determination [...] Jeter DO DICTATION LOCATION: Location 1 - [facility] Procedure Note Steve Jeter DO - 02/09/2021 XR DEXA BONE DENSITY AXIAL 1 OR MORE SITES DATE: 02/09/2021 9:22 AM HISTORY: 60 years old Female with post menopausal symptoms. PROCEDURE: Planar images of the lumbar spine and hip(s) using a [employer] DEXA scanner for bone mineral density determination [...] Steve Jeter, DICTATION LOCATION: Location 1 - [facility] Vilma Jim NP DIAGNOSTIC IMAGING O RDERABLES documented in this encounter Visit Diagnoses Diagnosis Screening for osteoporosis Special screening for osteoporosis documented in this encounter Care Teams Nursing Informatics Specialist Relationship Specialty Start Date End Date Diana Braun MD PCP - General Family Practice 12/22/13 documented as of this encounter
--- OUTSIDE RECORDS SUMMARY | 2024-08-13 01:11 | XMS_ITS | Encounter Summary ---
Author Organization [facility] Address [address] [place] [address]. [place], [place] [address] [place] [address] Care Team Providers Care Director Of Occupational Therapy Name Role Phone Puja Amaro DO Primary Care Provider [phone]- [phone] Reason for Visit * Imaging (Routine) - Closed Specialty Diagnoses / Procedures Referred By Contac t Referred To Contact RADIOLOGY Diagnoses Screening for ischemic heart disease Procedures CT HEART DIAG CALCIUM SCORE CT HEART DIAG CALCIUM SCORE Colton Zelaya MD [address] [place] [address] Phone: tel: fax: Referral ID Status Reason Start Date Expiration Date Visits Re quested Visits Authorized [id number] Closed 01/04/2024 01/04/2025 1 1 Encounter Details Date Type Department Care Team (Late st Contact Info) Description 03/03/2024 10:18 AM CDT - 03/03/2024 11:59 PM CDT Hospital Encounter [facility] [place] [address] [place] [address] Colton Zelaya MD [address] [place], [place] [id number] Discharge Disposition: Home or Self Care (Routine [...] Calcium score guidelines: Total Score* Calcium Plaque [place] ??*Risk ?*Probability of significant CAD 0 ?No [...] disease documented in this encounter Care Teams Director Of Occupational Therapy Relationship Specialty Start Date End Date Puja Amaro DO [address] [place] [address] PCP - General FAMILY PRACTICE 01/04/24 documented as of this encounter
--- OUTSIDE RECORDS SUMMARY | 2024-08-13 01:11 | XMS_ITS | Encounter Summary ---
Author Organization [facility] Address [address] [place] [address] Care Team Providers Care Raw Scales Operator Name Role Phone Diana Braun MD Primary Care Provider [phone]- [phone] Reason for Visit * Reason Comments Medication Refill Encounter Details Date Type Department Care Team (Late st Contact Info) Description 10/25/2020 Refill [facility] - [place] [facility] [address] [facility] [address] [place] [address] Vilma Jim, TRACK LAYER NO ADDRESS ON FILE Social History Tobacco [...] on filedocumented in this encounter Care Teams Raw Scales Operator Relationship Specialty Start Date End Date Diana Braun MD PCP - General Family Practice 12/22/13 documented as of this encounter
--- OUTSIDE RECORDS SUMMARY | 2024-08-13 01:11 | XMS_ITS | Encounter Summary ---
Author Organization [facility] Address [address] [place] [address] Care Team Providers Care Food Service Utility Worker Name Role Phone Diana Braun MD Primary Care Provider [phone]- [phone] Reason for Visit * Reason Onset Date Comments Medication Refill 05/16/2021 Encounter Details Date Type Department Care Team (Late st Contact Info) Description 05/16/2021 Telephone [facility] ONCOLOG[facility]ATOLOGY-[facility] [id number] [place] [address] [address] [place] [address] Vilma Jim NP NO ADDRESS [...] on filedocumented in this encounter Care Teams Food Service Utility Worker Relationship Specialty Start Date End Date Diana Braun MD PCP - General Family Practice 12/22/13 documented as of this encounter
--- OUTSIDE RECORDS SUMMARY | 2024-08-13 01:11 | XMS_ITS | Encounter Summary ---
Author Organization [facility] Address [address] [place] [address] Care Team Providers Care Coding Tech Name Role Phone Diana Braun MD Primary Care Provider [phone] [phone] Reason for Referral * Radiology Services (Routine) [...] ADDRESS ON FILE [facility] Bone Density [facility] [address] [place] [address] Referral ID Status Reason Start Date Expiration Date V isits Requested Visits Authorized [id number] Closed STL CTS 08/03/2020 09/03/2021 1 1 [...] ON FILE Stlo Bone Density [facility] [address] [place] [address] Referral ID Status Reason Start Date Expiration Date V isits Requested Visits Authorized [id number] Closed STL CTS 08/03/2020 09/03/2021 1 1 Encounter Details Date Type Department Care Team (Latest Contact Info) Description 02/09/2021 10:15 AM CDT - 02/09/2021 11:59 PM CDT Hospital Encounter [facility] [address] [address] [place] [id number] Vilma Jim NP NO ADDRESS ON FILE [...] laterality documented in this encounter Care Teams Coding Tech Relationship Specialty Start Date End Date Diana Braun MD PCP - General Family Practice 12/22/13 documented as of this encounter
--- OUTSIDE RECORDS SUMMARY | 2024-08-13 01:11 | XMS_ITS | Clinical Summary ---
Author Organization [email or web address] Address [address] [place] [address] Care Team Providers Care Finishing Department Supervisor Name Role Phone Unavailable Primary Care Provider Unavailabl e Source Comments [facility],non-owned Affiliates and Associated Physician Practices is amultiple site organization consisting of ambulatory clinics and hospital sitesin [place], [place], [place] and [place]. This disclosure is being madepursuant to the Care Everywhere program and may not contain all information available regarding this patient. Last updated 18.[email or web address] Social History Tobacco Use Types Packs/Day Years [...] Physician Group - Rheumatology [address] [place] [address] Ayanna Laboy MD [address] [place] [address] Health Maintenance Due Date Last [...]
--- OUTSIDE RECORDS SUMMARY | 2024-08-13 01:11 | XMS_ITS | Encounter Summary ---
Author Organization [facility] Address [address] [place] [address] Care Team Providers Care Final Inspector Motorcyles Name Role Phone Diana Braun MD Primary Care Provider [phone]- [phone] Reason for Visit * Reason Onset Date Comments Medication Refill 05/09/2021 Encounter Details Date Type Department Care Team (Late st Contact Info) Description 05/09/2021 Ref[facility] [address] [facility] [address] [place] [address] Vilma Jim, PROGRAM SUPPORT ASSISTANT NO ADDRESS ON FILE Social History Tobacco [...] on filedocumented in this encounter Care Teams Final Inspector Motorcyles Relationship Specialty Start Date End Date Diana Braun MD PCP - General Family Practice 12/22/13 documented as of this encounter
--- OUTSIDE RECORDS SUMMARY | 2024-08-13 01:11 | XMS_ITS | Encounter Summary ---
Author Organization [facility] Address [address] Parran: Epic Prelude ADT [place] [address] Care Team Providers Care Warehouse Technician Name Role Phone Diana Braun MD Primary Care Provider [phone]- [phone] Encounter Details Date Type Department Care Team [...] on filedocumented in this encounter Care Teams Warehouse Technician Relationship Specialty Start Date End Date Diana Braun MD PCP - General Family Practice 12/22/13 documented as of this encounter
--- OUTSIDE RECORDS SUMMARY | 2024-08-13 01:11 | XMS_ITS | Encounter Summary ---
Author Organization [facility] Address [address] [place] [address] Care Team Providers Care Station Detective Name Role Phone Diana Braun MD Primary Care Provider [phone] Reason for Visit * Reason Comments Follow Up 6 months with mammo Encounter Details Date Type Department Care Team (Late st Contact Info) Description 02/09/2021 11:15 AM CDT [facility] [address] [facility] [address] [place] [address] Vilma Jim, NIGHT CUSTODIAN NO ADDRESS ON FILE Flat epithelial atypia [...] this encounter Progress Notes * Vilma Jim, NIGHT CUSTODIAN - 02/09/2021 11:21 AM CDT DIAGNOSIS ICD-10-CM [...] 8 years. She continues to see a flight hostess on an annual basis. Switching insurance next year and can only see an [place] provider Past Medical History: Diagnosis Date ??? Fibrocystic disease of breast Past Surgical History: Procedure Laterality Date ??? HX EXCISIONAL BIOPSY Left 01/16/2014 flat epithelial atypia ??? HX WISDOM TEETH EXTRACTION ??? [place] EXCISE BREAST CYST 01/16/2014 BREAST BIOPSY performed by Marina Cohen MD at [facility] OR Current Outpatient Medications: ??? raloxifene (EVISTA) [...] level: Not on file Occupational History Employer: [employer] Tobacco Use ??? Smoking status: Never Smoker [...] Gatherings with Friends and Family: ??? Attends Taoism Services: ??? Active Member of Clubs or [...] : denies dysuria, frequency, urgency, or hematuria. ITINERANT TEACHER ASSISTANT: denies any abnormal vaginal bleeding or [...] 07/18/2016 10:47 AM RADIOLOGY 02/09/2021: MAMMOGRAM at [facility] 08/03/2020: BILATERAL BREAST ULTRASOUND at [facility] 02/09/2020: MAMMOGRAM at [facility] 08/15/2019: BILATERAL BREAST ULTRASOUND at [facility] 01/21/2019: MAMMOGRAM at [facility] 07/18/2018: 3D AUTOMATED ULTRASOUND at [facility] 01/15/2018: MAMMOGRAM at [facility] 07/31/2017: 3D AUTOMATED ULTRASOUND at [facility] 01/16/2017: MAMMOGRAM at [facility] Assessment/Plan #1 Bilateral 3D mammogram- NEM #2 Tolerating Evista well. No hot flashes, leg cramps, or mood changes. Continue on therapy. Does report some vaginal dryness- casket coverer managing. Replens helpful. Call if this becomes [...] #7 Due for well woman exam with casket coverer #8 TOBACCO COUNSELING She is not a [...] of care. Vilma Jim, MSN, AGNP-C, AOCNP [facility] Oncology & Hematology Breast Surgery Independently examined patient. Dr. 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
--- OUTSIDE RECORDS SUMMARY | 2024-08-13 01:11 | XMS_ITS | Referral Summary ---
Author Organization [facility] Address [address] [place] [address] Care Team Providers Care Taper And Floater Name Role Phone Unavailable Primary Care Provider Unavailabl e Source Comments [facility],non-owned Affiliates and Associated Physician Practices is amultiple site organization consisting of ambulatory clinics and hospital sitesin [place], [place], [place] and [place]. This disclosure is being madepursuant to the Care Everywhere program and may not contain all information available regarding this patient. Last updated 18.[facility] Social History Tobacco Use Types Packs/Day Years [...] Physician Group - Rheumatology [address] [place] [address] Ayanna Laboy MD [address] [address] Claribel Ortiz Personal/Family Self 1960
--- OUTSIDE RECORDS SUMMARY | 2024-08-13 01:11 | XMS_ITS | Clinical Summary ---
Author Organization [facility] Address [address] [place] [address]. [place], [place] [address] [place] [address] Care Team Providers Care Web Site Designer Name Role Phone Puja Amaro DO Primary Care Provider [phone]- [phone] Social History Tobacco Use Types Packs/Day Years [...] patient's age to complete this topic Insurance [facility] Care Teams Web Site Designer Relationship Specialty Start Date End Date Puja Amaro DO [address] [place], [place] [id number] PCP - General FAMILY PRACTICE 01/04/24
--- OUTSIDE RECORDS SUMMARY | 2024-08-13 01:11 | XMS_ITS | Encounter Summary ---
Author Organization [facility] Address [address] [place] [address]. [place], [place] [address] [place] [address] Care Team Providers Care Truck Driving Instructor Name Role Phone Puja Amaro DO Primary Care Provider [phone]- [phone] Encounter Details Date Type Department Care Team [...] on filedocumented in this encounter Care Teams Truck Driving Instructor Relationship Specialty Start Date End Date Puja Amaro DO [address] [place], [place] [id number] PCP - General FAMILY PRACTICE 01/04/24 documented as of this encounter
--- OUTSIDE RECORDS SUMMARY | 2024-08-13 01:11 | XMS_ITS | Encounter Summary ---
Author Organization [facility] Address [address] Parran: Epic Prelude ADT [place] [address] Care Team Providers Care Drapery Sewer Hand Name Role Phone Diana Braun MD Primary Care Provider [phone]- [phone] Encounter Details Date Type Department Care Team [...] on filedocumented in this encounter Care Teams Drapery Sewer Hand Relationship Specialty Start Date End Date Diana Braun MD PCP - General Family Practice 12/22/13 documented as of this encounter
--- OUTSIDE RECORDS SUMMARY | 2024-08-13 01:11 | XMS_ITS | Clinical Summary ---
[facility] [place] Address [address] [facility] [place] [address] Phone Care Team Providers Care Maternity Floor Supervisor Name Role Phone Diana Braun MD [...] MD Referring Provider: Joe Braun MD [address] [place] [address] Other: Vilma Jim NP Problem Noted Date [...] Findings discussed with the patient. DICTATION LOCATION: [facility] Vilma Jim WATER ANALYST MAMMO ORDERABLES * CERV/VAG CYTOPATH, THIN PREP [...] has been evaluated with computer assisted technology. TAPE MAKER: SEE COMMENT 2017 4:36 PM CDT [facility] Comment: BLG, CT(ASCP) CT screening location: [place] [address] [place], [place] [address] EXPLANATORY NOTE SEE COMMENT 018 4:36 PM [...] was performed using the APTIMA HPV Assay ([employer] ? This assay detects E6/E7 viral messenger RNA (mRNA) from 14 high-risk HPV types (16,18,31,33,35,39,45,51,52,56,58,59,66,68). Genital SWAB OF ENDOCERVIX / Unknown Collection / Unknown 11/20/2017 5:35 PM CDT 11/20/2017 8:48 PM CDT Narrative [facility] - 11/22/2017 4:36 PM CDT Performing Organization Information: ?Site ID: [id number] ?Name: [facility] ?Address: [facility] [place] [address] ?Director: Roni Pritchett MD Annemarie Meza MD PATHOLOGY/CYTO LOGY ORDERABLES [facility] from Last 3 Months or Most Recently Relevant to Health Maintenance Advance Directives For more information, please contact: [phone] * Full Code (Latest Code Status on File) Date Activated Date Inactivated Comments 01/16/2014 9:03 AM 01/16/2014 12:32 PM * Full Code Date Activated Date Inactivated Comments 01/16/2014 7:05 AM 01/16/2014 9:03 AM Care Teams Maternity Floor Supervisor Relationship Specialty Start Date End Date Diana Braun MD PCP - General Family Practice 12/22/13
--- OUTSIDE RECORDS SUMMARY | 2024-08-13 01:11 | XMS_ITS | Patient Health Summary ---
Author Organization [facility] Address [address] [facility] [place] [address] Care Team Providers Care Yield Engineer Name Role Phone Unavailable Primary Care Provider Unavailabl e Note from [facility],non-owned Affiliates and Associated Physician Practices is amultiple site organization consisting of ambulatory clinics and hospital sitesin [place], [place] and [place]. This disclosure is being madepursuant to the Care Everywhere program and may not contain all information available regarding this patient. Last updated 18.[facility] Social History Tobacco Use Types Packs/Day Years Used Date Smoking Tobacco: Never Assessed Sex and Gender Information Value Date Recorded Sex Assigned at Not on file Gender Identity Not on file Sexual Orientation Not on file
--- OUTSIDE RECORDS SUMMARY | 2024-08-13 01:11 | XMS_ITS | Encounter Summary ---
Author Organization [facility] Address [address] [place] [address] Care Team Providers Care Implementation Engineer Name Role Phone Diana Braun MD Primary Care Provider [phone] Reason for Referral * Eval and Treat (Routine) - Closed Specialty Diagnoses / Procedures Referred By Paige avalos Referred To Contact Perioperative Diagnoses Screening for colon cancer Procedures COLON Annemarie Meza MD [address] [place] [address] [facility] [address] [place] [address] Referral ID Status Reason Start Date Expiration Date Visits Requested Visits Authorized [id number] Closed Performing Department to Schedule 02/08/2021 02/08/2022 1 1 Reason for Visit * Reason Comments Well Woman Exam Encounter Details Date Type Department Care Team (Late st Contact Info) Description 02/08/2021 2:00 PM CDT Office Visit [facility]EX SPOOLER - [place] [address] [address] Annemarie Meza MD [address] [place] [address] Encounter for gynecological examination without [...] annual well- woman exam. She denies new youth agent related issues today. denies abnormal vaginal discharge. [...] atypia ??? HX WISDOM TEETH EXTRACTION ??? [place] EXCISE BREAST CYST 01/16/2014 BREAST BIOPSY performed by Marina Cohen MD at [facility] CC OR Family History Problem Relation Name [...] Not on file Occupational History Employer: [employer] Tobacco Use ??? Smoking status: Never Smoker [...] Gatherings with Friends and Family: ??? Attends Mosque Services: ??? Active Member of Clubs or [...] breast excisional biopsy. DICTATION LOCATION: [facility] COMPARISON: 01/21/2019 and older. TECHNIQUE: Diagnostic views [...] colon documented in this encounter Care Teams Implementation Engineer Relationship Specialty Start Date End Date Diana Braun MD PCP - General Family Practice 12/22/13 documented as of this encounter
--- OUTSIDE RECORDS SUMMARY | 2024-08-13 01:12 | XMS_ITS | Encounter Summary ---
Author Organization [facility] Address 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 Diffuse cystic mastopathy, unspecified laterality Dense breast Procedures MAMMO DIAG BILAT 3D LUIS W OR WO CAD CHG DIAGNOSTIC MAMMOGRAPHY COMPUTER-AIDED DETCJ BI CHG DIGITAL BREAST TOMOSYNTHESIS BILATERAL Vilma Jim NP NO ADDRESS ON FILE Referral ID Status Reason Start Date Expiration Date Visits Re quested Visits Authorized [id number] Closed 07/18/2018 08/18/2019 1 1 Encounter Details Date Type Department Care Team (Latest Contact Info) Description 01/21/2019 9:00 AM CDT - 01/21/2019 11:59 PM CDT Hospital Encounter [facility] [address] [place] [address] Vilma Jim, RAIL TRANSPORTATION OPERATOR NO ADDRESS ON FILE Discharge Disposition: Home [...] DATE: 01/21/2019 9:25 AM DICTATION LOCATION: ??[facility] HISTORY: History of left-sided atypia, yearly exam. [...] continued annual screening breast ultrasound. 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
--- OUTSIDE RECORDS SUMMARY | 2024-08-13 01:12 | XMS_ITS | Encounter Summary ---
Author Organization [facility] Address 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 Dense breast Diffuse cystic mastopathy, unspecified laterality Procedures MAMMO BREAST US BILAT COMPLETE Vilma Jim NP NO ADDRESS ON FILE Referral ID Status Reason Start Date Expiration Date Visits Re quested Visits Authorized [id number] Closed 02/09/2020 03/11/2021 1 1 Reason for Visit * Reason Comments Follow Up 6 months w/mmg prior Encounter Details Date Type Department Care Team (Late st Contact Info) Description 02/09/2020 10:30 AM CDT Office Visit [facility] BREAST SURGERY - [place] [facility] [address] [place] [id number] Vilma Jim NP NO ADDRESS ON FILE [...] this encounter Progress Notes * Vilma Jim, CEMENT CUTTER - 02/09/2020 10:22 AM CDT DIAGNOSIS ICD-10-CM [...] 8 years. She continues to see a ranch rider on an annual basis Past Medical History: Diagnosis Date ??? Fibrocystic disease of breast Past Surgical History: Procedure Laterality Date ??? HX EXCISIONAL BIOPSY Left 01/16/2014 flat epithelial atypia ??? HX WISDOM TEETH EXTRACTION ??? [place] EXCISE BREAST CYST 01/16/2014 BREAST BIOPSY performed by Marina Cohen MD at [facility] CC OR Current Outpatient Medications: ??? raloxifene [...] on file Occupational History Employer: [employer] Social Needs ??? Financial resource strain: Not [...] : denies dysuria, frequency, urgency, or hematuria. NSH TEACHER: denies any abnormal vaginal bleeding or [...] 07/18/2016 10:47 AM RADIOLOGY 02/09/2020: MAMMOGRAM at [facility] 08/15/2019: BILATERAL BREAST ULTRASOUND at [facility] 01/21/2019: MAMMOGRAM at [facility] 07/18/2018: 3D AUTOMATED ULTRASOUND at [facility] 01/15/2018: MAMMOGRAM at [facility] 07/31/2017: 3D AUTOMATED ULTRASOUND at [facility] 01/16/2017: MAMMOGRAM at [facility] Assessment/Plan #1 mammogram today- negative #2 Tolerating Evista well. No hot flashes, leg cramps, or mood changes. Continue on therapy. Does report some vaginal dryness- urogynecology physician managing. Replens helpful. Call if this becomes worse #3 Clinical breast exam demonstrates benign findings. Dry skin far lateral aspect left chest wall, not involving breast. Recommend apply topical hydrocortisone and Aquaphor and see a food sampler. She agrees with this plan #4 I [...] #7 Due for well woman exam with urogynecology physician #8 TOBACCO COUNSELING She is not a [...] of care. Vilma Jim, MSN, AGNP-C, AOCNP [facility] Oncology & Hematology Breast Surgery In collaboration with: Dr. Prescott documented in this encounter Plan of Treatment Not on file documented as of this encounter Results * MAMMO BREAST US BILAT COMPLETE (08/03/2020 9:32 AM GLOVE CUFFER) Anatomical Region Laterality Modality Breast Bilateral Ultrasound 08/03/2020 9:32 AM GLOVE CUFFER Impressions 08/03/2020 10:45 AM GLOVE CUFFER IMPRESSION: 1. No concerning abnormalities in either breast. OVERALL FINAL ASSESSMENT: ??BI-RADS CATEGORY 1 : Negative RECOMMENDATIONS: 1. Recommend annual mammography with tomosynthesis and screening breast ultrasound. Narrative 08/03/2020 10:45 AM GLOVE CUFFER COMPLETE ULTRASOUND OF BILATERAL BREASTS ?? DATE: [...] BREASTS DATE: 08/03/2020 9:32 AM [facility] INDICATION: Screening study. TECHNIQUE: Complete [...] laterality documented in this encounter Care Teams Firmware Engineer Relationship Specialty Start Date End Date Diana Braun MD PCP - General Family Practice 12/22/13 documented as of this encounter
--- OUTSIDE RECORDS SUMMARY | 2024-08-13 01:12 | XMS_ITS | Encounter Summary ---
Author Organization [facility] Address [address] [place] [address] Care Team Providers Care Javascript Software Engineer Name Role Phone Diana Braun MD Primary Care Provider [phone] Reason for Referral * Radiology Services (Routine) [...] Expiration Date Visits Re quested Visits Authorized [id number] Closed 08/15/2019 09/14/2020 1 1 Reason for [...] Expiration Date Visits Re quested Visits Authorized [id number] Closed 08/15/2019 09/14/2020 1 1 Encounter Details Date Type Department Care Team (Latest Contact Info) Description 02/09/2020 9:30 AM CDT - 02/09/2020 11:59 PM CDT Hospital Encounter [facility] [address] [place] [address] Vilma Jim NP NO ADDRESS [...] laterality documented in this encounter Care Teams Javascript Software Engineer Relationship Specialty Start Date End Date Diana Braun MD PCP - General Family Practice 12/22/13 documented as of this encounter
--- OUTSIDE RECORDS SUMMARY | 2024-08-13 01:12 | XMS_ITS | Encounter Summary ---
Author Organization [facility] Address [address] [place] [address] Care Team Providers Care Metal Engineering Process Worker Name Role Phone Diana Braun MD Primary Care Provider [phone] Reason for Visit * Reason Onset Date Comments Results 07/19/2018 Encounter Details Date Type Department Care Team (Late st Contact Info) Description 07/19/2018 Telephone [facility] [address] [facility] [address] [place] [address] Vilma Jim NP NO ADDRESS [...] Benign findings ?? Dictated from: [facility] HEAD WRECKER documented in this encounter Plan of Treatment Not on file documented as of this encounter Visit Diagnoses Not on filedocumented in this encounter Care Teams Metal Engineering Process Worker Relationship Specialty Start Date End Date Diana Braun MD PCP - General Family Practice 12/22/13 documented as of this encounter
--- OUTSIDE RECORDS SUMMARY | 2024-08-13 01:12 | XMS_ITS | Encounter Summary ---
Author Organization [facility] Address [address] [place] [address] Care Team Providers Care Special Programs Director Name Role Phone Diana Braun MD Primary Care Provider [phone] Reason for Referral * Radiology Services (Routine) [...] Expiration Date Visits Re quested Visits Authorized [id number] Closed 08/15/2019 09/14/2020 1 1 KEEPER Reason for Visit * Reason Comments Follow Up 1 year 3d US prior Encounter Details Date Type Department Care Team (Late st Contact Info) Description 08/15/2019 11:00 AM TIMEKEEPER Office Visit [facility] BREAST SURGERY - [place] [facility] [address] [place] [address] Vilma Jim NP NO ADDRESS ON FILE [...] Comments Blood Pressure 116/64 08/15/2019 10:08 AM TIMEKEEPER Pulse 64 08/15/2019 10:08 AM TIMEKEEPER Temperature 36.7 ??C (98.1 ??F) 08/15/2019 10:[address] Respiratory Rate - - Oxygen Saturation 98% 08/15/2019 10:08 AM TIMEKEEPER Inhaled Oxygen Concentration - - Weight 59 kg (130 lb) 08/15/2019 10:08 AM TIMEKEEPER Height 165.1 cm (5' 5 ) 08/15/2019 10:08 AM TIMEKEEPER Body Mass Index 21.63 08/15/2019 10:08 AM TIMEKEEPER documented in this encounter Progress Notes * Vilma Jim, PRE PAROLE COUNSELING AIDE - 08/15/2019 10:23 AM CST DIAGNOSIS ICD-10-CM ICD-9-CM 1. Diffuse cystic mastopathy, unspecified laterality N60.19 610.1 2. 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 She continues to see a technical sales associate on an annual basis Past Medical History: Diagnosis Date ??? Fibrocystic disease of breast Past Surgical History: Procedure Laterality Date ??? HX EXCISIONAL BIOPSY Left 01/16/2014 flat epithelial atypia ??? HX WISDOM TEETH EXTRACTION ??? [place] EXCISE BREAST CYST 01/16/2014 BREAST BIOPSY performed by Marina Cohen MD at [facility] CC OR Current Outpatient Medications: ??? MULTIVITAMIN [...] Not on file Occupational History Employer: [employer] Social Needs ??? Financial resource strain: Not [...] file Gets together: Not on file Attends moravian service: Not on file Active member of [...] : denies dysuria, frequency, urgency, or hematuria. ROOM DESIGNER: denies any abnormal vaginal bleeding or unusual [...] AM RADIOLOGY 08/15/2019: BILATERAL BREAST ULTRASOUND at [facility] 01/21/2019: MAMMOGRAM at [facility] 07/18/2018: 3D AUTOMATED ULTRASOUND at [facility] 01/15/2018: MAMMOGRAM at [facility] 07/31/2017: 3D AUTOMATED ULTRASOUND at [facility] 01/16/2017: MAMMOGRAM at [facility] Assessment/Plan #1 3D bilateral breast ultrasound- normal #2 Tolerating Evista well. No hot flashes, leg cramps, or mood changes. Continue on therapy. Does report some vaginal dryness- record pressman managing. Replens helpful. Call if this becomes [...] #7 Due for well woman exam with record pressman #8 TOBACCO COUNSELING She is not a [...] Corcoran was supervising physician in office today KEEPER documented in this encounter Plan of Treatment [...] Benign left breast excisional biopsy. DICTATION LOCATION: ??[facility] COMPARISON: 01/21/2019 and older. TECHNIQUE: Diagnostic [...] laterality documented in this encounter Care Teams Special Programs Director Relationship Specialty Start Date End Date Diana Braun MD PCP - General Family Practice 12/22/13 documented as of this encounter
--- OUTSIDE RECORDS SUMMARY | 2024-08-13 01:12 | XMS_ITS | Encounter Summary ---
Author Organization [facility] Address [address] [place] [address] Care Team Providers Care Supervisor Multifocal Lens Name Role Phone Diana Braun MD Primary Care Provider [phone] Reason for Visit * Reason Comments Medication Refill Encounter Details Date Type Department Care Team (Late st Contact Info) Description 10/31/2019 Refill [facility] [address] [facility] [address] [place] [address] Vilma Jim, INDUSTRIAL EDUCATION TEACHER NO ADDRESS ON FILE Social History Tobacco [...] on filedocumented in this encounter Care Teams Supervisor Multifocal Lens Relationship Specialty Start Date End Date Diana Braun MD PCP - General Family Practice 12/22/13 documented as of this encounter
--- OUTSIDE RECORDS SUMMARY | 2024-08-13 01:12 | XMS_ITS | Encounter Summary ---
Author Organization [facility] Address [address] Parran: Epic Prelude ADT [place] [address] Care Team Providers Care Customer Complaint Service Supervisor Name Role Phone Diana Braun MD Primary Care Provider [phone] Encounter Details Date Type Department Care Team [...] COVID-19? Unable to assess 08/04/2020 9:07 AM FORGING MACHINE OPERATOR documented as of this encounter Plan of Treatment Not on file documented as of this encounter Visit Diagnoses Not on filedocumented in this encounter Care Teams Customer Complaint Service Supervisor Relationship Specialty Start Date End Date Diana Braun MD PCP - General Family Practice 12/22/13 documented as of this encounter
--- OUTSIDE RECORDS SUMMARY | 2024-08-13 01:12 | XMS_ITS | Encounter Summary ---
Author Organization [facility] Address 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 Diffuse cystic mastopathy, unspecified laterality Procedures MAMMO DIAG BILAT 3D LUIS W OR WO Vilma Pillai NP NO ADDRESS ON FILE Referral ID Status Reason Start Date Expiration Date Visits Re quested Visits Authorized [id number] Closed 07/19/2017 08/19/2018 1 1 Reason for [...] Expiration Date Visits Re quested Visits Authorized [id number] Closed 07/19/2017 08/19/2018 1 1 Encounter Details Date Type Department Care Team (Latest Contact Info) Description 01/15/2018 8:38 AM CDT - 01/15/2018 11:59 PM CDT Hospital Encounter [facility] [address] [place] [phone] Vilma Jim NP NO ADDRESS ON FILE [...] Routine mammogram in one year. DICTATION LOCATION: [facility] 01/16/2018 10:40 AM CDT EXAM: BILATERAL DIAGNOSTIC [...] Routine mammogram in one year. 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
--- OUTSIDE RECORDS SUMMARY | 2024-08-13 01:12 | XMS_ITS | Encounter Summary ---
Author Organization [facility] Address 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 Diffuse cystic mastopathy, unspecified laterality Dense breast Procedures MAMMO BREAST US BILAT COMPLETE Vilma Jim NP NO ADDRESS ON FILE Referral ID Status Reason Start Date Expiration Date Visits Re quested Visits Authorized [id number] Closed 08/15/2019 09/14/2020 1 1 N PICKER Reason for Visit * Radiology Services (Routine) - Closed Specialty Diagnoses / Procedures Referred By Contac t Referred To Contact Diagnoses 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 OVERALL FINAL ASSESSMENT: BI-RADS CATEGORY 1: Negative DICTATION LOCATION: ??[facility] Narrative 08/15/2019 11:08 AM BRAIN PICKER COMPLETE BILATERAL BREAST ULTRASOUND, 08/15/2019 CLINICAL HISTORY: [...] ASSESSMENT: BI-RADS CATEGORY 1: Negative DICTATION LOCATION: 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
--- OUTSIDE RECORDS SUMMARY | 2024-08-13 01:12 | XMS_ITS | Encounter Summary ---
Author Organization [facility] Address [address] Parran: Epic Prelude ADT [place] [address] Care Team Providers Care Regional Cra Name Role Phone Diana Braun MD Primary Care Provider [phone]- [phone] Encounter Details Date Type Department Care Team [...] on filedocumented in this encounter Care Teams Regional Cra Relationship Specialty Start Date End Date Diana Braun MD PCP - General Family Practice 12/22/13 documented as of this encounter
--- OUTSIDE RECORDS SUMMARY | 2024-08-13 01:12 | XMS_ITS | Encounter Summary ---
Author Organization [facility] Address [address] [place] [address] Care Team Providers Care Maintenance Supervisor Electrical Name Role Phone Diana Braun MD Primary Care Provider [phone] Reason for Visit * Reason Onset Date Comments Results 08/01/2017 Encounter Details Date Type Department Care Team (Late st Contact Info) Description 08/01/2017 Telephone [facility] [address] [address] [place] [address] Vilma Jim NP NO ADDRESS [...] Negative ?? Dictated from: [facility] ANICAL DOOR REPAIRER documented in this encounter Plan of Treatment Not on file documented as of this encounter Visit Diagnoses Not on filedocumented in this encounter Care Teams Maintenance Supervisor Electrical Relationship Specialty Start Date End Date Diana Braun MD PCP - General Family Practice 12/22/13 documented as of this encounter
--- OUTSIDE RECORDS SUMMARY | 2024-08-13 01:12 | XMS_ITS | Encounter Summary ---
Author Organization [facility] Address 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 Diffuse cystic mastopathy, unspecified laterality Procedures MAMMO DIAG BILAT 3D LUIS W OR WO CAD Vilma Jim NP NO ADDRESS ON FILE Referral ID Status Reason Start Date Expiration Date Visits Re quested Visits Authorized [id number] Closed 07/19/2017 08/19/2018 1 1 SIZER OPERATOR * Outpatient Services (Routine) - Closed Specialty Diagnoses / Procedures Referred By Contjovany t Referred To Contact Diagnoses 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 Diffuse cystic mastopathy, unspecified laterality Procedures MAMMO 3D AUTOMATED BREAST US BILAT Vilma Jim NP NO ADDRESS ON FILE Referral ID Status Reason Start Date Expiration Date V isits Requested Visits Authorized [id number] Closed [facility] 07/19/2017 08/19/2018 1 1 SIZER OPERATOR Reason for Visit * Reason Comments Follow Up 6 month Encounter Details Date Type Department Care Team (Late st Contact Info) Description 07/19/2017 9:15 AM TUBE SIZER OPERATOR Office Visit [facility] BREAST SURGERY - [place] [facility] [address] [place] [address] Vilma Jim NP NO ADDRESS [...] Comments Blood Pressure 101/59 07/19/2017 8:59 AM TUBE SIZER OPERATOR Pulse 63 07/19/2017 8:59 AM TUBE SIZER OPERATOR Temperature 36.3 ??C (97.3 ??F) 07/19/2017 8:59 AM CS T Respiratory Rate - - Oxygen Saturation - - Inhaled Oxygen Concentration - - Weight 56.7 kg (125 lb) 07/19/2017 8:59 AM TUBE SIZER OPERATOR Height - - Body Mass Index 20.8 [...] over 5 years.She continues to see a bobbin loose end finder on an annual basis. Past Medical History: Diagnosis Date ??? Fibrocystic disease of breast Past Surgical History: Procedure Laterality Date ??? HX EXCISIONAL BIOPSY Left 01/16/2014 flat epithelial atypia ??? HX WISDOM TEETH EXTRACTION ??? [place] EXCISE BREAST CYST 01/16/2014 BREAST BIOPSY performed by Marina Cohen MD at [facility] CC OR Current Outpatient Prescriptions: ??? raloxifene [...] of education: N/A Occupational History ??? [employer] Social History Main Topics ??? Smoking status: [...] : denies dysuria, frequency, urgency, or hematuria. TOOL AND PRODUCTION PLANNER: denies any abnormal vaginal bleeding or unusual [...] #7 Due for well woman exam with executive office manager All questions encouraged and answered Thank you [...] of care. Vilma Jim, MSN, AGNP-C, AOCNP [facility] Oncology & Hematology Breast Surgery Dr. Corcoran was supervising physician in office today SIZER OPERATOR documented in this encounter Plan of [...] AUTOMATED BREAST US BILAT (07/31/2017 9:11 AM TUBE SIZER OPERATOR) Anatomical Region Laterality Modality Breast Bilateral Ultrasound 07/31/2017 9:11 AM TUBE SIZER OPERATOR Impressions 07/31/2017 4:52 PM TUBE SIZER OPERATOR IMPRESSION: Negative bilateral automated breast sonogram. Recommend annual mammographic follow-up. OVERALL ASSESSMENT: ??BI-RADS category 1 - Negative Dictated from: [facility] Narrative 07/31/2017 4:52 PM TUBE SIZER OPERATOR 3-D SONOGRAM AUTOMATED BILATERAL BREASTS 07/31/2017 HISTORY: [...] Dictated from: 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
--- OUTSIDE RECORDS SUMMARY | 2024-08-13 01:12 | XMS_ITS | Encounter Summary ---
Author Organization [facility] Address [address] [place] [address] Care Team Providers Care Bench Lay Out Technician Name Role Phone Diana Braun MD Primary Care Provider [phone]- [phone] Reason for Visit * Reason Comments Medication Refill Encounter Details Date Type Department Care Team (Late st Contact Info) Description 08/07/2018 Refill [facility] [address] [address] [place] [address] Vilma Jim, CLINICAL TRIALS SPECIALIST NO ADDRESS ON FILE Social History Tobacco [...] on filedocumented in this encounter Care Teams Bench Lay Out Technician Relationship Specialty Start Date End Date Diana Braun MD PCP - General Family Practice 12/22/13 documented as of this encounter
--- OUTSIDE RECORDS SUMMARY | 2024-08-13 01:12 | XMS_ITS | Encounter Summary ---
Author Organization [facility] Address 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 Dense breast Diffuse cystic mastopathy, unspecified laterality Procedures MAMMO BREAST US BILAT COMPLETE Vilma Jim NP NO ADDRESS ON FILE Referral ID Status Reason Start Date Expiration Date Visits Re quested Visits Authorized [id number] Closed 02/09/2020 03/11/2021 1 1 AND NECK SURGEON Reason for Visit * Radiology Services (Routine) - Closed Specialty Diagnoses / Procedures Referred By Contac t Referred To Contact Diagnoses 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 No concerning abnormalities in either breast. OVERALL FINAL ASSESSMENT: ??BI-RADS CATEGORY 1 : Negative RECOMMENDATIONS: 1. Recommend annual mammography with tomosynthesis and screening breast ultrasound. Narrative 08/03/2020 10:45 AM HEAD AND NECK SURGEON COMPLETE ULTRASOUND OF BILATERAL BREASTS ?? DATE: 08/03/2020 9:32 AM DICTATION LOCATION: ??[facility] [place] INDICATION: Screening study. TECHNIQUE: Complete real-time [...] tomosynthesis and screening breast ultrasound. 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
--- OUTSIDE RECORDS SUMMARY | 2024-08-13 01:12 | XMS_ITS | Encounter Summary ---
Author Organization [facility] Address 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 Diffuse cystic mastopathy, unspecified laterality Dense breast Procedures MAMMO 3D AUTOMATED BREAST US BILAT Vilma Jim NP NO ADDRESS ON FILE Referral ID Status Reason Start Date Expiration Date Visits Re quested Visits Authorized [id number] Closed 07/18/2018 08/18/2019 1 1 HEAR OPERATOR Reason for Visit * Reason Comments Follow Up 6 months, bone densi ty, breast us before Encounter Details Date Type Department Care Team (Late st Contact Info) Description 07/18/2018 11:00 AM UNISHEAR OPERATOR Office Visit [facility] BREAST SURGERY - [place] [address] [facility] [address] [place] [address] Vilma Jim NP NO ADDRESS ON FILE [...] Comments Blood Pressure 122/68 07/18/2018 10:57 AM UNISHEAR OPERATOR Pulse 65 07/18/2018 10:57 AM UNISHEAR OPERATOR Temperature 36.9 ??C (98.5 ??F) 07/18/2018 10:[address] Respiratory Rate - - Oxygen Saturation 98% 07/18/2018 10:57 AM UNISHEAR OPERATOR Inhaled Oxygen Concentration - - Weight 59.1 kg (130 lb 4 oz) 07/18/2018 10:57 AM UNISHEAR OPERATOR Height 165.1 cm (5' 5 ) 07/18/2018 10:57 AM UNISHEAR OPERATOR Body Mass Index 21.67 07/18/2018 10:57 AM UNISHEAR OPERATOR documented in this encounter Progress Notes [...] 6 years. She continues to see a air shovel operator on an annual basis. Past Medical History: Diagnosis Date ??? Fibrocystic disease of breast Past Surgical History: Procedure Laterality Date ??? HX EXCISIONAL BIOPSY Left 01/16/2014 flat epithelial atypia ??? HX WISDOM TEETH EXTRACTION ??? [place] EXCISE BREAST CYST 01/16/2014 BREAST BIOPSY performed by Marina Cohen MD at [facility] OR Current Outpatient Prescriptions: ??? HYALURONIC [...] of education: N/A Occupational History ??? [employer] Social History Main Topics ??? Smoking [...] : denies dysuria, frequency, urgency, or hematuria. ELEVATOR BUILDER: denies any abnormal vaginal bleeding or unusual [...] AM RADIOLOGY 07/18/2018: 3D AUTOMATED ULTRASOUND at [facility]- pending 01/15/2018: MAMMOGRAM at [facility] 07/31/2017: 3D AUTOMATED ULTRASOUND at [facility] 01/16/2017: MAMMOGRAM at [facility] Assessment/Plan #1 3D bilateral automated breast ultrasound- pending. I will call her once results are available. #2 Tolerating Evista well. No hot flashes, leg cramps, or mood changes. Continue on therapy. Does report some vaginal dryness- color matcher managing. Replens helpful. Call if this becomes [...] #7 Due for well woman exam with color matcher #8 TOBACCO COUNSELING She is not a [...] of care. Vilma Jim, MSN, AGNP-C, AOCNP [facility] Oncology & Hematology Breast Surgery Dr. Corcoran was supervising physician in office today HEAR OPERATOR documented in this encounter Plan of [...] mammogram documented in this encounter Care Teams Laborer Hide House Relationship Specialty Start Date End Date Diana Braun MD PCP - General Family Practice 12/22/13 documented as of this encounter
--- OUTSIDE RECORDS SUMMARY | 2024-08-13 01:12 | XMS_ITS | Encounter Summary ---
Author Organization [facility] Address [address] [place] [address] Care Team Providers Care Service Desk Lead Name Role Phone Diana Braun MD Primary Care Provider [phone] Reason for Referral * Outpatient Services (Routine) - Closed Specialty Diagnoses / Procedures Referred By Paige avalos Referred To Contact Diagnoses Osteopenia of multiple sites Procedures XR DEXA BONE DENSITY AXIAL 1 OR MORE SITES Vilma Jim NP NO ADDRESS ON FILE Referral ID Status Reason Start Date Expiration Date Visits Re quested Visits Authorized [id number] Closed 01/15/2018 02/15/2019 1 1 * Outpatient Services (Routine) - Closed Specialty Diagnoses / Procedures Referred By Paige avalos Referred To Contact Diagnoses 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 She continues to see a postal carrier on an annual basis. Past Medical History: Diagnosis Date ??? Fibrocystic disease of breast Past Surgical History: Procedure Laterality Date ??? HX EXCISIONAL BIOPSY Left 01/16/2014 flat epithelial atypia ??? HX WISDOM TEETH EXTRACTION ??? [place] EXCISE BREAST CYST 01/16/2014 BREAST BIOPSY performed by Marina Cohen MD at [facility] OR Current Outpatient Prescriptions: ??? HYALURONIC 5MG/VIT [...] N/A Occupational History ??? [employer] Social History Main Topics ??? [...] : denies dysuria, frequency, urgency, or hematuria. ESCORT CAR DRIVER: denies any abnormal vaginal bleeding or unusual [...] on therapy. Does report some vaginal dryness- refuse laborer managing. Can try Replens. Call if this [...] #7 Due for well woman exam with refuse laborer All questions encouraged and answered Thank you [...] of care. Vilma Jim, MSN, AGNP-C, AOCNP [facility] Oncology & Hematology Breast Surgery Dr. Corcoran was supervising physician in office today documented in this encounter Plan of Treatment Not on file documented as of this encounter Results * MAMMO 3D AUTOMATED BREAST US BILAT (07/18/2018 10:21 AM AUTO HAULAWAY DRIVER) Anatomical Region Laterality Modality Breast Bilateral Ultrasound 07/18/2018 10:2 1 AM AUTO HAULAWAY DRIVER Impressions 07/18/2018 12:07 PM AUTO HAULAWAY DRIVER IMPRESSION: No suspicious findings to suggest malignancy in either breast. Tiny bilateral breast cysts noted. Annual mammography is recommended, due in December 2018. OVERALL ASSESSMENT: ??BI-RADS Category 2 - Benign findings Dictated from: [facility] Narrative 07/18/2018 12:07 PM AUTO HAULAWAY DRIVER AUTOMATED WHOLE BREAST BILATERAL ULTRASOUND DATE: 07/18/2018 [...] 1 OR MORE SITES (07/18/2018 9:25 AM AUTO HAULAWAY DRIVER) Anatomical Region Laterality Modality Computed Radiogr aphy 07/18/2018 9:25 AM AUTO HAULAWAY DRIVER Narrative 07/18/2018 10:41 AM AUTO HAULAWAY DRIVER XR DEXA BONE DENSITY AXIAL 1 OR MORE SITES DATE: 07/18/2018 9:25 AM HISTORY: 58 years old Female with post menopausal symptoms. PROCEDURE: Planar images of the lumbar spine and hip(s) using a [employer] DEXA scanner for bone mineral density determination [...] Jeter DO DICTATION LOCATION: Location 1 - [facility] Procedure Note Steve Jeter DO - 07/18/2018 XR DEXA BONE DENSITY AXIAL 1 OR MORE SITES DATE: 07/18/2018 9:25 AM HISTORY: 58 years old Female with post menopausal symptoms. 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
--- OUTSIDE RECORDS SUMMARY | 2024-08-13 01:12 | XMS_ITS | Encounter Summary ---
Author Organization [facility] Address [address] Parran: Epic Prelude ADT [place] [address] Care Team Providers Care Geological E Logger Name Role Phone Diana Braun MD Primary Care Provider [phone] Encounter Details Date Type Department Care Team [...] COVID-19? No / Unsure 08/01/2020 1:14 PM MUSIC PRODUCER documented as of this encounter Plan of Treatment Not on file documented as of this encounter Visit Diagnoses Not on filedocumented in this encounter Care Teams Geological E Logger Relationship Specialty Start Date End Date Dinaa Braun MD PCP - General Family Practice 12/22/13 documented as of this encounter
--- OUTSIDE RECORDS SUMMARY | 2024-08-13 01:12 | XMS_ITS | Encounter Summary ---
Author Organization [facility] Address 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 Diffuse cystic mastopathy, unspecified laterality Procedures MAMMO 3D AUTOMATED BREAST US Vilma Mchugh NP NO ADDRESS ON FILE Referral ID Status Reason Start Date Expiration Date V isits Requested Visits Authorized [id number] Closed ST CTS 07/19/2017 08/19/2018 1 1 NG WORKER Reason for Visit * Outpatient Services (Routine) - Closed Specialty Diagnoses / Procedures Referred By Contjovany t Referred To Contact Diagnoses 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 Diffuse cystic mastopathy, unspecified laterality Procedures MAMMO 3D AUTOMATED BREAST US Vilma Mchugh NP NO ADDRESS ON FILE Referral ID Status Reason Start Date Expiration Date V isits Requested Visits Authorized [id number] Closed [facility] CTS 07/19/2017 08/19/2018 1 1 Encounter Details Date Type Department Care Team (Latest Contact Info) Description 07/31/2017 9:00 AM CASING WORKER - 07/31/2017 11:59 PM CASING WORKER Hospital Encounter [facility] [place] [address] [place] [id number] Vilma Jim NP NO ADDRESS ON FILE [...] BREAST US BILAT Routine 07/31/2017 9:11 AM CASING WORKER 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 Recommend annual mammographic follow-up. OVERALL ASSESSMENT: ??BI-RADS category 1 - Negative Dictated from: [facility] Narrative 07/31/2017 4:52 PM CASING WORKER 3-D SONOGRAM AUTOMATED BILATERAL BREASTS 07/31/2017 HISTORY: [...] Dictated from: 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
--- OUTSIDE RECORDS SUMMARY | 2024-08-13 01:12 | XMS_ITS | Encounter Summary ---
Author Organization [facility] Address [address] [place] [address] Care Team Providers Care Spa Host Name Role Phone Diana Braun MD Primary Care Provider [phone] Reason for Visit * Reason Comments Well Woman Exam Encounter Details Date Type Department Care Team (Late st Contact Info) Description 11/20/2017 4:00 PM CDT Office Visit [facility] SAMPLE CASE - [address] [address] Annemarie Meza MD [address] [address] Well woman exam with routine [...] 5:05 PM CDT CC: Well-Woman Exam HPI: lCaribel Ortiz is a 57 y.o. female who [...] atypia ??? HX WISDOM TEETH EXTRACTION ??? [place] EXCISE BREAST CYST 01/16/2014 BREAST BIOPSY performed by Marina Cohen MD at [facility] CC OR Family History Problem Relation Age [...] of education: N/A Occupational History ??? [employer] Social History Main Topics ??? Smoking status: [...] RECOMMENDATION: Recommend continued annual [facility] Results for orders placed or performed during [...] has been evaluated with computer assisted technology. DIRECTOR CORRECTIONAL AGENCY: SEE COMMENT 2017 4:36 PM CDT [facility] Comment: BLG, CT(ASCP) CT screening location: [place] [address] [address] [place] [id number] EXPLANATORY NOTE SEE COMMENT 018 4:36 PM [...] was performed using the APTIMA HPV Assay ([employer] ? This assay detects E6/E7 viral messenger RNA (mRNA) from 14 high-risk HPV types (16,18,31,33,35,39,45,51,52,56,58,59,66,68). 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
--- OUTSIDE RECORDS SUMMARY | 2024-08-13 01:12 | XMS_ITS | Encounter Summary ---
Author Organization [facility] Address [address] [place] [address] Care Team Providers Care Lettuce Trimmer Name Role Phone Diana Braun MD Primary Care Provider [phone] Reason for Visit * Reason Onset Date Comments mamm 01/21/2019 Encounter Details Date Type Department Care Team (Late st Contact Info) Description 01/21/2019 Telephone [facility] ONCOL[facility] [address] [address] [place] [address] Vilma Jim NP NO ADDRESS [...] on filedocumented in this encounter Care Teams Lettuce Trimmer Relationship Specialty Start Date End Date Diana Braun MD PCP - General Family Practice 12/22/13 documented as of this encounter
--- OUTSIDE RECORDS SUMMARY | 2024-08-13 01:12 | XMS_ITS | Encounter Summary ---
Author Organization [facility] Address [address] [place] [address] Care Team Providers Care Legal Archivist Name Role Phone Diana Braun MD Primary Care Provider [phone] Reason for Visit * Reason Comments Medication Refill Encounter Details Date Type Department Care Team (Late st Contact Info) Description 05/15/2017 Refill [facility] [address] [facility] [address] [place] [address] Vilma Jim, PEDIATRIC SPEECH LANGUAGE PATHOLOGIST NO ADDRESS ON FILE Social History Tobacco [...] on filedocumented in this encounter Care Teams Legal Archivist Relationship Specialty Start Date End Date Diana Braun MD PCP - General Family Practice 12/22/13 documented as of this encounter
--- OUTSIDE RECORDS SUMMARY | 2024-08-13 01:12 | XMS_ITS | Encounter Summary ---
Author Organization [facility] Address [address] [place] [address] Care Team Providers Care Galley Hand Name Role Phone Diana Braun MD Primary Care Provider [phone] Reason for Referral * Outpatient Services (Routine) - Closed Specialty Diagnoses / Procedures Referred By Contac t Referred To Contact Diagnoses Osteopenia of multiple sites Procedures XR DEXA BONE DENSITY AXIAL 1 OR MORE SITES Vilma Jim NP NO ADDRESS ON FILE Referral ID Status Reason Start Date Expiration Date Visits Re quested Visits Authorized [id number] Closed 01/15/2018 02/15/2019 1 1 TING PLATE CLERK Reason for Visit * Outpatient Services (Routine) - Closed Specialty Diagnoses / Procedures Referred By Contac t Referred To Contact Diagnoses Osteopenia of multiple sites Procedures XR DEXA BONE DENSITY AXIAL 1 OR MORE SITES Vilma Jim NP NO ADDRESS ON FILE Referral ID Status Reason Start Date Expiration Date Visits Re quested Visits Authorized [id number] Closed 01/15/2018 02/15/2019 1 1 Encounter Details Date Type Department Care Team (Latest Contact Info) Description 07/18/2018 9:00 AM PRINTING PLATE CLERK - 07/18/2018 11:59 PM PRINTING PLATE CLERK Hospital Encounter [facility] [address] [place] [address] Vilma Jim NP NO ADDRESS [...] OR MORE SITES Routine 07/18/2018 9:25 AM PRINTING PLATE CLERK Osteopenia of multiple sites documented in this encounter Results * XR DEXA BONE DENSITY AXIAL 1 OR MORE SITES (07/18/2018 9:25 AM PRINTING PLATE CLERK) Anatomical Region Laterality Modality Computed Radiogr aphy 07/18/2018 9:25 AM PRINTING PLATE CLERK Narrative 07/18/2018 10:41 AM PRINTING PLATE CLERK XR DEXA BONE DENSITY AXIAL 1 OR MORE SITES DATE: 07/18/2018 9:25 AM HISTORY: 58 years old Female with post menopausal symptoms. PROCEDURE: Planar images of the lumbar spine and hip(s) using a [employer] DEXA scanner for bone mineral density determination [...] DO DICTATION LOCATION: Location 1 - [facility] Procedure Note Steve Jeter DO - 07/18/2018 XR DEXA BONE DENSITY AXIAL 1 OR MORE SITES DATE: 07/18/2018 9:25 AM HISTORY: 58 years old Female with post menopausal symptoms. PROCEDURE: Planar images of the lumbar spine and hip(s) using a [employer] DEXA scanner for bone mineral density determination [...] Jeter, DICTATION LOCATION: Location 1 - [facility] Vilma Jim NP DIAGNOSTIC IMAGING O RDERABLES documented in this encounter Visit Diagnoses Diagnosis Osteopenia of multiple sites documented in this encounter Care Teams Galley Hand Relationship Specialty Start Date End Date Diana Braun MD PCP - General Family Practice 12/22/13 documented as of this encounter
--- OUTSIDE RECORDS SUMMARY | 2024-08-13 01:12 | XMS_ITS | Encounter Summary ---
Author Organization [facility] Address 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 Procedures MAMMO 3D AUTOMATED BREAST US Vilma Mchugh NP NO ADDRESS ON FILE Referral ID Status Reason Start Date Expiration Date Visits Re quested Visits Authorized [id number] Closed 01/15/2018 02/15/2019 1 1 TAL ASSET COORDINATOR Reason for Visit * Outpatient Services (Routine) - Closed Specialty Diagnoses / Procedures Referred By Paige avalos Referred To Contact Diagnoses 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 Tiny bilateral breast cysts noted. Annual mammography is recommended, due in December 2018. OVERALL ASSESSMENT: ??BI-RADS Category 2 - Benign findings Dictated from: [facility] Narrative 07/18/2018 12:07 PM DIGITAL ASSET COORDINATOR AUTOMATED WHOLE BREAST BILATERAL ULTRASOUND DATE: 07/18/2018 [...] breast documented in this encounter Care Teams Vessel Operator Relationship Specialty Start Date End Date Diana Braun MD PCP - General Family Practice 12/22/13 documented as of this encounter
--- OUTSIDE RECORDS SUMMARY | 2024-08-13 01:12 | XMS_ITS | Encounter Summary ---
Author Organization [facility] Address [address] [place] [address] Care Team Providers Care Collar Folder Operator Name Role Phone Diana Braun MD Primary Care Provider [phone] Encounter Details Date Type Department Care Team (Late st Contact Info) Description 07/22/2018 Orders Only [facility] BREAST SURGERY - [place] [facility] [address] [place] [address] Vilma Jim, EVENT SALES MANAGER NO ADDRESS ON FILE Social History [...] on filedocumented in this encounter Care Teams Collar Folder Operator Relationship Specialty Start Date End Date Diana Braun MD PCP - General Family Practice 12/22/13 documented as of this encounter
--- OUTSIDE RECORDS SUMMARY | 2024-08-13 01:12 | XMS_ITS | Encounter Summary ---
Author Organization [facility] Address [address] [place] [address] Care Team Providers Care Ukrainian Folk Arts Instructor Name Role Phone Diana Braun MD Primary Care Provider Reason for Referral * Radiology Services (Routine) - Closed Specialty Diagnoses / Procedures Referred By Contac t Referred To Contact Radiology Diagnoses Screening for osteoporosis Procedures XR DEXA BONE DENSITY AXIAL 1 OR MORE SITES Vilma Jim NP NO ADDRESS ON FILE Stlo [facility] D[facility] [address] [place] [address] Referral ID Status Reason Start Date Expiration Date V isits Requested Visits Authorized [id number] Closed STL CTS 08/03/2020 09/03/2021 1 1 LE PACKER * Radiology Services (Routine) - Closed Specialty Diagnoses / Procedures Referred By Contac t Referred To Contact Radiology Diagnoses 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 Diffuse cystic mastopathy, unspecified laterality Procedures MAMMO DIAG BILAT 3D LUIS W OR WO CAD CHG DIAGNOSTIC MAMMOGRAPHY COMPUTER-AIDED DETCJ BI CHG DIGITAL BREAST TOMOSYNTHESIS BILATERAL Vilma Jim NP NO ADDRESS ON FILE Stlo Bone Density [facility] [address] [place] [address] Referral ID Status Reason Start Date Expiration Date V isits Requested Visits Authorized [id number] Closed STL CTS 08/03/2020 09/03/2021 1 1 LE PACKER Reason for Visit * Reason Comments Follow Up 6 months US Encounter Details Date Type Department Care Team (Late st Contact Info) Description 08/03/2020 9:45 AM BUNDLE PACKER Office Visit [facility] BREAST SURGERY - [place] [facility] [address] [facility] [address] [place] [address] Vilma Jim NP NO ADDRESS ON FILE [...] COVID-19? No / Unsure 08/03/2020 8:51 AM BUNDLE PACKER documented as of this encounter Last Filed Vital Signs Vital Sign Reading Time Taken Comments Blood Pressure 108/72 08/03/2020 9:38 AM BUNDLE PACKER Pulse 71 08/03/2020 9:38 AM BUNDLE PACKER Temperature - - Respiratory Rate - - Oxygen Saturation 99% 08/03/2020 9:38 AM BUNDLE PACKER Inhaled Oxygen Concentration - - Weight 60.8 kg (134 lb) 08/03/2020 9:38 AM BUNDLE PACKER Height 165.1 cm (5' 5 ) 08/03/2020 9:38 AM BUNDLE PACKER Body Mass Index 22.3 08/03/2020 9:38 AM BUNDLE PACKER documented in this encounter Progress Notes * [...] 8 years. She continues to see a field coil winder on an annual basis Past Medical History: Diagnosis Date ??? Fibrocystic disease of breast Past Surgical History: Procedure Laterality Date ??? HX EXCISIONAL BIOPSY Left 01/16/2014 flat epithelial atypia ??? HX WISDOM TEETH EXTRACTION ??? [place] EXCISE BREAST CYST 01/16/2014 BREAST BIOPSY performed by Marina Cohen MD at [facility] OR Current Outpatient Medications: ??? raloxifene [...] Not on file Occupational History Employer: [employer] Social Needs ??? Financial resource strain: Not [...] file Gets together: Not on file Attends zoroastrian service: Not on file Active member of [...] : denies dysuria, frequency, urgency, or hematuria. INTERACTIVE WEB DEVELOPER: denies any abnormal vaginal bleeding or unusual [...] AM RADIOLOGY 08/03/2020: BILATERAL BREAST ULTRASOUND at [facility]- NEM 02/09/2020: MAMMOGRAM at [facility] NEM 08/15/2019: BILATERAL BREAST ULTRASOUND at [facility] NEM 01/21/2019: MAMMOGRAM at [facility] NEM 07/18/2018: 3D AUTOMATED ULTRASOUND at [facility] NEM 01/15/2018: MAMMOGRAM at [facility] NEM 07/31/2017: 3D AUTOMATED ULTRASOUND at [facility] 01/16/2017: MAMMOGRAM at [facility] - NEM Assessment/Plan #1 Bilateral whole breast US today- NEM #2 Tolerating Evista well. No hot flashes, leg cramps, or mood changes. Continue on therapy. Does report some vaginal dryness- stock car driver managing. Replens helpful. Call if this becomes [...] #7 Due for well woman exam with stock car driver #8 TOBACCO COUNSELING She is not a [...] of care. Vilma Jim, MSN, AGNP-C, AOCNP [facility] Oncology & Hematology Breast Surgery In collaboration with: Dr. Corcoran LE PACKER documented in this encounter Plan of [...] patient. DICTATION LOCATION: [place] Vilma Jim CASE WORK AIDE MAMMO ORDERABLES * XR DEXA BONE DENSITY [...] the lumbar spine and hip(s) using a ViRTUAL INTERACTiVE DEXA scanner for bone mineral density determination [...] DO DICTATION LOCATION: Location 1 - [facility] Procedure Note Steve Jeter DO - 02/09/2021 XR DEXA BONE DENSITY AXIAL 1 OR MORE SITES DATE: 02/09/2021 9:22 AM HISTORY: 60 years old Female with post menopausal symptoms. 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
--- OUTSIDE RECORDS SUMMARY | 2024-08-13 01:12 | XMS_ITS | Encounter Summary ---
Author Organization [facility] Address [address] [place]ran: Epic Prelude ADT [place] [address] Care Team Providers Care Weapons And Tactics Instructor Name Role Phone Diana Braun MD Primary Care Provider [phone] Encounter Details Date Type Department Care Team [...] COVID-19? No / Unsure 08/03/2020 8:51 AM MANAGER OF PRODUCTION documented as of this encounter Plan of Treatment Not on file documented as of this encounter Visit Diagnoses Not on filedocumented in this encounter Care Teams Weapons And Tactics Instructor Relationship Specialty Start Date End Date Diana Braun MD PCP - General Family Practice 12/22/13 documented as of this encounter
--- OUTSIDE RECORDS SUMMARY | 2024-08-13 01:13 | XMS_ITS | Encounter Summary ---
Author Organization [facility] Address [address] [place] [address] Care Team Providers Care Instructor Adjunct Pharmacy Technician Name Role Phone Diana Braun MD Primary Care Provider [phone] Encounter Details Date Type Department Care Team (Late st Contact Info) Description 01/29/2014 Orders Only [facility] BREAST SURGERY - [place] [facility] [address] [address] [place] [address] Provider, Abstract NO ADDRESS ON [...] unknown material (specimen) Abstract Provider CHEMISTRY ORDERABLES [facility]# [id number] [address] [place] [address] documented in this encounter Visit Diagnoses Not on filedocumented in this encounter Care Teams Instructor Adjunct Pharmacy Technician Relationship Specialty Start Date End Date Diana Braun MD PCP - General Family Practice 12/22/13 documented as of this encounter
--- OUTSIDE RECORDS SUMMARY | 2024-08-13 01:13 | XMS_ITS | Encounter Summary ---
Author Organization [facility] Address [address] [place] [address] Care Team Providers Care Simplex Operator Name Role Phone Diana Braun MD Primary Care Provider [phone] Reason for Visit * Reason Comments Breast Exam, Routine, No Symptoms Encounter Details Date Type Department Care Team (Late st Contact Info) Description 01/16/2017 10:15 AM CDT Office Visit [facility] [address] [place] [address] Vilma Jim, AALIYAH NO ADDRESS [...] 4 years. She continues to see a awning installer on an annual basis. Past Medical History: Diagnosis Date ??? Fibrocystic disease of breast Past Surgical History: Procedure Laterality Date ??? HX EXCISIONAL BIOPSY Left 01/16/2014 flat epithelial atypia ??? HX WISDOM TEETH EXTRACTION ??? [place] EXCISE BREAST CYST 01/16/2014 BREAST BIOPSY performed by NoelMarina cortez MD at [facility] OR Current Outpatient Prescriptions: ??? cholecalciferol, Vitamin [...] of education: N/A Occupational History ??? [employer] Social History Main Topics ??? [...] : denies dysuria, frequency, urgency, or hematuria. 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 KEESHA Silverio, MSN [facility] Oncology & Hematology Breast Surgery documented in this encounter Plan of Treatment Not on file documented as of this encounter Visit Diagnoses Diagnosis Diffuse cystic mastopathy, unspecified laterality- Primary Flat epithelial atypia of breast, left documented in this encounter Care Teams Simplex Operator Relationship Specialty Start Date End Date Diana Braun MD PCP - General Family Practice 12/22/13 documented as of this encounter
--- OUTSIDE RECORDS SUMMARY | 2024-08-13 01:13 | XMS_ITS | Encounter Summary ---
Author Organization [facility] Address [address] [place] [address] Care Team Providers Care Four Slide Machine Operator Name Role Phone Unavailable Primary Care Provider Unavailabl e Encounter Details Date Type Department Care Team (Late st Contact Info) Description 12/12/2013 Orders Only [facility] BREAST SURGERY - [place] [facility] [address] [place] [address] Christin Gill RN Abnormal mammogram [...]
--- OUTSIDE RECORDS SUMMARY | 2024-08-13 01:13 | XMS_ITS | Encounter Summary ---
Author Organization [facility] Address [address] [place] [address] Care Team Providers Care Caterers Helper Name Role Phone Diana Braun MD Primary Care Provider [phone] Reason for Referral * Outpatient Services (Routine) - Closed Specialty Diagnoses / Procedures Referred By Paige avalos Referred To Contact Diagnoses Abnormal mammogram Procedures MAMMO DIGITAL DIAG UNI LEFT Marina An MD NO ADDRESS ON FILE Referral ID Status Reason Start Date Expiration Date Visits Re quested Visits Authorized [id number] Closed 01/09/2014 02/09/2015 1 1 * Outpatient Services (Routine) - Closed Specialty Diagnoses / Procedures Referred By Paige avalos Referred To Contact Diagnoses Abnormal mammogram Procedures MAMMO NEEDLE LOC EA LESION LT Marina An MD NO ADDRESS ON FILE Referral ID Status Reason Start Date Expiration Date Visits Re quested Visits Authorized [id number] Closed 01/09/2014 02/09/2015 1 1 Reason for Visit * Auth/Cert - Closed Specialty Diagnoses / Procedures Referred By Paige avalos Referred To Contact General Surgery Diagnoses ABNORMAL MAMMOGRAM Procedures BREAST BIOPSY [facility] [address] [address] [place] [address] Referral ID Status Reason Start Date Expiration Date Visits Re quested Visits Authorized [id number] Closed 1 1 Encounter Details Date Type Department Care Team (Latest Contact Info) Description 01/16/2014 6:36 AM CDT - 01/16/2014 10:32 AM CDT Hospital Encounter [facility] SURG[facility] [place] [address] [place] [address] Marina An MD NO ADDRESS [...] questions or problems call the office at [phone] documented in this encounter Medications at Time [...] PATHOLOGY (01/16/2014 9:36 AM CDT) SURGICAL PATHOLOGY ?[facility] ?[address] ? [place], [place] ??[address] ? Patient: ??CLARIBEL ABARCA ? : ??1960 ? Procedure Date: ??01/16/2014 ? Accession Date: ??01/16/2014 ? Case No: ??[id number] ? Ordering Dr: ??MARINA AN ? Case type SW is performed by [facility], [address] [place] [address], ? [place], [place] ??[address]; all other case types are performed by [facility] ? [facility], [address] [place], [place] ??[address] ?SURGICAL PATHOLOGY & NON-GYNECOLOGIC CYTOPATHOLOGY REPORT ? DIAGNOSIS ? BREAST, LEFT, NEEDLE LOCALIZED EXCISION: ? - FIBROCYSTIC CHANGES (SEE MICROSCOPIC). ? - POST-BIOPSY REACTIVE CHANGES ([id number]). ? Specimen Description: ? Left breast atypia, [...] ? Microscopic: ? The slides are labeled [id number], Claribel Abarca. ? The excision encompasses the prior biopsy site ([id number]). A variety of ? fibrocystic changes are present including stromal fibrosis, cyst formation ? and columnar cell change without atypia. No residual atypia is identified. ? HANNA/NORRIS 01.19.2014 12:20 pm ? Staging Form: ? No. ? ELECTRONIC SIGNATURE FOR AISLINN FERNANDO M.D.- 01/19/14 04:19 pm [facility] Tissue specimen (specimen) 01/16/2014 9:36 AM CDT Marina An MD PATHOLOGY/CYTOLOGY O RDERABLES [facility] CLIA# [id number] [address] [place] [address] * MAMMO NEEDLE LOC EA LESION LT [...] Intradermal) documented in this encounter Care Teams Caterers Helper Relationship Specialty Start Date End Date Diana Braun MD PCP - General Family Practice 12/22/13 documented as of this encounter
--- OUTSIDE RECORDS SUMMARY | 2024-08-13 01:13 | XMS_ITS | Encounter Summary ---
Author Organization [facility] Address [address] [place] [address] Care Team Providers Care Mechanical Technical Service Specialist Name Role Phone Diana Braun MD Primary Care Provider [phone] Encounter Details Date Type Department Care Team (Late st Contact Info) Description 12/24/2013 Orders Only [facility] [address] [facility] [address] [place] [address] Diana Braun MD [address] [place] [address] Social History Tobacco Use Types Packs/Day Years [...] on filedocumented in this encounter Care Teams Mechanical Technical Service Specialist Relationship Specialty Start Date End Date Diana Braun MD PCP - General Family Practice 12/22/13 documented as of this encounter
--- OUTSIDE RECORDS SUMMARY | 2024-08-13 01:13 | XMS_ITS | Encounter Summary ---
Author Organization [facility] Address [address] [place] [address] Care Team Providers Care Buffer Operator Name Role Phone Diana Braun MD Primary Care Provider [phone] Reason for Visit * Reason Comments High Risk new patient consult for Atypia Encounter Details Date Type Department Care Team (Late st Contact Info) Description 01/28/2014 1:00 PM CDT Office Visit [facility] Cancer and Breast Med Onc [place] [address] [place] [address] Baldev Castillo MD [address] [place] [address] Flat epithelial atypia of breast, unspecified laterality [...] by Marina Cohen MD at [facility] OR Current outpatient prescriptions:cwfdgcheqzlwh-gperywyk-jrktbm (CENTRUM SILVER) Tablet, Take 1 Tab by [...] of Education: N/A Occupational History ??? [employer] Social History Main Topics ??? Smoking [...] Primary documented in this encounter Care Teams Buffer Operator Relationship Specialty Start Date End Date Diana Braun MD PCP - General Family Practice 12/22/13 documented as of this encounter
--- OUTSIDE RECORDS SUMMARY | 2024-08-13 01:13 | XMS_ITS | Encounter Summary ---
Author Organization [facility] Address [address] [place] [address] Care Team Providers Care Bus Transportation Manager Name Role Phone Diana Braun MD Primary Care Provider [phone] Reason for Visit * Auth/Cert - Closed Specialty Diagnoses / Procedures Referred By Paige t Referred To Contact General Surgery Diagnoses ABNORMAL MAMMOGRAM Procedures BREAST BIOPSY [facility] [address] [address] [place] [address] Referral ID Status Reason Start Date Expiration Date Visits Re quested Visits Authorized [id number] Closed 1 1 Encounter Details Date Type Department Care Team (Late st Contact Info) Description 01/16/2014 9:00 AM CDT - 01/16/2014 10:00 AM CDT Surgery [facility] [place] [facility] [address] [address] [place] [address] Marina An MD NO ADDRESS [...] questions or problems call the office at [phone] documented in this encounter Medications at Time [...] IMPRESSION: Technically successful needle localization. [facility] Narrative 01/16/2014 4:08 PM CDT LEFT BREAST [...] PATHOLOGY (01/16/2014 9:36 AM CDT) SURGICAL PATHOLOGY ?[facility] ?[address] ? [place], [place] ??[address] ? Patient: ??CLARIBEL ABARCA ? : ??1960 ? Procedure Date: ??01/16/2014 ? Accession Date: ??01/16/2014 ? Case No: ??[id number] ? Ordering Dr: ??MARINA AN ? Case type SW is performed by [facility], [address], ? [place], [place] ??[address]; all other case types are performed by [facility] ? [facility], [address], [place] ??[address] ?SURGICAL PATHOLOGY & NON-GYNECOLOGIC CYTOPATHOLOGY REPORT ? DIAGNOSIS ? BREAST, LEFT, NEEDLE LOCALIZED EXCISION: ? - FIBROCYSTIC CHANGES (SEE MICROSCOPIC). ? - POST-BIOPSY REACTIVE CHANGES ([id number]). ? Specimen Description: ? Left breast atypia, [...] ? Microscopic: ? The slides are labeled [id number], Claribel Abarca. ? The excision encompasses the prior biopsy site ([id number]). A variety of ? fibrocystic changes are present including stromal fibrosis, cyst formation ? and columnar cell change without atypia. No residual atypia is identified. ? KHF/NORRIS 01.19.2014 12:20 pm ? Staging Form: ? No. ? ELECTRONIC SIGNATURE FOR AISLINN FERNANDO M.D.- 01/19/14 04:19 pm [facility] Tissue specimen (specimen) 01/16/2014 9:36 AM CDT Marina An MD PATHOLOGY/CYTOLOGY O RDERABLES [facility] [id number] [address] [facility] [address] [place] [address] * MAMMO NEEDLE LOC EA LESION LT [...] above findings by the office of Dr. nA. Dictated from [facility] Impressions 01/16/2014 4:08 [...] Intradermal) documented in this encounter Care Teams Bus Transportation Manager Relationship Specialty Start Date End Date Diana Braun MD PCP - General Family Practice 12/22/13 documented as of this encounter
--- OUTSIDE RECORDS SUMMARY | 2024-08-13 01:13 | XMS_ITS | Encounter Summary ---
Author Organization Address [address] [place] [address] Care Team Providers Care Maintenance Technician 3Rd Shift Name Role Phone Diana Braun MD Primary Care Provider [phone] Reason for Referral * Outpatient Services (Routine) - Closed Specialty Diagnoses / Procedures Referred By Paige avalos Referred To Contact Diagnoses Flat epithelial atypia of breast, left Diffuse cystic mastopathy, unspecified laterality Procedures MAMMO DIG DIAG BIL[place] [address] [place] [address] Referral ID Status Reason Start Date Expiration Date Visits Re quested Visits Authorized [id number] Closed 11/19/2015 12/19/2016 1 1 Encounter Details Date Type Department Care Team (Late st Contact Info) Description 11/19/2015 Orders Only [facility] BREAST SURGERY - [place] [facility] [address] [place] [address] [place] [address] [place] [address] Flat epithelial atypia of breast, [...] documented in this encounter Care Teams Maintenance Technician 3Rd Shift Relationship Specialty Start Date End Date Diana Braun MD PCP - General Family Practice 12/22/13 documented as of this encounter
--- OUTSIDE RECORDS SUMMARY | 2024-08-13 01:13 | XMS_ITS | Encounter Summary ---
Author Organization [facility] Address [address] [place] [address] Care Team Providers Care Head Custodian Name Role Phone Diana Braun MD Primary Care Provider [phone] Encounter Details Date Type Department Care Team (Late st Contact Info) Description 12/26/2013 Orders Only [facility] BREAST SURGERY - [place] [facility] [address] [address] [place] [address] Marina Cohen MD NO ADDRESS [...] unspecified documented in this encounter Care Teams Head Custodian Relationship Specialty Start Date End Date Diana Braun MD PCP - General Family Practice 12/22/13 documented as of this encounter
--- OUTSIDE RECORDS SUMMARY | 2024-08-13 01:13 | XMS_ITS | Encounter Summary ---
Author Organization [facility] Address [address] [place] [address] Care Team Providers Care Publisher Assistant Name Role Phone Diana Braun MD Primary Care Provider [phone] Reason for Visit * Reason Comments Follow Up Flat epithelial atyp ia of breast, left - 4 mo f/u * Auth/Cert Specialty Diagnoses / Procedures [facility] Referred To Contact Surgical Oncology [facility] [address] [place] [address] Referral ID Status Reason Start Date Expiration Date Visits Re quested Visits Authorized [id number] 1 1 Encounter Details Date Type Department Care Team (Late st Contact Info) Description 12/17/2014 10:15 AM CDT Office Visit [facility] BREAST SURGERY - [place] [facility] [address] [place] [address] Marina Cohen MD NO ADDRESS [...] Progress Notes * Marina Cohen MD - 12/17/2014 10:11 AM CDT [...] Outpatient Prescriptions Medication Sig Dispense Refill ??? ylvwhveohbmds-dmlijpnr-gwhtnz (CENTRUM SILVER) Tablet Take 1 Tab by [...] laterality documented in this encounter Care Teams Publisher Assistant Relationship Specialty Start Date End Date Diana Braun MD PCP - General Family Practice 12/22/13 documented as of this encounter
--- OUTSIDE RECORDS SUMMARY | 2024-08-13 01:13 | XMS_ITS | Encounter Summary ---
Author Organization [facility] Address [address] [place] [address] Care Team Providers Care Court Manager Name Role Phone Diana Braun MD Primary Care Provider [phone] Reason for Visit * Reason Onset Date Comments Breast Problem 12/15/2014 DIAGNOSTIC MAMM (DCM) Encounter Details Date Type Department Care Team (Late st Contact Info) Description 12/15/2014 Patient Outreach [facility] [address] [facility] [address] [facility] [address] [place] [address] Marina Cohen MD NO ADDRESS ON FILE [...] on filedocumented in this encounter Care Teams Court Manager Relationship Specialty Start Date End Date Diana Braun MD PCP - General Family Practice 12/22/13 documented as of this encounter
--- OUTSIDE RECORDS SUMMARY | 2024-08-13 01:13 | XMS_ITS | Encounter Summary ---
Author Organization [facility] Address [address] [place] [address] Care Team Providers Care Personal Computer Specialist Name Role Phone Diana Braun MD Primary Care Provider [phone] Reason for Visit * Auth/Cert - Closed Specialty Diagnoses / Procedures Referred By Contjovany t Referred To Contact General Surgery Diagnoses ABNORMAL MAMMOGRAM Procedures BREAST BIOPSY [facility] [address] [facility] [address] [facility] [address] [place] [address] Referral ID Status Reason Start Date Expiration Date Visits Re quested Visits Authorized [id number] Closed 1 1 Encounter Details Date Type Department Care Team (Late st Contact Info) Description 01/16/2014 8:59 AM CDT Anesthesia Event [facility] [address] [place] [address] Star Ashley MD [address] [place] [address] Eva Chambers CRNA [address] [place] [address] Anesthesia Record Procedure Summary Procedure [...] discussed with Patient. Plan discussed with Nurse Mitten Stitcher. Post-op Pain Control Plan to use IV [...] mg documented in this encounter Care Teams Personal Computer Specialist Relationship Specialty Start Date End Date Diana Braun MD PCP - General Family Practice 12/22/13 documented as of this encounter
--- OUTSIDE RECORDS SUMMARY | 2024-08-13 01:13 | XMS_ITS | Encounter Summary ---
Author Organization [facility] Address [address] [place] [address] Care Team Providers Care Prep Room Supervisor Name Role Phone Diana Braun MD Primary Care Provider Encounter Details Date Type Department Care Team (Late st Contact Info) Description 07/18/2016 Orders Only [facility] Admitting [address] [place] [address] Vilma Jim, ADMISSIONS EVALUATOR NO ADDRESS ON FILE Social History Tobacco [...] on filedocumented in this encounter Care Teams Prep Room Supervisor Relationship Specialty Start Date End Date Diana Braun MD PCP - General Family Practice 12/22/13 documented as of this encounter
--- OUTSIDE RECORDS SUMMARY | 2024-08-13 01:13 | XMS_ITS | Encounter Summary ---
Author Organization [facility] Address [address] [place] [address] Care Team Providers Care Overhead Crane Technician Name Role Phone Diana Braun MD [...] Expiration Date Visits Re quested Visits Authorized [id number] Closed 01/11/2016 02/10/2017 1 1 R CUSTODIAN Reason for Visit * Outpatient Services (Routine) - Closed Specialty Diagnoses / Procedures Referred By Contac t Referred To Contact Diagnoses Screening for osteoporosis Procedures XR DEXA BONE DENSITY AXIAL 1 OR MORE SITES Vilma Jim NP NO ADDRESS ON FILE Referral ID Status Reason Start Date Expiration Date Visits Re quested Visits Authorized [id number] Closed 01/11/2016 02/10/2017 1 1 Encounter Details Date Type Department Care Team (Latest Contact Info) Description 07/18/2016 8:57 AM LABOR CUSTODIAN - 07/18/2016 11:59 PM LABOR CUSTODIAN Hospital Encounter [facility] [address] [place] [address] Vilma Jim NP NO ADDRESS [...] OR MORE SITES Routine 07/18/2016 9:11 AM LABOR CUSTODIAN Screening for osteoporosis documented in this encounter Results * XR DEXA BONE DENSITY AXIAL 1 OR MORE SITES (07/18/2016 9:11 AM LABOR CUSTODIAN) Anatomical Region Laterality Modality Computed Radiogr aphy 07/18/2016 9:11 AM LABOR CUSTODIAN Impressions 07/18/2016 9:25 AM LABOR CUSTODIAN IMPRESSION: Osteopenic femur neck BMD. Lumbar Spine [...] Mc MD DICTATION LOCATION: Location 1 - [facility] 07/18/2016 9:25 AM LABOR CUSTODIAN EXAMINATION: ??BONE DENSITY STUDY (DXA) DATE: 07/18/2016 [...] Detailed report placed in Imaging Section of [employer] EMR. Procedure Note Amee Mc MD - [...] Detailed report placed in Imaging Section of [employer] EMR. IMPRESSION IMPRESSION: Osteopenic femur neck BMD. [...] Mc MD DICTATION LOCATION: Location 1 - [facility] Vilma Jim FIRE APPARATUS ENGINEER DIAGNOSTIC IMAGING O RDERABLES documented in this encounter Visit Diagnoses Diagnosis Screening for osteoporosis Special screening for osteoporosis documented in this encounter Care Teams Overhead Crane Technician Relationship Specialty Start Date End Date Diana Braun MD PCP - General Family Practice 12/22/13 documented as of this encounter
--- OUTSIDE RECORDS SUMMARY | 2024-08-13 01:13 | XMS_ITS | Encounter Summary ---
Author Organization [facility] Address [address] [place] [address] Care Team Providers Care Powertrain Design Engineer Name Role Phone Diana Braun MD Primary Care Provider [phone] Reason for Referral * Outpatient Services (Routine) - Closed Specialty Diagnoses / Procedures Referred By Paige avalos Referred To Contact Diagnoses Flat epithelial atypia of breast, left Diffuse cystic mastopathy, unspecified laterality Procedures MAMMO DIGITAL DIAG BILAT Marina Cohen MD NO ADDRESS ON FILE Referral ID Status Reason Start Date Expiration Date V isits Requested Visits Authorized [id number] Closed Other 09/16/2014 10/17/2015 1 1 OR MECHANICAL ENGINEER Reason for Visit * Reason Comments Follow Up Mammographic microca lcification - 6 mo f/u Encounter Details Date Type Department Care Team (Late st Contact Info) Description 09/16/2014 3:45 PM JUNIOR MECHANICAL ENGINEER Office Visit [facility] [address] [place] [address] Marina Cohen MD NO ADDRESS ON FILE [...] Comments Blood Pressure 107/57 09/16/2014 3:37 PM JUNIOR MECHANICAL ENGINEER Pulse 80 09/16/2014 3:37 PM JUNIOR MECHANICAL ENGINEER Temperature - - Respiratory Rate - - Oxygen Saturation - - Inhaled Oxygen Concentration - - Weight 56.7 kg (125 lb) 09/16/2014 3:37 PM JUNIOR MECHANICAL ENGINEER Height 165.1 cm (5' 5 ) 09/16/2014 3:37 PM JUNIOR MECHANICAL ENGINEER Body Mass Index 20.8 09/16/2014 3:37 PM JUNIOR MECHANICAL ENGINEER documented in this encounter Progress Notes * [...] Outpatient Prescriptions Medication Sig Dispense Refill ??? vgixmbssvuptu-flxvyrqs-gmtgzl (CENTRUM SILVER) Tablet Take 1 Tab by [...] back at that time with her mammogram. OR MECHANICAL ENGINEER documented in this encounter Plan of Treatment [...] RECOMMENDATION: Recommend continued annual mammography Dictated from [facility] Marina Cohen MD MAMMO ORDERABLES documented in this encounter Visit Diagnoses Diagnosis Flat epithelial atypia of breast, left- Primary Diffuse cystic mastopathy, unspecified laterality Flat epithelial atypia of breast, left Diffuse cystic mastopathy, unspecified laterality documented in this encounter Care Teams Powertrain Design Engineer Relationship Specialty Start Date End Date Diana Braun MD PCP - General Family Practice 12/22/13 documented as of this encounter
--- OUTSIDE RECORDS SUMMARY | 2024-08-13 01:13 | XMS_ITS | Encounter Summary ---
Author Organization [facility] Address [address] [place] [address] Care Team Providers Care Sales And Marketing Agent Name Role Phone Diana Braun MD Primary Care Provider [phone] Reason for Referral * Outpatient Services (Routine) - Closed Specialty Diagnoses / Procedures Referred By Contjovany t Referred To Contact Diagnoses Flat epithelial atypia of breast, left Diffuse cystic mastopathy, unspecified laterality Procedures MAMMO DIG DIAG BILAT W 3D LUIS Vilma Jim NP NO ADDRESS ON FILE Referral ID Status Reason Start Date Expiration Date Visits Re quested Visits Authorized [id number] Closed 01/11/2016 02/10/2017 1 1 * Outpatient Services (Routine) - Closed Specialty Diagnoses / Procedures Referred By Contac t Referred To Contact Diagnoses Screening for osteoporosis Procedures XR DEXA BONE DENSITY AXIAL 1 OR MORE SITES Vilma Jim NP NO ADDRESS ON FILE Referral ID Status Reason Start Date Expiration Date Visits Re quested Visits Authorized [id number] Closed 01/11/2016 02/10/2017 1 1 Reason for Visit * Reason Comments Breast Exam, Routine, No Symptoms Flat e pithelial atypia of breast, left - annual ck Encounter Details Date Type Department Care Team (Late st Contact Info) Description 01/11/2016 10:45 AM CDT Office Visit [facility] BREAST SURGERY - [place] [facility] [address] [place] [address] Vilma Jim NP NO ADDRESS [...] 4 years. She continues to see a airborne operations superintendent on an annual basis. She is past due for her bone mineral density screening. Past Medical History Diagnosis Date ??? Fibrocystic disease of breast Past Surgical History Procedure Laterality Date ??? Hx wisdom teeth extraction ??? Pr excise breast cyst 01/16/2014 BREAST BIOPSY performed by Marina Cohen MD at [facility] OR ??? Hx excisional biopsy [...] of Education: N/A Occupational History ??? [employer] Social History Main Topics ??? Smoking status: [...] : denies dysuria, frequency, urgency, or hematuria. MUSIC TYPOGRAPHER: denies any abnormal vaginal bleeding or unusual [...] the coordination of care. KEESHA Silverio, MSN [facility] Oncology & Hematology Breast Surgery [...] Category 2 - Benign findings. DICTATED LOCATION: [facility] Procedure Note Keke An MD - 01/16/2017 [...] Category 2 - Benign findings. DICTATED LOCATION: [facility] Vilma Jim NP MAMMO ORDERABLES * XR DEXA BONE DENSITY AXIAL 1 OR MORE SITES (07/18/2016 9:11 AM SPRAY FOAM INSTALLER) Anatomical Region Laterality Modality Computed Radiogr aphy 07/18/2016 9:11 AM SPRAY FOAM INSTALLER Impressions 07/18/2016 9:25 AM SPRAY FOAM INSTALLER IMPRESSION: Osteopenic femur neck BMD. Lumbar Spine [...] MD DICTATION LOCATION: Location 1 - [facility] Narrative 07/18/2016 9:25 AM SPRAY FOAM INSTALLER EXAMINATION: ??BONE DENSITY STUDY (DXA) DATE: 07/18/2016 9:11 AM CLINICAL HISTORY: 56 years postmenopausal female. PROCEDURE: Planar images of the lumbar spine and hip(s) using a [employer] DEXA scanner for bone mineral density determination (BMD). ?? FINDINGS: ? Lumbar Spine (L1-L4) T-score -1.0 ?? 1.06 g/sq cm Left femoral neck ?T-score -1.6 ?? 0.811 g/sq cm Right femoral neck ??T-score -1.5 ?? 0.831 g/sq cm Detailed report placed in Imaging Section of [email or web address] EMR. Procedure Note Amee Mc MD - 07/18/2016 EXAMINATION: BONE DENSITY STUDY (DXA) DATE: 07/18/2016 9:11 AM CLINICAL HISTORY: 56 years postmenopausal female. PROCEDURE: Planar images of the lumbar spine and hip(s) using a [employer] DEXA scanner for bone mineral density determination (BMD). FINDINGS: Lumbar Spine (L1-L4) T-score -1.0 1.06 g/sq cm Left femoral neck T-score -1.6 0.811 g/sq cm Right femoral neck T-score -1.5 0.831 g/sq cm Detailed report placed in Imaging Section of [email or web address] EMR. IMPRESSION IMPRESSION: Osteopenic femur neck BMD. [...] MD DICTATION LOCATION: Location 1 - [facility] Vilma Jim NP DIAGNOSTIC IMAGING O RDERABLES documented in this encounter Visit Diagnoses Diagnosis Flat epithelial atypia of breast, left- Primary Diffuse cystic mastopathy, unspecified laterality Screening for osteoporosis Special screening for osteoporosis Screening for osteoporosis Special screening for osteoporosis Flat epithelial atypia of breast, left Diffuse cystic mastopathy, unspecified laterality documented in this encounter Care Teams Sales And Marketing Agent Relationship Specialty Start Date End Date Diana Braun MD PCP - General Family Practice 12/22/13 documented as of this encounter
--- OUTSIDE RECORDS SUMMARY | 2024-08-13 01:13 | XMS_ITS | Encounter Summary ---
Author Organization [facility] Address [address] [place] [address] Care Team Providers Care Automotive Glazier Name Role Phone Diana Braun MD Primary Care Provider [phone] Reason for Referral * Outpatient Services (Routine) - Closed Specialty Diagnoses / Procedures Referred By Paige avalos Referred To Contact Diagnoses Abnormal mammogram Procedures MAMMO STEREOTACTIC BREAST BX LT Marina Cohen MD NO ADDRESS ON FILE Referral ID Status Reason Start Date Expiration Date Visits Re quested Visits Authorized [id number] Closed 12/16/2013 01/16/2015 1 1 Reason for Visit * Outpatient Services (Routine) - Closed Specialty Diagnoses / Procedures Referred By Paige avalos Referred To Contact Diagnoses Abnormal mammogram Procedures MAMMO STEREOTACTIC BREAST BX LT Marina Cohen MD NO ADDRESS ON FILE Referral ID Status Reason Start Date Expiration Date Visits Re quested Visits Authorized [id number] Closed 12/16/2013 01/16/2015 1 1 Encounter Details Date Type Department Care Team (Latest Contact Info) Description 12/22/2013 11:21 AM CDT - 12/22/2013 11:59 PM CDT Hospital Encounter [facility] [address] [place] [address] Marina Cohen MD NO ADDRESS [...] PATHOLOGY (12/22/2013 1:47 PM CDT) SURGICAL PATHOLOGY ?[facility] ?[address] ? [place], [place] ??[address] ? Patient: ??CLARIBEL ABARCA ? : ??1960 ? Procedure Date: ??12/22/2013 ? Accession Date: ??12/22/2013 ? Case No: ??[id number] ? Ordering Dr: ??LOIS BLACKWELL ? Case type SW is performed by [facility], [address] [place] [address], ? [place], [place] ??[address]; all other case types are performed by [facility] ? [facility], [address], [place], [place] ??[address] ?SURGICAL PATHOLOGY & NON-GYNECOLOGIC CYTOPATHOLOGY REPORT ? [...] submitted in cassettes A1 and A2. ? [facility] 12.23.2013 09:26 am ? Microscopic: ? The slides are labeled Claribel Abarca and [id number]. ? The core biopsies from the left [...] and its performance ? characteristic determined by [facility], Department of ? Laboratory Medicine. ??It has [...] FOR FELIPE DICKINSON M.D.- 12/25/13 01:35 pm [facility] Tissue specimen (specimen) 12/22/2013 1:47 PM CDT Lois Blackwell MD PATHOLOGY/CYTOLOGY ORDERABLES [facility] CLIA# [id number] [address] [facility] [place] [address] * MAMMO STEREOTACTIC BREAST BX LT (12/22/2013 [...] Site documented in this encounter Care Teams Automotive Glazier Relationship Specialty Start Date End Date Diana Braun MD PCP - General Family Practice 12/22/13 documented as of this encounter
--- OUTSIDE RECORDS SUMMARY | 2024-08-13 01:13 | XMS_ITS | Encounter Summary ---
Author Organization [facility] Address [address] [place] [address] Care Team Providers Care Inorganic Chemistry Teacher Name Role Phone Diana Braun MD Primary Care Provider [phone] Reason for Visit * Reason Comments Abnormal Mammogram Left breast calcs Encounter Details Date Type Department Care Team (Latest Contact Info) Description 12/22/2013 10:45 AM CDT Office Visit [facility] [address] [address] [place] [address] Marina Cohen MD NO ADDRESS [...] documented in this encounter Progress Notes * Mraina Cohen MD - 12/22/2013 11:15 AM CDT [...] Outpatient Prescriptions Medication Sig Dispense Refill ??? nwzlcmvfilkyc-vtsnbvba-kutoqz (CENTRUM SILVER) Tablet Take 1 Tab by [...] of Education: N/A Occupational History ??? [employer] Social History Main Topics ??? Smoking [...] laterality documented in this encounter Care Teams Inorganic Chemistry Teacher Relationship Specialty Start Date End Date Diana Braun MD PCP - General Family Practice 12/22/13 documented as of this encounter
--- OUTSIDE RECORDS SUMMARY | 2024-08-13 01:13 | XMS_ITS | Encounter Summary ---
Author Organization [facility] Address [address] [place] [address] Care Team Providers Care Dental Service Chief Name Role Phone Diana Braun MD Primary Care Provider [phone] Reason for Visit * Auth/Cert Specialty Diagnoses / Procedures Referred By Paige t Referred To Contact Laboratory [facility] Outpatient Laboratory [facility] [place] [address] Referral ID Status Reason Start Date Expiration Date Visits Re quested Visits Authorized [id number] 1 1 Encounter Details Date Type Department Care Team (Latest Contact Info) Description 07/18/2016 10:39 AM KNOT BORER - 07/18/2016 11:59 PM KNOT BORER Hospital Encounter [facility] Outpatient Laboratory Services [address] [place] [address] Vilma Jim, DIE CASTING MACHINE SETTER NO ADDRESS ON FILE Discharge Disposition: Home [...] COMPREHENSIVE METABOLIC PANEL Routine 07/18/2016 10:47 AM KNOT BORER Diffuse cystic mastopathy, unspecified laterality documented in this encounter Results * COMPREHENSIVE METABOLIC PANEL (07/18/2016 10:47 AM KNOT BORER) SODIUM 141 136 - 145 mmol/L 07/18/2016 2:26 PM KNOT BORER [facility] POTASSIUM 4.1 3.5 - 5.0 mmol/L 07/18/2016 2:26 PM KNOT BORER [facility] CHLORIDE 101 98 - 107 mmol/L 07/18/2016 2:26 PM KNOT BORER [facility] CO2 27 22 - 29 mmol/L 07/18/2016 2:26 PM KNOT BORER [facility] CALCIUM 9.3 8.6 - 10.2 mg/dL 07/18/2016 2:26 PM KNOT BORER [facility] BUN 18 6 - 20 mg/dL 07/18/2016 2:26 PM [facility] CREATININE 0.59 0.51 - 0.95 mg/dL 07/18/2016 2:26 PM [facility] GLUCOSE 85 74 - 99 mg/dL 07/18/2016 2:26 PM [facility] TOTAL PROTEIN 7.2 6.7 - 8.6 g/dL 07/18/2016 2:26 PM [facility] ALBUMIN 4.5 3.5 - 5.2 g/dL 07/18/2016 2:26 PM [facility] BILIRUBIN TOTAL 0.4 0.3 - 1.2 mg/dL 07/18/2016 2:26 PM [facility] ALKALINE PHOSPHATASE 74 35 - 104 U/L 07/18/2016 2:26 PM [facility] AST 21 <33 U/L 07/18/2016 2:26 PM [facility] ALT 10 <34 U/L 07/18/2016 2:26 PM [facility] GFR >60 >=60 mL/min/1.7 3 sq meter 07/18/2016 2:26 PM [facility] Comment: eGFR [...] mL/min/1.7 3 sq meter 07/18/2016 2:26 PM KNOT BORER [facility] [facility]ORATORY SERVICES [facility] ANION GAP 13 8 - 16 mmol/L 07/18/2016 2:26 PM KNOT BORER [facility] LABORATORY SERVICES [facility] Blood Venipuncture / Unknown 07/18/2016 10:47 AM KNOT BORER 07/18/2016 10:47 AM KNOT BORER Vilma Jim DIE CASTING MACHINE SETTER CHEMISTRY ORDERABLES [facility] LABORATORY SERVICES [facility]# [id number] 5 SM[address] [place] [address] documented in this encounter Visit Diagnoses Diagnosis Diffuse cystic mastopathy, unspecified laterality documented in this encounter Care Teams Dental Service Chief Relationship Specialty Start Date End Date Diana Braun MD PCP - General Family Practice 12/22/13 documented as of this encounter
--- OUTSIDE RECORDS SUMMARY | 2024-08-13 01:13 | XMS_ITS | Encounter Summary ---
Author Organization [facility] Address [address] [place] [address] Care Team Providers Care Signal Fitter Name Role Phone Diana Braun MD Primary Care Provider [phone] Reason for Visit * Reason Comments Results Encounter Details Date Type Department Care Team (Late st Contact Info) Description 01/20/2014 Chart Note [facility] BRE[facility] - [place] [facility] [address] [place] [address] Marina Cohen MD NO ADDRESS [...] on filedocumented in this encounter Care Teams Signal Fitter Relationship Specialty Start Date End Date Diana Braun MD PCP - General Family Practice 12/22/13 documented as of this encounter
--- OUTSIDE RECORDS SUMMARY | 2024-08-13 01:13 | XMS_ITS | Encounter Summary ---
Author Organization [facility] Address [address] [place] [address] Care Team Providers Care Care Aid Name Role Phone Diana Braun MD Primary Care Provider [phone] Reason for Referral * Outpatient Services (Routine) - Closed Specialty Diagnoses / Procedures Referred By Paige avalos Referred To Contact Diagnoses Abnormal mammogram Procedures MAMMO DIGITAL DIAG UNI LEFT Marina Cohen MD NO ADDRESS ON FILE Referral ID Status Reason Start Date Expiration Date Visits Re quested Visits Authorized [id number] Closed 12/22/2013 01/22/2015 1 1 Reason for Visit * Outpatient Services (Routine) - Closed Specialty Diagnoses / Procedures Referred By Paige avalos Referred To Contact Diagnoses Abnormal mammogram Procedures MAMMO DIGITAL DIAG UNI LEFT Marina Cohen MD NO ADDRESS ON FILE Referral ID Status Reason Start Date Expiration Date Visits Re quested Visits Authorized [id number] Closed 12/22/2013 01/22/2015 1 1 Encounter Details Date Type Department Care Team (Latest Contact Info) Description 12/22/2013 11:22 AM CDT - 12/22/2013 11:59 PM CDT Hospital Encounter [facility] [address] [place] [address] Marina Cohen MD NO ADDRESS [...] biopsy with tissue marker placement. [facility] Marina Cohen MD MAMMO ORDERABLES documented in this encounter Visit Diagnoses Diagnosis Abnormal mammogram Abnormal mammogram, unspecified documented in this encounter Care Teams Care Aid Relationship Specialty Start Date End Date Diana Braun MD PCP - General Family Practice 12/22/13 documented as of this encounter
--- OUTSIDE RECORDS SUMMARY | 2024-08-13 01:13 | XMS_ITS | Encounter Summary ---
Author Organization [facility] Address [address] [place] [address] Care Team Providers Care Home Care Music Therapist Name Role Phone Diana Braun MD Primary Care Provider [phone] Reason for Referral * Outpatient Services (Routine) - Closed Specialty Diagnoses / Procedures Referred By Contac t Referred To Contact Diagnoses Flat epithelial atypia of breast, left Diffuse cystic mastopathy, unspecified laterality Procedures MAMMO DIGITAL DIAG Marina Kruger MD NO ADDRESS ON FILE Referral ID Status Reason Start Date Expiration Date V isits Requested Visits Authorized [id number] Closed Other 09/16/2014 10/17/2015 1 1 Reason for Visit * Outpatient Services (Routine) - Closed Specialty Diagnoses / Procedures Referred By Contac t Referred To Contact Diagnoses Flat epithelial atypia of breast, left Diffuse cystic mastopathy, unspecified laterality Procedures MAMMO DIGITAL DIAG Marina Kruger MD NO ADDRESS ON FILE Referral ID Status Reason Start Date Expiration Date V isits Requested Visits Authorized [id number] Closed Other 09/16/2014 10/17/2015 1 1 Encounter Details Date Type Department Care Team (Latest Contact Info) Description 12/17/2014 9:07 AM CDT - 12/17/2014 11:59 PM CDT Hospital Encounter [facility] [address] [place] [id number] Marina Cohen MD NO ADDRESS ON FILE [...] RECOMMENDATION: Recommend continued annual mammography Dictated from [facility] [employer] [facility] [employer] [facility] [place] Procedure Note Mane Watson MD - 12/23/2014 [...] RECOMMENDATION: Recommend continued annual mammography Dictated from [employer] [place] Marina Cohen MD MAMMO ORDERABLES documented in this encounter Visit Diagnoses Diagnosis Flat epithelial atypia of breast, left Diffuse cystic mastopathy, unspecified laterality documented in this encounter Care Teams Home Care Music Therapist Relationship Specialty Start Date End Date Diana Braun MD PCP - General Family Practice 12/22/13 documented as of this encounter
--- OUTSIDE RECORDS SUMMARY | 2024-08-13 01:13 | XMS_ITS | Encounter Summary ---
Author Organization [facility] Address [address] [place] [address] Care Team Providers Care Chef Kitchen Manager Name Role Phone Diana Braun MD Primary Care Provider [phone] Reason for Visit * Reason Comments Results pathology Encounter Details Date Type Department Care Team (Late st Contact Info) Description 01/20/2014 Chart Note [facility] BREAST SURGERY - [place] [facility] [address] [facility] [address] [place] [address] Marina Cohen MD NO ADDRESS [...] for left needle LOC excision done at [facility] on 01/16/2014. Path reveals fibrocystic [...] on filedocumented in this encounter Care Teams Chef Kitchen Manager Relationship Specialty Start Date End Date Diana Braun MD PCP - General Family Practice 12/22/13 documented as of this encounter
--- OUTSIDE RECORDS SUMMARY | 2024-08-13 01:13 | XMS_ITS | Encounter Summary ---
Author Organization [facility] Address [address] [place] [address] Care Team Providers Care Supply Chain Systems Manager Name Role Phone Diana Braun MD Primary Care Provider [phone] Reason for Referral * Outpatient Services (Routine) - Closed Specialty Diagnoses / Procedures Referred By Paige avalos Referred To Contact Diagnoses Abnormal mammogram Procedures MAMMO NEEDLE LOC EA LESION LT Marina Cohen MD NO ADDRESS ON FILE Referral ID Status Reason Start Date Expiration Date Visits Re quested Visits Authorized [id number] Closed 01/09/2014 02/09/2015 1 1 Encounter Details Date Type Department Care Team (Late st Contact Info) Description 01/09/2014 Orders Only [facility] BREAST SURGERY - [place] [facility] [address] [facility] [address] [place] [address] Marina Cohen MD NO ADDRESS ON FILE [...] IMPRESSION: Technically successful needle localization. [facility] Marina Cohen MD MAMMO ORDERABLES documented in this encounter Visit Diagnoses Diagnosis Abnormal mammogram- Primary Abnormal mammogram, unspecified documented in this encounter Care Teams Supply Chain Systems Manager Relationship Specialty Start Date End Date Diana Braun MD PCP - General Family Practice 12/22/13 documented as of this encounter
--- OUTSIDE RECORDS SUMMARY | 2024-08-13 01:13 | XMS_ITS | Encounter Summary ---
Author Organization [facility] Address [address] [place] [address] Care Team Providers Care Physicist Light And Optics Name Role Phone Diana Braun MD Primary Care Provider [phone] Reason for Visit * Reason Comments Results pathology Encounter Details Date Type Department Care Team (Late st Contact Info) Description 12/26/2013 Chart Note [facility] BREAST SURGERY - [place] [facility] [address] [facility] [address] [place] [address] Marina Cohen MD NO ADDRESS [...] results for left core biopsy done at [facility] on12/22/2013. Path results reveal flat epithelial atypia, focal, fibrocystic changes, microcalcifications. Pathology is high risk and needle LOC recommended per Dr. Blackwell. Discussed removal and pt in agreement. Transferred to [facility] to schedule surgery. Pt. voices understanding documented in this encounter Plan of Treatment Not on file documented as of this encounter Visit Diagnoses Not on filedocumented in this encounter Care Teams Physicist Light And Optics Relationship Specialty Start Date End Date Diana Barun MD PCP - General Family Practice 12/22/13 documented as of this encounter
--- OUTSIDE RECORDS SUMMARY | 2024-08-13 01:13 | XMS_ITS | Encounter Summary ---
Author Organization [facility] Address [address] [place] [address] Care Team Providers Care Program Coordinator Executive Education Name Role Phone Diana Braun MD Primary Care Provider [phone] Reason for Visit * Reason Comments Post-op Visit Encounter Details Date Type Department Care Team (Latest Contact Info) Description 01/28/2014 2:30 PM CDT Clinical Support [facility] BRE[facility] [address] [place] [address] Diffuse cystic mastopathy, left (Primary [...] Primary documented in this encounter Care Teams Program Coordinator Executive Education Relationship Specialty Start Date End Date Diana Braun MD PCP - General Family Practice 12/22/13 documented as of this encounter
--- OUTSIDE RECORDS SUMMARY | 2024-08-13 01:13 | XMS_ITS | Encounter Summary ---
Author Organization [facility] Address [address] [place] [address] Care Team Providers Care Poultry Husbandman Name Role Phone Unavailable Primary Care Provider Unavailabl e Reason for Referral * Outpatient Services (Routine) - Closed Specialty Diagnoses / Procedures Referred By Paige avalos Referred To Contact Diagnoses Abnormal mammogram Procedures MAMMO STEREOTACTIC BREAST BX LT Marina Cohen MD NO ADDRESS ON FILE Referral ID Status Reason Start Date Expiration Date Visits Re quested Visits Authorized [id number] Closed 12/16/2013 01/16/2015 1 1 Encounter Details Date Type Department Care Team (Late st Contact Info) Description 12/16/2013 Orders Only [facility] BREAST SURGERY - [place] [facility] [address] [facility] [address] [place] [address] Christin Gill RN Abnormal mammogram (Primary Dx) [...]
--- OUTSIDE RECORDS SUMMARY | 2024-08-13 01:13 | XMS_ITS | Encounter Summary ---
Author Organization [facility] Address [address] [place] [address] Care Team Providers Care Hris Coordinator Name Role Phone Diana Braun MD Primary Care Provider [phone] Reason for Referral * Outpatient Services (Routine) - Closed Specialty Diagnoses / Procedures Referred By Paige avalos Referred To Contact Diagnoses Flat epithelial atypia of breast, left Diffuse cystic mastopathy, unspecified laterality Procedures MAMMO DIG DIAG BILAT W 3D Vilma Weller NP NO ADDRESS ON FILE Referral ID Status Reason Start Date Expiration Date Visits Re quested Visits Authorized [id number] Closed 01/11/2016 02/10/2017 1 1 Reason for [...] Expiration Date Visits Re quested Visits Authorized [id number] Closed 01/11/2016 02/10/2017 1 1 Encounter Details Date Type Department Care Team (Latest Contact Info) Description 01/16/2017 9:15 AM CDT - 01/16/2017 11:59 PM CDT Hospital Encounter [facility] [address] [place] [address] Vilma Jim NP NO ADDRESS ON FILE [...] Category 2 - Benign findings. DICTATED LOCATION: [facility] Procedure Note Keke An MD - 01/16/2017 [...] Category 2 - Benign findings. DICTATED LOCATION: [facility] Vilma Jim NP MAMMO ORDERABLES documented in this encounter Visit Diagnoses Diagnosis Flat epithelial atypia of breast, left Diffuse cystic mastopathy, unspecified laterality documented in this encounter Care Teams Hris Coordinator Relationship Specialty Start Date End Date Diana Braun MD PCP - General Family Practice 12/22/13 documented as of this encounter
--- OUTSIDE RECORDS SUMMARY | 2024-08-13 01:13 | XMS_ITS | Encounter Summary ---
Author Organization [facility] Address [address] [place] [address] Care Team Providers Care Medical Orderly Name Role Phone Diana Braun MD Primary Care Provider [phone] Reason for Referral * Outpatient Services (Routine) - Closed Specialty Diagnoses / Procedures Referred By Paige avalos Referred To Contact Diagnoses Flat epithelial atypia of breast, left Diffuse cystic mastopathy, unspecified laterality Procedures MAMMO [place] [address] [place] [address] Referral ID Status Reason Start Date Expiration Date Visits Re quested Visits Authorized [id number] Closed 11/19/2015 12/19/2016 1 1 Reason for Visit * Outpatient Services (Routine) - Closed Specialty Diagnoses / Procedures Referred By Paige avalos Referred To Contact Diagnoses Flat epithelial atypia of breast, left Diffuse cystic mastopathy, unspecified laterality Procedures MAMMO DIG [place] [address] [place] [address] Referral ID Status Reason Start Date Expiration Date Visits Re quested Visits Authorized [id number] Closed 11/19/2015 12/19/2016 1 1 Encounter Details Date Type Department Care Team (Latest Contact Info) Description 01/11/2016 9:40 AM CDT - 01/11/2016 11:59 PM CDT Hospital Encounter [facility] [address] [address] [address] [place] [address] [place] [id number] Discharge Disposition: Home or Self Care Social [...] laterality documented in this encounter Care Teams Medical Orderly Relationship Specialty Start Date End Date Diana Braun MD PCP - General Family Practice 12/22/13 documented as of this encounter
== END 2024-08-06 13:51 | disposition home or self-care (01) | DRG 482 ==
LOC: ANHED 17:30 → ANH3MEDSUR 17:30
PROVIDERS: Orthopaedic Surgery; Physician Assistant; Admitting Provider Internal Medicine; Emergency Provider Nurse Practitioner Family; PCP Family Medicine; Visit Provider Nurse Practitioner Acute Care
PROC: 0QS734Z Reposition Left Upper Femur with Internal Fixation Device, Percutaneous Approach (ICD-10-PCS; principal; 2024-08-05 10:30)
DX: S72.012A Unspecified intracapsular fracture of left femur, initial encounter for closed fracture (principal); S72.002A Fracture of unspecified part of neck of left femur, initial encounter for closed fracture; W01.0XXA Fall on same level from slipping, tripping and stumbling without subsequent striking against object, initial encounter; M85.80 Other specified disorders of bone density and structure, unspecified site
CPT/HCPCS: 36415; 71045; 72192; 80048; 80053; 83735; 85025; 93005; 96374; 96376; 97110; 97116; 97161; 97165; 97530; 97535; 99199; 99285; A9270; C1713; J0690; J1100; J1171; J1652; J1741; J1885; J2003; J2250; J2371; J2405; J2704; J3010; J7120

== ENCOUNTER 2024-09-17 10:11 | Outpatient (CLI) | payer BC, SELFPAY ==
--- NOTE | ~2024-09-17 | XR_ITS ---
EXAMINATION: XR knee LT min 4V DATE: 09/17/2024 10:28 INDICATION: Left knee pain. TECHNIQUE: 4 views of left knee including standing views were obtained. COMPARISON: None. FINDINGS: Alignment is normal. No fracture. There is mild osteoarthritis of medial compartment charac terized by tiny osteophytes. No knee joint effusion. IMPRESSION: 1. Mild left knee osteoarthritis. Reviewed, dictated and finalized at location A. TRAINER OPERATOR
--- NOTE | ~2024-09-17 | XR_ITS ---
EXAMINATION: XR knee RT min 4V DATE: 09/17/2024 10:28 INDICATION: Right knee pain. TECHNIQUE: 4 views of right knee including standing views were obtained. COMPARISON: None. FINDINGS: Alignment is normal. No fracture. There is mild osteoarthritis of medial and patellofemoral compartments characterized by tiny osteophytes. No knee joint effusion. IMPRESSION: 1. Mild right knee osteoarthritis. Reviewed, dictated and finalized at location A. RTMENT STORE SALESPERSON
== END 2024-09-17 10:12 | disposition home or self-care (01) ==
LOC: GOSHIMG 10:12
PROVIDERS: PCP Family Medicine; Visit Provider Family Medicine
DX: M17.0 Bilateral primary osteoarthritis of knee (principal)
CPT/HCPCS: 73564

== ENCOUNTER 2025-06-29 11:56 | Outpatient (CLI) | payer MEDICARE, SELFPAY ==
--- NOTE | ~2025-06-29 | MM_ITS ---
EXAMINATION: MM screening [facility] BI w kamari HISTORY: Screening TECHNIQUE: Craniocaudal and mediolateral oblique 3-D tomosynthesis images were obtained and synthetic 2-D images were generated. CAD analysis was submitted and interpreted. COMPARISON: Comparison to multiple prior studies sequentially, with oldest reviewed study dated 01/21/2019. BREAST PARENCHYMAL COMPOSITION: Dense: The breasts are extremely dense, which lowers the sensitivity of mammography. FINDINGS: There is no evidence of suspicious mass, calcification, or architectural distortion to suggest malignancy in either breast. There has been no suspicious interval change. IMPRESSION: 1. No mammographic evidence of malignancy. 2. Recommend routine screening mammography in one year. BI-RADS Category 1: Negative Reviewed, dictated and finalized at location B. ON LETTERING MACHINE OPERATOR
--- OUTSIDE RECORDS SUMMARY | 2025-06-29 12:31 | XMS_ITS | Clinical Summary ---
Author Organization [facility] [place] Address [address] [place] [address] Phone Care Team Providers Care Drilling And Production Superintendent Name Role Phone Diana Braun MD Primary Care Provider [phone] Allergies No known active allergies Medications cholecalciferol, Vitamin D3, (VITAMIN D3) 1,000 unit Capsule Take by mouth daily. Active MULTIVITAMIN ORAL Take by mouth. Active raloxifene (EVISTA) 60 mg tablet Take 1 Tablet (60 mg) by mouth daily. 90 Tablet 3 05/09/2021 Active Active Problems Patient Care Coordination No te Formatting of this note migh t be different from the original. Primary Care: Diana Braun MD Referring Provider: Joe Braun MD [address] [place] [address] Other: Vilma Jim NP Problem Noted Date Diagnosed Date Flat epithelial atypia of breast 01/28/2014 Diffuse cystic mastopathy 01/28/2014 Resolved Problems Problem Noted Date Diagnosed Date Resolved Date Abnormal mammogram 12/12/2013 5 Immunizations Immunization Administration Dates Next Due (PATTIE) COVID-19 VACCINE [...] = 0.6 oz pur e alcohol) moderate Comments No Sex and Gender Information Value Date Recorded Sex Assigned at Not on file Legal Sex Female 10:07 AM CDT Gender Identity Not on file Sexual Orientation Not on file Occupation Industry Job Start Date Job End Date Not on file Not on file Not on file Not on file Last Filed Vital Signs Vital Sign Reading Time Taken Comments Blood Pressure 115/69 02/09/2021 11:15 AM CDT Pulse 68 02/09/2021 11:15 AM CDT Temperature 36.5 C (97.7 F) 02/09/2021 11:15 AM CDT Respiratory Rate 18 02/08/2021 1:58 PM CDT Oxygen Saturation 98% 02/09/2021 11:15 AM CDT Inhaled Oxygen Concentration - - Weight 59 kg (130 lb) 02/09/2021 11:15 AM CDT Height 165.1 cm (5' 5) 02/09/2021 11:15 AM CDT Body Mass Index 21.63 02/09/2021 11:15 AM CDT Plan of Treatment Health Maintenance Due Date Last Done Comments DTAP/TDAP/TD VACCINES (1 - Tdap) 1979 COLORECTAL SCREENING 2005 Colorectal Cancer Screening 2005 FIT-DNA Q 3 years 2005 FIT/FOBT Q 1 year 2005 Flex Sig/CT Colonography Q 5 years 2005 PNEUMOCOCCAL VACCINE 50+ YEA RS (1 of 1 - PCV) 2010 ZOSTER VACCINE (1 of 2) 2010 BREAST CANCER SCREENING 02/09/2022 02/10/20 21, 02/09/2020, 01/21/2019, Additional history exists INFLUENZA VACCINE (#1) 2025 04/27/2020, 2018 COVID-19 Vaccine (2 - 2024-2 6 season) 2025 10/25/2020 OSTEOPOROSIS SCREENING 02/09/2026 , 07/18/2018, 07/18/2016 RSV VACCINE (60+ or ) (1 - 1-dose 75+ series) 2035 Procedures Procedure Name Priority Date/Time Associated Diagnosis Comments MAMMO 3D LUIS DIAGNOSTIC BILAT W OR WO CAD Routine 02/09/2021 10:43 AM CDT 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 Diffuse cystic mastopathy, unspecified laterality XR DEXA BONE DENSITY AXIAL 1 OR MORE SITES Routine 02/09/2021 9:22 AM CDT Screening for osteoporosis from Last 3 Months or Most Recently [...] with the patient. DICTATION LOCATION: [facility] 02/09/2021 12:23 PM CDT BILATERAL DIGITAL DIAGNOSTIC [...] with the patient. DICTATION LOCATION: [facility] [place] [facility] Vilma Jim NP MAMMO ORDERABLES Final Result * XR DEXA BONE DENSITY AXIAL 1 OR MORE SITES (02/09/2021 9:22 AM CDT) Anatomical Region Laterality Modality Computed Radiogr aphy 02/09/2021 9:26 AM CDT Narrative 02/09/2021 9:30 AM CDT XR DEXA BONE DENSITY AXIAL 1 OR MORE SITES DATE: 02/09/2021 9:22 AM HISTORY: 60 years old Female with post menopausal symptoms. PROCEDURE: Planar images of the lumbar spine and hip(s) using a [employer] Wireless DEXA scanner for bone mineral density determination [...] Jeter DO DICTATION LOCATION: Location 1 - [facility] Procedure Note Steve Jeter DO - 02/09/2021 XR DEXA BONE DENSITY AXIAL 1 OR MORE SITES DATE: 02/09/2021 9:22 AM HISTORY: 60 years old Female with post menopausal symptoms. PROCEDURE: Planar images of the lumbar spine and hip(s) using a [employer] Wireless DEXA scanner for bone mineral density determination [...] by Dr. Steve Jeter, DICTATION LOCATION: Location [address] [place] [address] Vilma Jim NP DIAGNOSTIC IMAGING ORDERABLES Final Result from Last 3 Months or Most Recently Relevant to Health Maintenance Insurance [employer] PPO [id number] [employer] Advance Directives For more information, please contact: [phone] * Full Code (Latest Code Status on File) Date Activated Date Inactivated Comments 01/16/2014 9:03 AM 01/16/2014 12:32 PM * Full Code Date Activated Date Inactivated Comments 01/16/2014 7:05 AM 01/16/2014 9:03 AM Care Teams Drilling And Production Superintendent Relationship Specialty Start Date End Date Diana Braun MD PCP - General Family Practice 12/22/13
--- OUTSIDE RECORDS SUMMARY | 2025-06-29 12:31 | XMS_ITS | Clinical Summary ---
Author Organization [facility] Address [facility] [place] [address] Care Team Providers Care Route Rider Name Role Phone Faisal Amaroth Manas WILKINS Primary Care Provider [phone] Social History Tobacco Use Types Packs/Day Years Used Date Smoking Tobacco: Never Assessed Comments Unknown Sex and Gender Information Value Date Recorded Sex Assigned at Not on file Legal Sex Female 10:51 AM CDT Gender Identity Not on file Sexual Orientation Not on file Plan of Treatment Health Maintenance Due Date Last Done Comments Colorectal Cancer Screening Colonoscopy (10 Years) 1960 Hepatitis C 1978 Pneumococcal Vaccine: 50+ Years (1 of 1 - PCV) 2010 Mammogram Screening 02/09/2023 02/09/2021, 02/09/2020, 01/21/2019, Additional history exists COVID-19 Vaccine ( - 2024- season) 2025 06/13/2022, 06/21/2021, 10/25/2020 Influenza Adult (#1) 2025 06/11/2023, 05/24/2022, 04/27/2020, Additional history exists DTaP, Tdap and Td Vaccines (2 - Td or Tdap) 12/19/2032 12/19/2022 RSV Immunization or 60+ Years (1 - 1-dose 75+ series) 2035 Dexa Scan (General) Completed 02/09/2021, 07/18/2018, 07/18/2016 Zoster Vaccines Completed 09/12/2022, 07/03/2022 Hepatitis A Vaccines Aged Out No long er eligible based on patient's age to complete this topic Meningococcal B Vaccine Aged Out No l onger eligible based on patient's age to complete this topic Meningococcal Vaccine Aged Out No amarilys asim eligible based on patient's age to complete this topic RSV Immunizations Under 20 Months Aged Out No longer eligible based on patient's age to complete this topic Insurance [facility] Care Teams Route Rider Relationship Specialty Start Date End Date Puja Amaro DO [address] [place] [address] PCP - General FAMILY PRACTICE 01/04/24
== END 2025-06-29 11:57 | disposition home or self-care (01) ==
LOC: CHSIMG 12:00
PROVIDERS: PCP Family Medicine; Visit Provider Family Medicine
DX: Z12.31 Encounter for screening mammogram for malignant neoplasm of breast (principal)
CPT/HCPCS: 77063; 77067